=== PATIENT | female | born 1945 | race Caucasian/White ===

== ENCOUNTER 2020-05-03 10:45 | Outpatient (CLI) | payer MEDICARE, OTHER, SELFPAY ==
--- NOTE | ~2020-05-03 | XR_ITS ---
XR ankle LT min 3V DATE: 05/03/2020 11:12 INDICATION: Left ankle injury on 04/24/2020 TECHNIQUE: 4 views COMPARISON: None FINDINGS: There is a linear oblique fracture of the lateral malleolus with one cortical width lateral displacement. Mild overlying soft tissue swelling laterally. The medial malleolus and the posterior malleolus are intact. Prominent plantar and posterior calcaneal enthesopathy. Prominent calcification along the posterior a spect of the distal Achilles tendon. IMPRESSION: Lateral malleolar fracture Reviewed, dictated and finalized at location A. IMPRESSION: Lateral malleolar fracture
== END 2020-05-03 10:46 | disposition home or self-care (01) ==
PROVIDERS: PCP Internal Medicine; Visit Provider Internal Medicine
DX: S82.62XA Displaced fracture of lateral malleolus of left fibula, initial encounter for closed fracture (principal); X58.XXXA Exposure to other specified factors, initial encounter
CPT/HCPCS: 73610

== ENCOUNTER 2020-10-05 13:31 | Outpatient (CLI) | payer MEDICARE, OTHER, SELFPAY ==
--- NOTE | ~2020-10-05 | MM_ITS ---
EXAMINATION: MM screening ligia BI w sera HISTORY: Screening mammogram TECHNIQUE: Craniocaudal and mediolateral oblique 3-D tomosynthesis images were obtained and synthetic 2-D images were generated. CAD analysis was submitted and interpreted. COMPARISON: , 12/14/2017 bilateral digital screening mammogram BREAST PARENCHYMAL COMPOSITION: There are scattered areas of fibroglandular density. FINDINGS: There is no evidence of suspicious mass, calcification, or architectural distortion to sugg est malignancy in either breast. There has been no suspicious interval change. IMPRESSION: 1. No mammographic evidence of malignancy. 2. Recommend routine screening mammography in one year. BI-RADS Category 1: Negative Reviewed, dictated and finalized at location A. TECH
--- NOTE | ~2020-10-05 | US_ITS ---
EXAMINATION: US soft tissue head and neck DATE: 10/05/2020 13:57 INDICATION: Neck mass. Benign lipomatous neoplasm, unspecified. TECHNIQUE: Multiple grayscale and Doppler ultrasound images of the neck were obtained. COMPARISON: None FINDINGS: There is no abnormal mass or lymphadenopathy in the patient's area of concern in the right lateral neck. IMPRESSION: 1. No abnormal mass or lymphadenopathy in the patient's area of concern in the right lateral neck. Reviewed, dictated and finalized at location A. T RELATIONS COORDINATOR
== END 2020-10-05 13:32 | disposition home or self-care (01) ==
PROVIDERS: PCP Internal Medicine; Visit Provider Internal Medicine
DX: Z12.31 Encounter for screening mammogram for malignant neoplasm of breast (principal); D17.9 Benign lipomatous neoplasm, unspecified
CPT/HCPCS: 76536; 77063; 77067

== ENCOUNTER 2021-03-21 14:01 | Outpatient (CLI) | payer MEDICARE, SELFPAY ==
--- NOTE | ~2021-03-21 | CT_ITS ---
EXAMINATION: CT soft tissue neck wo con DATE: 03/21/2021 14:35 INDICATION: Neck localized swelling. TECHNIQUE: Computed tomography (CT) of the neck was performed without intravenous contrast. Automated exposure control and iterative reconstruction technique were employed. The dose-length product was 5 27.42 mGy-cm. COMPARISON: Ultrasound 10/05/2020 FINDINGS: There are likely changes of ocular lens replacement surgeries. There are no pathologically enlarged lymph nodes. There is a 7 mm nodule in the thyroid, likely not clinically significant. A lef t chest pacer is noted. There is a left mastoid effusion. There is mild cervical spondylosis. IMPRESSION: 1. No lymphadenopathy. Reviewed, dictated and finalized at location B. IMPRESSION: 1. No lymphadenopathy.
== END 2021-03-21 14:02 | disposition home or self-care (01) ==
PROVIDERS: PCP Internal Medicine; Visit Provider Internal Medicine
DX: R22.1 Localized swelling, mass and lump, neck (principal)
CPT/HCPCS: 70490

== ENCOUNTER 2021-11-30 09:59 | Outpatient (CLI) | payer MEDICARE, SELFPAY ==
[2021-11-30 16:46] LABS: Creatinine Urine 141.7 mg/dL
[2021-11-30 16:52] LABS: MALB Creatinine Ratio 21.9 mg/g (0-30); Microalbumin Urine Random 31.1 mg/L (0-16.7)
== END 2021-11-30 10:00 | disposition home or self-care (01) ==
LOC: ANHWCLAB 10:02
PROVIDERS: PCP Internal Medicine; Visit Provider Internal Medicine Endocrinology, Diabetes & Metabolism
DX: E11.9 Type 2 diabetes mellitus without complications (principal)
CPT/HCPCS: 82043

== ENCOUNTER 2022-01-11 09:06 | Outpatient (CLI) | payer MEDICARE, SELFPAY ==
--- NOTE | ~2022-01-11 | MM_ITS ---
EXAMINATION: MM screening [facility] BI w sera HISTORY: Screening mammogram TECHNIQUE: Craniocaudal and mediolateral oblique 3-D tomosynthesis images were obtained and synthetic 2-D images were generated. CAD analysis was submitted and interpreted. COMPARISON: 10/05/2020, 02/11/2019 BREAST PARENCHYMAL COMPOSITION: There are scattered areas of fibroglandular density. FINDINGS: There is no evidence of suspicious mass, calcification, or architectural distortion to sugg est malignancy in either breast. There has been no suspicious interval change. IMPRESSION: 1. No mammographic evidence of malignancy. 2. Recommend routine screening mammography in one year. BI-RADS Category 1: Negative Reviewed, dictated and finalized at location A. DELIVERY DRIVER
== END 2022-01-11 09:07 | disposition home or self-care (01) ==
LOC: ANHIMG 09:09
PROVIDERS: PCP Internal Medicine; Visit Provider Internal Medicine
DX: Z12.31 Encounter for screening mammogram for malignant neoplasm of breast (principal)
CPT/HCPCS: 77063; 77067

== ENCOUNTER 2022-04-25 13:11 | Outpatient (CLI) | payer MEDICARE, SELFPAY ==
--- NOTE | ~2022-04-25 | DEXA_ITS ---
Bone Density Report Name: MARK WILSON Age: 76 Sex: Female Ethnicity: White Date of : 1945 Indication: postmenopausal; screening for osteoporosis; height loss; prior fracture; hysterectomy; rheumatoid arthritis; Referring Provider: RICK LUNA Study: Bone densitometry was performed. Exam Date: April 25, 2022 Accession number: [id number] Bone Density: Region BMD T-score Z-score Classification AP Spine(L1-L4) 1.401 3.2 5.8 Normal Femoral Neck (Left) 0.698 -1.4 0.9 Osteopenia Total Hip (Left) 0.980 0.3 2.3 Normal Femoral Neck (Right) 0.530 -2.9 -0.6 Osteoporosis Total Hip (Right) 0.934 -0.1 1.9 Normal Total Hip Mean 0.957 0.1 2.1 Normal World Health Organization criteria for BMD impression classify patients as: Normal (T-score at or above -1.0), Osteopenia (T-score between -1.0 and -2.5), or Osteoporosis (T-score at or below -2.5). 10-year Fracture Risk: FRAX not reported because: Some T-score for Spine Total or Hip Total or Femoral Neck at or below -2.5 Clinical Information Provided by Patient: Has had a low trauma fracture Has rheumatoid arthritis Has used the following medications: Vitamin D, Calcium Has the following medical conditions: Hysterectomy, colon removed pre cancer Patient maximum height was 64 Menopause Age: 45 No regular weight bearing exercise Drinks caffeinated beverages Onset of menses at age 10 Number of children 2 Impression: The patient has established osteoporosis, based on the Right Femoral Neck T-score and the existence of a prior fracture. The patient has risk factors, including: previous fracture. Discussion: HIGH RISK OF FRACTURE. BONE DENSITY IS UNDESIRABLY LOW AT ONE OR MORE SKELETAL SITES, CONSISTENT WITH POSTMENOPAUSAL OSTEOPOROSIS. This patient's lowest T-score, in a patient who has previously fractured, meets the World Health Organization's (WHO) criteria for severe osteoporosis. In untreated patients, the risk of osteoporotic fracture increases approximately two-fold for each 1.0 SD decrease in T-score. Low bone density is not the only risk factor for fracture; also consider factors such as patient's age, frailty or poor health, risk of falling, risk of injury, previous osteoporotic fracture, family history of osteoporosis, cigarette smoking, low body weight, etc. Not everyone with low bone mineral density has osteoporosis; osteomalacia and other metabolic bone disorders should also be considered. Patients who have osteoporosis should be evaluated for specific diseases and conditions (secondary causes) that may cause or contribute to bone loss. The [place] [employer]ocrinologists (AACE) and National Osteoporosis Foundation (NOF) recommend pharmacologic intervention for all postmenopausal women whose T-score is in this ran
== END 2022-04-25 13:12 | disposition home or self-care (01) ==
PROVIDERS: PCP Internal Medicine; Referring Provider Internal Medicine; Visit Provider Internal Medicine Endocrinology, Diabetes & Metabolism
DX: Z78.0 Asymptomatic menopausal state (principal); M81.0 Age-related osteoporosis without current pathological fracture; M85.852 Other specified disorders of bone density and structure, left thigh
CPT/HCPCS: 77080

== ENCOUNTER 2022-10-09 11:15 | Emergency (ER) | payer MEDICARE, SELFPAY ==
--- NOTE | ~2022-10-09 | XR_ITS ---
EXAMINATION: XR chest 2V 10/09/2022 12:10 INDICATION: Cough with shortness of breath. PROCEDURE: 2 view chest COMPARISON: 06/03/2017 FINDINGS: The lungs are clear. The cardiomediastinal silhouette is within normal limits. There are no pleural effusions. There is no pneumothorax suspected. Pacemaker leads are stable. IMPRESSION: 1: NO ACUTE CARDIOPULMONARY DISEASE. Reviewed, dictated and finalized at location A. H WEAVER
[2022-10-09 12:00] VITALS: BP 126/78; PULSE 98; RESP 20; TEMP 36.3; O2SAT 100
[2022-10-09 12:02] VITALS: BP 126/78; PULSE 98; RESP 20; TEMP 36.3; O2SAT 100
--- NOTE | 2022-10-09 12:39 | ED.URI ---
HPI - URI/Sore Throat General Chief Complaint: Upper Respiratory Infection Stated Complaint: cough,congestion Time Seen by Provider: 10/09/22 12:10 Source: patient Mode of arrival: ambulatory Limitations: no limitations History of Present Illness HPI Narrative: Ms. Cr is a 77-year-old female patient presenting to clinic today with complaints of cough and congestion x 2 weeks. She reports that she was exposed to influenza a on the to September was given a prescription for Tamiflu and ever since then she has had a cough and congestion. She reports that the congestion was so thick this morning she thought she was going to choke to on her sputum. She denies any fever, chills, or shortness of breath at this time MD elicited complaint: sore throat and nasal congestion Related Data Home Medications Medication Instructions Recorded Confirmed apixaban 5 mg tablet (Eliquis) 5 mg PO BID 09/03/19 10/09/22 multivitamin 1 tablet PO DAILY 09/03/19 10/09/22 sotalol 80 mg tablet 80 mg PO BID 09/03/19 10/09/22 sodium hyaluronate (viscosup) 10 50 mg intra-articular WEEKLY 03/30/22 10/09/22 mg/mL intra-articular syringe (Supartz FX) Allergies Allergy/AdvReac Type Severity Reaction Status Date / Time amlodipine Allergy Unknown Unknown Verified 10/09/22 12:13 aspirin Allergy Unknown Unknown Verified 10/09/22 12:13 atorvastatin Allergy Unknown Unknown Verified 10/09/22 12:13 captopril Allergy Unknown Unknown Verified 10/09/22 12:13 clindamycin Allergy Unknown Unknown Verified 10/09/22 12:13 colesevelam Allergy Unknown Unknown Verified 10/09/22 12:13 doxycycline Allergy Unknown Unknown Verified 10/09/22 12:13 ezetimibe Allergy Unknown unknown Verified 10/09/22 12:13 fluvastatin Allergy Unknown Unknown Verified 10/09/22 12:13 irbesartan Allergy Unknown Unknown Verified 10/09/22 12:13 lincomycin Allergy Unknown Unknown Verified 10/09/22 12:13 lisinopril Allergy Unknown Unknown Verified 10/09/22 12:13 metformin Allergy Unknown Unknown Verified 10/09/22 12:13 naproxen Allergy Unknown Unknown Verified 10/09/22 12:13 niacin Allergy Unknown Unknown Verified 10/09/22 12:13 olmesartan Allergy Unknown Unknown Verified 10/09/22 12:13 paroxetine Allergy Unknown Unknown Verified 10/09/22 12:13 pravastatin Allergy Unknown Unknown Verified 10/09/22 12:13 rivaroxaban Allergy Unknown Unknown Verified 10/09/22 12:13 rosuvastatin Allergy Unknown Unknown Verified 10/09/22 12:13 sertraline Allergy Unknown Unknown Verified 10/09/22 12:13 sitagliptin Allergy Unknown Unknown Verified 10/09/22 12:13 iophendylate AdvReac Intermediate stomach/intestinal Verified 10/09/22 12:13 cramping bupropion AdvReac Mild not Verified 10/09/22 12:13 working Review of Systems Review of Systems: Pertinent positives per HPI. Patient denies any fever, chills, rash, headache, visual changes, dizziness, shortness of breath, chest pain, palpitations, nausea, vomiting, diarrhea, constipation, abdominal pain, or any urinary issues. PMFSH Past Medical History Medical History Allergies Aortic valve stenosis Atrial flutter Dyslipidemia H/O: HTN (hypertension) Heart disease Left knee DJD JERRELL (obstructive sleep apnea) Pacemaker dual chamber Paroxysmal atrial flutter Right knee DJD Type 2 diabetes mellitus without complication, without long-term current use of insulin Surgical History Surgical History History of eye surgery History of hand surgery right hand for synovial fluid mass History of heart surgery to place pacemaker History of surgery on lower extremity right leg fracture Status post right colon removal 12-15in of colon removed Family History Family History Sibling Diabetes mellitus Family history of obesity Hypertension Family history of cardiovascular di
== END 2022-10-09 12:45 | disposition home or self-care (01) ==
PROVIDERS: Emergency Provider Nurse Practitioner Family; PCP Internal Medicine
DX: J06.9 Acute upper respiratory infection, unspecified (principal); I10 Essential (primary) hypertension; E11.9 Type 2 diabetes mellitus without complications; Z79.01 Long term (current) use of anticoagulants
CPT/HCPCS: 71046; 99213; G0463

== ENCOUNTER 2022-12-01 13:40 | Emergency (ER) | payer MEDICARE, SELFPAY ==
--- NOTE | 2022-12-01 13:45 | ED.FEMALEGU ---
HPI - Female Genitourinary General Chief complaint: Urogenital-Female Stated complaint: Possible UTI Source: patient, RN notes reviewed and old records reviewed Mode of arrival: ambulatory Limitations: no limitations History of Present Illness HPI Narrative: 77 yo female presents to the [facility] care with complaints of I think I Have a UTI. her symptoms started 2 nights ago. Reports seeing red tinged in her urine patient denies any abdominal pain or fevers. Denies any chest pain or shortness of MD elicited complaint: UTI Related Data Home Medications Medication Instructions Recorded Confirmed apixaban 5 mg tablet (Eliquis) 5 mg PO BID 09/03/19 12/01/22 multivitamin 1 tablet PO DAILY 09/03/19 12/01/22 sotalol 80 mg tablet 80 mg PO BID 09/03/19 12/01/22 Allergies Allergy/AdvReac Type Severity Reaction Status Date / Time amlodipine Allergy Unknown Unknown Verified 12/01/22 14:02 aspirin Allergy Unknown Unknown Verified 12/01/22 14:02 atorvastatin Allergy Unknown Unknown Verified 12/01/22 14:02 captopril Allergy Unknown Unknown Verified 12/01/22 14:02 clindamycin Allergy Unknown Unknown Verified 12/01/22 14:02 colesevelam Allergy Unknown Unknown Verified 12/01/22 14:02 doxycycline Allergy Unknown Unknown Verified 12/01/22 14:02 ezetimibe Allergy Unknown unknown Verified 12/01/22 14:02 fluvastatin Allergy Unknown Unknown Verified 12/01/22 14:02 irbesartan Allergy Unknown Unknown Verified 12/01/22 14:02 lincomycin Allergy Unknown Unknown Verified 12/01/22 14:02 lisinopril Allergy Unknown Unknown Verified 12/01/22 14:02 metformin Allergy Unknown Unknown Verified 12/01/22 14:02 naproxen Allergy Unknown Unknown Verified 12/01/22 14:02 niacin Allergy Unknown Unknown Verified 12/01/22 14:02 olmesartan Allergy Unknown Unknown Verified 12/01/22 14:02 paroxetine Allergy Unknown Unknown Verified 12/01/22 14:02 pravastatin Allergy Unknown Unknown Verified 12/01/22 14:02 rivaroxaban Allergy Unknown Unknown Verified 12/01/22 14:02 rosuvastatin Allergy Unknown Unknown Verified 12/01/22 14:02 sertraline Allergy Unknown Unknown Verified 12/01/22 14:02 sitagliptin Allergy Unknown Unknown Verified 12/01/22 14:02 iophendylate AdvReac Intermediate stomach/intestinal Verified 12/01/22 14:02 cramping bupropion AdvReac Mild not Verified 12/01/22 14:02 working Review of Systems Review of Systems: All systems reviewed & are unremarkable except as noted in HPI and below Constitutional: Constitutional: Reports no additional constitutional complaints Eyes: Eyes: Reports no additional eye complaints ENT: Reports system reviewed and no additional complaints, except as documented Cardiovascular: Cardiovascular: Reports no additional cardiovascular complaints, Denies chest pain and Denies dyspnea Respiratory: Respiratory: Reports no additional respiratory complaints, Denies chest congestion, Denies cough and Denies dyspnea Gastrointestinal: Gastrointestinal: Reports no additional gastrointestinal complaints, Denies abdominal pain, Denies nausea and Denies vomiting Genitourinary: Genitourinary: Reports as per HPI and Reports dysuria Musculoskeletal: Musculoskeletal: Reports no additional musculoskeletal complaints Integumentary/Breasts: Skin/Breast: Reports system reviewed and no additional complaints, except as docu Neurologic: Reports system reviewed and no additional complaints, except as documented Psychiatric: Psychiatric: Reports no additional psychiatric complaints Allergic/Immunologic: Allergic/Immunologic: Reports no additional allergic/immunologic complaints [facility] Past Medical History Medical History Allergies Aortic valve stenosis Atrial flutter Dyslipidemia H/O: HTN (hypertension) Heart disease Left knee DJD JERRELL (obstructive sleep apnea) Pacemaker dual chamber Paroxysmal atrial flutter Right knee DJD Type 2 diabetes mellitus without complication, without lo
[2022-12-01 14:07] VITALS: BP 145/78; PULSE 90; RESP 20; TEMP 36.8; O2SAT 99
== END 2022-12-01 14:13 | disposition home or self-care (01) ==
PROVIDERS: Emergency Provider Nurse Practitioner; PCP Nurse Practitioner
DX: N39.0 Urinary tract infection, site not specified (principal); I10 Essential (primary) hypertension; E78.5 Hyperlipidemia, unspecified; E11.9 Type 2 diabetes mellitus without complications; Z79.01 Long term (current) use of anticoagulants
CPT/HCPCS: 81003; 87077; 87086; 87186; 99213; G0463

== ENCOUNTER 2023-01-08 14:03 | Emergency (ER) | payer MEDICARE, SELFPAY ==
--- NOTE | 2023-01-08 14:08 | ED.FEMALEGU ---
HPI - Female Genitourinary General Chief complaint: Urogenital-Female Stated complaint: uti complaint/knot in back of head Time Seen by Provider: 01/08/23 14:05 Source: patient Mode of arrival: ambulatory Limitations: no limitations History of Present Illness HPI Narrative: Edson is a 77-year-old female patient presenting to the clinic today with complaints of possible urinary tract infection and a knot to the back of her head that she 1st noticed last night. 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 She reports some burning and discomfort in the vaginal area. Denies any vaginal discharge. States her PCP had placed her on some estradiol cream, nystatin cream, and hydrocortisone cream to put the perineal area. States she has not put any of that on today or last night because she plan on coming today to be evaluated. Also notes a knot to the back of her head that just developed over the last day. States it is tender to palpation. She denies any burning with urination, frequency, or urgency. She denies any fever or chills. States she is having some lower abdominal discomfort/vaginal discomfort Related Data Home Medications Medication Instructions Recorded Confirmed apixaban 5 mg tablet (Eliquis) 5 mg PO BID 09/03/19 01/08/23 multivitamin 1 tablet PO DAILY 09/03/19 01/08/23 sotalol 80 mg tablet 80 mg PO BID 09/03/19 01/08/23 vitamins A,C,U-bncl-fauumx 4,296 1 cap PO BID 12/26/22 01/08/23 mcg-226 mg-90 mg capsule (ICaps AREDS) hydrocortisone 2.5 % topical cream 1 applic topical BID PRN Itching 12/28/22 01/08/23 triamcinolone acetonide 0.1 % 1 applic dental BID 12/28/22 01/08/23 dental paste turmeric root extract 1,053 mg 1,310 mg PO DAILY 12/28/22 01/08/23 tablet Allergies Allergy/AdvReac Type Severity Reaction Status Date / Time amlodipine Allergy Unknown Unknown Verified 01/08/23 14:22 aspirin Allergy Unknown Unknown Verified 01/08/23 14:22 atorvastatin Allergy Unknown Unknown Verified 01/08/23 14:22 captopril Allergy Unknown Unknown Verified 01/08/23 14:22 clindamycin Allergy Unknown Unknown Verified 01/08/23 14:22 colesevelam Allergy Unknown Unknown Verified 01/08/23 14:22 doxycycline Allergy Unknown Unknown Verified 01/08/23 14:22 ezetimibe Allergy Unknown unknown Verified 01/08/23 14:22 fluvastatin Allergy Unknown Unknown Verified 01/08/23 14:22 irbesartan Allergy Unknown Unknown Verified 01/08/23 14:22 lincomycin Allergy Unknown Unknown Verified 01/08/23 14:22 lisinopril Allergy Unknown Unknown Verified 01/08/23 14:22 metformin Allergy Unknown Unknown Verified 01/08/23 14:22 naproxen Allergy Unknown Unknown Verified 01/08/23 14:22 niacin Allergy Unknown Unknown Verified 01/08/23 14:22 olmesartan Allergy Unknown Unknown Verified 01/08/23 14:22 paroxetine Allergy Unknown Unknown Verified 01/08/23 14:22 pravastatin Allergy Unknown Unknown Verified 01/08/23 14:22 rivaroxaban Allergy Unknown Unknown Verified 01/08/23 14:22 rosuvastatin Allergy Unknown Unknown Verified 01/08/23 14:22 sertraline Allergy Unknown Unknown Verified 01/08/23 14:22 sitagliptin Allergy Unknown Unknown Verified 01/08/23 14:22 iophendylate AdvReac Intermediate stomach/intestinal Verified 01/08/23 14:22 cramping bupropion AdvReac Mild not Verified 01/08/23 14:22 working Review of Systems Review of Systems: Pertinent positives per HPI. Patient denies any fever, chills, rash, headache, visual changes, dizziness, cough, runny nose, sore throat, shortness of breath, chest pain, palpitations, nausea, vomiting, diarrhea, constipation, PMFSH Past Medical History Medical History YAHAIRA (acute kidney injury) Allergies Anxiety Aortic stenosis Aortic valve stenosis Atrial flutter Dyslipidemia H/O: HTN (hypertension) Heart disease Left knee DJD Lipoma Macular
[2023-01-08 14:15] VITALS: BP 142/87; PULSE 87; RESP 18; TEMP 36.1; O2SAT 99
== END 2023-01-08 15:00 | disposition home or self-care (01) ==
PROVIDERS: Emergency Provider Nurse Practitioner Family; PCP Internal Medicine
DX: B37.31 Acute candidiasis of vulva and vagina (principal); R10.2 Pelvic and perineal pain; R60.0 Localized edema; R22.0 Localized swelling, mass and lump, head; I11.9 Hypertensive heart disease without heart failure; E11.9 Type 2 diabetes mellitus without complications; E78.5 Hyperlipidemia, unspecified; Z79.01 Long term (current) use of anticoagulants
CPT/HCPCS: 81003; 87070; 99213; G0463

== ENCOUNTER 2023-01-26 10:19 | Outpatient (CLI) | payer MEDICARE, SELFPAY ==
[2023-01-26 11:12] LABS: Anion Gap 5 mmol/L (8-16); Blood Urea Nitrogen 22 mg/dL (7-17); Calcium 9.1 mg/dL (8.4-10.2); Carbon Dioxide 31 mmol/L (22-30); Chloride 101 mmol/L (98-107); Estimated Glomerular Filt Rate > 60; Glucose 187 mg/dL (65-110); Potassium 4.6 mmol/L (3.4-5.0); Sodium 137 mmol/L (137-145)
== END 2023-01-26 10:20 | disposition home or self-care (01) ==
LOC: ANHSURGERY 10:24
PROVIDERS: Anesthesiology; PCP Internal Medicine; Visit Provider Surgery
DX: E11.9 Type 2 diabetes mellitus without complications (principal); Z01.818 Encounter for other preprocedural examination
CPT/HCPCS: 36415; 80048

== ENCOUNTER 2023-01-31 01:04 | Day surgery (SDC) | payer MEDICARE, SELFPAY ==
--- NOTE | 2023-01-23 15:44 | PC.NURSE ---
PRE-OP INSTRUCTIONS, PLEASE READ CAREFULLY Report to the Outpatient Waiting Room, entrance under the green pavilion located off [facility], at time _0730_ on date _01/31/23_. Planned Procedure Time: _0930__. Time changes happen often and if your time is changed the preop area will call you the afternoon before. - You and your visitor will be asked to self-screen and do not enter if you have any COVID symptoms. - Only one visitor is requested with a max of two and NO children visitors are allowed at this time. - The patient visitor may be requested to leave or wait in car when not with patient due to distancing restrictions. - A mask is optional within the hospital at this time. Patients may have clear liquids (water, carbonated beverages, clear teas, apple juice) until 3 hours prior to surgery (0630 AM) with a maximum of 20 ounces. - No food from midnight until time of surgery Take the following medications with a SIP of water the morning of surgery: _ALISKIREN, SOTALOL_ DO NOT STOP ANY OF YOUR OTHER PRESCRIPTION MEDICATIONS PRIOR TO SURGERY ?EXCEPT THE FOLLOWING Medications to discontinue per DR. SANDOVAL- _ELIQUIS 2 DAYS PRIOR TO SURGERY, Date to take last dose 01/28/23_ Medications to discontinue per ANESTHESIA - _ALL VITAMINS AND SUPPLEMENTS 3 DAYS PRIOR TO SURGERY, Date to take last dose 01/27/23_ Please no make-up, nail australian, hairspray, perfume, deodorant, or body powder the day of surgery. No jewelry (including any body piercings) or valuables the day of surgery, leave them at home. Please take a shower or bath the night before, or the morning of, surgery with an antibacterial soap. Wear comfortable, loose fitting clothing. Children are encouraged to wear pajamas. - Jewelry must be removed prior to entering the operating room. Rings and piercings that are not removed may be cut off. - The hospital will not accept responsibility for valuables. - Please leave all valuables, including medications, at home the day of surgery. If you are going home after surgery, a licensed straddle bug driver must drive you home. - NO public transportation without another adult if you receive anesthesia. - We recommend that an adult stay with you for 24 hours following discharge. - We also recommend that you do not drive, make important decision, drink alcoholic beverages, or take any drugs that were not prescribed by your health care provider for at least 24 hours after your discharge time. Follow any additional instructions given to you from your surgeon. If you or anyone in your household have experienced Covid symptoms in the past week, please notify your surgeon or the nurse liaison at the phone number below for possible testing. Telephone instructions given to _PATIENT_and asked if any additional questions and then verbalized understanding. Patient advised to call surgeon office or pre surgery nurse liaison [phone] if any additional questions.
[2023-01-23 15:46] VITALS: BMI 32.1
[2023-01-31 07:56] VITALS: BP 137/53; PULSE 70; RESP 18; TEMP 36.3; O2SAT 100
[2023-01-31] MEDS: LACTATED RINGERS 1,000 ML 30 ML IV CONT (08:05)
[2023-01-31 08:19] LABS: Glucose Point of Care 183 mg/dl (65-105)
--- NOTE | 2023-01-31 08:40 | WPDANESEPPF ---
Anes - Initial Pre Proc Eval Procedure: Operation Date: 01/31/23 09:30 Proposed Procedures p Excision Left Occipital Scalp Cyst - Saw Springer MD Date/Time: 01/31/23 08:40 Surgeon: Saw Springer MD Pre Op Diagnosis: 1cm by 6mm Left Scalp Cyst Patient Data Age: 77 Gender: F Height: 1.63 m Weight: 86 kg Last Vital Signs Temp 36.3 C L 01/31/23 07:56 Pulse 70 01/31/23 07:56 Resp 18 01/31/23 07:56 BP 137/53 L 01/31/23 07:56 Pulse Ox 100 01/31/23 07:56 O2 Del Method Room Air 01/31/23 07:56 Allergies Allergy/AdvReac Type Severity Reaction Status Date / Time aspirin Allergy Unknown ITHING & Verified 01/31/23 07:50 HIVES atorvastatin Allergy Unknown LIVER Verified 01/31/23 07:50 ISSUES captopril Allergy Unknown COUGHING Verified 01/31/23 07:50 clindamycin Allergy Unknown Unknown Verified 01/31/23 07:50 STOPPED TAKING IN 1979 colesevelam Allergy Unknown HIVES Verified 01/31/23 07:50 NECK/CHEST doxycycline Allergy Unknown Unknown - Verified 01/31/23 07:50 UNABLE TO RECALL ezetimibe Allergy Unknown unknown-UNABLE Verified 01/31/23 07:50 TO RECALL fluvastatin Allergy Unknown LIVER Verified 01/31/23 07:50 ISSUES irbesartan Allergy Unknown MUSCLE Verified 01/31/23 07:50 WEAKNESS lincomycin Allergy Unknown UNKNOWN Verified 01/31/23 07:50 STOPPED 1979 lisinopril Allergy Unknown COUGHING Verified 01/31/23 07:50 metformin Allergy Unknown HEAD ACH Verified 01/31/23 07:50 naproxen Allergy Unknown Hives Verified 01/31/23 07:50 niacin Allergy Unknown PANIC Verified 01/31/23 07:50 ATTACTS olmesartan Allergy Unknown MUSCLE Verified 01/31/23 07:50 WEAKNESS paroxetine Allergy Unknown Drowsy Verified 01/31/23 07:50 pravastatin Allergy Unknown LIVER Verified 01/31/23 07:50 ISSUES rivaroxaban Allergy Unknown BLEEDING Verified 01/31/23 07:50 rosuvastatin Allergy Unknown LIVER Verified 01/31/23 07:50 ISSUES sertraline Allergy Unknown Unknown-UNABLE Verified 01/31/23 07:50 TO RECAL sitagliptin Allergy Unknown Itching Verified 01/31/23 07:50 iophendylate AdvReac Intermediate stomach/intestinal Verified 01/31/23 07:50 cramping bupropion AdvReac Mild not Verified 01/31/23 07:50 working amlodipine AdvReac Unknown COUGHING Verified 01/31/23 07:50 Home Medications Medication Instructions Recorded Confirmed Type apixaban 5 mg tablet (Eliquis) 5 mg PO BID 09/03/19 01/31/23 History multivitamin 1 tablet PO DAILY 09/03/19 01/31/23 History sotalol 80 mg tablet 80 mg PO BID 09/03/19 01/31/23 History lactobacillus combination no.4 3 3,000 mmu cells PO DAILY #1 cap 09/07/21 01/31/23 Rx billion cell capsule (Probiotic) aliskiren 300 mg tablet (Tekturna) 300 mg PO DAILY #90 tabs 09/06/22 01/31/23 Rx vitamins A,C,Q-sstx-lrpqed 4,296 1 cap PO BID 12/26/22 01/31/23 History mcg-226 mg-90 mg capsule (ICaps AREDS) turmeric root extract 1,053 mg 1,310 mg PO DAILY 12/28/22 01/31/23 History tablet pioglitazone 15 mg tablet (Actos) 7.5 mg PO BID #90 tabs 01/09/23 01/31/23 Rx Laboratory Tests 01/31/23 08:09 POC Capillary Glucose 183 mg/dl H mg/dl (65-105) Patient hx anesthesia problems: none Family hx anesthesia problems: none Results Review: All pre-operative results and documents have been reviewed as part of the pre-operative evaluation. [facility] Past Medical History Medical History YAHAIRA (acute kidney injury) Allergies Anxiety Aortic stenosis Aortic valve stenosis Atrial flutter Dyslipidemia H/O: HTN (hypertension) Heart disease Left knee DJD Lipoma Macular degeneration Neck mass Obesity (BMI 30-39.9) JERRELL (obstructive sleep apnea) Osteoporosis Pacemaker dual chamber Paroxysmal atrial flutter Post-menopausal Primary osteoarthritis of both knees Pure hypercholesterolemia Right knee DJD Type 2 diabetes mellitus without com
--- NOTE | 2023-01-31 09:02 | PM.PNGS ---
Progress Note: A&P Assessment and Plan (1) Scalp cyst: Code(s): L72.9 - Follicular cyst of the skin and subcutaneous tissue, unspecified Status: Resolved Assessment and Plan: Despite careful palpation and with the patient's assistance, no longer able to feel the scalp lesion noted in the office. Proceeding with removal not advisable as it would be guesswork. Could potentially remove an area we thought the cyst was located yet have it come back again. Patient instructed to call may office if it swells or re-occurs. Will cancel surgery. Subjective Subjective Date/Time Seen: 01/31/23 09:02 Interval history: cyst no longer palpable by patient Exam HENMT: Head: scalp lesion (occipital scalp nodule no longer palpable) Objective Data Vital Signs Vital Signs: Vital Signs - 24 hr 01/31/23 07:56 Temperature 36.3 C L Pulse Rate 70 Respiratory Rate 18 Blood Pressure 137/53 L Pulse Oximetry 100 Oxygen Delivery Room Air Meds/Results Medications: Active Medications Generic Name Dose Route Start Last Admin Trade Name Freq PRN Reason Stop Dose Admin Fentanyl Citrate 25 mcg 01/31/23 08:36 Fentanyl Citrate Inj (*Crx) 100 Mcg/2 Ml Vial IV PUSH Q2M PRN Pain Lactated Ringer's 1,000 mls @ 30 mls/hr 01/31/23 07:05 01/31/23 08:05 Lr - Lactated Ringers Iv IV CONT 30 mls/hr .Q24H SAMI Administration Lactated Ringer's 1,000 mls @ 30 mls/hr 01/31/23 08:40 Lr - Lactated Ringers Iv IV CONT .Q24H SAMI Ondansetron HCl 4 mg 01/31/23 08:36 Ondansetron Inj 4 Mg/2 Ml Vial IV PUSH ONCE PRN Nausea Oxycodone HCl 2.5 mg 01/31/23 08:36 Oxycodone Hcl (*Crx) 2.5 Mg Tab Ir PO ONCE PRN Pain Labs Labs: Laboratory Results - last 24 hr 01/31/23 08:09 POC Capillary Glucose 183 H
== END 2023-01-31 09:33 | disposition home or self-care (01) ==
PROVIDERS: PCP Internal Medicine; Visit Provider Surgery
DX: L72.9 Follicular cyst of the skin and subcutaneous tissue, unspecified (principal); Z53.8 Procedure and treatment not carried out for other reasons; E11.9 Type 2 diabetes mellitus without complications
CPT/HCPCS: 82948; 99213; G0463; J3010; J7120

== ENCOUNTER 2023-02-20 09:46 | Emergency (ER) | payer MEDICARE, SELFPAY ==
[2023-02-20 09:58] VITALS: BP 147/79; PULSE 100; RESP 16; TEMP 36.4; O2SAT 100
--- NOTE | 2023-02-20 10:05 | ED.FEMALEGU ---
HPI - Female Genitourinary General Chief complaint: Urogenital-Female Stated complaint: uti symptoms Time Seen by Provider: 02/20/23 10:05 Source: patient Mode of arrival: ambulatory Limitations: no limitations History of Present Illness HPI Narrative: 77 year old female presents with complaint of blood in urine, frequency for 2-3 days. Reports blood in urine increased today. States she has had 4 UTIs since November. Has an appointment with the urologist and 1 month. Afebrile. Denies nausea vomiting. Patient well-appearing and talkative. Ambulatory with steady gait. No other complaints today. All systems reviewed and negative except as noted above. Related Data Home Medications Medication Instructions Recorded Confirmed apixaban 5 mg tablet (Eliquis) 5 mg PO BID 09/03/19 02/20/23 multivitamin 1 tablet PO DAILY 09/03/19 02/20/23 sotalol 80 mg tablet 80 mg PO BID 09/03/19 02/20/23 vitamins A,C,D-dnvl-jpqgzr 4,296 1 cap PO BID 12/26/22 02/20/23 mcg-226 mg-90 mg capsule (ICaps AREDS) turmeric root extract 1,053 mg 1,310 mg PO DAILY 12/28/22 02/20/23 tablet apixaban 5 mg tablet (Eliquis) 5 mg DIRECTED 02/20/23 02/20/23 Allergies Allergy/AdvReac Type Severity Reaction Status Date / Time aspirin Allergy Unknown ITHING & Verified 01/31/23 07:50 HIVES atorvastatin Allergy Unknown LIVER Verified 01/31/23 07:50 ISSUES clindamycin Allergy Unknown Unknown Verified 01/31/23 07:50 STOPPED TAKING IN 1979 colesevelam Allergy Unknown HIVES Verified 01/31/23 07:50 NECK/CHEST doxycycline Allergy Unknown Unknown - Verified 01/31/23 07:50 UNABLE TO RECALL ezetimibe Allergy Unknown unknown-UNABLE Verified 01/31/23 07:50 TO RECALL fluvastatin Allergy Unknown LIVER Verified 01/31/23 07:50 ISSUES lincomycin Allergy Unknown UNKNOWN Verified 01/31/23 07:50 STOPPED 1979 naproxen Allergy Unknown Hives Verified 01/31/23 07:50 pravastatin Allergy Unknown LIVER Verified 01/31/23 07:50 ISSUES rivaroxaban Allergy Unknown BLEEDING Verified 01/31/23 07:50 rosuvastatin Allergy Unknown LIVER Verified 01/31/23 07:50 ISSUES sertraline Allergy Unknown Unknown-UNABLE Verified 01/31/23 07:50 TO RECAL sitagliptin Allergy Unknown Itching Verified 01/31/23 07:50 iophendylate AdvReac Intermediate stomach/intestinal Verified 01/31/23 07:50 cramping bupropion AdvReac Mild not Verified 01/31/23 07:50 working amlodipine AdvReac Unknown COUGHING Verified 01/31/23 07:50 captopril AdvReac Unknown COUGHING Verified 01/31/23 08:47 irbesartan AdvReac Unknown MUSCLE Verified 01/31/23 08:47 WEAKNESS lisinopril AdvReac Unknown COUGHING Verified 01/31/23 08:47 metformin AdvReac Unknown HEAD ACH Verified 01/31/23 08:47 niacin AdvReac Unknown PANIC Verified 01/31/23 08:47 ATTACTS olmesartan AdvReac Unknown MUSCLE Verified 01/31/23 08:47 WEAKNESS paroxetine AdvReac Unknown Drowsy Verified 01/31/23 08:47 Review of Systems Review of Systems: CONSTITUTIONAL: Denies fever, chills, or sweats. EYES: Denies visual changes, redness, or discharge. ENT: Denies rhinorrhea, congestion, sore throat, or otalgia. CARDIOVASCULAR: Denies chest pain, palpitations, or edema. RESPIRATORY: Denies cough or dyspnea. GASTROINTESTINAL: Denies abdominal pain, nausea, vomiting, or diarrhea. GENITOURINARY: Denies dysuria . Reports frequency, hematuria. SKIN: Denies rash or itching. MUSCULOSKELETAL: Denies back pain, joint pain, or myalgia. NEUROLOGIC: Denies headache, numbness, or weakness. PSYCHIATRIC: Denies anxiety or depression. All other systems reviewed are negative, except as documented in HPI. FORMERLY [facility], 1928–1983 Past Medical History Medical History YAHAIRA (acute kidney injury) Allergies Anxiety Aortic stenosis Aortic valve stenosis Atrial flutter Dyslipidemia H/O: HTN (hypertension) Heart disease Left knee DJD Lipoma Macular d
== END 2023-02-20 10:40 | disposition home or self-care (01) ==
PROVIDERS: Emergency Provider Nurse Practitioner Family; PCP Internal Medicine
DX: N39.0 Urinary tract infection, site not specified (principal); I35.0 Nonrheumatic aortic (valve) stenosis; E78.5 Hyperlipidemia, unspecified; I10 Essential (primary) hypertension; M17.0 Bilateral primary osteoarthritis of knee; H35.30 Unspecified macular degeneration; E66.9 Obesity, unspecified; Z68.33 Body mass index [BMI] 33.0-33.9, adult; M81.0 Age-related osteoporosis without current pathological fracture; Z95.0 Presence of cardiac pacemaker; E78.00 Pure hypercholesterolemia, unspecified; E11.9 Type 2 diabetes mellitus without complications; Z79.01 Long term (current) use of anticoagulants; I48.0 Paroxysmal atrial fibrillation
CPT/HCPCS: 81003; 87086; 99213; G0463

== ENCOUNTER 2023-03-02 08:11 | Outpatient (CLI) | payer MEDICARE, SELFPAY ==
--- NOTE | ~2023-03-02 | MM_ITS ---
EXAMINATION: MM screening [facility] BI w sera HISTORY: Screening mammogram TECHNIQUE: Craniocaudal and mediolateral oblique 3-D tomosynthesis images were obtained and synthetic 2-D images were generated. CAD analysis was submitted and interpreted. COMPARISON: 01/11/2022, 10/05/2020, 02/11/2019 BREAST PARENCHYMAL COMPOSITION: There are scattered areas of fibroglandular density. FINDINGS: No suspicious mass, calcification, or architectural distortion are identified in either shayne ast to suggest malignancy. There has been no suspicious interval change. IMPRESSION: 1. No mammographic evidence of malignancy. 2. Recommend routine screening mammography in one year. BI-RADS Category 1: Negative Reviewed, dictated and finalized at location A.
== END 2023-03-02 08:12 | disposition home or self-care (01) ==
PROVIDERS: PCP Family Medicine; Visit Provider Internal Medicine
DX: Z12.31 Encounter for screening mammogram for malignant neoplasm of breast (principal)
CPT/HCPCS: 77063; 77067

== ENCOUNTER 2023-03-03 12:11 | Outpatient (CLI) | payer MEDICARE, SELFPAY ==
--- NOTE | ~2023-03-03 | CT_ITS ---
EXAMINATION: CT abdomen pelvis wo/w con DATE: 03/03/2023 13:29 INDICATION: Hematuria TECHNIQUE: Computed tomography (CT) of the abdomen and pelvis was performed without intravenous contr ast. CT of the abdomen and pelvis was then performed with a total of 130 mL Omnipaque 350 intravenous contrast using a double-bolus technique for simultaneous opacification of the renal parenchyma and r enal collecting system. The dose-length product (DLP) was 2296.23 mGy-cm. Automated exposure control and iterative reconstruction technique were employed. COMPARISON: None FINDINGS: Minimal dependent atelectasis is present in the lung bases. The heart size is normal. Punct ate calcifications in an otherwise normal spleen likely represent healed granulomatous disease. Stone s are present in the nondistended gallbladder. The liver and adrenal glands are unremarkable. There i s a 7 mm cystic lesion in the neck of the pancreas. Nonobstructing stones of the right kidney measure up to 5 mm. There is a 2.6 x 1.8 cm enhancing, exophytic mass of the left kidney lower pole which co ntains soft tissue, fat, and calcification. Simple cysts of the kidneys measure up to 1.4 cm on the l eft. No stones are identified in the ureters or bladder. No hydronephrosis or hydroureter. No patholo gically enlarged abdominal or pelvic lymph nodes are identified. There is calcified atherosclerosis o f the aorta and many of the other arteries. No free intraperitoneal gas or evidence of bowel obstruct ion. There are changes of right hemicolectomy. There are umbilical and periumbilical hernias containi ng fat. There is mild lumbar spondylosis. IMPRESSION: 1. Left kidney mass suspicious for renal cell carcinoma. Urologic evaluation is recommended. 2. Bilateral nonobstructing nephrolithiasis. Reviewed, dictated and finalized at location B.
[2023-03-03 13:10] LABS: Estimated Glomerular Filt Rate > 60
== END 2023-03-03 12:12 | disposition home or self-care (01) ==
PROVIDERS: PCP Family Medicine; Visit Provider Nurse Practitioner
DX: R31.9 Hematuria, unspecified (principal); N20.0 Calculus of kidney
CPT/HCPCS: 74178; Q9967

== ENCOUNTER 2023-03-18 18:20 | Observation (INO) | payer MEDICARE, SELFPAY ==
[2023-03-18] VITALS (9 sets, daily range): BP systolic 107–151; BP diastolic 60–76; PULSE 70–80; RESP 13–18; TEMP 36.4–36.5; O2SAT 97–100; BMI 31.4
--- NOTE | ~2023-03-18 | US_ITS ---
EXAMINATION: US carotid duplex BI DATE: 03/19/2023 11:55 INDICATION: Right-sided weakness TECHNIQUE: Grayscale, color Doppler, and pulsed Doppler images of the cervical carotid arteries were obtained. The degree of vessel stenosis is placed in one of the following categories: normal, <50%, 5 0-69%, >=70% but less than near-occlusion, near-occlusion, or total occlusion. Note that percent sten osis relative to normal distal artery lumen diameter is indirectly measured from velocity measurement s as described by Mohan, et al. Radiology 2003; 229:340-346. Notes: Normal: Peak systolic velocity <125 centimeters/sec and no plaque <50%. Peak systolic velocity <125 ( EDV <40; ICA/CCA PSV ratio <2.0; used these factors only a tandem lesions or low cardiac output or co ntralateral disease) 50-69 %: PSV 125-230 (EDV 40-100; ratio 2-4) >= 70% but less than near occlusion: PSV greater than 230 (EDV > 100; ratio> 4.0) Near Occlusion: PSV that is variable; markedly narrowed lumen Occlusion: Absent flow on color/spectral Doppler and no lumen on barbosa scale. COMPARISON: None. FINDINGS: RIGHT: The right common carotid artery (CCA) peak systolic velocity (PSV) is 82 cm/s. The right internal car otid artery (ICA) PSV is 56 cm/s. The right ICA end-diastolic velocity (EDV) is 13 cm/s. The right IC A/CCA PSV ratio is 0.7. The external carotid artery (ECA) PSV is 62 cm/s. There is antegrade flow in the right vertebral artery. LEFT: The left CCA PSV is 90 cm/s. The left ICA PSV is 76 cm/s. The left ICA EDV is 19 cm/s. The left ICA/C CA PSV ratio is 0.8. The ECA PSV is 74 cm/s. There is antegrade flow in the left vertebral artery. IMPRESSION: 1. Less than 50% stenosis in the right internal carotid artery by sonographic criteria. 2. Less than 50% stenosis in the left internal carotid artery by sonographic criteria. Reviewed, dictated and finalized at location B. IMPRESSION: 1. Less than 50% stenosis in the right internal carotid artery by sonographic c carlitos. 2. Less than 50% stenosis in the left internal carotid artery by sonographic cr uri.
--- NOTE | ~2023-03-18 | CT_ITS ---
EXAMINATION: CT brain wo con DATE: 03/18/2023 19:04 INDICATION: Right hemiparesis. TECHNIQUE: Computed tomography (CT) of the head was performed without intravenous contrast. The mA wa s adjusted according to patient size. Iterative reconstruction technique was employed. The dose-lengt h product was 605.33 mGy-cm. COMPARISON: None FINDINGS: There are scattered areas of low attenuation in the cerebral white matter, which is within normal limits for the patient's age. There is no intracranial hemorrhage, acute infarction, or abnorm al intracranial mass lesion. The ventricles are normal in size. There are likely changes of ocular le ns replacement surgeries. There is mild mucosal thickening in the ethmoid sinuses. There is a left ma stoid effusion. IMPRESSION: 1. Normal aging brain. Reviewed, dictated and finalized at location A. IMPRESSION: 1. Normal aging brain.
--- NOTE | ~2023-03-18 | CT_ITS ---
EXAMINATION: CTA brain carotid DATE: 03/18/2023 22:02 INDICATION: Right hemiparesis. TECHNIQUE: Computed tomographic angiography (CTA) of the head was performed with 100 mL Omnipaque-350 intravenous contrast. CTA of the neck was performed with intravenous contrast. Automated exposure co ntrol and iterative reconstruction technique were employed. The dose-length product was 1134.72 mGy-c m. Maximum intensity projection and volume rendered 3D-reconstructions were created by the technologi st on a separate workstation. COMPARISON: Head CT 03/18/2023 FINDINGS: HEAD CTA: There are scattered areas of low attenuation in the cerebral white matter, which is within normal limits for the patient's age. There is no intracranial hemorrhage, acute infarction, or abnorm al intracranial mass lesion. The ventricles are normal in size. The paranasal sinuses are clear. Ther e is a left otomastoid effusion. There are likely changes of ocular lens replacement surgeries. The v ertebral arteries are codominant. There is a severe stenosis of basilar artery or the posterior cereb ral arteries. There is no significant stenosis of intracranial internal carotid arteries or anterior or middle cerebral arteries. Anterior communicating artery is normal. There is no aneurysm. Right pos terior communicating artery is normal. A left posterior communicating artery is not identified. NECK CTA: There are nodules in the thyroid measuring up to 6 mm, likely not clinically significant. T here is no significant stenosis of the vertebral arteries. There is plaque in the proximal internal c arotid arteries. There is 37% stenosis of the proximal right internal carotid artery relative to norm al distal artery lumen diameter (NASCET criteria). There is 0% stenosis of the proximal left internal carotid artery relative to normal distal artery lumen diameter. There is mild cervical spondylosis. IMPRESSION: 1. Normal aging brain. 2. No aneurysm or significant intracranial arterial stenosis. 3. 37% stenosis of the proximal right internal carotid artery relative to normal distal artery lumen diameter (NASCET criteria). 4. 0% stenosis of the proximal left internal carotid artery relative to normal distal artery lumen di ameter. 5. Left otomastoid effusion. Reviewed, dictated and finalized at location A. IMPRESSION: 1. Normal aging brain. 2. No aneurysm or significant intracranial arterial stenosis. 3. 37% stenosis of the proximal right internal carotid artery relative to doug l distal artery lumen diameter (NASCET criteria). 4. 0% stenosis of the proximal left internal carotid artery relative to normal distal artery lumen diameter. 5. Left otomastoid effusion.
--- NOTE | 2023-03-18 18:29 | ECG_ITS ---
Measurements Intervals [place] Rate: 69 P: 147 GA: 242 QRS: -39 QRSD: 153 T: 13 QT: 416 QTc: 448 Interpretive Statements ELECTRONIC ATRIAL PACEMAKER LEFT AXIS DEVIATION RIGHT BUNDLE BRANCH BLOCK VOLTAGE CRITERIA FOR LVH MINIMAL Q WAVES- HIGH LATERAL LEADS BASELINE ARTIFACT- I, II, III, AVL ABNORMAL ECG NO PREVIOUS ECG AVAILABLE FOR COMPARISON Electronically Signed On 03-18-2023 21:25:09 CDT by Ryder Greco D.O.
[2023-03-18 18:54] LABS: Basophils Absolute Auto 0.1 K/mm3 (0.0-0.1); Basophils Percent Auto 1.2 % (0.2-1.2); Eosinophils Percent Auto 0.2 % (0-4.4); Hematocrit 37.6 % (37.0-47.0); Hemoglobin 12.5 g/dL (12.0-15.0); Immature Granulocyte Absolute 0.01 K/mm3 (0.00-0.031); Immature Granulocyte Percent A 0.2 % (0-0.5); Lymphocytes Absolute Auto 1.67 K/mm3 (0.9-3.2); Mean Corpuscular HGB Conc 33.2 g/dl (32-36); Mean Corpuscular Volume 87.2 fl (80-100); Mean Platelet Volume 8.9 fl (7.4-10.4); Monocytes Absolute Auto 0.6 K/mm3 (0.1-0.6); Monocytes Percent Auto 11.2 % (2.6-8.5); Neutrophils Absolute Auto 2.6 K/mm3 (1.3-6.7); Neutrophils Percent Auto 53.2 % (45.5-73.1); Platelet Count Result 184 k/mm3 (150-375); Red Blood Count 4.31 M/mm3 (4.2-5.4); Red Cell Distribution Width 13.6 % (11.5-14.5); White Blood Count 4.9 K/mm3 (4.5-10.0)
[2023-03-18 19:03] LABS: Alanine Aminotransferase 19 U/L (6-35); Albumin Level 4.5 g/dL (3.5-5.1); Alkaline Phosphatase 75 U/L (38-126); Anion Gap 8 mmol/L (8-16); Aspartate Amino Transferase 27 U/L (14-36); Bilirubin,Total 0.6 mg/dL (0.2-1.3); Blood Urea Nitrogen 19 mg/dL (7-17); Calcium 9.4 mg/dL (8.4-10.2); Carbon Dioxide 27 mmol/L (22-30); Chloride 104 mmol/L (98-107); Estimated CRCL calculation 59 ml/min; Estimated Glomerular Filt Rate > 60; Glucose 182 mg/dL (65-110); Potassium 3.9 mmol/L (3.4-5.0); Sodium 139 mmol/L (137-145)
[2023-03-18 19:04] LABS: INR 1.2; Prothrombin Time 15.7 Seconds (11.1-14.7)
[2023-03-18 19:05] LABS: Partial Thromboplastin Time 35.1 SECONDS (22.3-36.8)
--- NOTE | 2023-03-18 19:39 | ED.NEUROSD ---
HPI - Neuro Symptoms/Deficit General Chief Complaint: Neuro Symptoms/Deficit <TYLOR Perea Last Filed: 03/19/23 03:15> Stated Complaint: left foot is dragging/ disoriented <TYLOR Perea Last Filed: 03/19/23 03:15> Time Seen by Provider: 03/18/23 18:59 <TYLOR Perea Last Filed: 03/19/23 03:15> Source: patient and family <TYLOR Perea Last Filed: 03/19/23 03:15> Mode of arrival: ambulatory <TYLOR Perea Filed: 03/19/23 03:15> Limitations: no limitations <TYLOR Perea Filed: 03/19/23 03:15> History of Present Illness HPI Narrative: Patient is a 77 y/o female, with past medical history of A-fib on Eliquis, pacemaker, recent diagnosis of kidney mass, who presents to the ED with c/o weakness of her right arm and leg. Patient reports she took a nap around 12:30 PM and that is the last time she felt normal. When she woke up from the nap, she stood up to use the restroom and felt unsteady, dizzy, weak in her right leg. She complained that her right leg was dragging. She later noticed some weakness in the right upper extremity. She states she went to write something in the notebook and felt uncoordinated writing with her right hand as well. She does also report having some increased blurry vision in her right eye over the last few days. Denies any worsening today. Denies pain, headache, nausea, vomiting, CP, SOB, abdominal pain, numbness/tingling. <TYLOR Perea Last Filed: 03/19/23 03:15> Related Data Home Medications: Home Medications Medication Instructions Recorded Confirmed apixaban 5 mg tablet (Eliquis) 5 mg PO BID 09/03/19 03/19/23 multivitamin 1 tablet PO DAILY 09/03/19 03/19/23 sotalol 80 mg tablet 80 mg PO BID 09/03/19 03/19/23 vitamins A,C,L-fqld-jgrsrh 4,296 1 cap PO BID 12/26/22 03/19/23 mcg-226 mg-90 mg capsule (ICaps AREDS) turmeric root extract 1,053 mg 1,310 mg PO DAILY 12/28/22 03/19/23 tablet <Sera Hunt PA-C - Last Filed: 03/19/23 03:15> Allergies/Adverse Reactions: Allergies Allergy/AdvReac Type Severity Reaction Status Date / Time aspirin Allergy Unknown ITHING & Verified 03/19/23 01:19 HIVES atorvastatin Allergy Unknown LIVER Verified 03/19/23 01:19 ISSUES clindamycin Allergy Unknown Unknown Verified 03/19/23 01:19 STOPPED TAKING IN 1979 colesevelam Allergy Unknown HIVES Verified 03/19/23 01:19 NECK/CHEST doxycycline Allergy Unknown Unknown - Verified 03/19/23 01:19 UNABLE TO RECALL ezetimibe Allergy Unknown unknown-UNABLE Verified 03/19/23 01:19 TO RECALL fluvastatin Allergy Unknown LIVER Verified 03/19/23 01:19 ISSUES lincomycin Allergy Unknown UNKNOWN Verified 03/19/23 01:19 STOPPED 1979 naproxen Allergy Unknown Hives Verified 03/19/23 01:19 pravastatin Allergy Unknown LIVER Verified 03/19/23 01:19 ISSUES rivaroxaban Allergy Unknown BLEEDING Verified 03/19/23 01:19 rosuvastatin Allergy Unknown LIVER Verified 03/19/23 01:19 ISSUES sertraline Allergy Unknown Unknown-UNABLE Verified 03/19/23 01:19 TO RECAL sitagliptin Allergy Unknown Itching Verified 03/19/23 01:19 iophendylate AdvReac Intermediate stomach/intestinal Verified 03/19/23 01:19 cramping bupropion AdvReac Mild not Verified 03/19/23 01:19 working amlodipine AdvReac Unknown COUGHING Verified 03/19/23 01:19 captopril AdvReac Unknown COUGHING Verified 03/19/23 01:19 irbesartan AdvReac Unknown MUSCLE Verified 03/19/23 01:19 WEAKNESS lisinopril AdvReac Unknown COUGHING Verified 03/19/23 01:19 metformin AdvReac Unknown HEAD ACH Verified 03/19/23 01:19 niacin AdvReac Unknown PANIC Verified 03/19/23 01:19 ATTACTS olmesartan AdvReac Unknown MUSCLE Verified 03/19/23 01:19 WEAKNESS paroxetine AdvReac Unknown Drowsy Verified 03/19/23 01:19 <Sera Osullivan
[2023-03-18 21:38] LABS: Appearance Urine Clear (Clear); Bacteria Urine None Seen /hpf; Bilirubin Urine Negative (Negative); Blood Urine Negative (Negative); Calcium Oxalate Crystals Urine Present /hpf; Color Urine Yellow (Yellow); Glucose Urine UA Negative (Negative); Ketones Urine Negative (Negative); Leukocyte Esterase Ur 1+ LEU/UL (Negative); Need Manual Microscopic Reviewed; Nitrate Urine Negative (Negative); Non Pathogenic Casts 0-2; Protein Urine Negative (Negative); RBC Urine 0-2 /hpf (0-2); Specific Grav Ur 1.017 (1.001-1.035); Squamous Epithelial Cell Urine None seen /hpf (Few); Urobilinogen Urine 0.2 mg/dL (<2.0)
[2023-03-18 21:39] LABS: Add Urine Microscopic? YES
--- NOTE | 2023-03-18 22:06 | PM.IMHP ---
H&P: HPI History of Present Illness Date/Time: 03/18/23 22:06 Chief Complaint: Right-sided weakness Narrative: This is a 77-year-old female with past medical history significant for hypertension, atrial flutter, patient on anticoagulation rate control, obstructive sleep apnea on CPAP at nighttime, type 2 diabetes mellitus orally controlled, aortic valve stenosis. Patient presents to the emergency room after she had an episode of right-sided weakness according to patient in the morning when she woke up she was her usual she had been in her usual state of health although she has been having recurrent urinary tract infections. Patient states that she fell asleep in the chair and when she woke up noticed that her right leg and right arm were heavy and could not raise it and noted that she wrote something and it was all scribbles. Patient denies any vision changes, no speech changes, no headaches, no fevers, no rigors, no chills, no nausea, no vomiting, no syncope, no near syncope no lightheadedness. Preliminary workup was significant for a urinalysis showed numerous WBCs present per high-power field, a CT of the head was reported as: EXAMINATION: CT brain wo con DATE: 03/18/2023 19:04 INDICATION: Right hemiparesis. TECHNIQUE: Computed tomography (CT) of the head was performed without intravenous contrast. The mA was adjusted according to patient size. Iterative reconstruction technique was employed. The dose-length product was 605.33 mGy-cm. COMPARISON: None FINDINGS: There are scattered areas of low attenuation in the cerebral white matter, which is within normal limits for the patient's age. There is no intracranial hemorrhage, acute infarction, or abnormal intracranial mass lesion. The ventricles are normal in size. There are likely changes of ocular lens replacement surgeries. There is mild mucosal thickening in the ethmoid sinuses. There is a left mastoid effusion. IMPRESSION: 1. Normal aging brain. CT angiogram is in progress preliminary report with no large vessel occlusion final report in progress Review of Systems Review of Systems: Right-sided hemiparesis Constitutional: Constitutional: Denies chills, Denies fatigue, Denies fever(s), Denies headache(s), Denies lethargy, Denies malaise, Denies night sweats and Denies poor appetite Eyes: Eyes: Denies change in vision ENT: Denies dysphagia, Denies vertigo, Denies dizziness, Denies headache(s) and Denies odynophagia Cardiovascular: Cardiovascular: Denies chest pain, Denies pedal edema, Denies leg edema and Denies palpitations Respiratory: Respiratory: Denies chest congestion, Denies cough and Denies dyspnea Gastrointestinal: Gastrointestinal: Denies abdominal pain, Denies dyspepsia, Denies heartburn, Denies diarrhea, Denies nausea and Denies vomiting Genitourinary: Genitourinary: Denies dysuria Musculoskeletal: Musculoskeletal: Reports abnormal gait and Denies back pain Integumentary/Breasts: Skin/Breast: Denies rash Neurologic: Reports abnormal gait (Dragging her right leg), Denies vertigo, Denies dizziness, Reports focal weakness (Right leg and right arm), Denies Sensory deficit (Neuro), Denies tingling and Denies paresthesias Psychiatric: Psychiatric: Reports no additional psychiatric complaints and Reports as per HPI Endocrine: Endocrine: Denies cold intolerance, Denies flushing, Denies heat intolerance, Denies polyphagia, Denies polydipsia and Denies palpitations Hematologic/Lymphatic: Hematologic/Lymphatic: Reports no additional hematologic/lymphatic complaints and Reports as per HPI Allergic/Immunologic: Allergic/Immunologic: Reports no additional allergic/immunologic complaints and Reports as per HPI [facility] Past Medical History Medical History YAHAIRA (acute kidney injury) Allergies Anxiety Aortic stenosis Aortic valve stenosis Atrial flutter Dyslipidemia H/O: HTN (hypertension) Heart disease Lef
--- NOTE | 2023-03-18 23:12 | ADMGEN ---
This patient, Edson Cr, was admitted to 2 Medical Room 251-01. Patient/family oriented to hospital policies and general routines including ID bracelet, bed and alarms, visiting hours, pain management, procedures, bathroom and other care routines, personal items, smoking policy, room service/diet, and visiting hours. Information on how to activate the Rapid Response Team has been discussed. Patient/Family are encouraged to report perceived risks to care and to ask questions if they do not understand what they are told or what they should do.
[2023-03-19] VITALS (11 sets, daily range): BP systolic 130–142; BP diastolic 51–68; PULSE 69–87; RESP 16; TEMP 36.5–36.7; O2SAT 96–99
--- NOTE | 2023-03-19 | ECHO_ITS ---
Patient Info Name: Edson Cr Age: 77 years : 1945 Gender: Female Ht: 64 in Wt: 183 lbs BSA: 1.97 m2 HR: 70 bpm BP: 142 / 65 mmHg Heart Rhythm: Sinus Rhythm Technical Quality: Fair Exam Date: 03/19/2023 3:10 PM Exam Location: [facility] Pulmonary Exam Room: 251 Patient Status: Outpatient Admit Date: 03/18/2023 Staff Ordering Physician: Lemuel Pearson Medical Fee Clerk: Cristine Lind RDCS Attending Provider: Josy Vidal MD Referring Physician: Michel MCCORMICK; Exam Type: CA echo doppler w bubble study Study Info Indications - stroke symptoms Complete two-dimensional, color flow and Doppler transthoracic echocardiogram is performed with agitated saline. Contrast/Agitated Saline Contrast/Ag. Saline: Agitated Saline Amount: 20.00 ml Administered By: Cristine Lind [facility] Existing IV Access: Yes IV Access Condition: patent with no signs of infiltration Summary 1. Normal left ventricular size with moderate concentric hypertrophy and sigmoid septal hypertrophy. Good systolic function of all segments with no segmental wall motion abnormalities. Ejection fraction 67%. Grade 2 diastolic dysfunction is present. 2. Left atrial chamber dimension is moderately enlarged. 3. Possible Linear artifact in the right ventricle suggestive of catheter(s), pacemaker lead(s), or ICD lead(s). 4. There is severe aortic valve stenosis with a peak velocity of 361 cm/s, mean gradient of 36 mmHg, and aortic valve area of 0.8 cm2. 5. There is mild tricuspid valve regurgitation. 6. No pulmonary hypertension, estimated pulmonary arterial systolic pressure is 28 mmHg. 7. No evidence of intracardiac shunting by bubble study. 8. Normal sinus rhythm. Left Ventricle Left ventricular systolic function is normal, estimated at 60-65%. There is moderately increased left ventricular wall thickness. The left ventricular diastolic function is grade II diastolic dysfunction. Left Atria Left atrial chamber dimension is moderately enlarged. Right Atria Possible Linear artifact in the right ventricle suggestive of catheter(s), pacemaker lead(s), or ICD lead(s). Aortic Valve There is severe aortic valve stenosis with a peak velocity of 361 cm/s, mean gradient of 36 mmHg, and aortic valve area of 0.8 cm2. There is mild aortic valve regurgitation. There is severe aortic valve calcification. Tricuspid Valve There is mild tricuspid valve regurgitation. No pulmonary hypertension, estimated pulmonary arterial systolic pressure is 28 mmHg. Left Ventricular Outflow Tract Name Value Normal LVOT 2D LVOT Diameter 2.1 cm LVOT Doppler LVOT Peak Gradient 3 mmHg LVOT Mean Gradient 2 mmHg LVOT VTI 20 cm LVOT VTI/AV VTI Ratio 0.2 LVOT Stroke Volume 68 ml LVOT CO 13.3 l/min LVOT CI 6.7 l/min/m2 Pulmonic Valve Name Value Normal
[2023-03-19] MEDS: OPTI-GEN TAB 1 TABLET PO ×2 (08:32→17:00)
[2023-03-19] MEDS: SOTALOL HCL 80 MG TABLET PO ×2 (08:32→20:14)
[2023-03-19] MEDS: APIXABAN 5 MG TABLET PO ×2 (08:32→20:14)
[2023-03-19 08:36] LABS: Glucose Point of Care 157 mg/dl (65-105)
[2023-03-19 08:36] LABS: Hemoglobin A1C 6.6 % (<5.7)
[2023-03-19 08:43] LABS: Basophils Absolute Auto 0.1 K/mm3 (0.0-0.1); Basophils Percent Auto 1.8 % (0.2-1.2); Eosinophils Percent Auto 0.3 % (0-4.4); Hematocrit 36.2 % (37.0-47.0); Immature Granulocyte Absolute 0.01 K/mm3 (0.00-0.031); Immature Granulocyte Percent A 0.3 % (0-0.5); Lymphocytes Absolute Auto 1.05 K/mm3 (0.9-3.2); Lymphocytes Percent Auto 30.7 % (18.3-44.2); Mean Corpuscular HGB Conc 33.1 g/dl (32-36); Mean Corpuscular Volume 87.4 fl (80-100); Mean Platelet Volume 8.4 fl (7.4-10.4); Monocytes Absolute Auto 0.4 K/mm3 (0.1-0.6); Monocytes Percent Auto 10.5 % (2.6-8.5); Neutrophils Absolute Auto 1.9 K/mm3 (1.3-6.7); Neutrophils Percent Auto 56.4 % (45.5-73.1); Platelet Count Result 156 k/mm3 (150-375); Red Blood Count 4.14 M/mm3 (4.2-5.4); Red Cell Distribution Width 13.7 % (11.5-14.5); White Blood Count 3.4 K/mm3 (4.5-10.0)
[2023-03-19 08:54] LABS: Alanine Aminotransferase 16 U/L (6-35); Albumin Level 3.9 g/dL (3.5-5.1); Alkaline Phosphatase 68 U/L (38-126); Anion Gap 5 mmol/L (8-16); Aspartate Amino Transferase 22 U/L (14-36); Bilirubin,Total 0.5 mg/dL (0.2-1.3); Blood Urea Nitrogen 15 mg/dL (7-17); Calcium 8.9 mg/dL (8.4-10.2); Carbon Dioxide 29 mmol/L (22-30); Chloride 105 mmol/L (98-107); Cholesterol 225 mg/dL (0-200); Estimated CRCL calculation 59 ml/min; Estimated Glomerular Filt Rate > 60; Glucose 161 mg/dL (65-110); HDL Direct 34 mg/dL; Sodium 139 mmol/L (137-145); Triglycerides 274 mg/dL (<150)
[2023-03-19 09:05] LABS: LDL Cholesterol Direct 113 mg/dL
--- NOTE | 2023-03-19 10:55 | WPDNEURCNPN ---
Assessment and Plan Assessment and plan (1) Cerebrovascular accident: Qualifiers: CVA mechanism: unspecified Qualified Code(s): I63.9 - Cerebral infarction, unspecified Code(s): I63.9 - Cerebral infarction, unspecified Status: Acute (2) Acute right-sided weakness: Code(s): R53.1 - Weakness Status: Acute (3) Paroxysmal atrial flutter: Code(s): I48.92 - Unspecified atrial flutter Status: Acute (4) Essential hypertension: Code(s): I10 - Essential (primary) hypertension Status: Acute (5) Dyslipidemia: Code(s): E78.5 - Hyperlipidemia, unspecified Status: Acute (6) Type 2 diabetes mellitus without complication, without long-term current use of insulin: Code(s): E11.9 - Type 2 diabetes mellitus without complications Status: Acute Plan Edson Cr is a 77 year old female with a history of atrial fibrillation (on chronic anticoagulation), cardiac pacemaker, and recently diagnosed renal mass who presented due to concerns for right sided weakness. Concern for acute stroke, could be in the setting of Eliquis non-compliance (patient missed a few doses in the past week). Unfortunately unable to obtain MRI due to underlying cardiac pacemaker. - Obtain surface echocardiogram - Continue Eliquis, discussed importance of compliance - LDL is elevated, patient cannot take statins - A1c is 6.6 - MRI brain should be done as outpatient at a facility that can accommodate her pacemaker Consult date: 03/19/23 Reason for consult: Stroke HPI: Edson Cr is a 77 year old female with a history of atrial fibrillation (on chronic anticoagulation), cardiac pacemaker, and recently diagnosed renal mass. Patient presented due to concerns for right sided weakness. Patient woke up from nap on 03/18 around 12:30 which is the last time she felt normal. When she woke up from nap, she got up to use the bathroom. She felt unsteady and weakness in her right leg. She felt like her right leg was dragging. She also noted some weakness in the right arm. She was having difficulty writing in her notebook. She also noted increased blurry vision in the right eye over the past few days. Patient presented to [facility] ED in the evening due to persistence of symptoms. In the ED, her NIH was 5. Her strength seemed to be improving while in the ED. Her EKG showed paced rhythm. Blood pressure in the 150s systolic. Her UA showed LE and WBC, raising concern for UTI. CT head showed no acute process. CTA showed 37% stenosis of the proximal right ICA but no other significant stenosis or occlusion. Her LDL was 113 from this admission. She does not take a statin because of liver issues . MRI brain cannot be done due to patient's pacemaker. She reports persistent right sided weakness and blurry vision in the right eye. She did mention that she may have missed a few doses of Eliquis in the past week. Review of Systems Constitutional: Constitutional: Denies chills, Denies fever(s) and Denies weight loss Eyes: Eyes: Reports blurry vision, Denies diplopia and Denies loss of vision ENT: Denies dizziness, Denies hearing loss and Denies tinnitus Cardiovascular: Cardiovascular: Denies chest pain, Denies syncope and Denies dyspnea Respiratory: Respiratory: Denies cough, Denies dyspnea and Denies wheezing Gastrointestinal: Gastrointestinal: Denies abdominal pain, Denies change in bowel habits and Denies vomiting Genitourinary: Genitourinary: Denies urinary incontinence Musculoskeletal: Musculoskeletal: Denies arthralgias and Denies joint swelling Integumentary/Breasts: Skin/Breast: Denies new lesions and Denies rash Neurologic: Reports as per HPI, Denies dizziness, Denies syncope and Denies loss of vision Psychiatric: Psychiatric: Denies anxiety and Denies depression Endocrine: Endocrine: Denies cold intolerance and Denies heat intolerance Hematologic/Lymphatic: Hematologic/Lymphatic: Denies
--- NOTE | 2023-03-19 11:15 | PM.IMPN ---
Progress Note: A&P Assessment and Plan (1) Acute right-sided weakness: Code(s): R53.1 - Weakness Status: Acute Assessment and Plan: Presented with right-sided weakness Head CT showed normal aging brain CT angiogram of the brain 37% stenosis in the right internal carotid artery 0% to the left Carotid Dopplers <50% stenosis bilaterally Echocardiogram with bubble Unable to obtain MRI with pacemaker present Neurology consulted Neuro checks q.4 PT/OT to evaluate Continue Eliquis Lipid panel with elevated LDL, unable to take statins (2) Recurrent UTI: Code(s): N39.0 - Urinary tract infection, site not specified Status: Acute Assessment and Plan: UA could be infectious with leukocyte esterase and WBC Cultures ordered and pending Started on Rocephin in the ED and continued for now await culture results Adjust therapy as indicated (3) Type 2 diabetes mellitus without complication, without long-term current use of insulin: Code(s): E11.9 - Type 2 diabetes mellitus without complications Status: Acute Assessment and Plan: Glucose 182 Accu cheks AC/HS Insulin sliding scale Trend glucose A1c 6.6 hypoglycemia protocol Adjust therapy as indicated (4) Paroxysmal atrial flutter: Code(s): I48.92 - Unspecified atrial flutter Status: Acute Assessment and Plan: Currently stable HR controlled Trend heart rate Continue Sotalol and Eliquis tele monitor for now adjust therapy if indicated (5) JERRELL (obstructive sleep apnea): Code(s): G47.33 - Obstructive sleep apnea (adult) (pediatric) Status: Acute Assessment and Plan: CPAP at nighttime (6) Essential hypertension: Code(s): I10 - Essential (primary) hypertension Status: Acute Assessment and Plan: Current BP 142/65 Continue sotalol, aliskiren is non formulary here, ok to use home supply Trend BP adjust therapy as indicate (7) Aortic valve stenosis: Qualifiers: Cardiac valve disease etiology: etiology unspecified Qualified Code(s): I35.0 - Nonrheumatic aortic (valve) stenosis Code(s): I35.0 - Nonrheumatic aortic (valve) stenosis Status: Acute Assessment and Plan: Follow-up in the outpatient setting Time Spent With Patient Time: 51 minutes Time with patient: Greater than 35 minutes Subjective Date/time seen: 03/19/23 111 Interval history: 03/19/231114 Patient is lying in bed. Patient states that she is doing better. She is able to move her right arm however her right leg is still a little sluggish. She denies any current chest pain, shortness a breath, nausea, vomiting, diarrhea or constipation. She did also states she said some visual changes in the right eye however she was just diagnosed with macular degeneration. Current testing is still being performed. Patient is doing better and should be stable for discharge tomorrow. 03/18/23 4287 This is a 77-year-old female with past medical history significant for hypertension, atrial flutter, patient on anticoagulation rate control, obstructive sleep apnea on CPAP at nighttime, type 2 diabetes mellitus orally controlled, aortic valve stenosis.? Patient presents to the emergency room after she had an episode of right-sided weakness according to patient in the morning when she woke up she was her usual she had been in her usual state of health although she has been having recurrent urinary tract infections.? Patient states that she fell asleep in the chair and when she woke up noticed that her right leg and right arm were heavy and could not raise it and noted that she wrote something and it was all scribbles.? Patient denies any vision changes, no speech changes, no headaches, no fevers, no rigors, no chills, no nausea, no vomiting, no syncope, no near syn
--- NOTE | 2023-03-19 11:15 | P.PNIM_ITS ---
Progress Note: A&P Assessment and Plan (1) Acute right-sided weakness: Code(s): R53.1 - Weakness Status: Acute Assessment and Plan: * Presented with right-sided weakness * Head CT showed normal aging brain * CT angiogram of the brain 37% stenosis in the right internal carotid artery 0% to the left * Carotid Dopplers <50% stenosis bilaterally * Echocardiogram with bubble * Unable to obtain MRI with pacemaker present * Neurology consulted * Neuro checks q.4 * PT/OT to evaluate * Continue Eliquis * Lipid panel with elevated LDL, unable to take statins (2) Recurrent UTI: Code(s): N39.0 - Urinary tract infection, site not specified Status: Acute Assessment and Plan: * UA could be infectious with leukocyte esterase and WBC * Cultures ordered and pending * Started on Rocephin in the ED and continued for now * await culture results * Adjust therapy as indicated (3) Type 2 diabetes mellitus without complication, without long-term current use of insulin: Code(s): E11.9 - Type 2 diabetes mellitus without complications Status: Acute Assessment and Plan: * Glucose 182 * Accu cheks AC/HS * Insulin sliding scale * Trend glucose * A1c 6.6 * hypoglycemia protocol * Adjust therapy as indicated (4) Paroxysmal atrial flutter: Code(s): I48.92 - Unspecified atrial flutter Status: Acute Assessment and Plan: * Currently stable * HR controlled * Trend heart rate * Continue Sotalol and Eliquis * tele monitor for now * adjust therapy if indicated (5) JERRELL (obstructive sleep apnea): Code(s): G47.33 - Obstructive sleep apnea (adult) (pediatric) Status: Acute Assessment and Plan: * CPAP at nighttime (6) Essential hypertension: Code(s): I10 - Essential (primary) hypertension Status: Acute Assessment and Plan: * Current BP 142/65 * Continue sotalol, aliskiren is non formulary here, ok to use home supply * Trend BP * adjust therapy as indicate (7) Aortic valve stenosis: Qualifiers: Cardiac valve disease etiology: etiology unspecified Qualified Code(s): I35.0 - Nonrheumatic aortic (valve) stenosis Code(s): I35.0 - Nonrheumatic aortic (valve) stenosis Status: Acute Assessment and Plan: * Follow-up in the outpatient setting Time Spent With Patient Time: 51 minutes Time with patient: Greater than 35 minutes Subjective Date/time seen: 03/19/231114 Interval history: 03/19/231114 Patient is lying in bed. Patient states that she is doing better. She is able to move her right arm however her right leg is still a little sluggish. She denies any current chest pain, shortness a breath, nausea, vomiting, diarrhea or constipation. She did also states she said some visual changes in the right eye however she was just diagnosed with macular degeneration. Current testing is still being performed. Patient is doing better and should be stable for discharge tomorrow. 03/18/232205 This is a 77-year-old female with past medical history significant for hypertension, atrial flutter, patient on anticoagulation rate control, obstructive sleep apnea on CPAP at nighttime, type 2 diabetes mellitus orally controlled, aortic valv
[2023-03-19 12:14] LABS: Glucose Point of Care 147 mg/dl (65-105)
[2023-03-19] MEDS: INSULIN ASPART (*BKC) 100 UNITS/ML SUB-Q (12:42)
--- NOTE | 2023-03-19 15:16 | PHAR ---
HOME MED:Aliskiren [Tekturna] 300 mg tablet; TAKE 1 TABLET BY MOUTH DAILY. VERIFIED BY PHARMACY.
[2023-03-19 17:15] LABS: Glucose Point of Care 126 mg/dl (65-105)
[2023-03-19 20:52] LABS: Glucose Point of Care 183 mg/dl (65-105)
[2023-03-20] VITALS: PULSE 86
[2023-03-20 02:51] VITALS: BP 145/59; PULSE 73; RESP 20; TEMP 36.6; O2SAT 96
[2023-03-20 04:00] VITALS: PULSE 70
[2023-03-20 05:51] LABS: Basophils Absolute Auto 0.1 K/mm3 (0.0-0.1); Basophils Percent Auto 1.2 % (0.2-1.2); Eosinophils Percent Auto 0.2 % (0-4.4); Hematocrit 35.1 % (37.0-47.0); Hemoglobin 11.5 g/dL (12.0-15.0); Immature Granulocyte Absolute 0.01 K/mm3 (0.00-0.031); Immature Granulocyte Percent A 0.2 % (0-0.5); Lymphocytes Absolute Auto 1.27 K/mm3 (0.9-3.2); Lymphocytes Percent Auto 30.7 % (18.3-44.2); Mean Corpuscular HGB Conc 32.8 g/dl (32-36); Mean Corpuscular Hemoglobin 28.3 pg (26-34); Mean Corpuscular Volume 86.2 fl (80-100); Mean Platelet Volume 8.6 fl (7.4-10.4); Monocytes Absolute Auto 0.5 K/mm3 (0.1-0.6); Monocytes Percent Auto 11.1 % (2.6-8.5); Neutrophils Absolute Auto 2.3 K/mm3 (1.3-6.7); Neutrophils Percent Auto 56.6 % (45.5-73.1); Platelet Count Result 139 k/mm3 (150-375); Red Blood Count 4.07 M/mm3 (4.2-5.4); Red Cell Distribution Width 13.4 % (11.5-14.5); White Blood Count 4.1 K/mm3 (4.5-10.0)
[2023-03-20 06:10] LABS: Alanine Aminotransferase 15 U/L (6-35); Albumin Level 3.7 g/dL (3.5-5.1); Alkaline Phosphatase 58 U/L (38-126); Anion Gap 7 mmol/L (8-16); Aspartate Amino Transferase 23 U/L (14-36); Bilirubin,Total 0.6 mg/dL (0.2-1.3); Blood Urea Nitrogen 15 mg/dL (7-17); Calcium 8.5 mg/dL (8.4-10.2); Carbon Dioxide 26 mmol/L (22-30); Chloride 104 mmol/L (98-107); Estimated CRCL calculation 59 ml/min; Estimated Glomerular Filt Rate > 60; Glucose 152 mg/dL (65-110); Magnesium 1.9 mg/dL (1.6-2.3); Potassium 3.8 mmol/L (3.4-5.0); Sodium 137 mmol/L (137-145)
[2023-03-20 08:00] VITALS: PULSE 71
[2023-03-20 08:20] LABS: Glucose Point of Care 156 mg/dl (65-105)
[2023-03-20 09:16] VITALS: PULSE 70
[2023-03-20] MEDS: SOTALOL HCL 80 MG TABLET PO (09:16)
[2023-03-20] MEDS: OPTI-GEN TAB 1 TABLET PO (09:16)
[2023-03-20] MEDS: APIXABAN 5 MG TABLET PO (09:16)
[2023-03-20] MEDS: INSULIN ASPART (*BKC) 100 UNITS/ML SUB-Q ×2 (09:17→12:15)
--- NOTE | 2023-03-20 09:48 | PC.NURSE ---
Pharmacy verified home medication Mary Ellen. Gave dose @ 0949 unable to scan, manually entered.
--- NOTE | 2023-03-20 11:30 | PM.DS ---
DS: Admitting Diagnosis Discharge Date 03/20/23 1130 Admitting Diagnosis CVA VS TIA DS: Discharge Diagnosis Discharge Diagnosis (1) Acute right-sided weakness: Code(s): R53.1 - Weakness Status: Acute Assessment and Plan: Presented with right-sided weakness Head CT showed normal aging brain CT angiogram of the brain 37% stenosis in the right internal carotid artery 0% to the left Carotid Dopplers <50% stenosis bilaterally Echocardiogram with bubble Unable to obtain MRI with pacemaker present, will give outpatient referral Neurology consulted Neuro checks q.4 PT/OT to evaluate Continue Eliquis Lipid panel with elevated LDL, unable to take statins (2) Recurrent UTI: Code(s): N39.0 - Urinary tract infection, site not specified Status: Acute Assessment and Plan: UA could be infectious with leukocyte esterase and WBC Cultures ordered and pending Started on Rocephin in the ED and continued for now await culture results Adjust therapy as indicated (3) Type 2 diabetes mellitus without complication, without long-term current use of insulin: Code(s): E11.9 - Type 2 diabetes mellitus without complications Status: Acute Assessment and Plan: Glucose 152 Accu cheks AC/HS Insulin sliding scale Trend glucose A1c 6.6 hypoglycemia protocol Adjust therapy as indicated (4) Paroxysmal atrial flutter: Code(s): I48.92 - Unspecified atrial flutter Status: Acute Assessment and Plan: Currently stable HR controlled Trend heart rate Continue Sotalol and Eliquis tele monitor for now adjust therapy if indicated (5) JERRELL (obstructive sleep apnea): Code(s): G47.33 - Obstructive sleep apnea (adult) (pediatric) Status: Acute Assessment and Plan: CPAP at nighttime (6) Essential hypertension: Code(s): I10 - Essential (primary) hypertension Status: Acute Assessment and Plan: Current BP 145/59 Continue sotalol, aliskiren is non formulary here, ok to use home supply Trend BP adjust therapy as indicate (7) Aortic valve stenosis: Qualifiers: Cardiac valve disease etiology: etiology unspecified Qualified Code(s): I35.0 - Nonrheumatic aortic (valve) stenosis Code(s): I35.0 - Nonrheumatic aortic (valve) stenosis Status: Acute Assessment and Plan: Follow-up in the outpatient setting (8) Cerebrovascular accident: Qualifiers: CVA mechanism: unspecified Qualified Code(s): I63.9 - Cerebral infarction, unspecified Code(s): I63.9 - Cerebral infarction, unspecified Status: Acute (9) TIA (transient ischemic attack): Code(s): G45.9 - Transient cerebral ischemic attack, unspecified Status: Acute DS: Summary Hospital Course Hospital Course: Patient is a 77 year old female with a past medical history of HTN, a. flutter, JERRELL, Type 2 diabetes who presented to the ED for complaints right sided weakness in arm and leg. She stated that she was taking a nap in the chair when she got up she noticed that her right side arm and leg. Head CT was preformed and showed no acute findings. CTA of the head and neck showed 37% on the right and 0% stenosis on the left. MRI of the brain was unable to be performed due to the patient's pacemaker. Echo was performed and showed EF of 67% grade 2 diastolic dysfunction. carotid doppler showed <50% stenosis bilaterally. Neurology consulted and recommended that the patient get outpatient MRI, and to resume her Eliquis. Currently patient is doing ok. She denies any chest pain, shortness of breath, nausea, vomiting, diarrhea, constipation. She has been working with PT/OT and has been able to get around. UA was also preformed and could possibly be infectious, cultures are currently pending. At this time patient is
--- NOTE | 2023-03-20 11:30 | P.DS_ITS ---
DS: Admitting Diagnosis Discharge Date 03/20/23 1130 Admitting Diagnosis CVA VS TIA DS: Discharge Diagnosis Discharge Diagnosis (1) Acute right-sided weakness: Code(s): R53.1 - Weakness Status: Acute Assessment and Plan: * Presented with right-sided weakness * Head CT showed normal aging brain * CT angiogram of the brain 37% stenosis in the right internal carotid artery 0% to the left * Carotid Dopplers <50% stenosis bilaterally * Echocardiogram with bubble * Unable to obtain MRI with pacemaker present, will give outpatient referral * Neurology consulted * Neuro checks q.4 * PT/OT to evaluate * Continue Eliquis * Lipid panel with elevated LDL, unable to take statins (2) Recurrent UTI: Code(s): N39.0 - Urinary tract infection, site not specified Status: Acute Assessment and Plan: * UA could be infectious with leukocyte esterase and WBC * Cultures ordered and pending * Started on Rocephin in the ED and continued for now * await culture results * Adjust therapy as indicated (3) Type 2 diabetes mellitus without complication, without long-term current use of insulin: Code(s): E11.9 - Type 2 diabetes mellitus without complications Status: Acute Assessment and Plan: * Glucose 152 * Accu cheks AC/HS * Insulin sliding scale * Trend glucose * A1c 6.6 * hypoglycemia protocol * Adjust therapy as indicated (4) Paroxysmal atrial flutter: Code(s): I48.92 - Unspecified atrial flutter Status: Acute Assessment and Plan: * Currently stable * HR controlled * Trend heart rate * Continue Sotalol and Eliquis * tele monitor for now * adjust therapy if indicated (5) JERRELL (obstructive sleep apnea): Code(s): G47.33 - Obstructive sleep apnea (adult) (pediatric) Status: Acute Assessment and Plan: * CPAP at nighttime (6) Essential hypertension: Code(s): I10 - Essential (primary) hypertension Status: Acute Assessment and Plan: * Current BP 145/59 * Continue sotalol, aliskiren is non formulary here, ok to use home supply * Trend BP * adjust therapy as indicate (7) Aortic valve stenosis: Qualifiers: Cardiac valve disease etiology: etiology unspecified Qualified Code(s): I35.0 - Nonrheumatic aortic (valve) stenosis Code(s): I35.0 - Nonrheumatic aortic (valve) stenosis Status: Acute Assessment and Plan: * Follow-up in the outpatient setting (8) Cerebrovascular accident: Qualifiers: CVA mechanism: unspecified Qualified Code(s): I63.9 - Cerebral infarction, unspecified Code(s): I63.9 - Cerebral infarction, unspecified Status: Acute (9) TIA (transient ischemic attack): Code(s): G45.9 - Transient cerebral ischemic attack, unspecified Status: Acute DS: Summary Hospital Course Hospital Course: Patient is a 77 year old female with a past medical history of HTN, a. flutter, JERRELL, Type 2 diabetes who presented to the ED for complaints right sided weakness in arm and leg. She stated that she was taking a nap in the chair when she got up she noticed that her right side arm and leg. Head CT was preformed and showed no acute findings. CTA of the head and neck showed 37% on the right
[2023-03-20 12:00] VITALS: PULSE 73
[2023-03-20 12:10] LABS: Glucose Point of Care 226 mg/dl (65-105)
== END 2023-03-20 16:59 | disposition home health service (06) ==
LOC: ANHED 21:51 → ANH2MED 03-19 01:16
PROVIDERS: Emergency Medicine; Nurse Practitioner; Admitting Provider Internal Medicine; Emergency Provider Physician Assistant; PCP Family Medicine; Visit Provider Chiropractor
DX: R53.1 Weakness (principal); N39.0 Urinary tract infection, site not specified; E11.9 Type 2 diabetes mellitus without complications; I48.92 Unspecified atrial flutter; G47.33 Obstructive sleep apnea (adult) (pediatric); Z99.89 Dependence on other enabling machines and devices; I11.9 Hypertensive heart disease without heart failure; I35.0 Nonrheumatic aortic (valve) stenosis; I63.9 Cerebral infarction, unspecified; E78.5 Hyperlipidemia, unspecified; I48.91 Unspecified atrial fibrillation; Z95.0 Presence of cardiac pacemaker; N17.9 Acute kidney failure, unspecified; N28.89 Other specified disorders of kidney and ureter; R42 Dizziness and giddiness; R26.81 Unsteadiness on feet; F41.9 Anxiety disorder, unspecified; E66.9 Obesity, unspecified; I45.10 Unspecified right bundle-branch block; R94.31 Abnormal electrocardiogram [ECG] [EKG]; I07.1 Rheumatic tricuspid insufficiency; Z68.31 Body mass index [BMI] 31.0-31.9, adult; G81.90 Hemiplegia, unspecified affecting unspecified side; M81.0 Age-related osteoporosis without current pathological fracture; E55.9 Vitamin D deficiency, unspecified; Z79.01 Long term (current) use of anticoagulants; Z79.899 Other long term (current) drug therapy; Z84.89 Family history of other specified conditions; Z82.49 Family history of ischemic heart disease and other diseases of the circulatory system; Z82.61 Family history of arthritis
CPT/HCPCS: 36415; 70450; 70496; 70498; 80053; 80061; 81001; 82948; 83036; 83735; 85025; 85610; 85730; 87086; 87088; 93005; 93306; 93880; 96365; 96375; 97161; 97165; 97530; 97535; 99285; A9270; G0378; J0696; J1815; Q9967

== ENCOUNTER 2023-03-28 16:09 | Outpatient (CLI) | payer MEDICARE, SELFPAY ==
[2023-03-28 17:16] LABS: Bacteria Urine None Seen /hpf; Need Manual Microscopic Reviewed; Non Pathogenic Casts 0-2; RBC Urine >100 /hpf (0-2); Squamous Epithelial Cell Urine Moderate /hpf (Few); WBC Urine 21-50 /hpf (0-3)
[2023-03-28 17:34] LABS: Appearance Urine Turbid (Clear); Color Urine Red (Yellow)
[2023-03-28 17:37] LABS: Add Urine Microscopic? YES
== END 2023-03-28 16:10 | disposition home or self-care (01) ==
PROVIDERS: PCP Family Medicine; Visit Provider Family Medicine
DX: G45.9 Transient cerebral ischemic attack, unspecified (principal); I35.0 Nonrheumatic aortic (valve) stenosis; I63.9 Cerebral infarction, unspecified; R53.1 Weakness; I48.0 Paroxysmal atrial fibrillation; E11.9 Type 2 diabetes mellitus without complications; Z79.01 Long term (current) use of anticoagulants
CPT/HCPCS: 81001

== ENCOUNTER 2023-04-16 14:28 | Emergency (ER) | payer MEDICARE, SELFPAY ==
--- NOTE | ~2023-04-16 | XR_ITS ---
EXAMINATION: XR knee RT min 4V DATE: 04/16/2023 15:27 INDICATION: Right knee pain. Fall. TECHNIQUE: 4 views of right knee were obtained. COMPARISON: Right knee radiographs 02/27/2022 FINDINGS: Bone alignment is normal. No fracture. There is moderate osteoarthritis of medial compartme nt and mild osteoarthritis of lateral and patellofemoral compartments. No knee joint effusion. IMPRESSION: 1. Moderate right knee osteoarthritis. Reviewed, dictated and finalized at location A.
--- NOTE | ~2023-04-16 | XR_ITS ---
EXAMINATION: XR ankle RT min 3V DATE: 04/16/2023 15:27 INDICATION: Right ankle pain. TECHNIQUE: 4 views of right ankle were obtained. COMPARISON: None. FINDINGS: There is an old healed fracture deformity of distal fibular diaphysis. No acute fracture. T here is mild osteoarthritis of ankle joint and some of the midfoot joints. There are enthesophytes at the posterior and plantar aspects of calcaneal tuberosity. Ankle soft tissue swelling is noted. IMPRESSION: 1. Mild polyarticular osteoarthritis. Reviewed, dictated and finalized at location A.
--- NOTE | ~2023-04-16 | XR_ITS ---
EXAMINATION: XR elbow RT min 3V DATE: 04/16/2023 15:27 INDICATION: Right elbow pain. Fall. TECHNIQUE: 4 views of right elbow were obtained. COMPARISON: None. FINDINGS: Bone alignment is normal. No fracture. There is mild elbow joint osteoarthritis. There is e nthesophytes at medial and lateral humeral epicondyles. No elbow joint effusion. IMPRESSION: 1. Mild elbow joint osteoarthritis. Reviewed, dictated and finalized at location A.
[2023-04-16 14:46] VITALS: BP 136/69; PULSE 73; RESP 18; TEMP 36.4; O2SAT 100
--- NOTE | 2023-04-16 15:08 | ED.FALL ---
HPI - Fall General Chief Complaint: Fall Stated Complaint: fall Source: patient and family () Mode of arrival: ambulatory Limitations: no limitations History of Present Illness HPI Narrative: 77-year-old female presents to [facility] with complaints of pain and abrasions to her right knee and right elbow. Patient also reports pain and swelling to her right ankle. Patient reports that she also has noticed trouble bending her toes at times. Patient reports that she fell today while outside watering at 10:30 a.m.. Patient reports that she tripped on the hose causing her to fall. Patient denies hitting her head, loss of conscious, fever, body aches, chills, nausea, vomiting, diarrhea, headache, dizziness or blurred vision. Patient reports that she has a history of having a stroke in March 2023 affecting her right side and recently completed physical therapy and occupational therapy. Patient reports that she is scheduled to see her primary care provider tomorrow for routine appointment MD complaint: fall Onset (ago): hour(s) (5) Fall from: standing Fall witnessed: no Place fall occurred: home Loss of consciousness: none Symptoms prior to fall: none Context: tripped/slipped Location of injury: other (Right elbow, right knee, right ankle) Location of injury - extremities: Right: elbow, lower leg and ankle Associated symptoms (after fall): denies Related Data Home Medications Medication Instructions Recorded Confirmed apixaban 5 mg tablet (Eliquis) 5 mg PO BID 09/03/19 04/16/23 multivitamin 1 tablet PO DAILY 09/03/19 04/16/23 sotalol 80 mg tablet 80 mg PO BID 09/03/19 04/16/23 vitamins A,C,Z-zsnf-mdueif 4,296 1 cap PO BID 12/26/22 04/16/23 mcg-226 mg-90 mg capsule (ICaps AREDS) turmeric root extract 1,053 mg 1,310 mg PO DAILY 12/28/22 04/16/23 tablet Allergies Allergy/AdvReac Type Severity Reaction Status Date / Time aspirin Allergy Unknown ITHING & Verified 04/16/23 15:01 HIVES atorvastatin Allergy Unknown LIVER Verified 04/16/23 15:01 ISSUES clindamycin Allergy Unknown Unknown Verified 04/16/23 15:01 STOPPED TAKING IN 1979 colesevelam Allergy Unknown HIVES Verified 04/16/23 15:01 NECK/CHEST doxycycline Allergy Unknown Unknown - Verified 04/16/23 15:01 UNABLE TO RECALL ezetimibe Allergy Unknown unknown-UNABLE Verified 04/16/23 15:01 TO RECALL fluvastatin Allergy Unknown LIVER Verified 04/16/23 15:01 ISSUES lincomycin Allergy Unknown UNKNOWN Verified 04/16/23 15:01 STOPPED 1980 naproxen Allergy Unknown Hives Verified 04/16/23 15:01 pravastatin Allergy Unknown LIVER Verified 04/16/23 15:01 ISSUES rivaroxaban Allergy Unknown BLEEDING Verified 04/16/23 15:01 rosuvastatin Allergy Unknown LIVER Verified 04/16/23 15:01 ISSUES sertraline Allergy Unknown Unknown-UNABLE Verified 04/16/23 15:01 TO RECAL sitagliptin Allergy Unknown Itching Verified 04/16/23 15:01 iophendylate AdvReac Intermediate stomach/intestinal Verified 04/16/23 15:01 cramping bupropion AdvReac Mild not Verified 04/16/23 15:01 working amlodipine AdvReac Unknown COUGHING Verified 04/16/23 15:01 captopril AdvReac Unknown COUGHING Verified 04/16/23 15:01 irbesartan AdvReac Unknown MUSCLE Verified 04/16/23 15:01 WEAKNESS lisinopril AdvReac Unknown COUGHING Verified 04/16/23 15:01 metformin AdvReac Unknown HEAD ACH Verified 04/16/23 15:01 niacin AdvReac Unknown PANIC Verified 04/16/23 15:01 ATTACTS olmesartan AdvReac Unknown MUSCLE Verified 04/16/23 15:01 WEAKNESS paroxetine AdvReac Unknown Drowsy Verified 04/16/23 15:01 Review of Systems Constitutional: Constitutional: Denies chills, Denies fatigue, Denies fever(s) and Denies weakness ENT: Denies vertigo, Denies dizziness, Denies epistaxis, Denies nasal congestion and Denies sore throat Cardiovascular: Cardiovascular: Denies chest pain Respiratory: Respiratory: Denies chest congestion, Denies
== END 2023-04-16 15:44 | disposition home or self-care (01) ==
PROVIDERS: Emergency Provider Nurse Practitioner Family; PCP Family Medicine
DX: S80.211A Abrasion, right knee, initial encounter (principal); S50.311A Abrasion of right elbow, initial encounter; W19.XXXA Unspecified fall, initial encounter; M25.571 Pain in right ankle and joints of right foot; M25.561 Pain in right knee; E78.5 Hyperlipidemia, unspecified; I10 Essential (primary) hypertension; M81.0 Age-related osteoporosis without current pathological fracture; E78.00 Pure hypercholesterolemia, unspecified; E11.9 Type 2 diabetes mellitus without complications; E55.9 Vitamin D deficiency, unspecified; I48.92 Unspecified atrial flutter; Z95.0 Presence of cardiac pacemaker; E66.9 Obesity, unspecified; Z68.31 Body mass index [BMI] 31.0-31.9, adult; H35.30 Unspecified macular degeneration; M17.0 Bilateral primary osteoarthritis of knee; I35.0 Nonrheumatic aortic (valve) stenosis
CPT/HCPCS: 73080; 73564; 73610; 99214; G0463

== ENCOUNTER 2023-04-24 15:56 | Inpatient (IN) | payer MEDICARE, SELFPAY ==
[2023-04-24] VITALS (15 sets, daily range): BP systolic 116–151; BP diastolic 57–91; PULSE 70–80; RESP 11–22; TEMP 36.6; O2SAT 94–100; BMI 35.5
--- NOTE | ~2023-04-24 | XR_ITS ---
EXAMINATION: XR chest 1V portable Exam Date/Time: 04/24/2023 16:30 CDT HISTORY: dysarthria Comparison: 10/01/2022. RESULT: Lines, tubes, and devices: Left chest pacer with intact leads. Lungs and pleura: Clear. Cardiomediastinal silhouette: Stable. Other: No acute osseous or upper abdominal finding. IMPRESSION: No acute cardiopulmonary process. Reviewed, dictated and finalized at location K.
--- NOTE | ~2023-04-24 | CT_ITS ---
EXAMINATION: CTA brain carotid DATE: 04/24/2023 16:20 INDICATION: Aphasia. Right leg weakness. TECHNIQUE: Computed tomographic angiography (CTA) of the head was performed without and with 100 mL O mnipaque-350 intravenous contrast. CTA of the neck was performed with intravenous contrast. Automated exposure control and iterative reconstruction technique were employed. The dose-length product was 1 679.01 mGy-cm. Maximum intensity projection and volume rendered 3D-reconstructions were created by akash hayward technologist on a separate workstation. COMPARISON: CTA head and neck 03/18/2023 FINDINGS: HEAD CTA: There are scattered areas of low attenuation in the cerebral white matter, which is within normal limits for the patient's age. There is no intracranial hemorrhage, acute infarction, or abnorm al intracranial mass lesion. The ventricles are normal in size. There is mild mucosal thickening in t he ethmoid sinuses. There are likely changes of ocular lens replacement surgeries. There is a left ma stoid effusion. The vertebral arteries are codominant. There is no significant stenosis of basilar ar stephanie or the posterior cerebral arteries. There is no significant stenosis of the intracranial interna l carotid arteries or anterior or middle cerebral arteries. Anterior communicating artery is normal. Right posterior communicating artery is normal. A left posterior communicating artery is not identifi ed. There is no aneurysm. NECK CTA: There is no significant stenosis of the vertebral arteries. There is plaque in the proximal internal carotid arteries. There is 40% stenosis of the proximal right internal carotid artery relat jamil to normal distal artery lumen diameter (NASCET criteria). There is 0% stenosis of the proximal le ft internal carotid artery relative to normal distal artery lumen diameter. There is mild cervical sp ondylosis. IMPRESSION: 1. Normal aging brain. 2. No aneurysm or significant intracranial or central stenosis. 3. 40% stenosis of the proximal right internal carotid artery relative to normal distal artery lumen diameter (NASCET criteria). 4. 0% stenosis of the proximal left internal carotid artery relative to normal distal artery lumen di ameter. Reviewed, dictated and finalized at location A. IMPRESSION: 1. Normal aging brain. 2. No aneurysm or significant intracranial or central stenosis. 3. 40% stenosis of the proximal right internal carotid artery relative to doug l distal artery lumen diameter (NASCET criteria). 4. 0% stenosis of the proximal left internal carotid artery relative to normal distal artery lumen diameter.
[2023-04-24 16:03] LABS: Glucose Point of Care 169 mg/dl (65-105)
--- NOTE | 2023-04-24 16:03 | ECG_ITS ---
Measurements Intervals [place] Rate: 81 P: 121 CO: 266 QRS: -33 QRSD: 150 T: -3 QT: 404 QTc: 471 Interpretive Statements ELECTRONIC ATRIAL PACEMAKER RIGHT BUNDLE BRANCH BLOCK ABNORMAL RHYTHM ECG COMPARED TO ECG 03/18/2023 18:42:23 NO SIGNIFICANT CHANGES Electronically Signed On 04-24-2023 17:13:25 CDT by Pedro Ortega M.D.
--- NOTE | 2023-04-24 16:05 | ED.NEUROSD ---
HPI - Neuro Symptoms/Deficit General Chief Complaint: Suspected CVA Stated Complaint: AMS, unknown last normal Time Seen by Provider: 04/24/23 16:02 History of Present Illness HPI Narrative: Patient is a 77-year-old female presenting as a stroke alert. Patient states that 3 hours ago she had an episode of word finding difficulty. States that she feels like her right leg was a bit weaker at that time as well. This episode resolved after 10 to 15 minutes. Currently she denies word finding difficulties. She denies any new pain. States that she had a stroke about a month ago. Related Data Home Medications Medication Instructions Recorded Confirmed apixaban 5 mg tablet (Eliquis) 5 mg PO BID 09/03/19 04/24/23 multivitamin 1 tablet PO DAILY 09/03/19 04/24/23 sotalol 80 mg tablet 80 mg PO BID 09/03/19 04/24/23 vitamins A,C,D-yhcv-hsqnyf 4,296 1 cap PO BID 12/26/22 04/24/23 mcg-226 mg-90 mg capsule (ICaps AREDS) turmeric root extract 1,053 mg 1,310 mg PO DAILY 12/28/22 04/24/23 tablet Allergies Allergy/AdvReac Type Severity Reaction Status Date / Time aspirin Allergy Unknown ITHING & Verified 04/17/23 10:30 HIVES atorvastatin Allergy Unknown LIVER Verified 04/17/23 10:30 ISSUES clindamycin Allergy Unknown Unknown Verified 04/17/23 10:30 STOPPED TAKING IN 1979 colesevelam Allergy Unknown HIVES Verified 04/17/23 10:30 NECK/CHEST doxycycline Allergy Unknown Unknown - Verified 04/17/23 10:30 UNABLE TO RECALL ezetimibe Allergy Unknown unknown-UNABLE Verified 04/17/23 10:30 TO RECALL fluvastatin Allergy Unknown LIVER Verified 04/17/23 10:30 ISSUES lincomycin Allergy Unknown UNKNOWN Verified 04/17/23 10:30 STOPPED 1979 naproxen Allergy Unknown Hives Verified 04/17/23 10:30 pravastatin Allergy Unknown LIVER Verified 04/17/23 10:30 ISSUES rivaroxaban Allergy Unknown BLEEDING Verified 04/17/23 10:30 rosuvastatin Allergy Unknown LIVER Verified 04/17/23 10:30 ISSUES sertraline Allergy Unknown Unknown-UNABLE Verified 04/17/23 10:30 TO RECAL sitagliptin Allergy Unknown Itching Verified 04/17/23 10:30 iophendylate AdvReac Intermediate stomach/intestinal Verified 04/17/23 10:30 cramping bupropion AdvReac Mild not Verified 04/17/23 10:30 working amlodipine AdvReac Unknown COUGHING Verified 04/17/23 10:30 captopril AdvReac Unknown COUGHING Verified 04/17/23 10:30 irbesartan AdvReac Unknown MUSCLE Verified 04/17/23 10:30 WEAKNESS lisinopril AdvReac Unknown COUGHING Verified 04/17/23 10:30 metformin AdvReac Unknown HEAD ACH Verified 04/17/23 10:30 niacin AdvReac Unknown PANIC Verified 04/17/23 10:30 ATTACTS olmesartan AdvReac Unknown MUSCLE Verified 04/17/23 10:30 WEAKNESS paroxetine AdvReac Unknown Drowsy Verified 04/17/23 10:30 Review of Systems Review of Systems: ROS unobtainable: Yes unobtainable due to medical condition PMFSH Past Medical History Medical History (Updated 05/02/23 @ 13:47 by Marielle Youngblood MD) Anxiety Aortic valve stenosis Atrial flutter Bilateral incipient cataracts Cerebrovascular accident (03/19/23) Dyslipidemia Essential hypertension Grade II diastolic dysfunction Heart disease Lipoma Macular degeneration Neck mass Obesity (BMI 30-39.9) JERRELL (obstructive sleep apnea) Polysomnogram June 2018 recommend CPAP of 11 Osteoporosis Paroxysmal atrial flutter On chronic anticoagulation with Eliquis Post-menopausal Primary osteoarthritis of both knees Pure hypercholesterolemia Seasonal allergic rhinitis Severe aortic stenosis Echocardiogram 03/19/2023: Severe aortic stenosis with valve area 0.18, grade 2 diastolic dysfunction, EF is 67% Type 2 diabetes mellitus without complication, without long-term current use of insulin Vitamin D deficiency Surgical History Surgical History (Updated 04/24/23 @ 20:51 by Jayne Stacy DO) History of hand surgery right hand for synovial fluid mass
[2023-04-24 16:14] LABS: Estimated Glomerular Filt Rate 60
[2023-04-24 16:40] LABS: Alanine Aminotransferase 22 U/L (6-35); Albumin Level 4.2 g/dL (3.5-5.1); Alkaline Phosphatase 63 U/L (38-126); Anion Gap 3 mmol/L (8-16); Aspartate Amino Transferase 32 U/L (14-36); Basophils Percent Auto 0.9 % (0.2-1.2); Bilirubin,Total 0.4 mg/dL (0.2-1.3); Blood Urea Nitrogen 27 mg/dL (7-17); Calcium 9.2 mg/dL (8.4-10.2); Carbon Dioxide 32 mmol/L (22-30); Chloride 104 mmol/L (98-107); Eosinophils Percent Auto 0.2 % (0-4.4); Estimated Glomerular Filt Rate > 60; Glucose 166 mg/dL (65-110); Hematocrit 37.3 % (37.0-47.0); Hemoglobin 12.4 g/dL (12.0-15.0); Immature Granulocyte Absolute 0.01 K/mm3 (0.00-0.031); Immature Granulocyte Percent A 0.2 % (0-0.5); Lymphocytes Absolute Auto 1.37 K/mm3 (0.9-3.2); Lymphocytes Percent Auto 29.7 % (18.3-44.2); Mean Corpuscular HGB Conc 33.2 g/dl (32-36); Mean Corpuscular Hemoglobin 28.8 pg (26-34); Mean Corpuscular Volume 86.5 fl (80-100); Mean Platelet Volume 8.8 fl (7.4-10.4); Monocytes Absolute Auto 0.4 K/mm3 (0.1-0.6); Neutrophils Absolute Auto 2.8 K/mm3 (1.3-6.7); Platelet Count Result 173 k/mm3 (150-375); Potassium 4.2 mmol/L (3.4-5.0); Red Blood Count 4.31 M/mm3 (4.2-5.4); Red Cell Distribution Width 13.5 % (11.5-14.5); Sodium 139 mmol/L (137-145); White Blood Count 4.6 K/mm3 (4.5-10.0)
[2023-04-24 16:51] LABS: INR 1.2; Partial Thromboplastin Time 34.4 SECONDS (22.3-36.8); Prothrombin Time 15.7 Seconds (11.1-14.7)
[2023-04-24 18:01] LABS: Bacteria Urine None Seen /hpf; Calcium Oxalate Crystals Urine Present /hpf; Need Manual Microscopic Reviewed; RBC Urine >100 /hpf (0-2); Squamous Epithelial Cell Urine Few /hpf (Few)
[2023-04-24 18:03] LABS: Appearance Urine Turbid (Clear); Bilirubin Urine Negative (Negative); Blood Urine 2+ (Negative); Glucose Urine UA Negative (Negative); Ketones Urine Negative (Negative); Leukocyte Esterase Ur 1+ LEU/UL (Negative); Nitrate Urine Negative (Negative); Protein Urine 2+ mg/dL (Negative); Specific Grav Ur 1.047 (1.001-1.035); Urobilinogen Urine 0.2 mg/dL (<2.0)
[2023-04-24 18:04] LABS: Add Urine Microscopic? YES; Color Urine Red (Yellow)
[2023-04-24 18:35] LABS: Amphetamine Screen Urine Negative (Negative); Barbiturate Screen Urine Negative (Negative); Benzodiazepines Screen Urine Negative (Negative); Cannabinoid Screen Urine Negative (Negative); Cocaine Screen Urine Negative (Negative); Methadone Screen Urine Negative (Negative); Opiate Screen Urine Negative (Negative); Phencyclidine Screen Urine Negative (Negative)
[2023-04-24] MEDS: CLOPIDOGREL BISULFATE 75 MG TABLET PO (18:55)
--- NOTE | 2023-04-24 19:16 | PC.NURSE ---
Patient report given to CRYSTAL Galindo. All questions answered and care of patient transferred.
--- NOTE | 2023-04-24 20:14 | PC.NURSE ---
Patient arrived on 3 Med-Surg at 20:05
[2023-04-24 20:26] LABS: Glucose Point of Care 148 mg/dl (65-105)
--- NOTE | 2023-04-24 20:30 | PM.IMHP ---
H&P: HPI History of Present Illness Date/Time: 04/24/23 20:30 Chief Complaint: Trouble finding words Narrative: 77-year-old female with a history atrial flutter on chronic anticoagulation with Eliquis, severe aortic stenosis, grade 2 diastolic dysfunction, type 2 diabetes mellitus, obstructive sleep apnea and recent CVA who presented to the ER with difficulty with word finding. She was hospitalized here for 3 days (03/19/2023) had a CTA of the head and neck and echocardiogram. Echocardiogram demonstrated severe aortic stenosis with valve area 0.8 in grade 2 diastolic dysfunction with EF of 67%. There was no evidence of shunt on bubble study. She could not have an MRI at our facility due to her pacemaker. She reportedly had an MRI outpatient but these results are not available for my review. She was discharged home with home health. Review of Systems Review of Systems: 12 systems were reviewed with pertinent positives and negatives per HPI. Except as documented in the HPI, all other systems were reviewed and are negative. [facility] Past Medical History Medical History (Updated 04/24/23 @ 20:51 by Jayne Stacy DO) Anxiety Aortic valve stenosis Atrial flutter Bilateral incipient cataracts Cerebrovascular accident (03/19/23) Dyslipidemia Essential hypertension Grade II diastolic dysfunction Heart disease Lipoma Macular degeneration Neck mass Obesity (BMI 30-39.9) JERRELL (obstructive sleep apnea) Polysomnogram June 2018 recommend CPAP of 11 Osteoporosis Paroxysmal atrial flutter On chronic anticoagulation with Eliquis Post-menopausal Primary osteoarthritis of both knees Pure hypercholesterolemia Seasonal allergic rhinitis Severe aortic stenosis Echocardiogram 03/19/2023: Severe aortic stenosis with valve area 0.18, grade 2 diastolic dysfunction, EF is 67% Type 2 diabetes mellitus without complication, without long-term current use of insulin Vitamin D deficiency Surgical History Surgical History (Updated 04/24/23 @ 20:51 by Jayne Stacy DO) History of hand surgery right hand for synovial fluid mass Status post biventricular cardiac pacemaker insertion Status post open reduction with internal fixation of fracture Right leg fracture Status post right colon removal 12-15in of colon removed, precancerous lesion Family History Family History Sibling Diabetes mellitus Family history of obesity Hypertension Family history of cardiovascular disease Family history of arthritis Family history of malignant neoplasm of ovary Family history of hearing loss Other Family history of malignant neoplasm Social History Social History Smoking status: Never smoker Second hand tobacco smoke exposure: No Alcohol intake: never Substance use: never Substance use type: does not use Lack of Transportation: No Lack of Food: Never True Current Housing: I Have Housing Concerned About Future Housing: No Difficulty Paying Gas/Electric Bills: No Difficulty Paying for Meds: No Currently Unemployed: No Education: Grade School Difficulty w/ Childcare or Family Care: No Living arrangements: with family Occupation/Education: retired Gender identity (if verbalized by the patient): Female Spiritual care concerns: No Meds Home Medications and Allergies Home Medications Medication Instructions Recorded Confirmed Type apixaban 5 mg tablet (Eliquis) 5 mg PO BID 09/03/19 04/24/23 History multivitamin 1 tablet PO DAILY 09/03/19 04/24/23 History sotalol 80 mg tablet 80 mg PO BID 09/03/19 04/24/23 History lactobacillus combination no.4 3 3,000 mmu cells PO DAILY #1 cap 09/07/21 04/24/23 Rx billion cell capsule (Probiotic) aliskiren 300 mg tablet (Tekturna) 300 mg PO DAILY #90 tabs 09/06/22 04/24/23 Rx vitamins A,C,T-fcer-yiastx 4,296 1 cap PO BID 12/26/22 04/24/23 Histor
[2023-04-25 12:10] LABS: Glucose Point of Care 157 mg/dl (65-105)
[2023-04-25 12:37] LABS: Glucose Point of Care 139 mg/dl (65-105)
[2023-04-25 16:39] LABS: Glucose Point of Care 184 mg/dl (65-105)
--- NOTE | 2023-04-25 18:23 | HP_ITS ---
DATE OF SERVICE: 04/24/2023 ADDENDUM: TIME: 2335. HISTORY OF PRESENT ILLNESS: The patient is a 77-year-old female, who had a recent CVA with right-sided weakness on March 18, 2023. She also has a severe aortic stenosis, grade 2 diastolic dysfunction with preserved ejection fraction. She is on chronic anticoagulation with Eliquis. She reports, that after her recent stroke, she completed her physical therapy approximately 2 weeks ago. Then today, she was walking outside and noticed that she had some trouble picking up her right foot. She was having footdrop similar to when her prior CVA. She stated that she had fallen approximately 2 weeks ago and her gait had improved almost back to her baseline, but then today was weaker. She does have a resolving bruise to the right knee and reports that the knee pain from her fall has resolved. When she fell, she did not hit her head. She did not lose consciousness. During her last hospitalization, we were unable to perform an MRI as she has a pacemaker in place. She was evidently referred for an outpatient MRI, but it is not scheduled until April 30. She came back in today because she felt as if she was having some problems with her memory. She felt more fatigued than usual and was having the footdrop. She denied any upper extremity symptoms this time. She denies difficulty with word finding or slurred speech. She has not been having any headaches or vision changes. She wanted to come again because she was worried that she may be having another stroke. In the ER, CTA demonstrated no evidence of acute bleed and demonstrated known stable plaquing of her, I believe it was, carotids. Also, the patient was noted to have ana paula hematuria. She reports that she has been having intermittent hematuria for several months. She had a CT of the abdomen and pelvis back in February that demonstrated a left renal mass measuring 2.6 x 1.8 cm. She was referred to Urology, but when she showed up for her Urology appointment, they had unexpectedly canceled her appointment. She reports that the urologist told her to not come back until she knew the results of her MRI. She thought that maybe some of her fatigue was due to her hematuria. However, the patient's hemoglobin has remained stable compared to prior values. She denies any associated dysuria or changes in urinary frequency. She has not had any increased urinary urgency. Her UA really is not suggestive of UTI and did not have significant bacteria. She has not noticed any clots in her urine. She has not noticed any hematochezia or melena. She reports that she does have obstructive sleep apnea, but no longer uses her home CPAP and has been sleeping in a recliner. She states her reports she only rarely snores and she sleeps in the recliner. She denies any associated respiratory symptoms, fevers, or chills. She has not had any recent changes in home medications. The patient did report that she was concerned about new skin lesions that she had not noticed before her legs that her home health nurse had pointed out and recommend she come to the ER for evaluation of. However, the patient does have similar lesions on her skin that have been chronic and are consistent with chronic vascular formations. She reports chronic bruising due to history of chronic anticoagulation. REVIEW OF SYSTEMS: Twelve systems were reviewed and were negative, except as documented, with pertinent positives and negatives in HPI. PAST MEDICAL HISTORY: As per electronic EMR. SURGICAL HISTORY: As per electronic EMR. FAMILY HISTORY: As per electronic EMR. SOCIAL HISTORY: As per electronic EMR. The patient has been for 57 years. She and her raised 2 sons. The patient is a lifelong nonsmoker. She has a high-school education and
--- NOTE | 2023-04-25 18:30 | PHAR ---
HOME MEDICATION VERIFIED BY PHARMACY ALISKIREN 300MG TABLETS 1 TABLET PO DAILY [id number]
[2023-04-25 20:00] VITALS: PULSE 70
[2023-04-25] MEDS: APIXABAN 5 MG TABLET PO (20:44)
[2023-04-25 21:17] LABS: Glucose Point of Care 183 mg/dl (65-105)
--- NOTE | 2023-04-25 21:24 | PC.NURSE ---
Paper documentation exists on this patient due to [employer] System downtime on 04/25/23 from 0030 to 1930 .
[2023-04-25 22:00] VITALS: BP 139/58; PULSE 75; RESP 16; TEMP 35.9; O2SAT 98
[2023-04-26] VITALS (8 sets, daily range): BP systolic 119–151; BP diastolic 51–64; PULSE 69–88; RESP 16–20; TEMP 35.7–36.6; O2SAT 96–98
[2023-04-26 07:39] LABS: Glucose Point of Care 143 mg/dl (65-105)
[2023-04-26] MEDS: SOTALOL HCL 80 MG TABLET PO (07:59)
[2023-04-26] MEDS: APIXABAN 5 MG TABLET PO (08:00)
[2023-04-26 11:24] LABS: Glucose Point of Care 176 mg/dl (65-105)
--- NOTE | 2023-04-26 12:05 | WPDNEURCNPN ---
Assessment and Plan Assessment and plan (1) Severe aortic stenosis: Code(s): I35.0 - Nonrheumatic aortic (valve) stenosis Status: Acute (2) Acute right-sided weakness: Code(s): R53.1 - Weakness Status: Acute (3) Type 2 diabetes mellitus without complication, without long-term current use of insulin: Code(s): E11.9 - Type 2 diabetes mellitus without complications Status: Acute (4) Pure hypercholesterolemia: Code(s): E78.00 - Pure hypercholesterolemia, unspecified Status: Acute (5) Hx of cardiac pacemaker: Code(s): Z95.0 - Presence of cardiac pacemaker Status: Acute Plan Even though we have not repeated the MRI clinically she has right-sided neuro deficit but she is already on the appropriate medications and the treatment will be continued as such she is definitely better on the next day when examined again discussed with her medication will be continued as such Consult date: 04/26/23 HPI: Edson Cr is a 77 year old female Admitted to the hospital through the emergency room was initially seen on 04/25 but the system was out the note is being dictated today. 77 years old right-handed female came to the emergency room with the complaints of difficulties in word-finding about 3 hours prior to the admission to the ER at the same time her right lower extremity was somewhat weaker the symptomatology resolved within 10 to 15 minutes and she had no difficulties by the time she came to the emergency room. Her medications particularly included apixaban 5 mg twice a day in addition to sotalol 80 mg twice a day. Her past history has been consistent with aortic valvular stenosis, atrial flutter, hypertension, dyslipidemia, pacemaker dual-chamber, and type 2 diabetes mellitus. She does not drink and does not smoke. Initial examination in the emergency room revealed her to have no focal neurological deficit with pulse ox of 100 and vital signs normal, EKG revealed no atrial fibrillation routine lab was normal, head neck CTA documented no aneurysm or intracranial arterial stenosis with 40% stenosis of the proximal right internal carotid artery relative to distal lumen. [facility] Past Medical History Medical History (Updated 04/24/23 @ 20:51 by Jayne Stacy DO) Anxiety Aortic valve stenosis Atrial flutter Bilateral incipient cataracts Cerebrovascular accident (03/19/23) Dyslipidemia Essential hypertension Grade II diastolic dysfunction Heart disease Lipoma Macular degeneration Neck mass Obesity (BMI 30-39.9) JERRELL (obstructive sleep apnea) Polysomnogram June 2018 recommend CPAP of 11 Osteoporosis Paroxysmal atrial flutter On chronic anticoagulation with Eliquis Post-menopausal Primary osteoarthritis of both knees Pure hypercholesterolemia Seasonal allergic rhinitis Severe aortic stenosis Echocardiogram 03/19/2023: Severe aortic stenosis with valve area 0.18, grade 2 diastolic dysfunction, EF is 67% Type 2 diabetes mellitus without complication, without long-term current use of insulin Vitamin D deficiency Surgical History Surgical History (Updated 04/24/23 @ 20:51 by Jayne Stacy DO) History of hand surgery right hand for synovial fluid mass Status post biventricular cardiac pacemaker insertion Status post open reduction with internal fixation of fracture Right leg fracture Status post right colon removal 12-15in of colon removed, precancerous lesion Family History Family History (Updated 04/24/23 @ 21:36 by Fco Erwin, CRYSTAL) Sibling Family history of cardiovascular disease Diabetes mellitus Family history of hearing loss Family history of arthritis Family history of obesity Hypertension Liver disease Liver cancer Other Family history of malignant neoplasm of ovary Social History Social History Smoking status: Never smoker Second hand tobacco smoke exposure: No
--- NOTE | 2023-04-26 15:38 | PM.IMPN ---
Progress Note: A&P Assessment and Plan (1) TIA (transient ischemic attack): Code(s): G45.9 - Transient cerebral ischemic attack, unspecified Status: Acute (2) Mass of left kidney: Code(s): N28.89 - Other specified disorders of kidney and ureter Status: Acute (3) Hematuria: Qualifiers: Hematuria type: gross Qualified Code(s): R31.0 - Gross hematuria Code(s): R31.9 - Hematuria, unspecified Status: Acute Plan Patient presented with an episode of word-finding difficulties. Recent history of stroke with right-sided weakness. Repeat CTA with 40% stenosis of the left internal carotid which was previously present. Patient already on Eliquis. Due to history of atrial fibrillation. MRI could not be done last admission and was planned to do as an outpatient basis is scheduled next week. Patient with pacemaker and hence need to be done as an outpatient center with compatibility to do MRI on pacemaker device. Continue on Eliquis PT OT to see. Patient was given a dose of Plavix in the ER. No further Plavix recommended by Neurology Recent imaging consistent with renal cell carcinoma seeing Urology has hematuria related to this. carotid artery stenosis Aortic valve stenosis follows with Dr. Corea Hypertension hyperlipidemia JERRELL Subjective Date/time seen: 04/26/23 15:38 Interval history: No overnight events. Feeling better. No shortness of breath or chest pain right-sided weakness has improved Review of Systems Review of Systems: All systems reviewed & are unremarkable except as noted in HPI and below Exam Narrative: GENERAL: Well-appearing, well-nourished, and in no acute distress. HEAD: Normocephalic, atraumatic. EYES: PERRLA and EOMI. ENT: Nares clear, no rhinorrhea or epistaxis.? Mucous membranes moist. NECK: Supple. CHEST: Clear to auscultation.? No respiratory distress. HEART: Regular rate and rhythm. ABDOMEN: Soft, nontender, nondistended EXTREMITIES: Normal range of motion.? No edema. SKIN: Warm, dry, no rash. NEURO:? Alert and oriented x3. 4/5 strength RLE, 5/5 strength in bilateral upper extremities, no sensory deficits, no dysarthria or aphasia PSYCH: Normal mood and affect. ? Objective Data Vital Signs Vital Signs: Vital Signs - 24 hr 04/25/23 22:00 04/25/23 20:00 04/25/23 20:00 Temperature 96.6 F L Pulse Rate 75 70 Respiratory Rate 16 Blood Pressure 139/58 L Pulse Oximetry 98 Oxygen Delivery Room Air 04/26/23 00:00 04/26/23 04:00 04/26/23 06:00 Temperature 96.2 F L Pulse Rate 70 88 69 Respiratory Rate 16 Blood Pressure 151/64 H Pulse Oximetry 98 Oxygen Delivery 04/26/23 07:59 04/26/23 08:05 04/26/23 08:05 Temperature Pulse Rate 70 82 70 Respiratory Rate Blood Pressure Pulse Oximetry 97 Oxygen Delivery Room Air 04/26/23 12:00 04/26/23 14:00 04/26/23 14:52 Temperature 97.9 F Pulse Rate 71 72 Respiratory Rate 20 Blood Pressure 119/51 L Pulse Oximetry 96 Oxygen Delivery Room Air Intake/Output Intake/Output: Intake & Output 04/23/23 04/24/23 04/25/23 04/26/23 23:59 23:59 23:59 23:59 Intake Total 980 Output Total 650 Balance 330 Meds/Results Medications: Active Medications Generic Name Dose Route Start Last Admin Trade Name Freq PRN Reason Stop Dose Admin Apixaban 5 mg 04/25/23 21:00 04/26/23 08:00 Apixaban 5 Mg Tablet PO 5 mg Q12HR SAMI Administration Dextrose 12.5 gm 04/25/23 18:31 Dextrose 50% 25 Gm/50 Ml Syringe IV PUSH PRN PRN Hypoglycemia Protocol Glucagon 1 mg 04/25/23 18:31 Glucagon For Inj 1 Mg Vial IM PRN PRN Hypoglycemia Protocol Glucose 15 gm 04/25/23 18:31 Glucose Oral Gel 15 Gm Of Glucse In 37.5 Gm Tube PO PRN PRN Hypoglycemia Protocol Dextrose 1,000 mls @ 100 mls/hr 04/25/23 18:31 Dextrose 5% 1,000 Ml IVPB PRN PRN Hypoglycemia
--- NOTE | 2023-04-26 16:24 | PM.DS ---
DS: Admitting Diagnosis Discharge Date 04/26/2023 Admitting Diagnosis TIA DS: Discharge Diagnosis Discharge Diagnosis (1) TIA (transient ischemic attack): Code(s): G45.9 - Transient cerebral ischemic attack, unspecified Status: Acute (2) Mass of left kidney: Code(s): N28.89 - Other specified disorders of kidney and ureter Status: Acute (3) Hematuria: Qualifiers: Hematuria type: gross Qualified Code(s): R31.0 - Gross hematuria Code(s): R31.9 - Hematuria, unspecified Status: Acute DS: Summary Hospital Course Hospital Course: Patient presented with an episode of word-finding difficulties.? Recent history of stroke with right-sided weakness.? Repeat CTA with 40% stenosis of the left internal carotid which was previously present.? Patient already on Eliquis.? Due to history of atrial fibrillation.? MRI could not be done last admission and was planned to do as an outpatient basis is scheduled next week.? Patient with pacemaker and hence need to be done as an outpatient center with compatibility to do MRI on pacemaker device.? Continue on Eliquis PT OT to see and cleared for discharge.? Patient was given a dose of Plavix in the ER.? No further Plavix recommended by Neurology. She will continue current medication. Recent imaging consistent with renal cell carcinoma seeing Urology has hematuria related to this. carotid artery stenosis Aortic valve stenosis follows with Dr. Corea Hypertension hyperlipidemia JERRELL Time Spent with Patient Time attestation: Total time spent providing and/or coordinating discharge services: 40 minutes Exam Narrative: GENERAL: Well-appearing, well-nourished, and in no acute distress. HEAD: Normocephalic, atraumatic. EYES: PERRLA and EOMI. ENT: Nares clear, no rhinorrhea or epistaxis.? Mucous membranes moist. NECK: Supple. CHEST: Clear to auscultation.? No respiratory distress. HEART: Regular rate and rhythm. ABDOMEN: Soft, nontender, nondistended EXTREMITIES: Normal range of motion.? No edema. SKIN: Warm, dry, no rash. NEURO:? Alert and oriented x3. 4/5 strength RLE, 5/5 strength in bilateral upper extremities, no sensory deficits, no dysarthria or aphasia PSYCH: Normal mood and affect. ? DS: Data Data Completed and Pending Labs on day of discharge: Labs from last 24 hours 04/26/23 04/26/23 04/25/23 11:13 07:29 20:37 POC Capillary Glucose 176 H 143 H 183 H 04/25/23 16:28 POC Capillary Glucose 184 H Imaging Radiologist's impression: ITS Impressions Head/Neck CTA 04/24/23 16:27 IMPRESSION: 1. Normal aging brain. 2. No aneurysm or significant intracranial or central stenosis. 3. 40% stenosis of the proximal right internal carotid artery relative to normal distal artery lumen diameter (NASCET criteria). 4. 0% stenosis of the proximal left internal carotid artery relative to normal distal artery lumen diameter. ADDENDUM: 04/24/23 [id number] I discussed this result with Dr. Youngblood. Chest X-Ray 04/24/23 16:38 IMPRESSION: No acute cardiopulmonary process. Discharge Plan Discharge Attending physician on discharge: Richie Thakkar Consulting providers: Cosme Galan Discharging Clinician: Richie Thakkar Anticipated Discharge Date/Time: 04/26/23 16:22 Patient Disposition: Home Health Service Activity: as tolerated Diet: heart healthy and diabetic Discharge Instructions: Per Care Coordination, pt. will discharge home with [facility] for continued PT/OT/RN. [facility] will contact pt. at time of D/C. Patient Instructions: Antibiotic Form Stand Alone Forms: General Discharge Information Follow-up/Referrals: Jacobo Pryor MD [Primary Care Provider] - 1 Week Discharge Medications: Continued mupirocin 2 % ointment 1 applic topical BID 7 Days Qty: 15 0RF Probiotic 3 billion cell capsule 3,000 mmu cells PO DAILY Qty: 1 0RF
[2023-04-26 16:28] LABS: Glucose Point of Care 138 mg/dl (65-105)
--- NOTE | 2023-04-26 16:30 | PCPTNOTE ---
On 04/26/23, the student, [Linnea Bernardo], provided care and completed [facility] documentation on this patient. I have reviewed the student's documentation and agree with the findings.
== END 2023-04-26 17:05 | disposition home health service (06) | DRG 69 ==
LOC: ANHED 17:39 → ANH3MEDSUR 19:53
PROVIDERS: Admitting Provider Hospitalist; Emergency Provider Emergency Medicine; PCP Family Medicine; Visit Provider Internal Medicine
DX: G45.9 Transient cerebral ischemic attack, unspecified (principal); I69.351 Hemiplegia and hemiparesis following cerebral infarction affecting right dominant side; N28.89 Other specified disorders of kidney and ureter; R31.0 Gross hematuria; E78.5 Hyperlipidemia, unspecified; I69.398 Other sequelae of cerebral infarction; E66.9 Obesity, unspecified; Z68.35 Body mass index [BMI] 35.0-35.9, adult; G47.33 Obstructive sleep apnea (adult) (pediatric); M81.0 Age-related osteoporosis without current pathological fracture; H35.30 Unspecified macular degeneration; I10 Essential (primary) hypertension; E11.9 Type 2 diabetes mellitus without complications; I48.91 Unspecified atrial fibrillation; M17.0 Bilateral primary osteoarthritis of knee; I35.0 Nonrheumatic aortic (valve) stenosis; M21.371 Foot drop, right foot; Z79.01 Long term (current) use of anticoagulants; Z95.0 Presence of cardiac pacemaker
CPT/HCPCS: 70496; 70498; 71045; 80053; 80307; 81001; 82948; 85025; 85610; 85730; 87086; 93005; 97161; 97165; 99285; A9270; G0378; Q9967

== ENCOUNTER 2023-05-14 08:18 | Emergency (ER) | payer MEDICARE, SELFPAY ==
[2023-05-14 08:36] VITALS: BP 135/71; PULSE 98; RESP 18; TEMP 36.1; O2SAT 100
--- NOTE | 2023-05-14 08:45 | ED.SKABFB ---
HPI - Skin/Abscess/Foreign Bdy General Chief complaint: Skin/Abscess/Foreign Body Stated complaint: Rash Time Seen by Provider: 05/14/23 08:46 Source: patient, RN notes reviewed and old records reviewed Mode of arrival: ambulatory Limitations: no limitations History of Present Illness HPI narrative: 77-year-old female with a history of diabetes, recent TIAs, arthritis, AFib presents to the [facility] with complaints waking up this morning itchy. Patient reports a rash to her bilateral arms, elbows. Patient states the itchiness woke her up from her sleep. No treatment prior to arrival States the rash was worse on the right arm prior to arrival. States it has gotten much better and just at her elbow right now Onset (ago): hour(s) Exacerbating factors: none Treatments prior to arrival: none Related Data Home Medications Medication Instructions Recorded Confirmed apixaban 5 mg tablet (Eliquis) 5 mg PO BID 09/03/19 05/14/23 multivitamin 1 tablet PO DAILY 09/03/19 05/14/23 sotalol 80 mg tablet 80 mg PO BID 09/03/19 05/14/23 vitamins A,C,B-adci-xnumjm 4,296 1 cap PO BID 12/26/22 05/14/23 mcg-226 mg-90 mg capsule (ICaps AREDS) turmeric root extract 1,053 mg 1,310 mg PO DAILY 12/28/22 05/14/23 tablet diclofenac sodium 1 % topical gel 2 g topical QID 05/14/23 05/14/23 (Voltaren Arthritis Pain) Allergies Allergy/AdvReac Type Severity Reaction Status Date / Time aspirin Allergy Unknown ITHING & Verified 05/04/23 10:48 HIVES atorvastatin Allergy Unknown LIVER Verified 05/04/23 10:48 ISSUES clindamycin Allergy Unknown Unknown Verified 05/04/23 10:48 STOPPED TAKING IN 1979 colesevelam Allergy Unknown HIVES Verified 05/04/23 10:48 NECK/CHEST doxycycline Allergy Unknown Unknown - Verified 05/04/23 10:48 UNABLE TO RECALL ezetimibe Allergy Unknown unknown-UNABLE Verified 05/04/23 10:48 TO RECALL fluvastatin Allergy Unknown LIVER Verified 05/04/23 10:48 ISSUES lincomycin Allergy Unknown UNKNOWN Verified 05/04/23 10:48 STOPPED 1979 naproxen Allergy Unknown Hives Verified 05/04/23 10:48 pravastatin Allergy Unknown LIVER Verified 05/04/23 10:48 ISSUES rivaroxaban Allergy Unknown BLEEDING Verified 05/04/23 10:48 rosuvastatin Allergy Unknown LIVER Verified 05/04/23 10:48 ISSUES sertraline Allergy Unknown Unknown-UNABLE Verified 05/04/23 10:48 TO RECAL sitagliptin Allergy Unknown Itching Verified 05/04/23 10:48 iophendylate AdvReac Intermediate stomach/intestinal Verified 05/04/23 10:48 cramping bupropion AdvReac Mild not Verified 05/04/23 10:48 working amlodipine AdvReac Unknown COUGHING Verified 05/04/23 10:48 captopril AdvReac Unknown COUGHING Verified 05/04/23 10:48 irbesartan AdvReac Unknown MUSCLE Verified 05/04/23 10:48 WEAKNESS lisinopril AdvReac Unknown COUGHING Verified 05/04/23 10:48 metformin AdvReac Unknown HEAD ACH Verified 05/04/23 10:48 niacin AdvReac Unknown PANIC Verified 05/04/23 10:48 ATTACTS olmesartan AdvReac Unknown MUSCLE Verified 05/04/23 10:48 WEAKNESS paroxetine AdvReac Unknown Drowsy Verified 05/04/23 10:48 Review of Systems Review of Systems: All systems reviewed & are unremarkable except as noted in HPI and below Constitutional: Constitutional: Reports no additional constitutional complaints Eyes: Eyes: Reports no additional eye complaints ENT: Reports system reviewed and no additional complaints, except as documented Cardiovascular: Cardiovascular: Reports no additional cardiovascular complaints, Denies chest pain and Denies dyspnea Respiratory: Respiratory: Reports no additional respiratory complaints, Denies chest congestion, Denies cough and Denies dyspnea Gastrointestinal: Gastrointestinal: Reports no additional gastrointestinal complaints, Denies abdominal pain, Denies nausea and Denies vomiting Musculoskeletal: Musculoskeletal: Reports no additional musculoskeletal complaints Inte
== END 2023-05-14 09:00 | disposition home or self-care (01) ==
PROVIDERS: Emergency Provider Nurse Practitioner; PCP Family Medicine
DX: L25.9 Unspecified contact dermatitis, unspecified cause (principal); I35.0 Nonrheumatic aortic (valve) stenosis; E78.5 Hyperlipidemia, unspecified; I11.9 Hypertensive heart disease without heart failure; H35.30 Unspecified macular degeneration; E66.9 Obesity, unspecified; Z68.31 Body mass index [BMI] 31.0-31.9, adult; M81.0 Age-related osteoporosis without current pathological fracture; I48.92 Unspecified atrial flutter; M17.0 Bilateral primary osteoarthritis of knee; E78.00 Pure hypercholesterolemia, unspecified; E11.9 Type 2 diabetes mellitus without complications; Z79.01 Long term (current) use of anticoagulants
CPT/HCPCS: 99211; G0463

== ENCOUNTER 2023-06-14 01:54 | Day surgery (SDC) | payer MEDICARE, SELFPAY ==
[2023-06-05 12:27] VITALS: BMI 31.0
--- NOTE | 2023-06-13 20:50 | PM.HPGS ---
History of Present Illness History of Present Illness Consent: Risks, benefits, and alternatives have been discussed and questions answered. Patient agrees to proceed with procedure. Chief complaint: hemorrhage of anus and rectum Narrative: Edson Cr is a 77 year old female with rectal bleeding, on Eliquis for At. Flutter, aortic valve Stenosis. She has been on blood thinner for this few years. Earlier this year she was found to have a renal mass. She was going to have surgery but then had 2 small strokes. She has had recurrent urinary tract infections and had been seen blood in her urine. Then about a couple months ago she started seeing blood in the stools. His bright red. It could be on the toilet paper or in the bowl. She also has recently urgent bowel movements which however are semi formed. She does not have diarrhea. She denies rectal pain or abdominal pain Review of Systems Review of Systems: All systems reviewed & are unremarkable except as noted in HPI and below PMFSH Past Medical History Medical History Anxiety Aortic valve stenosis Atrial flutter Bilateral incipient cataracts Cerebrovascular accident (03/19/23) Dyslipidemia Essential hypertension Grade II diastolic dysfunction Heart disease Lipoma Macular degeneration Neck mass Obesity (BMI 30-39.9) JERRELL (obstructive sleep apnea) Polysomnogram June 2018 recommend CPAP of 11 Osteoporosis Paroxysmal atrial flutter On chronic anticoagulation with Eliquis Post-menopausal Primary osteoarthritis of both knees Pure hypercholesterolemia Seasonal allergic rhinitis Severe aortic stenosis Echocardiogram 03/19/2023: Severe aortic stenosis with valve area 0.18, grade 2 diastolic dysfunction, EF is 67% Type 2 diabetes mellitus without complication, without long-term current use of insulin Vitamin D deficiency Surgical History Surgical History History of hand surgery right hand for synovial fluid mass Status post biventricular cardiac pacemaker insertion Status post open reduction with internal fixation of fracture Right leg fracture Status post right colon removal 12-15in of colon removed, precancerous lesion Family History Family History Sibling Family history of cardiovascular disease Diabetes mellitus Family history of hearing loss Family history of arthritis Family history of obesity Hypertension Liver disease Liver cancer Other Family history of malignant neoplasm of ovary Social History Social History Smoking status: Never smoker Second hand tobacco smoke exposure: No Alcohol intake: current Substance use: never Substance use type: does not use Lack of Transportation: No Lack of Food: Never True Current Housing: I Have Housing Concerned About Future Housing: No Difficulty Paying Gas/Electric Bills: No Difficulty Paying for Meds: No Currently Unemployed: No Education: High School Diploma/GED Difficulty w/ Childcare or Family Care: No Living arrangements: with family Occupation/Education: retired Gender identity (if verbalized by the patient): Female Spiritual care concerns: No Meds Home Medications and Allergies Home Medications Medication Instructions Recorded Confirmed Type apixaban 5 mg tablet (Eliquis) 5 mg PO BID 09/03/19 06/05/23 History sotalol 80 mg tablet 80 mg PO BID 09/03/19 06/05/23 History pioglitazone 15 mg tablet (Actos) 7.5 mg PO BID #90 tabs 01/09/23 06/05/23 Rx Daily Probiotic 1 tab-cap PO DAILY 06/05/23 06/05/23 History Mature Women's 1 tab-cap PO DAILY 06/05/23 06/05/23 History turmeric 2 tab-cap PO DAILY 06/05/23 06/05/23 History vit C 250 mg-vit E 200 unit-zinc 1 cap PO BID 06/05/23 06/05/23 History ox 12.5 ny-gbjdsy-nzrmmv-zeax capsule (ICa
[2023-06-14 11:37] VITALS: BP 120/64; PULSE 88; RESP 18; TEMP 36.2; O2SAT 99
[2023-06-14] MEDS: LACTATED RINGERS 1,000 ML 150 ML IV CONT (11:39)
--- NOTE | 2023-06-14 12:09 | WPDANESEPPF ---
Anes - Initial Pre Proc Eval Procedure: Operation Date: 06/14/23 13:00 Proposed Procedures p Colonoscopy - Ty oD MD Date/Time: 06/14/23 12:09 Surgeon: Ty Do MD Pre Op Diagnosis: hemorrhage of anus and rectum Patient Data Age: 77 Gender: F Height: 1.63 m Weight: 80.1 kg Last Vital Signs Temp 97.2 F L 06/14/23 11:37 Pulse 88 06/14/23 11:37 Resp 18 06/14/23 11:37 BP 120/64 06/14/23 11:37 Pulse Ox 99 06/14/23 11:37 O2 Del Method Room Air 06/14/23 11:37 Allergies Allergy/AdvReac Type Severity Reaction Status Date / Time aspirin Allergy Severe ITHING & Verified 06/14/23 11:35 HIVES atorvastatin Allergy Unknown LIVER Verified 06/14/23 11:35 ISSUES clindamycin Allergy Unknown Unknown Verified 06/14/23 11:35 STOPPED TAKING IN 1979 colesevelam Allergy Unknown HIVES Verified 06/14/23 11:35 NECK/CHEST doxycycline Allergy Unknown Unknown - Verified 06/14/23 11:35 UNABLE TO RECALL ezetimibe Allergy Unknown unknown-UNABLE Verified 06/14/23 11:35 TO RECALL fluvastatin Allergy Unknown LIVER Verified 06/14/23 11:35 ISSUES lincomycin Allergy Unknown UNKNOWN Verified 06/14/23 11:35 STOPPED 1979 naproxen Allergy Unknown Hives Verified 06/14/23 11:35 pravastatin Allergy Unknown LIVER Verified 06/14/23 11:35 ISSUES rivaroxaban Allergy Unknown BLEEDING Verified 06/14/23 11:35 rosuvastatin Allergy Unknown LIVER Verified 06/14/23 11:35 ISSUES sertraline Allergy Unknown Unknown-UNABLE Verified 06/14/23 11:35 TO RECAL sitagliptin Allergy Unknown Itching Verified 06/14/23 11:35 iophendylate AdvReac Intermediate stomach/intestinal Verified 06/14/23 11:35 cramping bupropion AdvReac Mild not Verified 06/14/23 11:35 working amlodipine AdvReac Unknown COUGHING Verified 06/14/23 11:35 captopril AdvReac Unknown COUGHING Verified 06/14/23 11:35 irbesartan AdvReac Unknown MUSCLE Verified 06/14/23 11:35 WEAKNESS lisinopril AdvReac Unknown COUGHING Verified 06/14/23 11:35 metformin AdvReac Unknown HEAD ACH Verified 06/14/23 11:35 niacin AdvReac Unknown PANIC Verified 06/14/23 11:35 ATTACTS olmesartan AdvReac Unknown MUSCLE Verified 06/14/23 11:35 WEAKNESS paroxetine AdvReac Unknown Drowsy Verified 06/14/23 11:35 Home Medications Medication Instructions Recorded Confirmed Type apixaban 5 mg tablet (Eliquis) 5 mg PO BID 09/03/19 06/05/23 History sotalol 80 mg tablet 80 mg PO BID 09/03/19 06/05/23 History pioglitazone 15 mg tablet (Actos) 7.5 mg PO BID #90 tabs 01/09/23 06/05/23 Rx Daily Probiotic 1 tab-cap PO DAILY 06/05/23 06/05/23 History Mature Women's 1 tab-cap PO DAILY 06/05/23 06/05/23 History turmeric 2 tab-cap PO DAILY 06/05/23 06/05/23 History vit C 250 mg-vit E 200 unit-zinc 1 cap PO BID 06/05/23 06/05/23 History ox 12.5 wn-zclvwq-cokazp-zeax capsule (ICaps AREDS2) aliskiren 300 mg tablet (Tekturna) 300 mg PO DAILY #90 tabs 06/06/23 06/14/23 Rx Patient hx anesthesia problems: none Family hx anesthesia problems: none Results Review: All pre-operative results and documents have been reviewed as part of the pre-operative evaluation. [facility] Past Medical History Medical History Anxiety Aortic valve stenosis Atrial flutter Bilateral incipient cataracts Cerebrovascular accident (03/19/23) Dyslipidemia Essential hypertension Grade II diastolic dysfunction Heart disease Lipoma Macular degeneration Neck mass Obesity (BMI 30-39.9) JERRELL (obstructive sleep apnea) Polysomnogram June 2018 recommend CPAP of 11 Osteoporosis Paroxysmal atrial flutter On chronic anticoagulation with Eliquis Post-menopausal Primary osteoarthritis of both knees Pure hypercholesterolemia Seasonal allergic rhinitis Severe aortic stenosis Echocardiogram 03/19/2023: Severe aortic stenosis with valve area 0.18, grade 2 diastolic dysfunction, EF
--- NOTE | 2023-06-14 12:20 | SUR.OPER ---
No documentation of blood sugar checked in pre op. Informed VIJAY Cespedes. States that patient does not check blood sugar every morning and is ok with not checking it before procedure. Will inform post op nurse. Patient denies any symptoms of hypo/hyperglycemia.
[2023-06-14 12:37] VITALS: BP 99/51; PULSE 72; RESP 18; O2SAT 96
[2023-06-14 12:47] VITALS: BP 104/51; PULSE 70; RESP 18; O2SAT 100
[2023-06-14 12:57] VITALS: BP 119/59; PULSE 73; RESP 20; O2SAT 100
== END 2023-06-14 13:07 | disposition home or self-care (01) ==
PROVIDERS: PCP Family Medicine; Visit Provider Internal Medicine Gastroenterology
PROC: 0DJD8ZZ Inspection of Lower Intestinal Tract, Via Natural or Artificial Opening Endoscopic (ICD-10-PCS; CPT 45378; principal; 2023-06-14 13:00)
DX: K64.8 Other hemorrhoids (principal); Z98.0 Intestinal bypass and anastomosis status; Z90.49 Acquired absence of other specified parts of digestive tract; I35.0 Nonrheumatic aortic (valve) stenosis; I11.9 Hypertensive heart disease without heart failure; F41.9 Anxiety disorder, unspecified; G47.33 Obstructive sleep apnea (adult) (pediatric); E78.00 Pure hypercholesterolemia, unspecified; E11.9 Type 2 diabetes mellitus without complications; E55.9 Vitamin D deficiency, unspecified; Z86.73 Personal history of transient ischemic attack (TIA), and cerebral infarction without residual deficits; Z79.01 Long term (current) use of anticoagulants; Z95.0 Presence of cardiac pacemaker
CPT/HCPCS: 45378; J2704; J7120

== ENCOUNTER 2023-12-07 07:25 | Outpatient (RCR) | payer MEDICARE, SELFPAY ==
[2023-11-23 12:30] VITALS: BMI 29.5
== END 2024-01-29 14:08 | disposition home or self-care (01) ==
LOC: ANHWOC 07:25
PROVIDERS: PCP Family Medicine; Visit Provider Family Medicine
DX: R23.8 Other skin changes (principal)
CPT/HCPCS: 99213; A9270; G0463

== ENCOUNTER 2023-12-24 10:42 | Outpatient (CLI) | payer MEDICARE, SELFPAY ==
--- NOTE | ~2023-12-24 | US_ITS ---
Renal-Bladder ultrasound Clinical History: Chronic kidney disease Technique: Real-time sonographic imaging of the kidneys and urinary bladder was performed. Findings: The right kidney measures 11.3 cm in length. No right hydronephrosis. Right renal disease u nremarkable. No significant right renal mass seen. Small right renal cyst present. Patient is status post left nephrectomy. The urinary bladder is moderately distended at the time of this exam. No intraluminal echoes are iden tified. No abnormal wall thickening is seen. Impression: Unremarkable ultrasound of the right kidney and urinary bladder. Status post left nephrectomy. Reviewed, dictated and finalized at location . THAND REPORTER Impression: Unremarkable ultrasound of the right kidney and urinary bladder. Status post left nephrectomy.
== END 2023-12-24 10:43 | disposition home or self-care (01) ==
PROVIDERS: PCP Family Medicine; Visit Provider Internal Medicine Nephrology
DX: N18.32 Chronic kidney disease, stage 3b (principal); D64.9 Anemia, unspecified
CPT/HCPCS: 76775

== ENCOUNTER 2024-03-14 10:49 | Outpatient (CLI) | payer MEDICARE, SELFPAY ==
[2024-03-14 11:22] LABS: Hematocrit 35.8 % (37.0-47.0); Hemoglobin 11.7 g/dL (12.0-15.0); Mean Corpuscular HGB Conc 32.7 g/dl (32-36); Mean Corpuscular Hemoglobin 28.3 pg (26-34); Mean Corpuscular Volume 86.7 fl (80-100); Mean Platelet Volume 8.7 fl (7.4-10.4); Platelet Count Result 191 k/mm3 (150-375); Red Blood Count 4.13 M/mm3 (4.2-5.4); Red Cell Distribution Width 13.4 % (11.5-14.5); White Blood Count 6.5 K/mm3 (4.5-10.0)
[2024-03-14 11:37] LABS: Albumin Level 4.4 g/dL (3.5-5.1); Anion Gap 5 mmol/L (4-12); Blood Urea Nitrogen 23 mg/dL (7-17); Calcium 9.5 mg/dL (8.4-10.2); Carbon Dioxide 28 mmol/L (22-30); Chloride 107 mmol/L (98-107); Estimated Glomerular Filt Rate 39; Glucose 128 mg/dL (65-110); Phosphorus 3.4 mg/dL (2.5-4.5); Potassium 4.1 mmol/L (3.4-5.0); Sodium 140 mmol/L (137-145)
[2024-03-14 11:39] LABS: Creatinine Urine 188.3 mg/dL; Total Protein Urine Random 84 mg/dL; Ur Ttl Prot Creatinine Ratio 0.45 mg/mg (0-0.20)
[2024-03-14 11:44] LABS: Parathyroid Intact 41.6 pg/mL (7.5-53.5)
[2024-03-14 12:34] LABS: Appearance Urine Turbid (Clear); Bacteria Urine 4+ /hpf; Bilirubin Urine Negative (Negative); Blood Urine 3+ (Negative); Color Urine Dark Yellow (Yellow); Glucose Urine UA Negative (Negative); Ketones Urine Trace mg/dL (Negative); Leukocyte Esterase Ur 3+ LEU/UL (Negative); Need Manual Microscopic Reviewed; Nitrate Urine Negative (Negative); Non Pathogenic Casts >20; Protein Urine 2+ mg/dL (Negative); RBC Urine >100 /hpf (0-2); Specific Grav Ur 1.017 (1.001-1.035); Squamous Epithelial Cell Urine Occasional /hpf (Few); WBC Urine >100 /hpf (0-3)
[2024-03-14 12:37] LABS: Add Urine Microscopic? YES
== END 2024-03-14 10:50 | disposition home or self-care (01) ==
LOC: ANHLAB 10:55
PROVIDERS: PCP Family Medicine; Visit Provider Internal Medicine Nephrology
DX: R31.9 Hematuria, unspecified (principal); N18.32 Chronic kidney disease, stage 3b
CPT/HCPCS: 36415; 80069; 81001; 82570; 83970; 84156; 85027

== ENCOUNTER 2024-04-01 15:17 | Outpatient (CLI) | payer MEDICARE, SELFPAY ==
--- NOTE | ~2024-04-01 | MM_ITS ---
EXAMINATION: MM screening ligia BI w sera HISTORY: Screening TECHNIQUE: Craniocaudal and mediolateral oblique 3-D tomosynthesis images were obtained and synthetic 2-D images were generated. CAD analysis was submitted and interpreted. COMPARISON: Comparison to multiple prior studies sequentially, with oldest reviewed study dated 12/2017. BREAST PARENCHYMAL COMPOSITION: Not dense: There are scattered areas of fibroglandular density. FINDINGS: There is no evidence of suspicious mass, calcification, or architectural distortion to sugg est malignancy in either breast. There has been no suspicious interval change. IMPRESSION: 1. No mammographic evidence of malignancy. 2. Recommend routine screening mammography in one year. BI-RADS Category 1: Negative Reviewed, dictated and finalized at location A.
== END 2024-04-01 15:18 | disposition home or self-care (01) ==
PROVIDERS: PCP Family Medicine; Visit Provider Family Medicine
DX: Z12.31 Encounter for screening mammogram for malignant neoplasm of breast (principal)
CPT/HCPCS: 77063; 77067

== ENCOUNTER 2024-04-26 10:29 | Outpatient (CLI) | payer MEDICARE, SELFPAY ==
--- NOTE | ~2024-04-26 | DEXA_ITS ---
Bone Density Report Name: MARK WILSON Age: 78 Sex: Female Ethnicity: White Date of : 1945 Indication: postmenopausal; screening for osteoporosis; height loss; history of glucocorticoids; cancer; hysterectomy; Referring Provider: RICK LUNA Study: Bone densitometry was performed. Exam Date: April 26, 2024 Accession number: [id number] Bone Density: Region BMD T-score Z-score Classification AP Spine(L1-L4) 1.356 2.8 5.5 Normal Femoral Neck (Left) 0.747 -0.9 1.4 Normal Total Hip (Left) 1.002 0.5 2.6 Normal Femoral Neck (Right) 0.703 -1.3 1.0 Osteopenia Total Hip (Right) 0.960 0.1 2.2 Normal Total Hip Mean 0.981 0.3 2.4 Normal World Health Organization criteria for BMD impression classify patients as: Normal (T-score at or above -1.0), Osteopenia (T-score between -1.0 and -2.5), or Osteoporosis (T-score at or below -2.5). 10-year Fracture Risk(1): Major Osteoporotic Fracture 19% Hip Fracture 4.8% Reported Risk Factors: [place] (), Neck BMD=0.703, BMI=30.0, glucocorticoids (1) FRAX(R) Version 3.08. Fracture probability calculated for an untreated patient. Fracture probability may be lower if the patient has received treatment. Clinical Information Provided by Patient: Has taken Glucocorticoids Has used the following medications: Vitamin D, Calcium Has the following medical conditions: Cancer, Hysterectomy Patient maximum height was 65 Menopause Age: 45 No regular weight bearing exercise Onset of menses at age 9 Number of children 2 Impression: The patient has low bone mass, based on the Right Femoral Neck T-score. The patient has an estimated ten-year risk of hip fracture of 4.8% and an estimated ten-year risk of major fracture of 19%, based on the WHO FRAX algorithm. The patient has risk factors, including: history of glucocorticoid therapy. Discussion: BONE DENSITY IS LOW AT ONE OR MORE SKELETAL SITES. THE PATIENT'S BMD AND CLINICAL RISK FACTORS CONTRIBUTE TO THIS PATIENT'S INCREASED RISK OF FRACTURE. This patient's lowest T-score is low at one or more skeletal sites. It meets the World Health Organization's (WHO) criteria for ?low bone mass? (T-score between -1.0 and -2.5). The patient's 10-year risk of hip fracture as calculated by FRAX exceeds the threshold where pharmacological therapy is recommended by the National Osteoporosis Foundation (NOF). However, all treatment decisions require clinical judgment and consideration of individual patient factors, including patient preferences, comorbidities, previous drug use, risk factors not captured in the FRAX model (e.g., frailty, falls, vitamin D deficiency, increased bone turnover, interval significant decline in bone density) and possible under or overestimation of fracture risk by FRAX. The thang
== END 2024-04-26 10:30 | disposition home or self-care (01) ==
PROVIDERS: PCP Family Medicine; Visit Provider Internal Medicine Endocrinology, Diabetes & Metabolism
DX: M81.0 Age-related osteoporosis without current pathological fracture (principal); Z78.0 Asymptomatic menopausal state; M85.851 Other specified disorders of bone density and structure, right thigh
CPT/HCPCS: 77080

== ENCOUNTER 2025-05-28 15:10 | Outpatient (CLI) | payer MEDICARE, SELFPAY ==
--- NOTE | ~2025-05-28 | MM_ITS ---
EXAMINATION: MM screening ligia BI w sera HISTORY: Screening TECHNIQUE: Craniocaudal and mediolateral oblique 3-D tomosynthesis images were obtained and synthetic 2-D images were generated. CAD analysis was submitted and interpreted. COMPARISON: Comparison to multiple prior studies sequentially, with oldest reviewed study dated 12/2017. BREAST PARENCHYMAL COMPOSITION: Not dense: There are scattered areas of fibroglandular density. FINDINGS: There is a new cluster of calcifications in the lower outer quadrant of the right breast po steriorly. There are new clusters of calcification in the lower inner quadrant of the left breast, po sterior depth. IMPRESSION: 1. New clusters of bilateral breast calcifications. 2. Magnification views are recommended. BI-RADS Category 0: Incomplete: Needs additional imaging evaluation. Reviewed, dictated and finalized at location B.
--- OUTSIDE RECORDS SUMMARY | 2025-05-28 15:17 | XMS_ITS | Encounter Summary ---
Author Organization [facility] Address [address] [place] [address] Care Team Providers Care Master Fisher Name Role Phone Mello Mallory MD Unavailable [phone] Jacobo Pryor MD Primary Care Provider [phone] Joey Alva MD Unavailable [phone] Encounter Details Date Type Department Care Team (Late st Contact Info) Description 05/05/2024 Prep for Procedure [facility] Pre-Admission Testing [address] [place], [place] [id number] Joey Alva MD 3 [facility] [address] [place] [address] Social History Tobacco Use Types Packs/Day Years Used Date Smoking Tobacco: Never Smokeless Tobacco: Never Alcohol Use Standard Drinks/Week Comments Not Currently 0 (1 standard drink = 0.6 oz pur e alcohol) PHQ-2 Answer Date Recorded PHQ-2 Score - If the patient scores above 3, please move on to questions 3-9 3 12/01/2020 Comments No Sex and Gender Information Value Date Recorded Sex Assigned at Female 12/08/2024 12:56 PM OIL FIELD TESTER Legal Sex Female 3:58 PM OIL FIELD TESTER Gender Identity Female 12/08/2024 12:56 PM OIL FIELD TESTER Sexual Orientation Not on file documented as of this encounter Plan of Treatment Not on file documented as of this encounter Results * (ABNORMAL) URINE BACTERIA CULTURE (05/06/2024 8:56 AM CDT) SPEC DESCRIPTION URINE CLEAN CATCH 05/06/2024 8:50 AM CDT [facility] SPECIAL REQUESTS NO SPECIAL REQUEST 05/06/2024 8:50 AM CDT [facility] CULTURE RESULT >100,000 COL/ML KLEBSIELLA PNEUMONIAE (A) 05/08/2024 7:43 AM CDT [facility] URINE SPECIMEN OBTAINED BY CLEAN CATCH PROCEDURE / Unknown 05/06/2024 8:56 AM CDT 05/06/2024 8:59 AM CDT Narrative Organism Antibiotic Method Susceptibility Klebsiella pneumoniae AMPICILLIN KENYON (VITEK) >=32: Resistant Klebsiella pneumoniae AMPICILLIN/SULBACTAM KENYON (VITEK) 8: Sensitive Klebsiella pneumoniae CEFTRIAXONE KENYON (VITEK) <=1: Sensitive Klebsiella pneumoniae CEFTAZIDIME KENYON (VITEK) <=1: Sensitive Klebsiella pneumoniae CEFAZOLIN KENYON (VITEK) <=4: Sensitive Klebsiella pneumoniae ESBL KENOYN (VITEK) NEG: Sensitive Klebsiella pneumoniae NITROFURANTOIN KENYON (VITEK) 64: Intermediate Comment:INTERMEDIATE Klebsiella pneumoniae GENTAMICIN KENYON (VITEK) <=1: Sensitive Klebsiella pneumoniae LEVOFLOXACIN KENYON (VITEK) <=0.12: Sensitive Klebsiella pneumoniae PIPRACIL/TAZO KENYON (VITEK) 8: Sensitive Klebsiella pneumoniae TRIMETH-SULFAMETH. KENYON (VITEK) >=320: Resistant Joey Alva MD MICROBIOLOGY - GENERAL ORDERABL ES Final Result [facility] [address] [place] [address], * (ABNORMAL) URINALYSIS (05/06/2024 8:56 AM CDT) SPECIMEN TYPE URINE CLEAN CATCH 05/06/2024 8:50 AM CDT [facility] COLOR (U) YELLOW 05/06/2024 9:28 AM CDT [facility] TRANSPARENCY EXTREMELY TURBID 05/06/2024 9:28 AM CDT [facility] SPECIFIC GRAVITY (U) 1.018 1.001 - 1.030 05/06/2024 9:28 AM CDT [facility] U PH 5.5 5.0 - 9.0 05/06/2024 9:28 AM CDT [facility] LEUKOCYTES (U) 500(A) NEGATIVE 05/06/2024 9:28 AM CDT [facility] NITRITES 1+(A) NEGATIVE 05/06/2024 9:28 AM T [facility] PROTEIN RANDOM (U) 50(H) <30 MG/DL 05/06/2024 9:28 AM CDT [facility] GLUCOSE (U) NORMAL NORMAL MG/DL 05/06/2024 9:28 AM T [facility] KETONES MG/DL (U) NEGATIVE NEGATIVE MG/DL 05/06/2024 9:28 AM T [facility] UROBILINOGEN NORMAL NORMAL MG/DL 05/06/2024 9:28 AM T [facility] BILIRUBIN (U) NEGATIVE NEGATIVE MG/DL 05/06/2024 9:28 AM T [facility] BLOOD (U) 1+(A) NEGATIVE 05/06/2024 9:28 AM T [facility] MUCUS RARE /LPF 05/06/2024 9:28 AM CDT [facility] WBC/HPF >100(H) <6 /HPF 05/06/2024 9:28 AM CDT [facility] WBC CLUMPS PRESENT 05/06/2024 9:28 AM T [facility] RBC/HPF 20(H) <6 /HPF 05/06/2024 9:28 AM CDT [facility] BACTERIA (U) RARE(A) NONE /HPF 05/06/2024 9:28 AM CDT [facility] SQUAMOUS EPITHELIALS RARE /HPF 05/06/2024 9:28 AM CDT [facility] URINE SPECIMEN OBTAINED BY CLEAN CATCH PROCEDURE / Unknown 05/06/2024 8:56 AM CDT Joey Alva MD URINE ORDERABLES Final Result [facility] [address] [place] [address], documented in this encounter Visit Diagnoses Diagnosis Calcium kidney stone- Primary Calculus of kidney documented in this encounter Care Teams Master Fisher Relationship Specialty Start Date End Date Jacobo Pryor MD [address] [place] [address] PCP - General FAMILY PRACTICE 04/30/23 Mello Mallory MD [address] [address] CARDIOVASCULAR DISEASE 03/22/23 Joey Alva MD [address] [place] [address] UROLOGY 04/30/23 documented as of this encounter
--- OUTSIDE RECORDS SUMMARY | 2025-05-28 15:17 | XMS_ITS | Encounter Summary ---
Author Organization [facility] Address [address] [place] [address] Care Team Providers Care Fiberglass Auto Body Repairer Name Role Phone Mello Mallory MD Unavailable [phone] Jacobo Pryor MD Primary Care Provider [phone] Joey Alva MD Unavailable [phone] Encounter Details Date Type Department Care Team (Late st Contact Info) Description 06/11/2024 Prep for Procedure [place] Pre-Admission Testing [address] [place], [place] [id number] Joey Alva MD [address] [facility] [address] [place] [address] Social History Tobacco Use Types Packs/Day Years Used Date Smoking Tobacco: Never Smokeless Tobacco: Never Alcohol Use Standard Drinks/Week Comments Not Currently 0 (1 standard drink = 0.6 oz pur e alcohol) [facility] [place] [facility] Utilities Answer Date Recorded In the past 12 months has e electric, gas, oil, or water company threatened to shut off services in your home? No 05/28/2024 Humiliation, Afraid, Rape, and Kick questionnair e Answer Date Recorded Within the last year, have y ou been afraid of your partner or ex-partner? No 05/28/2024 Within the last year, have y ou been humiliated or emotionally abused in other ways by your partner or ex-partner? No Within the last year, have y ou been kicked, hit, slapped, or otherwise physically hurt by your partner or ex-partner? No 05/28/2024 Within the last year, have y ou been raped or forced to have any kind of sexual activity by your partner or ex-partner? No 05/28/2024 Overall Financial Resource Strain (CARDIA) Answe r Date Recorded How hard is it for you to pa y for the very basics like food, housing, medical care, and heating? Not hard at all 05/28/2024 PHQ-2 Answer Date Recorded PHQ-2 Score - If the patient scores above 3, please move on to questions 3-9 3 12/01/2020 Hunger Vital Sign Answer Date Recorded Within the past 12 months, y ou worried that your food would run out before you got the money to buy more. Never true 05/28/20 24 Within the past 12 months, t he food you bought just didn't last and you didn't have money to get more. Never true 05/28/2024 PRAPARE - Transportation Answer Date Re corded In the past 12 months, has l ack of transportation kept you from medical appointments or from getting medications? No 05/12 In the past 12 months, has l ack of transportation kept you from meetings, work, or from getting things needed for daily living? No 05/28/2024 Housing Stability Vital Sign Answer Mukesh e Recorded In the last 12 months, was t here a time when you were not able to pay the mortgage or rent on time? No 05/28/2024 In the past 12 months, how m any times have you moved where you were living? 0 05/28/2024 At any time in the past 12 m [facility], were you homeless or living in a assisted (including now)? No 05/28/2024 Comments No Sex and Gender Information Value Date Recorded Sex Assigned at Female 12/08/2024 12:56 PM FLOOR LAYER APPRENTICE Legal Sex Female 3:58 PM FLOOR LAYER APPRENTICE Gender Identity Female 12/08/2024 12:56 PM FLOOR LAYER APPRENTICE Sexual Orientation Not on file documented as of this encounter Functional Status * Are you deaf or do you have serious difficulty hearing Answer Date of Assessment Author Status No 05/26/2024 3:49 PM Randi Duncan RN Active * Are you blind or do you have serious difficulty seeing, even when wearing glasses? Answer Date of Assessment Author Status No 05/26/2024 3:49 PM JUANAT Randi Monroe RN Active * Do you have serious difficulty walking or climbing stairs? Answer Date of Assessment Author Status Yes 05/26/2024 3:49 PM CDT Randi Monroe RN Active * Do you have difficulty dressing or bathing? Answer Date of Assessment Author Status No 05/26/2024 3:49 PM CDT Randi Monroe RN Active * Because of a physical, mental, or emotional condition, do you have difficulty doing errands alone such as visiting a doctor's office or shopping? Answer Date of Assessment Author Status Yes 05/26/2024 3:49 PM JUANAT Randi Monroe RN Active documented as of this encounter Mental Status * Because of a physical, mental, or emotional condition, do you have serious difficulty concentrating, remembering, or making decisions? Answer Entry Date Author Status No 05/26/2024 3:49 PM JUANAT Randi Monroe RN Active documented in this encounter Plan of Treatment Not on file documented as of this encounter Goals Goal Patient Goal Type Associated Problems Recent Progress Patient-Stated? 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 Miller, JEWEL BEARING POLISHER documented as of this encounter Results * (ABNORMAL) URINE BACTERIA CULTURE (06/20/2024 3:21 PM CDT) SPEC DESCRIPTION URINE CLEAN CATCH 06/20/2024 3:22 PM CDT [facility] SPECIAL REQUESTS NO SPECIAL REQUEST 06/20/2024 3:22 PM CDT [facility] CULTURE RESULT 10,000-49,0 00 COL/ML ENTEROCOCCU S SPECIES (A) 06/22/2024 9:36 AM CDT [facility] URINE SPECIMEN OBTAINED BY CLEAN CATCH PROCEDURE / Unknown 06/20/2024 3:21 PM CDT 06/20/2024 3:22 PM CDT Narrative Organism Antibiotic Method Susceptibility Enterococcus species AMPICILLIN KENYON (VITEK) <=2: Sensitive Enterococcus species NITROFURANTOIN KENYON (VITEK) <=16: Sensitive Enterococcus species GENT. SYNERGY SCREEN KENYON (VITEK) Sensitive Enterococcus species PENICILLIN G KENYON (VITEK) 8: Sensitive Joey Alva MD MICROBIOLOGY - GENERAL ORDERABL ES Final Result [facility] [address] [place] [address], * (ABNORMAL) URINALYSIS (06/20/2024 3:21 PM CDT) SPECIMEN TYPE URINE CLEAN CATCH 06/20/2024 3:22 PM CDT [facility] COLOR (U) YELLOW 06/20/2024 3:39 PM CDT [facility] TRANSPARENCY TURBID 06/20/2024 3:39 PM CDT [facility] SPECIFIC GRAVITY (U) 1.019 1.001 - 1.030 06/20/2024 3:39 PM CDT [facility] U PH 5.0 5.0 - 9.0 06/20/2024 3:39 PM CDT [facility] LEUKOCYTES (U) 250(A) NEGATIVE 06/20/2024 3:39 PM CDT [facility] NITRITES NEGATIVE NEGATIVE 06/20/2024 3:39 PM CDT [facility] PROTEIN RANDOM (U) 50(H) <30 MG/DL 06/20/2024 3:39 PM CDT [facility] GLUCOSE (U) NORMAL NORMAL MG/DL 06/20/2024 3:39 PM CDT [facility] KETONES MG/DL (U) NEGATIVE NEGATIVE MG/DL 06/20/2024 3:39 PM CDT [facility] UROBILINOGEN NORMAL NORMAL MG/DL 06/20/2024 3:39 PM CDT [facility] BILIRUBIN (U) NEGATIVE NEGATIVE MG/DL 06/20/2024 3:39 PM CDT [facility] BLOOD (U) 2+(A) NEGATIVE 06/20/2024 3:39 PM CDT [facility] MUCUS RARE /LPF 06/20/2024 3:39 PM CDT [facility] WBC/HPF 34(H) <6 /HPF 06/20/2024 3:39 PM CDT [facility] RBC/HPF >100(H) <6 /HPF 06/20/2024 3:39 PM CDT [facility] BACTERIA (U) RARE(A) NONE /HPF 06/20/2024 3:39 PM CDT [facility] SQUAMOUS EPITHELIALS RARE /HPF 06/20/2024 3:39 PM CDT [facility] URINE SPECIMEN OBTAINED BY CLEAN CATCH PROCEDURE / Unknown 06/20/2024 3:21 PM CDT Joey Alva MD URINE ORDERABLES Final Result Performing Organization Address [facility] Co de Phone Number [facility] [address] [place] [address], documented in this encounter Visit Diagnoses Diagnosis Calcium kidney stone- Primary Calculus of kidney documented in this encounter Care Teams Fiberglass Auto Body Repairer Relationship Specialty Start Date End Date Jacobo Pryor MD [address] [place] [address] PCP - General FAMILY PRACTICE 04/30/23 Mello Mallory MD [address] [address] CARDIOVASCULAR DISEASE 03/22/23 Joey Alva MD 1 [place] [address] UROLOGY 04/30/23 documented as of this encounter
--- OUTSIDE RECORDS SUMMARY | 2025-05-28 15:17 | XMS_ITS | Encounter Summary ---
Author Organization [facility] Address [address] [place] [address] Care Team Providers Care Meat Sales And Storage Manager Name Role Phone Rubio Gonzalez MD Primary Care Provider [phone] Mello Mallory MD Unavailable [phone] Jacobo Pryor MD Primary Care Provider [phone] Joey Alva MD Unavailable [phone] Encounter Details Date Type Department Care Team (Late st Contact Info) Description 03/22/2023 Prep for Procedure [facility] Pre-Admission Testing [address] [place], [place] [id number] Joey Alva MD 3 [facility] [address] [place], [place] [id number] Social History Tobacco Use Types Packs/Day Years [...] Sex Assigned at Female 12/08/2024 12:56 PM BLADE SHARPENER Legal Sex Female 3:58 PM BLADE SHARPENER Gender Identity Female 12/08/2024 12:56 PM BLADE SHARPENER Sexual Orientation Not on file COVID-19 Exposure Response Date Recorded In the last 10 days, have yo u been in contact with someone who was confirmed or suspected to have Coronavirus/COVID-19? No / Unsure 03/22/2023 2:05 PM CDT documented as of this encounter Plan of Treatment Not on file documented as of this encounter Results * (ABNORMAL) URINALYSIS (03/23/2023 10:04 AM CDT) SPECIMEN TYPE URINE CLEAN CATCH 03/23/2023 10:04 AM CDT [facility] COLOR (U) YELLOW 03/23/2023 12:56 PM CDT [facility] TRANSPARENCY TURBID 03/23/2023 12:56 PM CDT [facility] SPECIFIC GRAVITY (U) 1.021 1.001 - 1.030 03/23/2023 12:56 PM CDT [facility] U PH 5.0 5.0 - 9.0 03/23/2023 12:56 PM CDT [facility] LEUKOCYTES (U) 250(A) NEGATIVE 03/23/2023 12:56 PM CDT [facility] NITRITES NEGATIVE NEGATIVE 03/23/2023 12:56 PM CDT [facility] PROTEIN (U) 30(H) <30 MG/DL 03/23/2023 12:56 PM CDT [facility] URINE GLUCOSE NORMAL NORMAL MG/DL 03/23/2023 12:56 PM CDT [facility] KETONES MG/DL (U) NEGATIVE NEGATIVE MG/DL 03/23/2023 12:56 PM CDT [facility] UROBILINOGEN NORMAL NORMAL MG/DL 03/23/2023 12:56 PM T [facility] BILIRUBIN (U) NEGATIVE NEGATIVE MG/DL 03/23/2023 12:56 PM CDT [facility] BLOOD (U) NEGATIVE NEGATIVE 03/23/2023 12:56 PM CDT [facility] MUCUS MODERATE /LPF 03/23/2023 12:56 PM CDT [facility] HYALINE CASTS FEW /LPF 03/23/2023 12:56 PM CDT [facility] WBC/HPF 36(H) <6 /HPF 03/23/2023 12:56 PM CDT [facility] RBC/HPF <1 <6 /HPF 03/23/2023 12:56 PM CDT [facility] BACTERIA (U) RARE(A) NONE /HPF 03/23/2023 12:56 PM CDT [facility] CA OXALATE CRYSTALS MANY /HPF 03/23/2023 12:56 PM CDT [facility] SQUAMOUS EPITHELIALS RARE /HPF 03/23/2023 12:56 PM CDT [facility] URINE SPECIMEN OBTAINED BY CLEAN CATCH PROCEDURE / Unknown 03/23/2023 10:04 AM CDT Joey Alva MD URINE ORDERABLES Final Result [facility] 3 [place] [address], [place] [phone] * CULTURE URINE (03/23/2023 10:00 AM CDT) SPEC DESCRIPTION URINE CLEAN CATCH 03/23/2023 10:04 AM CDT [facility] SPECIAL REQUESTS NO SPECIAL REQUEST 03/23/2023 10:04 AM CDT [facility] CULTURE RESULT NO GROWTH 2 DAYS 03/25/2023 7:29 AM CDT [facility] URINE SPECIMEN OBTAINED BY CLEAN CATCH PROCEDURE / Unknown 03/23/2023 10:00 AM CDT 03/23/2023 10:25 AM CDT us Joey Alva MD MICROBIOLOGY - GENERAL ORDERABL ES Final Result [facility] [address] [place] [address], [place] [phone] documented in this encounter Visit Diagnoses Diagnosis Ureteral fistula- Primary documented in this encounter Additional Health Concerns Infection Onset Date Last Indicated Resolved Time COVID-19 Rule Out 09/28/2023 09/28/2023 09/28/2023 3:43 PM BLADE SHARPENER documented as of this encounter Care Teams Meat Sales And Storage Manager Relationship Specialty Start Date End Date Rubio Gonzalez MD [address] [place] [address] PCP - General INTERNAL MEDICINE 12/01/20 04/29/23 Jacobo Pryor MD [address] [place] [address] PCP - General FAMILY PRACTICE 04/30/23 Mello Mallory MD [address] [facility] [address] [place] [address] CARDIOVASCULAR DISEASE 03/22/23 Joey Alva MD 1 [facility] [place] [address] UROLOGY 04/30/23 documented as of this encounter
--- OUTSIDE RECORDS SUMMARY | 2025-05-28 15:17 | XMS_ITS | Clinical Summary ---
Author Organization [facility] Address [address] [place] [address] Care Team Providers Care Blind Escort Name Role Phone Mello Mallory MD Unavailable [phone] Jacobo Pryor MD Primary Care Provider [phone] Joey Alva MD Unavailable [phone] Allergies Active Allergy Reactions Criticality Noted Date Comments Amlodipine Unknown,Cough,Nausea and Vomiting,Vomiting Low 07/10/2017 Aspirin Unknown,Hives,Itching Medium 07/10/2017 Atorvastatin Unknown,Other (see comment) Low 07/10/2017 Increased liver enzymes Increased liver enzymes Liver problems, Bupropion Other (see comment) Low 07/10/2017 not working Doesn't work for the patient, Captopril Unknown,Cough,Nausea and Vomiting,Vomiting Low 07/10/2017 Clindamycin Unknown,Other (see comment) 03/14/2018 Doesn't remeber Colesevelam Nausea Only,Unknown,Other (see comment) Low 07/10/2017 Blotches on face and neck Welchol Doxycycline Unknown,Other (see comment) 03/14/2018 Doesn't remember Doesn't remember Ezetimibe Unknown,Itching,Othe r (see comment) Low 07/10/2017 Itching hands and feet Fluvastatin Unknown,Other (see comment) Low 07/10/2017 Doesn't remeber Medication didn't work for patient Guaifenesin Other (see comment) Low 07/10/2017 Cramping in stomach Iophendylate Other (see comment) 12/01/2020 Stomach/ intstinal Irbesartan Unknown,Other (see comment) Low 07/10/2017 Weakness of muscles Weakness of muscles Muscle weakness Lincomycin Unknown 12/01/2020 Liraglutide Swelling Medium 03/22/2023 Lisinopril Unknown,Cough,Other (see comment),Vomiting Low 07/10/2017 Cough Cough Metformin Unknown,Headache,Oth er (see comment) Low 07/10/2017 Reaction with Zetia, Naproxen Hives Medium 07/10/2017 Niacin Unknown,Anxiety,Othe r (see comment) Low 07/10/2017 Panic attacks, Olmesartan Unknown,Other (see comment) Low 07/10/2017 Itching on hands and forearms Paroxetine Unknown,Other (see comment) Low 07/10/2017 Drowsiness Drowsiness Drowsiness Pravastatin Unknown,Contact Dermatitis High 07/10/2017 Rivaroxaban Unknown,Other (see comment) Medium 07/10/2017 Hematuria Hematuria Blood in urine Rosuvastatin Unknown,Cough,Other (see comment),Vomiting Low 07/10/2017 Coughing Coughing Sertraline Unknown,Other (see comment) Low 07/10/2017 Doesn't remeber Adverse reaction, Sitagliptin Unknown,Cough,Itching Low 07/10/2017 Liraglutide Throat swelling 03/22/2023 Medications Multiple Vitamin (MULTIVITAMIN) capsule Take 2 capsules by mouth 2 (two) times daily. Active Probiotic Product (PROBIOTIC DAILY) Cap Take 1 tablet by mouth daily. Active Turmeric 500 MG Cap Tumeric curcumin With bioperine 1300mg take 2 daily Active Multiple Vitamins-Minera ls (PRESERVISION AREDS 2) Cap Take 1 tablet by mouth 2 (two) times daily. Active TRADJENTA 5 MG tablet Take 1 tablet (5 mg total) by mouth daily. 4 Active icosapent ethyl (VASCEPA) 1 G capsule Take 2 capsules (2 g total) by mouth 2 (two) times daily. Take with food. Active amitriptyline (ELAVIL) 10 MG tablet Take 1 tablet (10 mg total) by mouth nightly at bedtime. 5 Active Acetaminophen-C affeine (ASPIRIN-FREE EXCEDRIN OR) Take 2 tablets by mouth every 6 (six) hours as needed (headache). Active apixaban (ELIQUIS) 2.5 MG tablet Take 1 tablet (2.5 mg total) by mouth 2 (two) times daily. Active Vitamin D3 125 mcg Tab Take 1 tablet (125 mcg total) by mouth daily. Active tamsulosin (FLOMAX) 0.4 MG Cap Take 1 capsule (0.4 mg total) by mouth nightly. 30 capsule Active Active Problems Problem Noted Date Diagnosed Date Kidney stone 05/26/2024 Nephrolithiasis 05/26/2024 Urinary obstruction 05/26/2024 Type 2 diabetes mellitus ([facility]) 12/01 Sleep apnea 12/01/2020 Essential hypertension 12/01/2020 Aortic stenosis 12/01/2020 Nonrheumatic aortic (valve) stenosis 12/01/2020 Encounters Date Type Department Care Team Description 03/06/2025 9:57 AM CDT - 03/06/2025 11:59 PM CDT Hospital Encounter [facility] [place] [address] Verna Brooks NP Discharge Disposition: Home or Self Care (Routine Discharge) 03/06/2025 Travel from Last 3 Months Family History Medical History Relation Comments Cancer Father Relation Status Comments Father Mother Social History Tobacco Use Types Packs/Day Years Used Date Smoking Tobacco: Never Smokeless Tobacco: Never Tobacco Cessation:Counseling Given: Not Answered Alcohol Use Standard Drinks/Week Comments Not Currently 0 (1 standard drink = 0.6 oz pur e alcohol) [facility] Utilities Answer Date Recorded In the past 12 months has [facility] [employer], oil, or water [employer] threatened to shut off services in your [...] any time in the past 12 m [facility], were you homeless or living in a senior living (including now)? 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 Sexual Orientation Not on file Last Filed Vital Signs Vital Sign Reading Time Taken Comments Blood Pressure 140/75 02/19/2025 10:40 AM CDT Pulse 73 02/19/2025 10:40 AM CDT Temperature 36.2 C (97.2 F) 02/19/2025 10:40 AM CDT Respiratory Rate 16 02/19/2025 10:40 AM CDT Oxygen Saturation 98% 02/19/2025 10:40 AM CDT Inhaled Oxygen Concentration - - Weight 68.6 kg (151 lb 3.8 oz) 02/19/2025 7:57 A M CDT Height 152.4 cm (5') 12/08/2024 12:50 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 Body Mass Index 29.54 12/08/2024 12:50 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 Plan of Treatment Health Maintenance Due Date Last Done Comments Kidney Health Evaluation 1943 Lipid Panel 1943 DTaP, Tdap and Td Vaccines ( 1 - Tdap) 1962 Zoster Vaccines (1 of 2) 1993 Annual Medicare Wellness Visit 2008 Dexa Scan (General) 2008 Pneumococcal Vaccine: 50+ Ye ars (2 of 2 - PPSV23) 03/21/2015 01/24/2015 RSV Immunization or 60+ Years (1 - 1-dose 75+ series) 2018 Hemoglobin A1C 03/01/2024 08/31/2023 COVID-19 Vaccine (1 - 2023-2 5 season) 2024 PHQ-2 (Physician [place]) 11/12/2024 Diabetes: Retinopathy Eye Exam 06/02/2025 06/02/2024 Meningococcal B Vaccine Aged Out No l onger eligible based on patient's age to complete this topic Meningococcal Vaccine Aged Out No catherine ervin eligible based on patient's age to complete this topic RSV Immunizations Under 20 Months Aged Out No longer eligible based on patient's age to complete this topic Goals Goal Patient Goal Type Associated Problems Recent Progress Patient-Stated? 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 Devices Implanted Type Area Deputy Felony Clerk Device Identifier Shelf Expiration Date Model / Serial / Lot Rv Lead Implant-2015 Implanted:09/12 (Quantity not on file) Lead Implant [employer] [id number] / [id number] / Atrial Lead Implant-2015 Implanted:09/12 (Quantity not on file) Lead Implant [employer] [id number] / [id number] / Pacemaker-09/12 Implanted:09/12 (Quantity not on file) Pacemaker [employer] [id number] / [id number] / Description:MRI Conditional under following conditions: Static magnetic field of 1.5 T or 3 T, Max spatial gradient field of 2000 gauss/cm or less, Max slew rate 200 T/m/s, 1.5 T whole body BRENDAN of 2 W/kg or less in Normal operating mode , Head BRENDAN 3.2 W/kg or less, 3T B1+SHWETA must be 2.8 mT or less when isocenter is inferior to C7, No B1+SHWETA restriction at 3T when isocenter is at or superior to C7, Supine or Prone only Stent Ureteral Pigtail 6fr 24cm Crv Taper Tip - [id number] Implanted:Qty: 1 on 05/26/2024 by Toño Ramirez MD at [facility] Stent [employer] [id number] 10/08/2026 [id number] / / [id number] Stent Ureteral 6fr 26cm Pigtl Crv Taper Tip Bldr Mrk - [id number] Implanted:Qty: 1 on 02/19/2025 by Joey Alva MD at [facility] Stent Right: Ureter [employer] [id number] 07/21/2027 [id number] 630 / / [id number] Explanted Type Area Deputy Felony Clerk Device Identifier Shelf Expiration Date Model / Serial / Lot Stent Ureteral 6fr 26cm Pigtl Crv Taper Tip Bldr Mrk - [id number] Implanted:Qty : 1 on 07/04/2024 by Joey Alva MD at [facility] Explanted:Qty : 1 on 02/19/2025 at [facility] Stent Right: Ureter [employer] [id number] 01/16/2027 [id number] / / [id number] Description:REMOVED PRIOR TO THIS VISIT Procedures Procedure Name Priority Date/Time Associated Diagnosis Comments MRI BRAIN WO CON Routine 03/06/2025 11:4 0 AM CDT Other amnesia Headache, unspecified XR CHEST PA OR AP 1V STAT 03/06/2025 10:10 AM CDT S/P placement of cardiac pacemaker DIABETIC RETINOPATHY EXAM (POSITIVE)(SCAN ORDER) Routine 06/02/2024 from Last 3 Months or Most Recently Relevant to Health Maintenance Results * MRI BRAIN WO CON (03/06/2025 11:40 AM CDT) Anatomical Region Laterality Modality Head Magnetic Resonan ce 03/09/2025 8:54 PM CDT Impressions 03/09/2025 8:58 PM CDT IMPRESSION: 1. No definite acute intracranial abnormalities identified. No acute infarct, intracranial mass effect, or midline shift. 2. 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 Referred By: Interpreted By: Martín Hyatt MD, 03/09/2025 8:54 PM Narrative 03/09/2025 8:58 PM CDT [address] [address] INDICATION: Frontal headaches. Dizziness. Amnesia. EXAMINATION: MRI brain without contrast. TECHNIQUE: Multiplanar and multisequence MRI images of the brain were obtained without contrast. COMPARISON: Brain MRI 04/30/2023 FINDINGS: No diffusion restriction or evidence of acute infarct. Interval development of a small focus of encephalomalacia corresponding to previously seen left thalamic infarct. There are patchy foci of FLAIR hyperintensity seen in the hemispheric white matter, likely due to small vessel disease. Mild to moderate volume loss with enlargement of the ventricles and extra-axial/subarachnoid spaces. Bilateral hippocampal atrophy suggested. No extra-axial collections. Proximal portions of the major intracranial arterial flow voids are patent. Stable tiny old microhemorrhage in the left occipital lobe. Craniocervical junction, sellar content, and pineal region are unremarkable. Scattered fluid in the mastoid air cells, more so on the left. Paranasal sinuses clear. Bilateral lens replacements. Procedure Note Martín Hyatt MD - 03/09/[address] [address] INDICATION: Frontal headaches. Dizziness. Amnesia. EXAMINATION: MRI brain without contrast. TECHNIQUE: Multiplanar and multisequence MRI images of the brain wereobtained without contrast. COMPARISON: Brain MRI 04/30/2023 FINDINGS: No diffusion restriction or evidence of acute infarct. Intervaldevelopment of a small focus of encephalomalacia corresponding topreviously seen left thalamic infarct. There are patchy foci of FLAIRhyperintensity seen in the hemispheric white matter, likely due to smallvessel disease. Mild to moderate volume loss with enlargement of theventricles and extra-axial/subarachnoid spaces. Bilateral hippocampalatrophy suggested. No extra-axial collections. Proximal portions of themajor intracranial arterial flow voids are patent. Stable tiny oldmicrohemorrhage in the left occipital lobe. Craniocervical junction,sellar content, and pineal region are unremarkable. Scattered fluid in themastoid air cells, more so on the left. Paranasal sinuses clear. Bilaterallens replacements. IMPRESSION: 1. No definite acute intracranial abnormalities identified. No acuteinfarct, intracranial mass effect, or midline shift. 2. 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 Referred By: Interpreted By: Martín Hyatt MD, 03/09/2025 8:54 PM Verna Brooks NP MRI Final Result * XR CHEST PA OR AP 1V (03/06/2025 10:10 AM CDT) Anatomical Region Laterality Modality Chest Radiographic [place] ging 03/06/2025 11:1 0 AM CDT Impressions 03/06/2025 11:11 AM CDT ======== IMPRESSION: ======== 1. Cardiac pacer seen with continuous leads in their viewed portions. Ordered By: VERNA BROOKS Interpreted By: Alexis Peoples MD, 03/06/2025 11:10 AM Narrative 03/06/2025 11:11 AM CDT [address] [address] Examination: Chest Radiograph, 1 view Exam Date/Time: 03/06/2025 10:04 AM Reason For Exam: check pacemaker and leads prior to MRI Comparison: 09/05/2023 Technique: Single AP view of the chest. Findings: Cardiac pacer seen in place. Leads are continuous in their viewed portions. Some areas of superimposition are somewhat limited. Heart size is normal. Pulmonary vasculature is within normal limits. There is no large pleural effusion or pneumothorax. No focal infiltrate or consolidative change. Procedure Note Alexis Peoples MD - 03/06/[address] [address] Examination: Chest Radiograph, 1 view Exam Date/Time: 03/06/2025 10:04 AM Reason For Exam: check pacemaker and leads prior to MRI Comparison: 09/05/2023 Technique: Single AP view of the chest. Findings: Cardiac pacer seen in place. Leads are continuous in theirviewed portions. Some areas of superimposition are somewhat limited. Heartsize is normal. Pulmonary vasculature is within normal limits. There is nolarge pleural effusion or pneumothorax. No focal infiltrate orconsolidative change. ======== IMPRESSION: ======== 1. Cardiac pacer seen with continuous leads in their viewed portions. Ordered By: VERNA BROOKS Interpreted By: Alexis Peoples MD, 03/06/2025 11:10 AM us Verna Brooks [employer] [facility] Final Result * DIABETIC RETINOPATHY EXAM (POSITIVE) (06/02/2024) [facility] Scanned SCANNING Final Resu lt [facility] ONBASE from Last 3 Months or Most Recently Relevant to Health Maintenance Insurance MEDICARE [facility] [employer] Advance Directives Documents on File Type Date Recorded Patient K [employer] Principal Expl anation Power of Java Manager 08/02/2023 POA RECEIV ED 08/02/2023 * Full Code (Latest Code Status on File) Date Activated Date Inactivated Comments 05/26/2024 1:53 PM 05/29/2024 2:04 PM Care Teams Blind Escort Relationship Specialty Start Date End Date Jacobo Pryor MD [address] [place] [id number] PCP - General FAMILY PRACTICE 04/30/23 Mello Mallory MD [address] [facility] [address] [place] [address] CARDIOVASCULAR DISEASE 03/22/23 Joey Alva MD [address] [place] [address] UROLOGY 04/30/23
--- OUTSIDE RECORDS SUMMARY | 2025-05-28 15:17 | XMS_ITS | Clinical Summary ---
Author Organization [facility] [address] Address [address] [place] [address] Care Team Providers Care Direct Sales Professional Name Role Phone Mello Mallory MD Unavailable [phone] Joey Alva MD Unavailable [phone] Jacobo Pryor MD Primary Care Provider [phone] Allergies Active Allergy Reactions Criticality Noted Date Comments Amlodipine Cough,Vomiting,Nause a And Vomiting Low 07/10/2017 Aspirin Hives,Itching Medium 07/10/2017 Atorvastatin Other (See comments) Low 07/10/2017 Increased liver enzymes Liver problems, Irbesartan Other (See comments) Low 07/10/2017 Weakness of muscles Muscle weakness Olmesartan Other (See comments) Low 07/10/2017 Itching on hands and forearms Bupropion Other (See comments) Low 07/10/2017 Doesn't work for the patient, Captopril Cough,Vomiting,Nause a And Vomiting Low 07/10/2017 Clindamycin Unknown 07/10/2017 Colesevelam Nausea only Low 03/14/2018 Doxycycline Hyclate Unknown 03/14/2018 Doesn't remember Guaifenesin Other (See comments) Low 07/10/2017 Cramping in stomach Sitagliptin Cough,Itching Low 07/10/2017 Fluvastatin Other (See comments) Low 07/10/2017 Medication didn't work for patient Lidocaine Unknown 03/14/2018 Doesn't remeber Liraglutide Swelling Medium 03/22/2023 Metformin Other (See comments),Headache Low 07/10/2017 Reaction with Zetia, Naproxen Hives Medium 07/10/2017 Niacin Other (See comments),Anxiety Low 07/10/2017 Panic attacks, Paroxetine Unknown 12/07/2017 Paroxetine Hcl Other (See comments) Low 07/10/2017 Drowsiness Drowsiness Pravastatin Blisters High 07/10/2017 Lisinopril Cough,Vomiting,Other (See comments) Low 07/10/2017 Cough Rosuvastatin Cough,Vomiting,Other (See comments) Low 07/10/2017 Coughing Sertraline Other (See comments) Low 07/10/2017 Adverse reaction, Doxycycline Unknown 07/10/2017 Colesevelam Hcl Other (See comments) Low 07/10/2017 Blotches on face and neck Rivaroxaban Other (See comments) Medium 07/10/2017 Hematuria Blood in urine Ezetimibe Other (See comments),Itching Low 07/10/2017 Itching hands and feet Medications multivitamin capsule Take 1 capsule by mouth daily TapMyBack Active acidophilus-p ectin, citrus 100 million cell-10 mg capsule Take 1 tablet/capsule by mouth daily [employer] brand Active turmeric root extract 500 mg capsule Take 1,300 mg by mouth daily Active vit C/E/Zn/coppr/ lutein/zeaxan (PRESERVISION AREDS-2 ORAL) Take 1 capsule by mouth 2 (two) times a day Active acetaminophen 500 mg capsuleIndica tions:Pain Take 2 capsules (1,000 mg total) by mouth every 6 (six) hours 30 tablet 09/13/20 23 Active Additional Information Patient not taking.Reported on 05/01/2025 docusate sodium (COLACE) 100 mg capsuleIndica tions:constip ation Take 1 capsule (100 mg total) by mouth 2 (two) times a day as needed for constipation 60 capsule 09/13/20 23 Active Tradjenta 5 mg tablet Take 1 tablet (5 mg total) by mouth every morning 01/26/20 24 Active apixaban (ELIQUIS) 2.5 mg tablet Take 1 tablet (2.5 mg total) by mouth 2 (two) times a day 180 tablet 04/21/20 25 Active Vascepa 1 gram capsule Take 2 capsules (2 g total) by mouth 2 (two) times a day Active acetaminophen -caffeine 500-65 mg tablet Take 2 tablets by mouth every 6 (six) hours as needed Active amitriptyline (ELAVIL) 10 mg tablet Take 1 tablet (10 mg total) by mouth nightly at bedtime Active calcium carbonate-vit gasca D3 1,500 mg (600 mg elemental)-1, 000 unit capsule Take by mouth Active sotaloL (BETAPACE) 80 mg tabletIndicat ions:Encounte r for monitoring sotalol therapy Take 1 tablet (80 mg total) by mouth daily 05/01/20 25 Active pioglitazone (ACTOS) 15 mg tablet Take 0.5 tablets (7.5 mg total) by mouth 2 (two) times a day 02/16/20 23 025 Discontinued(N o longer taking - Do not display on AVS) oxyCODONE (ROXICODONE) 5 mg immediate release tabletIndicat ions:Pain Take 1 tablet (5 mg total) by mouth every 6 (six) hours as needed for pain 12 tablet 09/13/20 025 Discontinued(N o longer taking - Do not display on AVS) sotaloL (BETAPACE) 80 mg tablet TAKE 1 TABLET(80 MG) BY MOUTH TWICE DAILY 180 tablet 1 02/25/20 25 025 Discontinued turmeric/turm sumit ext/pepr ext (turmeric-tur meric ext-pepper) 500-3 mg capsule Take by mouth 025 Discontinued(N o longer taking - Do not display on AVS) Active Problems Problem Noted Date Diagnosed Date Renal mass 09/10/2023 Obesity 09/03/2023 CVA (cerebral vascular accident) 09/03/2023 Anxiety 09/03/2023 HTN (hypertension) 09/03/2023 Diabetes 09/03/2023 Severe aortic stenosis 03/09/2022 SSS (sick sinus syndrome) 07/23/2018 Keratosis, senilis 10/19/2017 Eczema 10/19/2017 Dystrophia unguium 10/19/2017 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 Carelink remote home monitoring Q3 mo, Office pacer checks Q1 yr. Paroxysmal atrial fibrillation 07/11/2017 Atrial flutter 07/11/2017 Encounters Date Type Department Care Team Description 05/18/2025 10:00 AM CDT Ancillary Procedure [facility] Cardiology [address] [place] [phone] Cardiac pacemaker in situ; Paroxysmal atrial fibrillation (HCC); SSS (sick sinus syndrome) (HCC); Atrial flutter, unspecified type (HCC) 05/18/[address] [phone] Mello Mallory MD 05/01/2025 9:00 AM CDT Office Visit [facility] Cardiology [address] [place] [phone] Merari Darnell NP SSS (sick sinus syndrome) (HCC); Cardiac pacemaker in situ; Paroxysmal atrial fibrillation (HCC); Encounter for monitoring sotalol therapy; Chronic anticoagulation; Nonrheumatic aortic valve stenosis 04/21/[address] [phone] Mello Mallory MD 04/13/2025 11:15 AM CDT Ancillary Procedure [facility] Cardiology [address] [place] [phone] Cardiac pacemaker in situ; Paroxysmal atrial fibrillation (HCC); SSS (sick sinus syndrome) (HCC); Atrial flutter, unspecified type (HCC) 04/13/2025 Telephone [facility] Cardiology [address] [place] [phone] Mello Mallory MD 03/31/2025 Telephone [facility] Cardiology [address] [place] [phone] Mello Mallory MD from Last 3 Months Surgical History Surgery Date Site/Laterality Comments APPENDECTOMY Medical History Medical History Date Comments Hypertension Heart murmur Hyperlipidemia Depression Arthritis Stroke (HCC) Family History Medical History Relation Name Comments Cancer Father Other Mother due to ch ild Relation Name Status Comments Father (Age 92) Mother (Age 38) Social History Tobacco Use Types Packs/Day Years Used Date Smoking Tobacco: Never Passive Smoke Exposure: Never Smokeless Tobacco: Never Tobacco Cessation:Counseling Given: Not Answered Alcohol Use Standard Drinks/Week Comments No 0 (1 standard drink = 0.6 oz pur e alcohol) Social Connection and Isolat ion Panel [NHANES] Answer Date Recorded In a typical week, how many times do you talk on the phone with family, friends, or neighbors? Twice a week 09/11/2023 How often do you get togethe r with friends or relatives? Never 09/11/2023 How often do you attend chur ch or tenriism services? More than 4 times per year 09/11/2023 Do you belong to any clubs o r organizations such as jewish groups, unions, fraternal or athletic groups, or school groups? Yes 09/11/2023 How often do you attend meet ings of the clubs or organizations you belong to? More than 4 times per year 09/11/2023 Are you , , di vorced, , never , or living with a partner? 09/11/2023 AUDIT-C Answer Date Recorded Q1: How often do you have a drink containing alcohol? Never 09/11/2023 Q2: How many drinks containi ng alcohol do you have on a typical day when you are drinking? Patient does not drink Q3: How often do you have si x or more drinks on one occasion? Never 09/11/2023 Overall Financial Resource Strain (CARDIA) Answe r Date Recorded How hard is it for you to pa y for the very basics like food, housing, medical care, and heating? Not hard at all 09/11/2023 Hunger Vital Sign Answer Date Recorded Within the past 12 months, y ou worried that your food would run out before you got the money to buy more. Never true 09/11/20 23 Within the past 12 months, t he food you bought just didn't last and you didn't have money to get more. Never true 09/11/2023 PRAPARE - Transportation Answer Date Re corded In the past 12 months, has l ack of transportation kept you from medical appointments or from getting medications? No 08/14 In the past 12 months, has l ack of transportation kept you from meetings, work, or from getting things needed for daily living? No 09/11/2023 Housing Stability Vital Sign Answer Mukesh e Recorded In the last 12 months, was t here a time when you were not able to pay the mortgage or rent on time? No 09/11/2023 In the last 12 months, how many places have you lived? 1 09/11/2023 In the last 12 months, was t here a time when you did not have a steady place to sleep or slept in a group home (including now)? No 09/11/2023 Personal Safety Answer Date Recorded Have you ever been in or are you currently in a harmful physical or emotional relationship or is someone making you feel afraid or unsafe? Denies 09/10/2023 Comments No Sex and Gender Information Value Date Recorded Sex Assigned at Not on file Legal Sex Female 9:37 AM CDT Gender Identity Not on file Sexual Orientation Not on file Obstetrics History Last Filed Vital Signs Vital Sign Reading Time Taken Comments Blood Pressure 152/78 05/01/2025 8:49 AM CDT Pulse 86 05/01/2025 8:49 AM CDT Temperature 36.4 C (97.6 F) 09/13/2023 5:09 AM CDT Respiratory Rate 18 09/13/2023 5:09 AM CDT Oxygen Saturation 98% 05/01/2025 8:49 AM CDT Inhaled Oxygen Concentration - - Weight 68.5 kg (151 lb) 05/01/2025 8:49 AM CDT Height 162.6 cm (5' 4) 05/01/2025 8:49 AM CDT Body Mass Index 25.92 05/01/2025 8:49 AM CDT Plan of Treatment Health Maintenance Due Date Last Done Comments Albumin Creatinine Ratio, Urine 1943 Depression Screening 1943 Osteoporosis Screening-Bone Density Scan 1943 Dilated Eye Exam 1943 Foot Exam 1943 Hepatitis B Screening 1961 Zoster Vaccine (1 of 2) 1993 Well Visit 65+ 2008 Pneumococcal vaccine 65+ (2 of 2 - PPSV23) 03/21/2015 01/24/2015 Lipid Panel 03/03/2022 03/03/2021, 12/14, 07/23/2018 DTaP/Tdap/Td Vaccine (2 - Td or Tdap) 07/18/2022 07/18/2012 Hemoglobin A1C 03/01/2024 08/31/2023 Fall Risk Assessment 09/13/2024 09/13/2023 eGFR 09/13/2024 09/13/2023, 1111/2022, 09/11/2023, Additional history exists Influenza Vaccine (#1) 2025 9, 07/30/2018, 07/13/2018 Medical Devices Implanted Type Area Yard Driver Device Identifier Shelf Expiration Date Model / Serial / Lot Pacemaker-09/28 Implanted:09/28 (Quantity not on file) Pacemaker Chest Medtronic SSS, PAF ADVISA DR PEREZ / [id number] / Explanted Type Area Yard Driver Device Identifier Shelf Expiration Date Model / Serial / Lot [employer] Mary Contour 6fr 24cm Large Inner Lumen Low Profile Bladder Henri Taper Latex Free 180-222 - [id number] Explanted:Qty: 1 on 09/10/2023 by Joey Alva MD at [facility] Stent Left: Ureter [employer] Mary 02/26/2026 [id number] / / [id number] Procedures Procedure Name Priority Date/Time Associated Diagnosis Comments DEVICE CHECK - REMOTE Routine 05/18/2025 2:36 PM CDT Cardiac pacemaker in situ Paroxysmal atrial fibrillation (HCC) SSS (sick sinus syndrome) (HCC) Atrial flutter, unspecified type (HCC) ECG 12-LEAD Routine 05/01/2025 8:59 AM CDT Encounter for monitoring sotalol therapy DEVICE CHECK - REMOTE Routine 04/13/2025 3:42 PM CDT Cardiac pacemaker in situ Paroxysmal atrial fibrillation (HCC) SSS (sick sinus syndrome) (HCC) Atrial flutter, unspecified type (HCC) EGFR Routine 09/13/2023 6:01 AM CDT HEMOGLOBIN A1C Routine 08/31/2023 11:27 AM CDT Preoperative testing LIPID PANEL Routine 03/03/2021 9:10 AM CDT from Last 3 Months or Most Recently Relevant to Health Maintenance Results * DEVICE CHECK - REMOTE (05/18/2025 2:36 PM CDT) Anatomical Region Laterality Modality Other Narrative 05/28/2025 7:47 AM CDT Medtronic Dual Pacemaker Dx; SSS, PAF DOI 09/28/2016. Carelink remote home monitoring Q3 mo, Office pacer checks Q1 yr. Routine DDDR Pacemaker Remote. Transmission attached. Battery status: 2.83 V. Device reached DUST SAMPLER (Recommend Replacement Time) on 04/30/2025. Stable lead impedances, pacing and sensing thresholds. Presenting rhythm: AT/AF SHEET METAL SUPERVISOR. AP-10%, SHEET METAL SUPERVISOR-100% 1 AT/AF episodes noted. AF [place] 100%. No Ventricular high rate episodes detected. Medications: Eliquis 2.5 mg, Sotalol 80 mg See scanned report. Office pacemaker follow up: Pending possible generator change CareLink remote. Michell Merritt RN Mello Mallory MD CV CARDIAC SERVICES PROC EDURES Final Result * ECG 12 lead (05/01/2025 8:59 AM CDT) 05/01/2025 8:59 AM CDT Merari Darnell NP ECG ORDERABLES Final Res ult * DEVICE CHECK - REMOTE (04/13/2025 3:42 PM CDT) Anatomical Region Laterality Modality Other Narrative 04/16/2025 12:05 PM CDT Medtronic Dual Pacemaker Dx; SSS, PAF DOI 09/28/2016. Carelink remote home monitoring Q3 mo, Office pacer checks Q1 yr. Routine DDDR Pacemaker Remote. Transmission attached. Battery status: 2.83 V, 2 months remaining battery life to [place]BA. Stable lead impedances, pacing and sensing thresholds. Presenting rhythm: AT/AF SHEET METAL SUPERVISOR. AP-10%, SHEET METAL SUPERVISOR-100% 3 AT/AF episodes noted. AF [place] 90.9%. No Ventricular high rate episodes detected. Medications: Eliquis 2.5 mg, Sotalol 80 mg See scanned report. Office pacemaker follow up: Pending possible generator change CareLink remote f/u 05/18/2025. Saw Sanchez, RN us Mello Mallory MD CV CARDIAC SERVICES PROC EDURES Final Result * eGFR (09/13/2023 6:01 AM CDT) eGFR 38 mL/min/1. 73 m2 [facility] Comment: Interpretive Data Reference Interval Normal >/= 90 mL/min/1.73m2 Mildly decreased* 60 - 89 mL/min/1.73m2 Mildly to moderately decreased 45 - 59 mL/min/1.73m2 Moderately to severely decreased 30 - 44 mL/min/1.73m2 Severely decreased 15 - 29 mL/min/1.73m2 Kidney Failure < 15 mL/min/1.73m2 *Relative to young adult level Estimated glomerular filtration rate is determined by the 2020 CKD-EPI equation recommended by the National Kidney Foundation (A Unifying Approach to GFR Estimation: Recommendations of the NKF-ASK Task Force on Reassessing the Inclusion of Race in Diagnosing Kidney Disease, JASN 2020). The CKD-EPI equation should not be used for patients with unstable renal function and has not been validated in children and those over 70. Current interpretive data was last reviewed 2021. Blood 09/13/2023 6:01 AM CDT 09/13/2023 6:38 AM CDT us Joey Alva MD LAB BLOOD ORDERABLES Final Res ult [facility] [address] Department [place] [address] * (ABNORMAL) Hemoglobin A1c (08/31/2023 11:27 AM CDT) Hgb A1C 6.5(H) 4.0 - 5.6 % Estimated Average Glucose 140 mg/dL [facility] Comment: The ADA recommends reporting an estimated Average Glucose (eAG) with all Hemoglobin A1c results using the equation derived from a study of 507 normal and diabetic adults. Minority populations were underrepresented and children were not included. (Diabetes Care 31:6931-6258, 2008). The eAG is not equivalent to a fasting glucose. Blood 08/31/2023 11:2 7 AM CDT 08/31/2023 11:54 AM CDT Rhiannon Torres NP LAB BLOOD ORDERABLES Final Result [facility] [address] [place] [address] * (ABNORMAL) Lipid panel (03/03/2021 9:10 AM CDT) SCRIBED Cholesterol, Total 220(A) 0 - 200 EXTERNAL LAB SCRIBED HDL 43 40 - 100 EXTERNAL LAB SCRIBED LDL 134(A) 0 - 100 EXTERNAL LAB SCRIBED Triglycerides 280(A) 0 - 150 EXTERNAL LAB Blood specimen (specimen) Historical Provider LAB BLOOD ORDERABLES Edit ed Result - Final EXTERNAL LAB from Last 3 Months or Most Recently Relevant to Health Maintenance Insurance MEDICARE [employer]kit INSURANCE [employer] MEDICARE [facility] MEDICARE [employer] Advance Directives For more information, please contact: [phone] Documents on File Type Date Recorded Patient Area Representative Expl anation Power of Welfare Project Manager 09/10/2023 10:25 AM * Full Code (Latest Code Status on File) Date Activated Date Inactivated Comments 09/10/2023 8:13 PM 09/13/2023 6:50 PM Care Teams Direct Sales Professional Relationship Specialty Start Date End Date Jacobo Pryor MD [address] [facility] [place] [address] PCP - General Family Practice 05/01/25 Mello Mallory MD [address] [facility] [address] [place] [address] Consulting Physician Cardiology 09/13/23 [place] [address] [place] [address] Consulting Physician Urology 09/13/23
--- OUTSIDE RECORDS SUMMARY | 2025-05-28 15:17 | XMS_ITS | Referral Summary ---
Author Organization [place] [address] [address] [place] [address] Care Team Providers Care Flare Man Name Role Phone Mello Mallory MD Unavailable [phone] Joey Alva MD Unavailable [phone] Jacobo Pryor MD Primary Care Provider [phone] Encounters Date Type Department Care Team Description 05/18/2025 Telephone [facility] Cardiology [address] [place] [address] [place] [phone] Mello Mallory MD 05/18/2025 10:00 AM CDT Ancillary Procedure [facility] Cardiology [address] [place] [address] [place] [phone] Cardiac pacemaker in situ; Paroxysmal atrial fibrillation (HCC); SSS (sick sinus syndrome) (HCC); Atrial flutter, unspecified type (HCC) 05/01/2025 9:00 AM CDT Office Visit [facility] Cardiology [address] [place] [address] [address] [place] [address] Merari Darnell NP SSS (sick sinus syndrome) (HCC); Cardiac pacemaker in situ; Paroxysmal atrial fibrillation (HCC); Encounter for monitoring sotalol therapy; Chronic anticoagulation; Nonrheumatic aortic valve stenosis 04/21/2025 Telephone [facility] Cardiology [address] [place] [address] [address] [place] [address] Mello Mallory MD 04/13/2025 Telephone [facility] Cardiology [address] [place] [address] [place] [phone] Mello Mallory MD 04/13/2025 11:15 AM CDT Ancillary Procedure [facility] Cardiology [address] [place] [address] [place] [phone] Cardiac pacemaker in situ; Paroxysmal atrial fibrillation (HCC); SSS (sick sinus syndrome) (HCC); Atrial flutter, unspecified type (HCC) 03/31/2025 Telephone [facility] Cardiology [address] [place] [address] [place] [phone] Mello Mallory MD from Last 3 Months Allergies Active Allergy Reactions Criticality Noted Date [...] capsule Take 1 capsule by mouth daily [employer] brand Active acidophilus-p ectin, citrus 100 million cell-10 mg capsule Take 1 tablet/capsule by mouth daily [employer] brand Active turmeric root extract 500 mg [...] mouth 2 (two) times a day 02/16/20 025 Discontinued(N o longer taking - Do [...] Paroxysmal atrial fibrillation 07/11/2017 Atrial flutter 07/11/2017 Social History Tobacco Use Types Packs/Day Years [...] often do you attend chur ch or advent services? More than 4 times per year 09/11/2023 Do you belong to any clubs o r organizations such as presybeterian groups, unions, fraternal or athletic groups, or [...] place to sleep or slept in a prison (including now)? No 09/11/2023 Personal Safety Answer [...] on file Sexual Orientation Not on file Last Filed [...] 05/01/2025 8:49 AM CDT Plan of Treatment Not on file Medical Devices Implanted Type Area Delinquent Account Clerk Device Identifier Shelf Expiration Date Model / Serial / Lot Pacemaker-09/28 Implanted:09/28 (Quantity not on file) Pacemaker Chest Medtronic SSS, PAF ADVISA DR PEREZ / [id number] / Explanted Type Area Delinquent Account Clerk Device Identifier Shelf Expiration Date Model / Serial / Lot [employer] Mary Contour 6fr 24cm Large Inner Lumen Low Profile Bladder Henri Taper Latex Free 180-395 - [id number] Explanted:Qty: 1 on 09/10/2023 by Joey Alva MD at [facility] Stent Left: Ureter [employer] Mary 02/26/2026 [id number] / / [id number] Procedures Procedure Name Priority Date/Time Associated Diagnosis [...] attached. Battery status: 2.83 V. Device reached HOUSE DETECTIVE (Recommend Replacement Time) on 04/30/2025. Stable lead impedances, pacing and sensing thresholds. Presenting rhythm: AT/AF ELECTRIC PILE DRIVER OPERATOR. AP-10%, ELECTRIC PILE DRIVER OPERATOR-100% 1 AT/AF episodes noted. AF [place] 100%. No Ventricular high rate episodes detected. Medications: Eliquis 2.5 mg, Sotalol 80 mg See scanned report. Office pacemaker follow up: Pending possible generator change CareLink remote. Michell Merritt, CRYSTAL us Mello Mallory MD CV CARDIAC SERVICES PROC EDURES Final Result * ECG 12 lead (05/01/2025 8:59 AM CDT) 05/01/2025 8:59 AM CDT us Merari Darnell NP ECG ORDERABLES Final Res [...] pacing and sensing thresholds. Presenting rhythm: AT/AF ELECTRIC PILE DRIVER OPERATOR. AP-10%, ELECTRIC PILE DRIVER OPERATOR-100% 3 AT/AF episodes noted. AF [place] 90.9%. No Ventricular high rate episodes detected. Medications: Eliquis 2.5 mg, Sotalol 80 mg See scanned report. Office pacemaker follow up: Pending possible generator change CareLink remote f/u 05/18/2025. Saw Sanchez, CRYSTAL us Mello Mallory MD CV CARDIAC SERVICES PROC EDURES Final Result * eGFR (09/13/2023 6:01 AM CDT) eGFR 38 mL/min/1. 73 m2 [facility] Comment: Interpretive Data Reference Interval Normal >/= [...] 6:01 AM CDT 09/13/2023 6:[address] [facility] Joey Alva MD LAB BLOOD ORDERABLES Final Res ult Performing Organization Address [facility] Co de Phone Number [facility] [address] [place] [place] [address] * (ABNORMAL) Hemoglobin A1c (08/31/2023 11:27 AM CDT) Hgb A1C 6.5(H) 4.0 - 5.6 % Estimated Average Glucose 140 mg/dL [facility] Comment: The ADA recommends reporting an estimated Average Glucose (eAG) with all Hemoglobin A1c results using the equation derived from a study of 507 normal and diabetic adults. Minority populations were underrepresented and children were not included. (Diabetes Care 31:4254-5560, 2008). The eAG is not equivalent to a fasting glucose. Blood 08/31/2023 11:2 7 AM CDT 08/31/2023 11:[address] [facility] Rhiannon Torres NP LAB BLOOD ORDERABLES Final Result Performing Organization Address [facility] Co de Phone Number [facility] [address] [place] [address] * (ABNORMAL) Lipid panel (03/03/2021 9:10 AM [...] Recently Relevant to Health Maintenance Insurance MEDICARE [employer] MEDICARE [facility] [place] [address] MEDICARE [employer] INSURANCE [employer] [facility] Advance Directives For more information, please contact: [phone] Documents on File Type Date Recorded Patient Plastics Bench Mechanic Expl anation Power of Dehairer 09/10/2023 10:25 AM * Full Code (Latest Code Status on File) Date Activated Date Inactivated Comments 09/10/2023 8:13 PM 09/13/2023 6:50 PM Care Teams Flare Man Relationship Specialty Start Date End Date Jacobo Pryor MD [address] [place] [address] PCP - General Family Practice 05/01/25 Mello Mallory MD [address] [address] Consulting Physician Cardiology 09/13/23 [place] [address] [address] Consulting Physician Urology 09/13/23
--- OUTSIDE RECORDS SUMMARY | 2025-05-28 15:17 | XMS_ITS | Patient Health Record ---
Author Organization [facility] Address [address] [place] [address] Care Team Providers Care Journalism Internship Name Role Phone Liv Mcpherson Primary Care Provider Chaitanya Almanzar Unavailable [phone] Allergies Allergen (clinical drug ingredient) Drug/Non Drug Allergy documented on EMR Reaction Allergy Type Onset Date Status irbesartan avapro (uncoded) Unknown Allergy Ac tive olmesartan benicar (uncoded) Unknown Allergy A ctive captopril captopril (uncoded) Unknown Allergy Active clindamycin cleocin (uncoded) Unknown Allergy Active rosuvastatin crestor (uncoded) Unknown Allergy Active iophen (uncoded) Unknown Allergy Act jamil fluvastatin lescol (uncoded) Unknown Allergy A ctive lincolcin (uncoded) Unknown Allergy Active metformin metformin (uncoded) Unknown Allergy Active naproxen naproxen (uncoded) Unknown Allergy A ctive niacin (uncoded) Unknown Allergy Act jamil amlodipine norvasc (uncoded) Unknown Allergy A ctive paroxetine paxil (uncoded) Unknown Allergy Act jamil pravastatin pravachol (uncoded) Unknown Allergy Active lisinopril prinivil (uncoded) Unknown Allergy Active vibramycin (uncoded) Unknown Allergy Active colesevelam welchol (uncoded) Unknown Allergy Active wellbutrin (uncoded) Unknown Allergy Active ezetimibe zetia (uncoded) Unknown Allergy Acti ve sertraline zoloft (uncoded) Unknown Allergy Ac tive Reason For Referral No Information Medications Medication SIG (Take, Route, Frequency, Duration) Notes Start Date End Date Status Adderall XR 15mg PRN Active Astelin PRN Active Vitamin C 1000mg QD Active Fish Oil 1000mg QD Active Vitamin B12 1000mcg QD Active potassium 20 meq QD Active Vitamin D 50,000 Three sergo es a week Active Tekturna HCT 300-25mg QD Activ e Furosemide 20mg QD Active Nasonex PRN Active Glimepiride 1mg QD Active ALPRAZolam 0.5mg PRN Active Problems Problem Type SNOMED Code ICD Code Onset Dates Problem Status W/U Status Risk Notes Problem Hernia (208192132) Hernia of unspecified site (553.9) Active confirmed Asymptomatic abdominal wall hernia which we will follow conservatively Problem History of polyp of colon (712592699) Personal history of colonic polyps (V12.72) Active confirmed I personally explained the latest national guideline recommendations regarding screening and surviellence colonoscopy. Patient would be due for exam at this time. I personally explained the benefits and risks of the procedure including bleeding, infection, perforation, oversedation, and possibility of missed lesions even carcinoma. I also gave patient written material regarding the procedure, gave time to answer any questions the patient had regarding this information, and the patient relayed understanding of what I discussed Problem Incontinence of feces (19599079) Incontinence, fecal (787.60) Active confirmed Minor intermittent fecal incontinence without associated urinary incontinence. With improvement and stool consistency this should help area I also discussed Kegel exercises Problem Change in bowel habit (88237896) Change in bowel habits (787.99) Active confirmed Low-grade intermittent loose stool pattern like a functional. I have suggested fiber for bulking. During colonoscopy will biopsy to rule out colitis Plan Of Treatment No Information Insurance Providers Payer Name Payer Address Payer Phone Subscriber Number Group Number Insured Name Patient Relationship to Insured Coverage Start Date Coverage End Date [place] [address] [place] [address] [phone] [id number] Edson Cr Self - patient is the insured Medical (General) History Medical History History ICD Code colonic polyps first diagnosed 2004 transverse colon resection due to benign colonic polyp 2008 abnormal LFTs secondary to cholesterol l owing medications hyperlipidemia appendectomy total bowel hysterectomy hypertension diabetes obesity tonsillectomy knee surgery
--- OUTSIDE RECORDS SUMMARY | 2025-05-28 15:18 | XMS_ITS | Clinical Summary ---
Author Organization [facility] Address [address] [place] [address] Care Team Providers Care Pharmacy Service Associate Name Role Phone Rubio Gonzalez MD Primary Care Provider Toño Turcios MD Unavailable [phone] Source Comments [facility],non-owned Affiliates and Associated Physician Practices is amultiple site organization consisting of ambulatory clinics and hospital sitesin [place], [place], [place] and [place]. This disclosure is being madepursuant to the Care Everywhere program and may not contain all information available regarding this patient. Last updated 18.[facility] Mango-Mate Allergies Active Allergy Reactions Criticality Noted Date Comments Aspirin 12/07/2017 Irbesartan 12/07/2017 Olmesartan 12/07/2017 Captopril 12/07/2017 Clindamycin 12/07/2017 Rosuvastatin 12/07/2017 Guaifenesin 12/07/2017 Sitagliptin 12/07/2017 Fluvastatin 12/07/2017 Atorvastatin 12/07/2017 Metformin 12/07/2017 Naproxen 12/07/2017 Niacin 12/07/2017 Amlodipine Base 12/07/2017 Paroxetine 12/07/2017 Pravastatin 12/07/2017 Lisinopril 12/07/2017 Doxycycline 12/07/2017 Colesevelam Hcl 12/07/2017 Bupropion 12/07/2017 Rivaroxaban 12/07/2017 Ezetimibe 12/07/2017 Sertraline 12/07/2017 Medications * Be aware that medications may not be up to date on this document. Alwaysverify current medications with the patient. aliskiren (TEKTURNA) 300 MG tablet Take 300 mg by mouth once daily Active apixaban (ELIQUIS) 5 MG tablet Take 5 mg by mouth 2 times daily Active furosemide (LASIX) 20 MG tablet Take 20 mg by mouth once daily Active glimepiride (AMARYL) 1 MG tablet Take 1 mg by mouth daily with breakfast Active potassium citrate (UROCIT K 10) 10 MEQ (1080 MG) tablet Take by mouth 3 times daily with meals Active naltrexone 4 MG capsule Take 1 capsule by mouth at bedtime Active sotalol (BETAPACE) 80 MG tablet Take 80 mg by mouth 2 times daily Active ALPRAZOLAM & DIET MANAGE PROD PO Active ALPRAZolam (XANAX) 0.5 MG tablet Take 0.5 mg by mouth nightly as needed for Anxiety Active pantoprazole EC (PROTONIX) 40 MG tablet Take 40 mg by mouth once daily Active Social History Tobacco Use Types Packs/Day Years Used Date Smoking Tobacco: Never Assessed Comments Unknown Sex and Gender Information Value Date Recorded Sex Assigned at Not on file 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 Gender Identity Not on file Sexual Orientation Not on file Last Filed Vital Signs Vital Sign Reading Time Taken Comments Blood Pressure - - Pulse - - Temperature - - Respiratory Rate - - Oxygen Saturation - - Inhaled Oxygen Concentration - - Weight 95.3 kg (210 lb) 12/07/2017 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 Height 162.6 cm (5' 4) 12/07/2017 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 Body Mass Index 36.05 12/07/2017 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 Plan of Treatment Health Maintenance Due Date Last Done Comments BONE DENSITY TESTING 1943 DTAP/TDAP/TD VACCINES (1 - Tdap) 1962 PNEUMOCOCCAL VACCINE 50+ (1 of 1 - PCV) 1993 ZOSTER VACCINE (1 of 2) 1993 Respiratory Syncytial Virus (RSV) Vaccine Pt: or over 60 yrs (1 - 1-dose 75+ series) 2018 COVID-19 VACCINE ( - 2023-2 5 season) 2024 DEPRESSION SCREENING 11/12/2024 INFLUENZA VACCINE (#1) 2025 HEPATITIS B VACCINE Aged Out No longe r eligible based on patient's age to complete this topic HIB VACCINE Aged Out No longer eligi ble based on patient's age to complete this topic HPV VACCINE Aged Out No longer eligi ble based on patient's age to complete this topic MENINGOCOCCAL (Group B) VACC INE SHARED DECISION-MAKING Aged Out No longer eligibl e based on patient's age to complete this topic MENINGOCOCCAL GROUPS A/C/Y/W VACCINE Aged Out No longer eligible b ased on patient's age to complete this topic Insurance MEDICARE [facility] Care Teams Pharmacy Service Associate Relationship Specialty Start Date End Date Rubio Gonzalez MD [address] [place] [id number] PCP - General Internal Medicine 12/07/17 Toño [place] [address] [place] [id number] Orthopedic Surgery 12/07/17
== END 2025-05-28 15:11 | disposition home or self-care (01) ==
LOC: ANHIMG 15:15
PROVIDERS: PCP Family Medicine; Visit Provider Family Medicine
DX: Z12.31 Encounter for screening mammogram for malignant neoplasm of breast (principal); R92.8 Other abnormal and inconclusive findings on diagnostic imaging of breast
CPT/HCPCS: 77063; 77067

== ENCOUNTER 2025-06-10 00:23 | Day surgery (SDC) | payer MEDICARE, SELFPAY ==
[2025-06-09 11:20] VITALS: BMI 29.0
[2025-06-10] VITALS (7 sets, daily range): BP systolic 134–168; BP diastolic 67–90; PULSE 70–76; RESP 14–22; TEMP 36.6; O2SAT 100; BMI 28.4
--- OUTSIDE RECORDS SUMMARY | 2025-06-10 00:27 | XMS_ITS | Patient Health Record ---
Author Organization [facility] Address [address] [place] [address] Care Team Providers Care Radar Repairer Name Role Phone Liv Mcpherson Primary Care Provider Chaitanya Almanzar Unavailable [phone] Allergies Allergen (clinical drug ingredient) Drug/Non Drug [...] naproxen (uncoded) Unknown Allergy A ctive niacin niacin (uncoded) Unknown Allergy Act jamil amlodipine [...] Status W/U Status Risk Notes Problem Hernia (705374923) Hernia of unspecified site (553.9) Active confirmed Asymptomatic abdominal wall hernia which we will follow conservatively Problem Personal history of colonic polyps (V12.72) Active [...] what I discussed Problem Incontinence of feces (78467038) Incontinence, fecal (787.60) Active confirmed Minor intermittent fecal incontinence without associated urinary incontinence. With improvement and stool consistency this should help area I also discussed Kegel exercises Problem Change in bowel habit (76985641) Change in bowel habits (787.99) Active confirmed [...] [place] P[place] [address] [place] [address] [phone] [id number] Edson Cr Self - patient is the insured Medical (General) History Medical History History ICD Code colonic polyps first diagnosed 2004 transverse colon resection due to benign colonic polyp 2008 abnormal LFTs secondary to cholesterol l owing medications hyperlipidemia appendectomy total bowel hysterectomy hypertension diabetes obesity tonsillectomy knee surgery
--- OUTSIDE RECORDS SUMMARY | 2025-06-10 00:27 | XMS_ITS | Clinical Summary ---
Author Organization [facility] Address [address] [place] [address] Care Team Providers Care Fourdrinier Operator Name Role Phone Rubio Gonzalez MD Primary Care Provider [phone] Toño Turcios MD Unavailable [phone] Source Comments [facility],non-owned Affiliates and Associated Physician Practices is amultiple site organization consisting of ambulatory clinics and hospital sitesin [place], [place], [place] and [place]. This disclosure is being madepursuant to the Care Everywhere program and may not contain all information available regarding this patient. 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
--- OUTSIDE RECORDS SUMMARY | 2025-06-10 00:27 | XMS_ITS | Continuity of Care Document ---
Author Organization [facility] Address [address] [place] [address] [place] [address] Phone Care Team Providers Care Oil Field Roustabout Name Role Phone Krishna Clarke MD Unavailable Unavailable Allergies, Adverse Reactions, Alerts Substance Reaction Status Criticality SITAGLIPTIN PHOSPHATE Itching Active No Inf ormation aspirin Itching Active No Information ROSUVASTATIN CALCIUM Cough Active No Info rmation COLESEVELAM HCL Hives / Skin Rash Active No Info rmation naproxen Hives Active No Information OLMESARTAN MEDOXOMIL Itching Active No Info rmation METFORMIN HCL Itching Active No Information ezetimibe Itching Active No Information captopril Nausea / Vomiting Active No Informa tion AMLODIPINE BESYLATE Nausea / Vomiting Active No Information PRAVASTATIN SODIUM Active No Inform ation ATORVASTATIN CALCIUM liver problems 2001 Active No Information SERTRALINE HCL Active No Informatio n FLUVASTATIN SODIUM Active No Inform ation niacin panic attacks Active No Information irbesartan muscle weakness Active No Informati on lisinopril Active No Information CLINDAMYCIN PHOSPHATE Active No Inf ormation LINCOMYCIN HCL Active No Informatio n DOXYCYCLINE MONOHYDRATE Active No I nformation DOXYCYCLINE HYCLATE Active No Infor mation DOXYCYCLINE CALCIUM Active No Infor mation Medications Medication Instructions Dosage Effective Dates (start - stop) Status Comments Amaryl 1 mg tablet take 1 tablet by ora l route every day - Active sotalol 80 mg tablet take 1 tablet by or al route 2 times every day 80 MG - Active Eliquis 5 mg tablet take 1 tablet by ora l route 2 times every day 5 MG - Active Tekturna 300 mg tablet take 1 tablet by oral route every day 300 MG - Active Procedures Procedure Date OFFICE/OUTPATIENT VISIT, [facility] Advance Directives Directive Yes / No Effective Date File Name No Information Encounters Encounter Description Practice Location Reason(s) For Visit Diagnoses Date Provider Providers Copied on Encounter [facility], [address], [place], [place], [id number], tel:[phone] [facility] Medicine No Information Vince Roque [address], [place], [place], [id number] , [place]. tel:[phone] OFFICE/OUTPA TIENT VISIT, [facility], [address], [place], [place], [id number], tel:[phone] [facility] Afib1 (chief complaint) Atrial fibrillationEssenti al (primary) hypertension Vince Nickerson. [address], [place], [place], [address] , . tel:[phone] Referring Provider: [address], [place], [place], [id number]. tel:[phone] Family History Family Member Type Diagnosis Age At Onset No Information Payers Payer name Insurance type Covered democrat ID Authoriza tion(s) No Information Social History Type Description Quantity Date Captured Comments Sex Female Smoking Status No Information Chief Complaint And Reason For Visit No Information Plan Of Treatment Date Type Action Status No Information History Of Present Illness Encounter Date Complaint History Of Prese nt Illness Afib1 [place]. Pt has history of afib with defibrillator which [place]. Pt was on metoprolol which was switched to diltiazem and ultimately switched to sotolol. Pt was admitted to hospital for rapid afib. Pt did see cardiology in hospital and she is on eliquis for chornic anticoagulation. Pt also takes tekturna for chornic HTN. Pt is on amaryl 1 mg daily and her A1c is only 5.8 recently. Her glucose was mildly elevated .Pt denies any polyuria, polydipsia Pt has follow up with cardiology next week. Pt states that the hospital nurse made an appointment for her to see me but she is looking for an internal medicine physican to become her PCP, not a family medicine doctor? Pt denies any chest pain or sob or any edema currently Instructions Date Instruction Additional Infor patricio Follow a low sodium diet. Relate d to Essential (primary) hypertension Assessments Type Assessment Date No Information
--- OUTSIDE RECORDS SUMMARY | 2025-06-10 00:27 | XMS_ITS | Continuity of Care Document ---
Author Organization [facility] Address [address] [address] [place] [address] Phone Care Team Providers Care System Developer Associate Manager Name Role Phone Anand Shields MD Unavailable Unavailab le Allergies, Adverse Reactions, Alerts Substance Reaction Status Criticality rivaroxaban Active No Information SITAGLIPTIN PHOSPHATE Active No Inf ormation naproxen Active No Information ezetimibe Active No Information LINCOMYCIN HCL Active No Informatio n DOXYCYCLINE MONOHYDRATE Active No I nformation DOXYCYCLINE HYCLATE Active No Infor mation DOXYCYCLINE CALCIUM Active No Infor mation aspirin Active No Information ROSUVASTATIN CALCIUM Active No Info rmation bupropion Active No Information BUPROPION HCL Active No Information COLESEVELAM HCL Active No Informati on naproxen Active No Information OLMESARTAN MEDOXOMIL Active No Info rmation ezetimibe Active No Information metformin Active No Information PAROXETINE HCL Active No Informatio n captopril Active No Information AMLODIPINE BESYLATE Active No Infor mation PRAVASTATIN SODIUM Active No Inform ation ATORVASTATIN CALCIUM Active No Info rmation SERTRALINE HCL Active No Informatio n FLUVASTATIN SODIUM Active No Inform ation niacin Active No Information irbesartan Active No Information lisinopril Active No Information iophendylate Active No Information CLINDAMYCIN PHOSPHATE Active No Inf ormation CLINDAMYCIN PALMITATE HCL Active No Information CLINDAMYCIN HCL Active No Informati on DOXYCYCLINE MONOHYDRATE Active No I nformation DOXYCYCLINE HYCLATE Active No Infor mation DOXYCYCLINE CALCIUM Active No Infor mation Medications Medication Instructions Dosage Effective Dates (start - stop) Status Comments erythromycin 5 mg/gram (0.5 %) eye ointment instill small bead to inside left lower lid 2 times daily for 1 week then HS until resolved. - Active flecainide 50 mg tablet take 1 tablet by oral route 3 times every day 50 MG - Active Tekturna 300 mg tablet take 1 tablet by oral route every day 300 MG - Active pantoprazole 40 mg tablet,delayed release take 1 tablet by oral route every day 40 MG - Active Eliquis 5 mg tablet take 1 tablet by oral route 2 times every day 5 MG - Active Probiotic 20 billion cell sprinkle capsule - Active Vitamin D3 5,000 unit tablet - Active Calcium 500 500 mg calcium (1,250 mg) tablet take 1 tablet by oral route every day 1 tablet - Active multivitamin tablet take 1 capsule by oral route every day 1 capsule - Active Vitamin C 1,000 mg tablet take 1 tablet by oral route every day 1 tablet - Active vitamin E 400 unit capsule - Active Glucosamine-Chondroi tin-MSM 500 mg-300 mg-400 mg-10 mg tablet - Active alprazolam 0.5 mg disintegrating tablet prn as needed - Active Nasonex 50 mcg/actuation [place] prn - Active Astelin 137 mcg (0.1 %) nasal spray aerosol prn - Active OMEGA-3 FISH OIL (unknown strength) Not Available - Active VITAMIN B12 (unknown strength) Not Available - Active glimepiride 1 mg tablet take 1 tablet by oral route 2 times every day 1 MG - Active flecainide 50 mg tablet take 1 tablet by oral route every 12 hours 50 MG - No Longer Active Procedures Procedure Date Postop F/u Visit [facility] 7 Desk Payment Discission 2nd Cataract; Laser 17 Desk Payment Ophth Serv: Med Exam; Comp Est 17 Desk Payment Offic/outpt E&m Estab Low-mod 6 Desk Payment Ophth Serv: Med Exam; Interm E 16 Postop F/u Visit [facility] 6 Postop F/u Visit [facility] 5 FACILITY No IOL Master Void Ticket CATARACT SURG W/IOL, 1 STAGE Anes- Eye; Lens Surg Surgery Pre-Payment Desk Payment Offic/outpt E&m [facility] Low-mod 5 No Charge REFRACTION Offic/outpt E&m New Mod Sever 5 TOBACCO NON-USER Doc meds verified w/pt or re FACILITY Determ Refractive State Post Op 015 Surgery Pre-Payment CATARACT SURG W/IOL, 1 STAGE Anes- Eye; Lens Surg Desk Payment Offic/outpt E&m [facility] Low-mod 5 Ear Wax Removal Ear Wax Removal Offic/outpt E&m [facility] 5 Advance Directives Directive Yes / No Effective Date File Name No Information Encounters Encounter Description Practice Location Reason(s) For Visit Diagnoses Date Provider Providers Copied on Encounter [facility], [address] [place] [address], [id number] , tel:[phone] [facility] Post op (chief complaint) Chalazion unspecified eye, unspecified eyelidOther secondary cataract, left eye Mar-0 7 Cornelius Michel. [address], [id number], . tel:[phone] Referring Provider: Anand Keating, [address] [facility] [address] [place], [address]. tel:[phone] [facility], [address] [facility] [address] [place], [place], [id number] , [phone] [facility] Other secondary cataract, left eye 7 Cornelius Michel. [address], [id number], . tel:[phone] Referring Provider: Anand Keating, [address] [place] [address], [address]. tel:[phone] [facility], [address] [place] [address], [id number] , [phone] [facility] blurry vision (chief complaint) Presence of pseudophakiaOthe r secondary cataract, bilateralMeibomi an cyst of eyelidUnspecifie d blepharitis left lower eyelidChalazion left lower eyelid 7 Cornelius Michel. [address] [place] [address], [id number], . tel:[phone] Referring Provider: Anand Keating, [address] [place] [address], [address]. tel:[phone] Offic/outpt E&m Estab Low-mod [facility], [address] [place] [address], [id number] , tel:[phone] [facility] Decreased vision (chief complaint)D iabetes (chief complaint) Dry eye syndrome of bilateral lacrimal glandsOther vitreous opacities, bilateralPuckeri ng of macula, right eyeType 2 diabetes mellitus w/o complication 6 Juliet Turner. [address] [place] [address], [id number], . tel:[phone] Referring Provider: Ricardo Shepherd, [address] [place] [address], [id number]. tel:[phone] [place] [address], [address] [place] [address], [id number] , [phone] [facility] Redness (chief complaint) Other hereditary corneal dystrophySubconj unctival hemorrhage of right eyePresence of intraocular lens 6 Sherrie Silva. [address] [place] [address], [id number], . tel:[phone] Referring Provider: Ricardo Shepherd, [address], [place], [address]. tel:[phone] [facility], [address], [place], [place], [id number] , tel:[phone] [facility] refraction only (chief complaint) Hypermetropia, bilateral Juliet Turner. [address], [place], [place], [id number], . tel:[phone] Referring Provider: Johnny Alvarez, [address] [place] [address], [address]. tel:[phone] [facility], [address] [place] [address], [id number] , tel:[phone] [facility] Post Op (chief complaint)D iabetic eye exam (chief complaint) Presence of intraocular lensType 2 diabetes mellitus w/o complication Juliet Turner. [address], [address] [place] [address], . tel:[phone] Referring Provider: Johnny Alvarez, [address] [place] [address], [address]. tel:[phone] [facility], [address] [place] [address], [id number] , tel:[phone] [facility] No Information 5 [facility]. [address], [address] [place] [address], . tel:[phone] Referring Provider: Gilberto Shepherd, [address], [address]. tel:[phone] [facility], [address], [place], [place], [id number] , tel:[phone] [facility] Age-related nuclear cataract, bilateral 5 Crissy Macias. [address], [place], [address] [place] [address], . tel:[phone] Referring Provider: Gilberto Shepherd, [address], [place], [address] [place] [address]. tel:[phone] [facility], [address], [place], [address] [place] [address] , tel:[phone] [facility] No Information 5 Crissy Macias. [address], [place], [address] [place] [address], . tel:[phone] Referring Provider: Gilberto Shepherd, [address], [place], [address] [place] [address]. tel:[phone] [facility], [address], [place], [address] [place] [address] , tel:[phone] [facility] No Information 5 Crissy Macias. [address], [place], [address] [place] [address], . tel:[phone] Referring Provider: Gilberto Shepherd, [address], [place], [address] [place] [address]. tel:[phone] [facility], [address], [place], [address] [place] [address] , tel:[phone] [facility] No Information 5 Crissy Macias. [address], [place], [address] [place] [address], . tel:[phone] Referring Provider: Gilberto Shepherd, [address] [place] [address], [address]. [phone] [place] [address], [address] [place] [address], [address] [place] [address] tel:[phone] [facility] No Information Dec- 5 Crissy Macias. [address] [place] [address], [address] [place] [address], . tel:[phone] Referring Provider: Gilberto Shepherd, [address] [place] [address], [address]. [phone] Offic/outpt E&m [facility], [address] [place] [address], [id number] [place] [address] tel:[phone] [facility] Post Op (chief complaint)G lare (chief complaint)D ecreased vision (chief complaint) Age-related nuclear cataract, left eyePresence of intraocular lensCortical age-related cataract, left eyeUnspecified astigmatism, right eye Oct- Pena OD Elvia. [address] [place] [address], [address] [place] [address], . tel:[phone] Referring Provider: Gilberto Shepherd, [address] [place] [address], [address]. tel:[phone] Offic/outpt E&m [facility], [address] [place] [address], [id number] [place] [address] tel:[phone] [facility] Pre-Op Clearance (chief complaint)D iabetes (chief complaint)h ypertension (chief complaint)E eleazar (chief complaint)P anic attacks (chief complaint) Encounter for other preprocedural examination Dec-0 5 No Information Referring Provider: Gilberto Shepherd, [address] [place] [address], [address]. tel:[phone] [facility], [address] [place] [address], [place], [address] [place] [address] , tel:[phone] [facility] No Information Oct-0 5 [facility] [place]. [address], [place], [address] [place] [address], . tel:[phone] Referring Provider: Gilberto Shepherd, [address], [place], [address] [place] [address]. tel:[phone] [facility], [address], [place], [address] [place] [address] , tel:[phone] [facility] No Information Oct- 5 Crissy Macias. [address], [address] [place] [address], . tel:[phone] Referring Provider: Gilberto Shepherd, [address], [place], [address] [place] [address]. tel:[phone] [facility], [address], [place], [address] [place] [address] , tel:[phone] [facility] No Information 5 Crissy Macias. [address], [place], [address] [place] [address], . tel:[phone] Referring Provider: Gilberto Shepherd, [address], [place], [address] [place] [address]. tel:[phone] [facility], [address], [place], [address] [place] [address] , tel:[phone] [facility] No Information Oct-0 5 Crissy Macias. [address], [place], [address] [place] [address], . tel:[phone] Referring Provider: Gilberto Shepherd, [address] [place] [address], [address]. tel:[phone] Offic/outpt E&m Estab Low-mod [facility], [address], [address] [place] [address] , tel:[phone] [facility] Glare (chief complaint) Age-related nuclear cataract, bilateralType 2 diabetes mellitus without complications 5 Crissy Macias. [address] [place] [address], [address] [place] [address], . tel:[phone] Referring Provider: Johnny Alvarez, [address] [place] [address], [id number]. tel:[phone] [facility], [address] [place] [address], [address] [place] [address] , tel:[phone] [facility] No Information 5 Vicente Palacios. [facility]5 [facility], [address], [place], [place], Critical access hospital, . tel:[phone] Referring Provider: Suzanne Vogel, [address] [facility] [address], [place], [place], Critical access hospital. tel:[phone] Offic/outpt E&m [facility] Mod-hi 45 [facility], [address] [place] [address], [address] [place] [address] , tel:[phone] [facility] No Information 5 Juliet Turner. [address] [place] [address], [address] [place] [address], . tel:[phone] Referring Provider: Johnny Alvarez, [address] [place] [address], [address]. tel:[phone] Family History Family Member Type Diagnosis Age At Onset Brother Problem (finding) Mother Problem (finding) Heart Father Problem (finding) Cancer, unknown Sister Problem (finding) Cancer, unknown Payers Payer name Insurance type Covered constitution party ID Authoriza tirichard(s) No Information Social History Type Description Quantity Date Captured Comments Alcohol Use Details No Caffeine Use Details Unknown Tobacco Use Status No Information Smoking Status Never smoker Non-Smoking Tobacco Use Details : No Details Available : No Details Available Sex Female Chief Complaint And Reason For Visit From encounter dated '01/17/2017 14:00'. Post op (chief complaint). Description: Patient presents today for post op YAG Posterior Capsulotomy LE 01/02/17. Patient states that after the procedure, she was seeing floaters that looked like "really huge puzzle pieces. She states that now she sees little black dots instead. Patient feels distance vision has improved since procedure, but reading and sewing isdifficult. Patient states that she is still experiencing some irritation from Meibomian cyst of eyelid os and has been using gel/ointment as directed. She states she is also using hot compresses. Reason For Referral Reason For Referral No Information Plan Of Treatment Date Type Action Status Patient Education Lori: Suman hayward Instructions completed Patient Education Learning About YAG Lase r Capsulotomy completed Patient Education Learning About YAG Lase r Capsulotomy completed History Of Present Illness Encounter Date Complaint History Of Prese nt Illness Post op Patient presents today for post op YAG Posterior Capsulotomy LE 01/02/17. Patient states that after the procedure, she was seeing floaters that looked like really huge puzzle pieces. She states that now she sees little black dots instead. Patient feels distance vision has improved since procedure, but reading and sewing is difficult. Patient states that she is still experiencing some irritation from Meibomian cyst of eyelid os and has been using gel/ointment as directed. She states she is also using hot compresses. blurry vision Patient presents for blurry vision in left eye. Patient states that her vision has been blurry in the left eye since November 10. Patient states that on she noticed the inside bottom left eyelid was bloody. Patient states that she has had a little discomfort in her eye. She states that the outer corner is more sensitive. She states that she was on Xarelto, but was taken off on bc it caused blood in her urine and her left ear to bleed. Now on Eliquis after cardioversion. She states that she thinks it had something to do with her left eye as well. She states that she has tried using the OTC Refresh Liquid Gel drops, but states that they made her vision more blurry. Patient states that her left eye still has discharge in it at times. She states that it feels inflamed. She states that her vision has decreased in her left eye more than her right. Patient states that when she looks over to the side and looks back directly infront of her she feels a strong discomforted pain. Decreased vision The 70 year old female presents for evaluation of Decreased vision in the right eye. It started about 2 week(s) ago (03-10-16), patient had a subconjunctival hemorrhage right eye, which has cleared. VA is a little better now but still aware of distortion. Patient still using the Sodium Chloride drops twice a day. Patient sees a shadow to the left of field of vision. Diabetes The patient pres ents for evaluation of H/O Diabetes for about 10 1/2 years. Patient says blood sugar running stable once again after a couple of cortisone injections in the knees. Redness The 70 year old female presents for evaluation of Redness OD. Pt states it started today. Va had gotten blurry since this morning. Pt notes a constant dull ache around or in the eye (pt unsure as to which). No irriation. Pt noticed an increased sensitivity to sunlight. Pt states using PF ATs twice. Pt notes that on Sunday night she triple vision while looking at a street light, has not happened since. refraction only Post Op The 70 year old female presents for evaluation of Cataract Post Op both eyes, S/P PE & IOL OD x 10/20/15 and PE & IOLI OS x 10/27/15.Vision has improved in OU since cataract surgery. Good comfort since surgery OU. Durezol BID OURefresh gel PRN OU. Diabetic eye exam The patient pr esents for evaluation of H/O Diabetes for about 10 years. Blood sugar not running stable at this time, patient had another medication added to her medication list. Glare The patient pres ents for evaluation of Glare in the left eye x 9 months. Patient states that glare is bothersome; no longer drives as night due to glare from oncoming headlights. Decreased vision The patient pre sents for evaluation of Decreased vision in the left eye x 9 months. Patient states that it has become difficult to read and watch TV. Patient states that vision is gradually worsening. Post Op The 70 year old female presents for evaluation of Post Op in the right eye; s/p PE+IOL x 10/20/15. Patient notes increased vision in the right eye. Patient is compliant with post-op drop schedule. Patient notes bothersome imbalance between her right and left eye vision. Patient denies any eye pain/discomfort. Diabetes BS- 232 A1C 7.8, with med Panic attacks with med PRN Edema with med hypertension stable with med Pre-Op Clearance Cataract surger y JAW, labs 01/13/15-enclosed Glare The 70 year old female presents for evaluation of glare and decreased vision x 9 months. Patient complains of problems with glare, no longer drives as night due to glare from oncoming headlights. Has become difficult to read and watch TV. Can't read the captions on the TV screen with both eyes. Functional Status Date Functional Assessmen t No Information Instructions Date Instruction Additional Infor mation Impression/Plan - G cas HACKETTL, recommend removal with biopsy. Refer to Dr Padilla. Information given to pt to sched. appt. Related to Chalazion unspecified eye, unspecified eyelid Impression/Plan - E xcellent response to Yag Cap OS. Trace floaters OS, no flashes. Discussed s/s of PVD and RD. Patient aware to call BERTO if symptoms worsen or vision decreases. Related to Other secondary cataract, left eye Return in 1 months w Anand London MD for YAG Cap OS with 2 week PO visit.. Related to Other secondary cataract, bilateral Impression/Plan - Well centered IOL's. Related to Presence of pseudophakia Follow up - Return in 1 months with Anand Shields MD for YAG Cap OS with 2 week PO visit.. Pt will decide if it will be done in [facility] or TS. Related to Other secondary cataract, bilateral Impression/Plan - V ascularized nodule-??chalazion OS lower lid, unable to express. Related to Meibomian cyst of eyelid Impression/Plan - R ecommend YAG Laser Cap OS to improve vision. Risks and benefits explained. Patient agrees to proceed. YAG Laser Cap scheduled. Pt wishes to proceed. Related to Other secondary cataract, bilateral Impression/Plan - H ot compresses 10 minutes twice daily and lid srcubs daily. Discussed the effects of blepharitis on vision and eye comfort. Emphasized the importance of lid hygiene. Gave Erythromycin clemencia BID for 1 week then HS OS until gone Related to Unspecified blepharitis left lower eyelid Return in [address] Johnny Chung established patient long exam. CPT genny today [id number] Related to Dry eye syndrome of bilateral lacrimal glands Follow up - Return in [address] Johnny Chung established patient long exam. CPT genny today [id number] Related to Dry eye syndrome of bilateral lacrimal glands Impression/Plan - S uggest use artificial tears once or twice a day for comfort, more if necessary. Patient can stop the Sodium Chloride drops at this time. Related to Dry eye syndrome of bilateral lacrimal glands Impression/Plan - S table, no treatment needed at this time. Patient complaint of shadow to the right of vision could be a combination of dry eyes, vitreous floaters and the epiretinal membrane. No other ocular findings for patient symptoms. Related to Puckering of macula, right eye Impression/Plan - S ymptoms of retinal detachment (flashes, floaters, shade or curtain blocking vision) explained. Patient knows to call/come in if occur. Related to Other vitreous opacities, bilateral Impression/Plan - K eep blood sugar and blood pressure under good control. Related to Type 2 diabetes mellitus w/o complication Return in 2 weeks Johnny Sylvester MD for Established Patient Short. Related to Other hereditary corneal dystrophy as scheduled with Dr. Chung. Related to Presence of intraocular lens Follow up - as sche duled with Dr. Chung. Related to Presence of intraocular lens Impression/Plan - S table, monitor. OCT M performed today to r/o CME/ERM. Related to Presence of intraocular lens Impression/Plan - D iscussed diagnosis with patient. Patient reassured that this is self-resolving in 1-3 weeks. If a new one occurs, recommend follow up appointment. Related to Subconjunctival hemorrhage of right eye Impression/Plan - E ducated on condition. Lubricate with pf ATs 6x/day into the right eye. Start NaCl 5% qid OD x 1 week, then decrease to bid x 1 week. Call if vision further changes or pain occurs. Related to Other hereditary corneal dystrophy Follow up - Return in 2 weeks with Johnny Chung MD for Established Patient Short. Related to Other hereditary corneal dystrophy Return in 7 months w paty Chung for Diabetic follow up. Related to Type 2 diabetes mellitus w/o complication Return in 2-3 weeks with [place] OD, Jb for Refraction. Related to Presence of intraocular lens Follow up - Return in 2-3 weeks with [place] OD, Jb for Refraction. CPT code today 31330 Related to Presence of intraocular lens Impression/Plan - C ontinue drops per schedule. Call/come in if any sudden visual loss or pain. Suggest appointment with Gang Drill Press Operator for glasses prescription: Dr. Rossi for post op refraction only Related to Presence of intraocular lens Follow up - Return in [address] Johnny Chung for Diabetic follow up. Related to Type 2 diabetes mellitus w/o complication Impression/Plan - K eep blood sugar and blood pressure under good control. Related to Type 2 diabetes mellitus w/o complication Return in day with Gilberto Hudson MD for DA Related to Age-related nuclear cataract, left eye Impression/Plan - C onsents today, schedule DA with Pts Cataract Surgeon for second eye sx. OK to proceed with JAW plan possible plan, PEIOL, Target distance, no limbal relaxing incision Related to Age-related nuclear cataract, left eye Impression/Plan - P t educated. Reviewed PO drop schedule, CPM per schedule, monitor Related to Presence of intraocular lens Follow up - Return in day with Gilberto Woodward MD for DA Related to Age-related nuclear cataract, left eye Copy of heart tracin g with patient to compare with MD at next visit. Follow up with MD regarding heart murmur. Related to Encounter for other preprocedural examination DA # 1 JAW Related to Age-r elated nuclear cataract, bilateral Impression/Plan - m ild, no retinopathy seen, no evidence of macular edema seen. Discussed importance of blood sugar control and effect on vision. Related to Type 2 diabetes mellitus without complications Impression/Plan - P hacoemulsification with intraocular lens implant RIGHT eye, Standard intraocular lens implant, Target DISTANCE no limbal relaxing incision. Risks and benefits of surgery reviewed and lens implant options discussed. Need axial length measurements. Patient understands need for glasses after surgery, no guarantee 20/20 vision.Re-eval LEFT eye for possible cataract surgery if symptomatic. Possible plan: Standard intraocular lens implant, Target DISTANCE no limbal relaxing incision. Related to Age-related nuclear cataract, bilateral Follow up - DA # 1 JAW Related to Age-related nuclear cataract, bilateral Assessments Type Assessment Date assessment Chalazion unspecified eye, unspe cified eyelid impression Chalazion unspecified eye, unspe cified eyelid: H00.19. OS assessment Other secondary cataract, left e ye impression Other secondary cataract, left e ye: H26.492 Patient Care Teams Name Effective Dates (start - stop) Status Members No Information
--- OUTSIDE RECORDS SUMMARY | 2025-06-10 00:27 | XMS_ITS | Encounter Summary ---
Author Organization [facility] Address [address] [place] [address] Care Team Providers Care Surtass Analyst Name Role Phone Mello Mallory MD Unavailable [phone] Jacobo Pryor MD Primary Care Provider [phone] Joey Alva MD Unavailable [phone] Encounter Details Date Type Department Care Team (Late st Contact Info) Description 05/05/2024 Prep for Procedure Bright's Pre-Admission Testing [address] [place], [place] [id number] Joey Alva MD [address] [facility] [address] [place] [address] Social History Tobacco Use Types Packs/Day Years [...] Sex Assigned at Female 12/08/2024 12:56 PM SWIMMING POOL SERVICE TECHNICIAN Legal Sex Female 3:58 PM SWIMMING POOL SERVICE TECHNICIAN Gender Identity Female 12/08/2024 12:56 PM SWIMMING POOL SERVICE TECHNICIAN Sexual Orientation Not on file documented as of this encounter Plan of Treatment Not on file documented as of this encounter Results * (ABNORMAL) URINE BACTERIA CULTURE (05/06/2024 8:56 AM CDT) SPEC DESCRIPTION URINE CLEAN CATCH 05/06/2024 8:50 AM CDT [facility] SPECIAL REQUESTS NO SPECIAL REQUEST 05/06/2024 8:50 AM CDT [facility] CULTURE RESULT >100,000 COL/ML KLEBSIELLA PNEUMONIAE (A) 05/08/2024 7:43 AM CDT [facility] URINE SPECIMEN OBTAINED BY CLEAN CATCH PROCEDURE / Unknown 05/06/2024 8:56 AM CDT 05/06/2024 8:59 AM CDT Narrative Organism Antibiotic Method Susceptibility Klebsiella pneumoniae AMPICILLIN KENYON (VITEK) >=32: Resistant Klebsiella pneumoniae AMPICILLIN/SULBACTAM KENYON (VITEK) 8: Sensitive Klebsiella pneumoniae CEFTRIAXONE KENYON (VITEK) <=1: Sensitive Klebsiella pneumoniae CEFTAZIDIME KENYON (VITEK) <=1: Sensitive Klebsiella pneumoniae CEFAZOLIN KENYON (VITEK) <=4: Sensitive Klebsiella pneumoniae ESBL KENYON (VITEK) NEG: Sensitive Klebsiella pneumoniae NITROFURANTOIN KENYON (VITEK) 64: Intermediate Comment:INTERMEDIATE Klebsiella pneumoniae GENTAMICIN KENYON (VITEK) <=1: Sensitive Klebsiella pneumoniae LEVOFLOXACIN KENYON (VITEK) <=0.12: Sensitive Klebsiella pneumoniae PIPRACIL/TAZO KENYON (VITEK) 8: Sensitive Klebsiella pneumoniae TRIMETH-SULFAMETH. KENYON (VITEK) >=320: Resistant Joey Alva MD MICROBIOLOGY - GENERAL ORDERABL ES Final Result [facility] [address] [place] [address], * (ABNORMAL) URINALYSIS (05/06/2024 8:56 AM CDT) SPECIMEN TYPE URINE CLEAN CATCH 05/06/2024 8:50 AM CDT [facility] COLOR (U) YELLOW 05/06/2024 9:28 AM CDT [facility] TRANSPARENCY EXTREMELY TURBID 05/06/2024 9:28 AM CDT [facility] SPECIFIC GRAVITY (U) 1.018 1.001 - 1.030 05/06/2024 9:28 AM CDT [facility] U PH 5.5 5.0 - 9.0 05/06/2024 9:28 AM CDT [facility] LEUKOCYTES (U) 500(A) NEGATIVE 05/06/2024 9:28 AM CDT [facility] NITRITES 1+(A) NEGATIVE 05/06/2024 9:28 AM T [facility] PROTEIN RANDOM (U) 50(H) <30 MG/DL 05/06/2024 9:28 AM CDT [facility] GLUCOSE (U) NORMAL NORMAL MG/DL 05/06/2024 9:28 AM T [facility] KETONES MG/DL (U) NEGATIVE NEGATIVE MG/DL 05/06/2024 9:28 AM T [facility] UROBILINOGEN NORMAL NORMAL MG/DL 05/06/2024 9:28 AM T [facility] BILIRUBIN (U) NEGATIVE NEGATIVE MG/DL 05/06/2024 9:28 AM T [facility] BLOOD (U) 1+(A) NEGATIVE 05/06/2024 9:28 AM T [facility] MUCUS RARE /LPF 05/06/2024 9:28 AM CDT [facility] WBC/HPF >100(H) <6 /HPF 05/06/2024 9:28 AM CDT [facility] WBC CLUMPS PRESENT 05/06/2024 9:28 AM T [facility] RBC/HPF 20(H) <6 /HPF 05/06/2024 9:28 AM CDT [facility] BACTERIA (U) RARE(A) NONE /HPF 05/06/2024 9:28 AM CDT [facility] SQUAMOUS EPITHELIALS RARE /HPF 05/06/2024 9:28 AM CDT [facility] URINE SPECIMEN OBTAINED BY CLEAN CATCH PROCEDURE / Unknown 05/06/2024 8:56 AM CDT Joey Alva MD URINE ORDERABLES Final Result [facility] [address] [place] [address], documented in this encounter Visit Diagnoses Diagnosis Calcium kidney stone- Primary Calculus of kidney documented in this encounter Care Teams Surtass Analyst Relationship Specialty Start Date End Date Jacobo Pryor MD [address] [place] [address] PCP - General FAMILY PRACTICE 04/30/23 Mello Mallory MD [address] [address] CARDIOVASCULAR DISEASE 03/22/23 Joey Alva MD [address] [facility] [place] [address] UROLOGY 04/30/23 documented as of this encounter
--- OUTSIDE RECORDS SUMMARY | 2025-06-10 00:27 | XMS_ITS | Referral Summary ---
Author Organization [place] [address] Address [address] [place] [address] Care Team Providers Care Pricing Strategist Name Role Phone Mello Mallory MD Unavailable [phone] Joey Alva MD Unavailable [phone] Jacobo Pryor MD Primary Care Provider [phone] Encounters Date Type Department Care Team Description 05/18/2025 Telephone [facility] Cardiology [address] [place] [address] [place] [address] Mello Mallory MD 05/18/2025 10:00 AM CDT Ancillary Procedure [facility] Cardiology [address] [place] [address] [place] [phone] Cardiac pacemaker in situ; Paroxysmal atrial fibrillation (HCC); SSS (sick sinus syndrome) (HCC); Atrial flutter, unspecified type (HCC) 05/01/2025 9:00 AM CDT Office Visit [facility] Cardiology [address] [place] [address] [address] [place] [address] Merari Darnell NP SSS (sick sinus syndrome) (HCC); Cardiac pacemaker in situ; Paroxysmal atrial fibrillation (HCC); Encounter for monitoring sotalol therapy; Chronic anticoagulation; Nonrheumatic aortic valve stenosis 04/21/2025 Telephone [facility] Cardiology [address] [place] [address] [address] [place] [address] Mello Mallory MD 04/13/2025 Telephone [facility] Cardiology [address] [place] [address] [place] [address] Mello Mallory MD 04/13/2025 11:15 AM CDT Ancillary Procedure [facility] Cardiology [address] [place] [address] [place] [phone] Cardiac pacemaker in situ; Paroxysmal atrial fibrillation (HCC); SSS (sick sinus syndrome) (HCC); Atrial flutter, unspecified type (HCC) 03/31/2025 Telephone [facility] Cardiology [address] [place] [address] [place] [address] Mello Mallory MD from Last 3 [...] capsule Take 1 capsule by mouth daily Quikey brand Active acidophilus-pec tin, citrus 100 million cell-10 mg capsule Take 1 tablet/capsule by mouth daily Quikey brand Active turmeric root extract 500 mg capsule Take 1,300 mg by mouth daily Active vit C/E/Zn/coppr/silviano tein/zeaxan (PRESERVISION AREDS-2 ORAL) Take 1 capsule by mouth 2 (two) times a day Active acetaminophen 500 mg capsuleIndicati ons:Pain Take 2 capsules (1,000 mg total) by mouth every 6 (six) hours 30 tablet 3 Active Additional Information Patient not taking.Reported on 05/01/2025 docusate sodium (COLACE) 100 mg capsuleIndicati ons:constipatio n Take 1 capsule (100 mg total) by mouth 2 (two) times a day as needed for constipation 60 capsule 3 Active Tradjenta 5 mg tablet Take 1 tablet (5 mg total) by mouth every morning 4 Active apixaban (ELIQUIS) 2.5 mg tablet Take 1 tablet (2.5 mg total) by mouth 2 (two) times a day 180 tablet 5 Active Vascepa 1 gram capsule Take 2 capsules (2 g total) by mouth 2 (two) times a day Active acetaminophen-c affeine 500-65 mg tablet Take 2 tablets by mouth every 6 (six) hours as needed Active amitriptyline (ELAVIL) 10 mg tablet Take 1 tablet (10 mg total) by mouth nightly at bedtime Active calcium carbonate-vitam in D3 1,500 mg (600 mg elemental)-1,00 0 unit capsule Take by mouth A ctive sotaloL (BETAPACE) 80 mg tabletIndicatio ns:Encounter for monitoring sotalol therapy Take 1 tablet (80 mg total) by mouth daily 5 Active Active Problems Problem Noted Date Diagnosed [...] 09/11/2023 How often do you attend chur or spiritism services? More than 4 times per year 09/11/2023 Do you belong to any clubs o r organizations such as lutheran groups, unions, fraternal or athletic groups, or [...] place to sleep or slept in a long term (including now)? No 09/11/2023 Personal Safety Answer [...] on file Medical Devices Implanted Type Area Top Distribution Executive Device Identifier Shelf Expiration Date Model / Serial / Lot Pacemaker-09/28 Implanted:09/28 (Quantity not on file) Pacemaker Chest Medtronic SSS, PAF ADVISA DR PEREZ / [id number] / Explanted Type Area Top Distribution Executive Device Identifier Shelf Expiration Date Model / Serial / Lot [employer]an [employer] Mary Contour 6fr 24cm Large Inner Lumen Low Profile Bladder Hneri Taper Latex Free 180-222 - [id number] Explanted:Qty: 1 on 09/10/2023 by Joey Alva MD at [facility] Stent Left: Ureter [employer] Mary 02/26/2026 [id number] / / [id number] Procedures Procedure Name Priority Date/Time Associated Diagnosis [...] attached. Battery status: 2.83 V. Device reached BASKETBALL COACH (Recommend Replacement Time) on 04/30/2025. Stable lead impedances, pacing and sensing thresholds. Presenting rhythm: AT/AF INSPECTOR PRECISION ASSEMBLY. AP-10%, INSPECTOR PRECISION ASSEMBLY-100% 1 AT/AF episodes noted. AF [place] 100%. No Ventricular high rate episodes detected. [...] pacing and sensing thresholds. Presenting rhythm: AT/AF INSPECTOR PRECISION ASSEMBLY. AP-10%, INSPECTOR PRECISION ASSEMBLY-100% 3 AT/AF episodes noted. AF [place] 90.9%. No Ventricular high rate episodes detected. Medications: Eliquis 2.5 mg, Sotalol 80 mg See scanned report. Office pacemaker follow up: Pending possible generator change [facility] remote f/u 05/18/2025. Saw Sanchez, CRYSTAL Mello Mallory MD [facility] C[facility] PROC EDURES Final Result * eGFR (09/13/2023 6:01 AM CDT) eGFR 38 mL/min/1. 73 m2 [facility] Comment: Interpretive Data Reference Interval Normal >/= [...] MD LAB BLOOD ORDERABLES Final Res ult [facility] [address] [place] [address] * (ABNORMAL) Hemoglobin A1c (08/31/2023 11:27 AM CDT) Hgb A1C 6.5(H) 4.0 - 5.6 % Estimated Average Glucose 140 mg/dL [facility] Comment: The ADA recommends reporting an estimated Average Glucose (eAG) with all Hemoglobin A1c results using the equation derived from a study of 507 normal and diabetic adults. Minority populations were underrepresented and children were not included. (Diabetes Care 31:6229-0000, 2008). The eAG is not equivalent to a fasting glucose. Blood 08/31/2023 11:2 7 AM CDT 08/31/2023 11:54 AM CDT Rhiannon Torres NP LAB BLOOD ORDERABLES Final Result [facility] [address] [place] [address] * (ABNORMAL) Lipid panel (03/03/2021 9:10 AM [...] Recently Relevant to Health Maintenance Insurance MEDICARE [facility] [place] INSUR[employer] [place] MEDICARE [facility] MEDICARE [facility] [place] [employer] [place] Advance Directives For more information, please contact: [phone] Documents on File Type Date Recorded Patient Software Test And Validation Engineer Expl anation Power of Yeast Culture Operator 09/10/2023 10:25 AM * Full Code (Latest Code Status on File) Date Activated Date Inactivated Comments 09/10/2023 8:13 PM 09/13/2023 6:50 PM Care Teams Pricing Strategist Relationship Specialty Start Date End Date Jacobo Pryor MD [address] [place] [address] PCP - General Family Practice 05/01/25 Mello Mallory MD [address] [facility] [address] [place] [address] Consulting Physician Cardiology 09/13/23 [place] [address] [place] [address] Consulting Physician Urology 09/13/23
--- OUTSIDE RECORDS SUMMARY | 2025-06-10 00:27 | XMS_ITS | Clinical Summary ---
Author Organization [facility] Address [address] [place] [address] Care Team Providers Care Location Manager Name Role Phone Mello Mallory MD Unavailable [phone] Jacobo Pryor MD Primary Care Provider [phone] Joey Alva MD Unavailable [phone] Allergies Active Allergy Reactions Criticality Noted [...] Urinary obstruction 05/26/2024 Type 2 diabetes mellitus ([facility]) 12/01 Sleep apnea 12/01/2020 Essential hypertension 12/01/2020 Aortic stenosis 12/01/2020 Nonrheumatic aortic (valve) stenosis 12/01/2020 Family History Medical History Relation Comments Cancer Father Relation Status Comments Father Mother Social History Tobacco Use Types Packs/Day Years Used Date Smoking Tobacco: Never Smokeless Tobacco: Never Tobacco Cessation:Counseling Given: Not Answered Alcohol Use Standard Drinks/Week Comments Not Currently 0 (1 standard drink = 0.6 oz pur e alcohol) [facility] Utilities Answer Date Recorded In the past 12 months has e [employer], gas, oil, or water [employer] threatened to shut off services in your [...] money to buy more. Never true 05/28/20 Within the past 12 months, t he [...] any time in the past 12 m [facility], were you homeless or living in a [place] health care facility (including now)? No 05/28/2024 Comments No Sex and Gender Information Value Date Recorded Sex Assigned at Female 12/08/2024 12:56 PM MANAGER OF SCHOOL Legal Sex Female 3:58 PM MANAGER OF SCHOOL Gender Identity Female 12/08/2024 12:56 PM MANAGER OF SCHOOL Sexual Orientation Not on file Last Filed [...] Height 152.4 cm (5') 12/08/2024 12:50 PM MANAGER OF SCHOOL Body Mass Index 29.54 12/08/2024 12:50 PM MANAGER OF SCHOOL Plan of Treatment Health Maintenance Due Date [...] - 2023-2 5 season) 2024 PHQ-2 (Physician [place]) 11/12/2024 Diabetes: Retinopathy Eye Exam 06/02/2025 06/02/2024 [...] and discharge planning Lifestyle No Nicole Miller, GLAZIER HELPERcableway operator Devices Implanted Type Area Optical Manager Device Identifier Shelf Expiration Date Model / Serial / Lot Rv Lead Implant-2015 Implanted:09/12 (Quantity not on file) Lead Implant [employer] 5076-58 / [id number] / Atrial Lead Implant-2015 Implanted:09/12 (Quantity not on file) Lead Implant [employer] 5076-45 / [id number] / Pacemaker-09/12 Implanted:09/12 (Quantity not on file) Pacemaker [employer] [id number] / [id number] / Description:MRI Conditional under following conditions: [...] Pigtail 6fr 24cm Crv Taper Tip - [id number] Implanted:Qty: 1 on 05/26/2024 by Toño Ramirez MD at [facility] Stent [employer] [id number] 10/08/2026 [id number] / / [id number] Stent Ureteral 6fr 26cm Pigtl Crv Taper Tip Bldr Mrk - [id number] Implanted:Qty: 1 on 02/19/2025 by Joey Alva MD at [facility] Stent Right: Ureter [employer] [id number] 07/21/2027 [id number] / / [id number] Explanted Type Area Optical Manager Device Identifier Shelf Expiration Date Model / Serial / Lot Stent Ureteral 6fr 26cm Pigtl Crv Taper Tip Bldr Mrk - [id number] Implanted:Qty : 1 on 07/04/2024 by Joey Alva MD at [facility] Explanted:Qty : 1 on 02/19/[address] [facility] Stent Right: Ureter [employer] [id number] 01/16/2027 [id number] / / [id number] Description:REMOVED PRIOR TO THIS VISIT Procedures Procedure Name Priority Date/Time Associated Diagnosis Comments DIABETIC RETINOPATHY EXAM (POSITIVE)(SCAN ORDER) Routine 06/02/2024 from Last 3 Months or Most Recently Relevant to Health Maintenance Results * DIABETIC RETINOPATHY EXAM (POSITIVE) (06/02/2024) [facility] Scanned SCANNING Final Resu lt [facility] ON[facility] from Last 3 Months or Most Recently Relevant to Health Maintenance Insurance MEDICARE [facility] [employer] INSURANCE [place] Advance Directives Documents on File Type Date Recorded Patient Strategic Consultant Expl anation Power of Automatic Profile Shaper Operator 08/02/2023 POA RECEIV ED 08/02/2023 * Full Code (Latest Code Status on File) Date Activated Date Inactivated Comments 05/26/2024 1:53 PM 05/29/2024 2:04 PM Care Teams Location Manager Relationship Specialty Start Date End Date Jacobo Pryor MD [address] [place] [address] PCP - General FAMILY PRACTICE 04/30/23 Mello Mallory MD [address] [address] CARDIOVASCULAR DISEASE 03/22/23 Joey Alva MD [address] [place] [address] UROLOGY 04/30/23
--- OUTSIDE RECORDS SUMMARY | 2025-06-10 00:27 | XMS_ITS | Encounter Summary ---
Author Organization [facility] Address [address] [place] [address] Care Team Providers Care Appraiser Auditor Name Role Phone Rubio Gonzalez MD Primary Care Provider [phone] Mello Mallory MD Unavailable [phone] Jacobo Pryor MD Primary Care Provider [phone] Joey Alva MD Unavailable [phone] Encounter Details Date Type Department Care Team (Late st Contact Info) Description 03/22/2023 Prep for Procedure [facility] Pre-Admission Testing [place], [place] [id number] Joey Alva MD 3 [facility] [address] [place], [place] [id number] Social History Tobacco Use Types Packs/Day Years [...] Sex Assigned at Female 12/08/2024 12:[address] ATTENDANT Legal Sex Female 3:[address] ATTENDANT Gender Identity Female 12/08/2024 12:[address] ATTENDANT Sexual Orientation Not on file COVID-19 Exposure [...] URINE CLEAN CATCH 03/23/2023 10:04 AM CDT [facility] COLOR (U) YELLOW 03/23/2023 12:56 PM CDT [facility] TRANSPARENCY TURBID 03/23/2023 12:56 PM CDT [facility] SPECIFIC GRAVITY (U) 1.021 1.001 - 1.030 03/23/2023 12:56 PM CDT [facility] U PH 5.0 5.0 - 9.0 03/23/2023 12:56 PM CDT [facility] LEUKOCYTES (U) 250(A) NEGATIVE 03/23/2023 12:56 PM CDT [facility] NITRITES NEGATIVE NEGATIVE 03/23/2023 12:56 PM CDT [facility] PROTEIN (U) 30(H) <30 MG/DL 03/23/2023 12:56 PM CDT [facility] URINE GLUCOSE NORMAL NORMAL MG/DL 03/23/2023 12:56 PM CDT [facility] KETONES MG/DL (U) NEGATIVE NEGATIVE MG/DL 03/23/2023 12:56 PM CDT [facility] UROBILINOGEN NORMAL NORMAL MG/DL 03/23/2023 12:56 PM T [facility] BILIRUBIN (U) NEGATIVE NEGATIVE MG/DL 03/23/2023 12:56 PM CDT [facility] BLOOD (U) NEGATIVE NEGATIVE 03/23/2023 12:56 PM CDT [facility] MUCUS MODERATE /LPF 03/23/2023 12:56 PM CDT [facility] HYALINE CASTS FEW /LPF 03/23/2023 12:56 PM CDT [facility] WBC/HPF 36(H) <6 /HPF 03/23/2023 12:56 PM CDT [facility] RBC/HPF <1 <6 /HPF 03/23/2023 12:56 PM CDT [facility] BACTERIA (U) RARE(A) NONE /HPF 03/23/2023 12:56 PM CDT [facility] CA OXALATE CRYSTALS MANY /HPF 03/23/2023 12:56 PM CDT [facility] SQUAMOUS EPITHELIALS RARE /HPF 03/23/2023 12:56 PM CDT [facility] URINE SPECIMEN OBTAINED BY CLEAN CATCH PROCEDURE / Unknown 03/23/2023 10:04 AM CDT Joey Alva MD URINE ORDERABLES Final Result [facility] [address] [place] [address], [place] [phone] * CULTURE URINE (03/23/2023 10:00 AM CDT) SPEC DESCRIPTION URINE CLEAN CATCH 03/23/2023 10:04 AM CDT [facility] SPECIAL REQUESTS NO SPECIAL REQUEST 03/23/2023 10:04 AM CDT [facility] CULTURE RESULT NO GROWTH 2 DAYS 03/25/2023 7:29 AM CDT [facility] URINE SPECIMEN OBTAINED BY CLEAN CATCH PROCEDURE / Unknown 03/23/2023 10:00 AM CDT 03/23/2023 10:25 AM CDT us Joey Alva MD MICROBIOLOGY - GENERAL ORDERABL ES Final Result [facility] [address] [place] [address], [place] [phone] documented in this encounter Visit Diagnoses Diagnosis Ureteral fistula- Primary documented in this encounter Additional Health Concerns Infection Onset Date Last Indicated Resolved Time COVID-19 Rule Out 09/28/2023 09/28/2023 09/28/2023 3:[address] ATTENDANT documented as of this encounter Care Teams Appraiser Auditor Relationship Specialty Start Date End Date Rubio Gonzalez MD [address] [place] [address] PCP - General INTERNAL MEDICINE 12/01/20 04/29/23 Jacobo Pryor MD [address] [place] [address] PCP - General FAMILY PRACTICE 04/30/23 Mello Mallory MD [address] [facility] [address] [place] [address] CARDIOVASCULAR DISEASE 03/22/23 Joey Alva MD [address] [facility] [place] [address] UROLOGY 04/30/23 documented as of this encounter
--- OUTSIDE RECORDS SUMMARY | 2025-06-10 00:27 | XMS_ITS | Encounter Summary ---
Author Organization [facility] Address [address] [place] [address] Care Team Providers Care Metal Fabricator Apprentice Name Role Phone Mello Mallory MD Unavailable [phone] Jacobo Pryor MD Primary Care Provider [phone] Joey Alva MD Unavailable [phone] Encounter Details Date Type Department Care Team (Late st Contact Info) Description 06/11/2024 Prep for Procedure [facility] Pre-Admission Testing [place], [place] [id number] Joey Alva MD 3 [facility] [address] [place] [address] Social History Tobacco Use Types Packs/Day Years Used Date Smoking Tobacco: Never Smokeless Tobacco: Never Alcohol Use Standard Drinks/Week Comments Not Currently 0 (1 standard drink = 0.6 oz pur e alcohol) [facility] Utilities Answer Date Recorded In the [...] any time in the past 12 m [facility], were you homeless or living in a detention (including now)? No 05/28/2024 Comments No Sex and Gender Information Value Date Recorded Sex Assigned at Female 12/08/2024 12:56 PM EXTRACTOR OPERATOR SOLVENT PROCESS Legal Sex Female 3:58 PM EXTRACTOR OPERATOR SOLVENT PROCESS Gender Identity Female 12/08/2024 12:56 PM EXTRACTOR OPERATOR SOLVENT PROCESS Sexual Orientation Not on file documented as of this encounter Functional Status * Are you deaf or do you have serious difficulty hearing Answer Date of Assessment Author Status No 05/26/2024 3:49 PM Randi uDncan RN Active * Are you blind or [...] and discharge planning Lifestyle No Nicole Miller, PICKER MACHINE OPERATOR documented as of this encounter Results * (ABNORMAL) URINE BACTERIA CULTURE (06/20/2024 3:21 PM CDT) SPEC DESCRIPTION URINE CLEAN CATCH 06/20/2024 3:22 PM CDT [facility] SPECIAL REQUESTS NO SPECIAL REQUEST 06/20/2024 3:22 PM CDT [facility] CULTURE RESULT 10,000-49,0 00 COL/ML ENTEROCOCCU S SPECIES (A) 06/22/2024 9:36 AM CDT [facility] URINE SPECIMEN OBTAINED BY CLEAN [...] MICROBIOLOGY - GENERAL ORDERABL ES Final Result [facility] [address] [place] [address], * (ABNORMAL) URINALYSIS (06/20/2024 3:21 PM CDT) SPECIMEN TYPE URINE CLEAN CATCH 06/20/2024 3:22 PM CDT [facility] COLOR (U) YELLOW 06/20/2024 3:39 PM CDT [facility] TRANSPARENCY TURBID 06/20/2024 3:39 PM CDT [facility] SPECIFIC GRAVITY (U) 1.019 1.001 - 1.030 06/20/2024 3:39 PM CDT [facility] U PH 5.0 5.0 - 9.0 06/20/2024 3:39 PM CDT [facility] LEUKOCYTES (U) 250(A) NEGATIVE 06/20/2024 3:39 PM CDT [facility] NITRITES NEGATIVE NEGATIVE 06/20/2024 3:39 PM CDT [facility] PROTEIN RANDOM (U) 50(H) <30 MG/DL 06/20/2024 3:39 PM CDT [facility] GLUCOSE (U) NORMAL NORMAL MG/DL 06/20/2024 3:39 PM CDT [facility] KETONES MG/DL (U) NEGATIVE NEGATIVE MG/DL 06/20/2024 3:39 PM CDT [facility] UROBILINOGEN NORMAL NORMAL MG/DL 06/20/2024 3:39 PM CDT [facility] BILIRUBIN (U) NEGATIVE NEGATIVE MG/DL 06/20/2024 3:39 PM CDT [facility] BLOOD (U) 2+(A) NEGATIVE 06/20/2024 3:39 PM CDT [facility] MUCUS RARE /LPF 06/20/2024 3:39 PM CDT [facility] WBC/HPF 34(H) <6 /HPF 06/20/2024 3:39 PM CDT [facility] RBC/HPF >100(H) <6 /HPF 06/20/2024 3:39 PM CDT [facility] BACTERIA (U) RARE(A) NONE /HPF 06/20/2024 3:39 PM CDT [facility] SQUAMOUS EPITHELIALS RARE /HPF 06/20/2024 3:39 PM CDT [facility] URINE SPECIMEN OBTAINED BY CLEAN CATCH PROCEDURE / Unknown 06/20/2024 3:21 PM CDT Joey lAva MD URINE ORDERABLES Final Result Performing Organization Address [facility] Co de Phone Number [facility] [address] [place] [address], documented in this encounter Visit Diagnoses Diagnosis Calcium kidney stone- Primary Calculus of kidney documented in this encounter Care Teams Metal Fabricator Apprentice Relationship Specialty Start Date End Date Jacobo Pryor MD [address] [place] [address] PCP - General FAMILY PRACTICE 04/30/23 Mello Mallory MD [address] [address] CARDIOVASCULAR DISEASE 03/22/23 Joey Alva MD [address] [place] [address] UROLOGY 04/30/23 documented as of this encounter
--- OUTSIDE RECORDS SUMMARY | 2025-06-10 00:27 | XMS_ITS | Clinical Summary ---
Author Organization [facility] [address] Address [address] [place] [address] Care Team Providers Care Report Analyst Name Role Phone Mello Mallory MD Unavailable [phone] Joey Alva MD Unavailable [phone] Jacobo Pryor MD Primary Care Provider [phone] Allergies Active Allergy Reactions Criticality Noted Date [...] capsule Take 1 capsule by mouth daily [employer] brand Active acidophilus-pec tin, citrus 100 million cell-10 mg capsule Take 1 tablet/capsule by mouth daily [employer] brand Active turmeric root extract 500 mg [...] tablet (80 mg total) by mouth daily Active Active Problems Problem Noted Date Diagnosed [...] Description 05/18/2025 10:00 AM CDT Ancillary Procedure [facility]iology [address] [place] [address] [place] [phone] Cardiac pacemaker in situ; Paroxysmal atrial fibrillation (HCC); SSS (sick sinus syndrome) (HCC); Atrial flutter, unspecified type (HCC) 05/18/2025 Telephone [facility] [address] [place] [address] [place] [phone] Mello Mallory MD 05/01/2025 9:00 AM CDT Office Visit [facility] [address] [address] [place] [phone] Merari Darnell NP SSS (sick sinus syndrome) (HCC); Cardiac pacemaker in situ; Paroxysmal atrial fibrillation (HCC); Encounter for monitoring sotalol therapy; Chronic anticoagulation; Nonrheumatic aortic valve stenosis 04/21/2025 Telephone [facility] [address] [facility] [address] [place] [phone] Mello Mallory MD 04/13/2025 11:15 AM CDT Ancillary Procedure [facility] [address] [place] [address] [place] [phone] Cardiac pacemaker in situ; Paroxysmal atrial fibrillation (HCC); SSS (sick sinus syndrome) (HCC); Atrial flutter, unspecified type (HCC) 04/13/2025 Telephone [facility] [address] [place] [address] [place] [phone] Mello Mallory MD 03/31/2025 Telephone [facility] [address] [place] [address] [place] [phone] Mello Mallory MD from Last 3 [...] Never 09/11/2023 How often do you attend [facility] or [facility] services? More than 4 times per year 09/11/2023 Do you belong to any clubs o r organizations such as sabianist groups, unions, fraternal or athletic groups, or [...] place to sleep or slept in a assisted (including now)? No 09/11/2023 Personal Safety Answer [...] Risk Assessment 09/13/2024 09/13/2023 eGFR 09/13/2024 09/13/2023, 11/11/2022, 09/11/2023, Additional history exists Influenza Vaccine (#1) 2025 9, 07/30/2018, 07/13/2018 Medical Devices Implanted Type Area Log Operations Coordinator Device Identifier Shelf Expiration Date Model / Serial / Lot Pacemaker-09/28 Implanted:09/28 (Quantity not on file) Pacemaker Chest Medtronic SSS, PAF ADVISA DR PEREZ / [id number] / Explanted Type Area Log Operations Coordinator Device Identifier Shelf Expiration Date Model / Serial / Lot [employer] Mary Contour 6fr 24cm Large Inner Lumen Low Profile Bladder Henri Taper Latex Free 180-222 - [id number] Explanted:Qty: 1 on 09/10/2023 by Joey Alva MD at [facility] Stent Left: Ureter [employer] Mary 02/26/2026 [id number] / / [id number] Procedures Procedure Name Priority Date/Time Associated Diagnosis [...] attached. Battery status: 2.83 V. Device reached PIPE STRIPPER (Recommend Replacement Time) on 04/30/2025. Stable lead impedances, pacing and sensing thresholds. Presenting rhythm: AT/AF TAX SPECIALIST. AP-10%, TAX SPECIALIST-100% 1 AT/AF episodes noted. AF Bowlegs 100%. No Ventricular high rate episodes detected. Medications: Eliquis 2.5 mg, Sotalol 80 mg See scanned report. Office pacemaker follow up: Pending possible generator change [employer] remote. Michell Merritt RN Mello Mallory MD CV CARDIAC SERVICES PROC EDURES Final Result * ECG 12 lead (05/01/2025 8:59 AM CDT) 05/01/2025 8:59 AM CDT Merari Darnell THORACIC SURGEON ECG ORDERABLES Final Res ult * DEVICE [...] pacing and sensing thresholds. Presenting rhythm: AT/AF TAX SPECIALIST. AP-10%, TAX SPECIALIST-100% 3 AT/AF episodes noted. AF Bowlegs 90.9%. No Ventricular high rate episodes detected. Medications: Eliquis 2.5 mg, Sotalol 80 mg See scanned report. Office pacemaker follow up: Pending possible generator change [employer] remote f/u 05/18/2025. Saw Sanchez RN Mello Mallory MD CV CARDIAC SERVICES PROC EDURES Final Result * eGFR (09/13/2023 6:01 AM CDT) eGFR 38 mL/min/1. 73 m2 [facility] Comment: Interpretive Data Reference Interval Normal [...] of Race in Diagnosing Kidney Disease, JASN 202). The CKD-EPI equation should not be used for patients with unstable renal function and has not been validated in children and those over 70. Current interpretive data was last reviewed 2021. Blood 09/13/2023 6:01 AM CDT 09/13/2023 6:38 AM CDT us Joey Alva MD LAB BLOOD ORDERABLES Final Res ult Performing Organization Address [facility] Co de Phone Number [facility] [address] [place] [address] * (ABNORMAL) Hemoglobin A1c (08/31/2023 11:27 AM CDT) Hgb A1C 6.5(H) 4.0 - 5.6 % Estimated Average Glucose 140 mg/dL [facility] Comment: The ADA recommends reporting an estimated Average Glucose (eAG) with all Hemoglobin A1c results using the equation derived from a study of 507 normal and diabetic adults. Minority populations were underrepresented and children were not included. (Diabetes Care 31:5581-9566, 2008). The eAG is not equivalent to a fasting glucose. Blood 08/31/2023 11:2 7 AM CDT 08/31/2023 11:54 AM CDT us Rhiannon Torres NP LAB BLOOD ORDERABLES Final Result Performing Organization Address [facility] Co de Phone Number [facility] [address] Department of [place], [place] [phone] * (ABNORMAL) Lipid panel (03/03/2021 9:10 AM CDT) SCRIBED Cholesterol, Total 220(A) 0 - 200 EXTERNAL LAB SCRIBED HDL 43 40 - 100 EXTERNAL LAB SCRIBED LDL 134(A) 0 - 100 EXTERNAL LAB SCRIBED Triglycerides 280(A) 0 - 150 EXTERNAL LAB Blood specimen (specimen) us Historical Provider LAB BLOOD ORDERABLES Edit ed Result - Final EXTERNAL LAB from Last 3 Months or Most Recently Relevant to Health Maintenance Insurance MEDICARE [employer] MEDICARE [facility] MEDICARE [employer] Advance Directives For more information, please contact: [phone] Documents on File Type Date Recorded 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
[2025-06-10 07:53] LABS: Hematocrit 36.6 % (37.0-47.0); Hemoglobin 11.4 g/dL (12.0-15.0); Immature Granulocyte Percent A 0.4 % (0-0.5); Lymphocytes Absolute Auto 1.63 K/mm3 (0.9-3.2); Mean Corpuscular HGB Conc 31.1 g/dl (32-36); Mean Corpuscular Hemoglobin 27.6 pg (26-34); Mean Corpuscular Volume 88.6 fl (80-100); Nucleated Red Blood Cells Absolute Auto 0.000 K/mm3 (0.0-0.012); Nucleated Red Blood Cells Perc 0.0 % (0.0-0.2); Platelet Count Result 200 k/mm3 (150-375); Red Blood Count 4.13 M/mm3 (4.2-5.4); White Blood Count 9.5 K/mm3 (4.5-10.0)
--- NOTE | 2025-06-10 07:56 | HP_ITS ---
This report was moved to the correct visit on 06/25/2025. The original report was signed by Mello Mallory MD on 06/10/25 0756. Moderate Sedation Note-Pt Data Patient Data Diagnosis: Permanent pacemaker at [facility] Present Complaint: No complaints Procedure to be performed/Plan: Pacemaker generator change Allergies Allergy/AdvReac Type Severity Reaction Status Date / Time aspirin Allergy Severe ITHING & Verified 06/09/25 11:12 HIVES atorvastatin Allergy Unknown LIVER Verified 06/09/25 11:12 ISSUES clindamycin Allergy Unknown Unknown Verified 06/09/25 11:12 STOPPED TAKING IN 1979 colesevelam Allergy Unknown HIVES Verified 06/09/25 11:12 NECK/CHEST doxycycline Allergy Unknown Unknown - Verified 06/09/25 11:12 UNABLE TO RECALL ezetimibe Allergy Unknown unknown-UNABLE Verified 06/09/25 11:12 TO RECALL fluvastatin Allergy Unknown LIVER Verified 06/09/25 11:12 ISSUES lincomycin Allergy Unknown UNKNOWN Verified 06/09/25 11:12 STOPPED 1979 naproxen Allergy Unknown Hives Verified 06/09/25 11:12 pravastatin Allergy Unknown LIVER Verified 06/09/25 11:12 ISSUES rivaroxaban Allergy Unknown BLEEDING Verified 06/09/25 11:12 rosuvastatin Allergy Unknown LIVER Verified 06/09/25 11:12 ISSUES sertraline Allergy Unknown Unknown-UNABLE Verified 06/09/25 11:12 TO RECAL sitagliptin Allergy Unknown Itching Verified 06/09/25 11:12 iophendylate AdvReac Intermediate stomach/intestinal Verified 06/09/25 11:12 cramping bupropion AdvReac Mild not Verified 06/09/25 11:12 working amlodipine AdvReac Unknown COUGHING Verified 06/09/25 11:12 captopril AdvReac Unknown COUGHING Verified 06/09/25 11:12 irbesartan AdvReac Unknown MUSCLE Verified 06/09/25 11:12 WEAKNESS lisinopril AdvReac Unknown COUGHING Verified 06/09/25 11:12 metformin AdvReac Unknown HEAD ACH Verified 06/09/25 11:12 niacin AdvReac Unknown PANIC Verified 06/09/25 11:12 ATTACTS olmesartan AdvReac Unknown MUSCLE Verified 06/09/25 11:12 WEAKNESS paroxetine AdvReac Unknown Drowsy Verified 06/09/25 11:12 Home Medications ?Medication ?Instructions ?Recorded ?Confirmed ?Type Daily Probiotic 1 tab-cap PO DAILY 06/05/23 06/09/25 History turmeric 2 tab-cap PO DAILY 06/05/23 06/09/25 History Mature Women's 1 tab-cap PO DAILY 02/13/24 06/09/25 History vitamins A,C,L-xoff-jvrcbk 4,296 1 cap PO BID 02/13/24 06/09/25 History mcg-226 mg-90 mg capsule (PreserVision AREDS) apixaban 2.5 mg tablet (Eliquis) 2.5 mg PO BID 06/03/24 06/09/25 History sotalol 80 mg tablet 80 mg PO DAILY 06/16/24 06/09/25 History linagliptin 5 mg tablet (Tradjenta) 5 mg PO QAM #90 tabs 12/22/24 06/09/25 Rx Vascepa 1 gram capsule (icosapent 2 g (2 x 1 gram) PO BID 90 days 12/23/24 06/09/25 Rx ethyl) #360 caps topiramate 25 mg tablet 25 mg PO DAILY #90 tabs 05/27/25 06/09/25 Rx cholecalciferol (vitamin D3) 125 125 mcg PO DAILY 06/09/25 06/09/25 History mcg (5,000 unit) tablet (Vitamin D3) Sedation/Anesthesia: No previous sedation/anesthesia problems (including family history). [facility] Past Medical History Medical History H/O nephrolithotomy with removal of calculi 4Right trigger finger Right hand pain Bilateral incipient cataracts Grade II diastolic dysfunction Essential hypertension Severe aortic stenosis Echocardiogram 03/19/2023: Severe aortic stenosis with valve area 0.18, grade 2 diastolic dysfunction, EF is 67%Cerebrovascular accident (03/19/23) Macular degeneration Osteoporosis Aortic valve stenosis Atrial flutter Heart disease Post-menopausal Neck mass Obesity (BMI 30-39.9) Lipoma Anxiety Dyslipidemia JERRELL (obstructive sleep apnea) Polysomnogram June 2018 recommend CPAP of 11Paroxysmal atrial flutter On chronic anticoagulation with EliquisPrimary osteoarthritis of both knees Pure hypercholesterolemia Seasonal allergic rhinitis Type 2 diabetes mellitus without complication, without long-term current use of insulin Vitamin D deficiency Surgical History Surgical History H/O colonoscopy 06/14/23Status post biventricular cardiac pacemaker insertion Status post open reduction with internal fixation of fracture Right leg fractureHistory of hand surgery right hand for synovial fluid massStatus post right colon removal 12-15in of colon removed, precancerous lesion Family History Family History Sibling Family history of cardiovascular disease Diabetes mellitus Family history of hearing loss Family history of arthritis Family history of obesity Hypertension Liver disease Liver cancerOther Family history of malignant neoplasm of ovary Social History Social History Smoking status: Never smoker Second hand tobacco smoke exposure: No Alcohol intake: current Substance use: never Substance use type: does not use Do You Feel Safe in your Home?: Yes Lack of Transportation: No Lack of Food: Never True Current Housing: I Have Housing Concerned About Future Housing: No Difficulty Paying Gas/Electric Bills: No Difficulty Paying for Meds: No Currently Unemployed: No Education: High School Diploma/GED Difficulty w/ Childcare or Family Care: No Living arrangements: with family Occupation/Education: retired Gender identity (if verbalized by the patient): Female Sexual Orientation (if Verbalized by the Patient): Straight or Heterosexual Spiritual care concerns: No Mod Sed Physical Exam Physical Exam Pre Procedural Exam: Normal: Appearance, Neck, Throat, Airway, Lungs, Heart Size, Heart Rate, Heart Rhythm and Extremities Hours since solid foods: 12 Hours since liquid intake: 12 Mallampati Classification: class II ASA Classification/Sedation ASA Classification/Sedation ASA Class: III Emergent: No Risks: Risks, benefits and alternatives explained and patient/family accepted plan for sedation. Patient re-evaluated immediately prior to sedation. Please be advised this is a medical document. It is intended for voew-sv-wvzd communication. It is written in medical language and may contain unfamiliar abbreviations or verbiage. Medical documents are intended to carry relevant information, facts as evident, and the clinical opinion of the practitioner at the time of the encounter. This report may have been done utilizing a voice recognition system. Attempts have been made to correct errors. However, there may be uncorrected grammatical, spelling, and recognition errors present. The file time of this note does not necessarily represent the time the patient was seen. Report Initialized date/time: Mello Mallory MD 06/10/256 Electronically signed by: Mello Mallory MD 06/10/25 0756
[2025-06-10 08:28] LABS: Anion Gap 9 mmol/L (4-12); Blood Urea Nitrogen 28 mg/dL (7-17); Calcium 9.1 mg/dL (8.4-10.2); Carbon Dioxide 21 mmol/L (22-30); Chloride 109 mmol/L (98-107); Estimated CRCL calculation 21 ml/min; Estimated Glomerular Filt Rate 31; Glucose 148 mg/dL (65-110); Potassium 4.6 mmol/L (3.4-5.0); Sodium 139 mmol/L (137-145)
--- NOTE | 2025-06-10 10:03 | OP_ITS ---
This report was moved to the correct visit on 06/25/2025. The original report was signed by Mello Mallory MD on 06/10/25 1009. Cardiac Cath Procedure Note Date of procedure:: 06/10/25 Performing physician:: Mello Mallory MD Indication:: Permanently implanted pacemaker at [facility] Brief clinical history:: This is an 79-year-old lady with a history of paroxysmal AF as well as Errol arrhythmias who has a dual-chamber pacemaker implanted. The device is at [facility] and she is admitted for elective generator change. She is pacemaker dependent Procedure Procedure performed:: Placement of temporary transvenous pacemaker Explantation of depleted pulse generator Implantation of new pulse generator Sedation/Medication given:: Fentanyl 25 mg Versed 2 mg Case start time 8:52 a.m. Case end time 9:51 a.m. Sedation provided by Queenie Perez RN, trained observer Access site:: Right femoral vein Chronically implanted device in left anterior chest wall Estimated blood loss:: Minimal Procedure note:: Patient was brought to the cardiac catheterization lab where initially the right femoral triangle was prepared and draped in the usual sterile fashion. 10 cc of lidocaine was injected for local anesthesia. Following this the femoral vein was punctured using the modified Seldinger technique and a 6 Spanish vascular sheath was placed. A balloon tipped temporary pacemaking catheter was then advanced into the venous circulation under fluoroscopic visualization into the right ventricle and into the RV septal position. The balloon was deflated and the pacemaker performance was tested using the analyzer. The area was then covered and in a sterile fashion. I then broke scrub as the chest was prepped and draped for the thoracic portion procedure. The left anterior chest wall at the site chronically implanted pacemaker device was prepped draped. 20 cc of lidocaine was injected in this area for local anesthesia. The PlasmaBlade was then used to make an incision over the pacemaker device and to provide electrocautery. The PlasmaBlade was then used to dissect the subcutaneous tissue and fibrous capsule was encountered. This was opened using the plasma blade and Metzenbaum scissors. Pacemaker generator in the attached leads with removed from pocket with visually intact and unremarkable in appearance. The pacemaker generator was then disconnected the leads using the torque wrench at which time the patient was paced from the temporary transvenous lead. The leads were then connected to the new generator detailed below using the torque wrench. Pocket was irrigated using Ancef infused saline. The pocket was then closed in layers using 3-0 Vicryl in an interrupted fashion for the subcutaneous tissue 4- 0 Vicryl in a running subcuticular fashion for the skin. Wound was dressed with an Aquacel dressing. Patient tolerated procedure well. After the wound was sutured the temporary pacemaker was removed from the femoral vein and the venous sheath was removed and manual pressure was held venous puncture site. Findings:: The explanted device is a Medtronic dual-chamber pacemaker model A2DR01 serial number [id number]. Originally implanted September 28, 2016. The new generator is a Medtronic dual-chamber device model W1DR01 serial number [id number]. Programmed in the DDDR mode lower rate limit 70 upper rate limit 130 av delay 300/260 milliseconds. The atrial lead is a Medtronic device model 5076-4 5 serial number [id number] the P-waves are sensed at 2.3 mV the patient is in atrial flutter so threshold was not tested impedance 285 Ohms. The ventricular lead is a Medtronic bipolar lead model 5076-58. Serial number [id number]. The R-waves are sensed at 10.5 mV threshold 0.5 volts at 0.4 milliseconds impedance 361 Ohms. Conclusion:: 1. Successful placement of temporary transvenous pacemaker for rhythm protection during generator change in this pacemaker dependent patient 2. Successful uncomplicated explantation of depleted pacemaker pulse generator detailed above 3. Successful uncomplicated implantation of new permanent Medtronic dual-chamber pulse generator for ongoing treatment of bradycardia, pacemaker dependency and paroxysmal AF in this 79-year-old lady. Mello Mallory MD [facility] Please be advised this is a medical document. It is intended for wopp-ru-ifbb communication. It is written in medical language and may contain unfamiliar abbreviations or verbiage. Medical documents are intended to carry relevant information, facts as evident, and the clinical opinion of the practitioner at the time of the encounter. This report may have been done utilizing a voice recognition system. Attempts have been made to correct errors. However, there may be uncorrected grammatical, spelling, and recognition errors present. The file time of this note does not necessarily represent the time the patient was seen. Report Initialized date/time: Mello Mallory MD 07/30/25 / 1003 Electronically signed by: Mello Mallory MD 06/10/25 1002
== END 2025-06-10 12:20 | disposition home or self-care (01) ==
PROVIDERS: PCP Family Medicine; Visit Provider Specialist
PROC: 0JPT0PZ Removal of Cardiac Rhythm Related Device from Trunk Subcutaneous Tissue and Fascia, Open Approach (ICD-10-PCS; CPT 33228; principal; 2025-06-10 08:30)
DX: Z45.010 Encounter for checking and testing of cardiac pacemaker pulse generator [battery] (principal); I48.0 Paroxysmal atrial fibrillation; F41.9 Anxiety disorder, unspecified; E11.9 Type 2 diabetes mellitus without complications; E55.9 Vitamin D deficiency, unspecified; I11.9 Hypertensive heart disease without heart failure; M81.0 Age-related osteoporosis without current pathological fracture; M17.0 Bilateral primary osteoarthritis of knee; E78.00 Pure hypercholesterolemia, unspecified; G47.33 Obstructive sleep apnea (adult) (pediatric); I35.0 Nonrheumatic aortic (valve) stenosis; H35.30 Unspecified macular degeneration; I48.92 Unspecified atrial flutter; Z79.01 Long term (current) use of anticoagulants; Z98.890 Other specified postprocedural states; Z90.49 Acquired absence of other specified parts of digestive tract; Z87.442 Personal history of urinary calculi; Z86.79 Personal history of other diseases of the circulatory system; Z80.0 Family history of malignant neoplasm of digestive organs; Z80.41 Family history of malignant neoplasm of ovary; Z82.49 Family history of ischemic heart disease and other diseases of the circulatory system
CPT/HCPCS: 33228; 36415; 80048; 85025; J0690; C1785; C1894; J1644; J2003; J2250; J3010; J7040

== ENCOUNTER 2025-06-15 11:30 | Outpatient (CLI) | payer MEDICARE, SELFPAY ==
--- NOTE | 2025-06-10 07:55 | WPDMODSED ---
Moderate Sedation Note-Pt Data Patient Data Diagnosis: Permanent pacemaker at [place] Present Complaint: No complaints Procedure to be performed/Plan: Pacemaker generator change Allergies Allergy/AdvReac Type Severity Reaction Status Date / Time aspirin Allergy Severe ITHING & Verified 06/09/25 11:12 HIVES atorvastatin Allergy Unknown LIVER Verified 06/09/25 11:12 ISSUES clindamycin Allergy Unknown Unknown Verified 06/09/25 11:12 STOPPED TAKING IN 1979 colesevelam Allergy Unknown HIVES Verified 06/09/25 11:12 NECK/CHEST doxycycline Allergy Unknown Unknown - Verified 06/09/25 11:12 UNABLE TO RECALL ezetimibe Allergy Unknown unknown-UNABLE Verified 06/09/25 11:12 TO RECALL fluvastatin Allergy Unknown LIVER Verified 06/09/25 11:12 ISSUES lincomycin Allergy Unknown UNKNOWN Verified 06/09/25 11:12 STOPPED 1979 naproxen Allergy Unknown Hives Verified 06/09/25 11:12 pravastatin Allergy Unknown LIVER Verified 06/09/25 11:12 ISSUES rivaroxaban Allergy Unknown BLEEDING Verified 06/09/25 11:12 rosuvastatin Allergy Unknown LIVER Verified 06/09/25 11:12 ISSUES sertraline Allergy Unknown Unknown-UNABLE Verified 06/09/25 11:12 TO RECAL sitagliptin Allergy Unknown Itching Verified 06/09/25 11:12 iophendylate AdvReac Intermediate stomach/intestinal Verified 06/09/25 11:12 cramping bupropion AdvReac Mild not Verified 06/09/25 11:12 working amlodipine AdvReac Unknown COUGHING Verified 06/09/25 11:12 captopril AdvReac Unknown COUGHING Verified 06/09/25 11:12 irbesartan AdvReac Unknown MUSCLE Verified 06/09/25 11:12 WEAKNESS lisinopril AdvReac Unknown COUGHING Verified 06/09/25 11:12 metformin AdvReac Unknown HEAD ACH Verified 06/09/25 11:12 niacin AdvReac Unknown PANIC Verified 06/09/25 11:12 ATTACTS olmesartan AdvReac Unknown MUSCLE Verified 06/09/25 11:12 WEAKNESS paroxetine AdvReac Unknown Drowsy Verified 06/09/25 11:12 Home Medications ?Medication ?Instructions ?Recorded ?Confirmed ?Type Daily Probiotic 1 tab-cap PO DAILY 06/05/23 06/09/25 History turmeric 2 tab-cap PO DAILY 06/05/23 06/09/25 History Mature Women's 1 tab-cap PO DAILY 02/13/24 06/09/25 History vitamins A,C,T-sqcp-qwwqve 4,296 1 cap PO BID 02/13/24 06/09/25 History mcg-226 mg-90 mg capsule (PreserVision AREDS) apixaban 2.5 mg tablet (Eliquis) 2.5 mg PO BID 06/03/24 06/09/25 History sotalol 80 mg tablet 80 mg PO DAILY 06/16/24 06/09/25 History linagliptin 5 mg tablet (Tradjenta) 5 mg PO QAM #90 tabs 12/22/24 06/09/25 Rx Vascepa 1 gram capsule (icosapent 2 g (2 x 1 gram) PO BID 90 days 12/23/24 06/09/25 Rx ethyl) #360 caps topiramate 25 mg tablet 25 mg PO DAILY #90 tabs 05/27/25 06/09/25 Rx cholecalciferol (vitamin D3) 125 125 mcg PO DAILY 06/09/25 06/09/25 History mcg (5,000 unit) tablet (Vitamin D3) Sedation/Anesthesia: No previous sedation/anesthesia problems (including family history). [facility] Past Medical History Medical History H/O nephrolithotomy with removal of calculi 05/26/2024 Right trigger finger Right hand pain Bilateral incipient cataracts Grade II diastolic dysfunction Essential hypertension Severe aortic stenosis Echocardiogram 03/19/2023: Severe aortic stenosis with valve area 0.18, grade 2 diastolic dysfunction, EF is 67% Cerebrovascular accident (03/19/23) Macular degeneration Osteoporosis Aortic valve stenosis Atrial flutter Heart disease Post-menopausal Neck mass Obesity (BMI 30-39.9) Lipoma Anxiety Dyslipidemia JERRELL (obstructive sleep apnea) Polysomnogram June 2018 recommend CPAP of 11 Paroxysmal atrial flutter On chronic anticoagulation with Eliquis Primary osteoarthritis of both knees Pure hypercholesterolemia Seasonal allergic rhinitis Type 2 diabetes mellitus without complication, without long-term current use of insulin Vitamin D deficiency Surgical History Surgical History H/O colonoscopy 06/14/23 Status post biventricular cardiac pacemaker insertion Status post open reduction with internal fixation of fracture Right leg fracture History of hand surgery right hand for synovial fluid mass Status post right colon removal 12-15in of colon removed, precancerous lesion Family History Family History Sibling Family history of cardiovascular disease Diabetes mellitus Family history of hearing loss Family history of arthritis Family history of obesity Hypertension Liver disease Liver cancer Other Family history of malignant neoplasm of ovary Social History Social History Smoking status: Never smoker Second hand tobacco smoke exposure: No Alcohol intake: current Substance use: never Substance use type: does not use Do You Feel Safe in your Home?: Yes Lack of Transportation: No Lack of Food: Never True Current Housing: I Have Housing Concerned About Future Housing: No Difficulty Paying Gas/Electric Bills: No Difficulty Paying for Meds: No Currently Unemployed: No Education: High School Diploma/GED Difficulty w/ Childcare or Family Care: No Living arrangements: with family Occupation/Education: retired Gender identity (if verbalized by the patient): Female Sexual Orientation (if Verbalized by the Patient): Straight or Heterosexual Spiritual care concerns: No Mod Sed Physical Exam Physical Exam Pre Procedural Exam: Normal: Appearance, Neck, Throat, Airway, Lungs, Heart Size, Heart Rate, Heart Rhythm and Extremities Hours since solid foods: 12 Hours since liquid intake: 12 Mallampati Classification: class II ASA Classification/Sedation ASA Classification/Sedation ASA Class: III Emergent: No Risks: Risks, benefits and alternatives explained and patient/family accepted plan for sedation. Patient re-evaluated immediately prior to sedation.
--- NOTE | 2025-06-10 09:54 | WPDCARDPROC ---
Cardiac Cath Procedure Note Date of procedure:: 06/10/25 Performing physician:: Mello Mallory MD Indication:: Permanently implanted pacemaker at [facility] Brief clinical history:: This is an 79-year-old lady with a history of paroxysmal AF as well as Errol arrhythmias who has a dual-chamber pacemaker implanted. The device is at [facility] and she is admitted for elective generator change. She is pacemaker dependent Procedure Procedure performed:: Placement of temporary transvenous pacemaker Explantation of depleted pulse generator Implantation of new pulse generator Sedation/Medication given:: Fentanyl 25 mg Versed 2 mg Case start time 8:52 a.m. Case end time 9:51 a.m. Sedation provided by Queenie Perez RN, trained observer Access site:: Right femoral vein Chronically implanted device in left anterior chest wall Estimated blood loss:: Minimal Procedure note:: Patient was brought to the cardiac catheterization lab where initially the right femoral triangle was prepared and draped in the usual sterile fashion. 10 cc of lidocaine was injected for local anesthesia. Following this the femoral vein was punctured using the modified Seldinger technique and a 6 Guamanian vascular sheath was placed. A balloon tipped temporary pacemaking catheter was then advanced into the venous circulation under fluoroscopic visualization into the right ventricle and into the RV septal position. The balloon was deflated and the pacemaker performance was tested using the analyzer. The area was then covered and in a sterile fashion. I then broke scrub as the chest was prepped and draped for the thoracic portion procedure. The left anterior chest wall at the site chronically implanted pacemaker device was prepped draped. 20 cc of lidocaine was injected in this area for local anesthesia. The PlasmaBlade was then used to make an incision over the pacemaker device and to provide electrocautery. The PlasmaBlade was then used to dissect the subcutaneous tissue and fibrous capsule was encountered. This was opened using the plasma blade and Metzenbaum scissors. Pacemaker generator in the attached leads with removed from pocket with visually intact and unremarkable in appearance. The pacemaker generator was then disconnected the leads using the torque wrench at which time the patient was paced from the temporary transvenous lead. The leads were then connected to the new generator detailed below using the torque wrench. Pocket was irrigated using Ancef infused saline. The pocket was then closed in layers using 3-0 Vicryl in an interrupted fashion for the subcutaneous tissue 4-0 Vicryl in a running subcuticular fashion for the skin. Wound was dressed with an Aquacel dressing. Patient tolerated procedure well. After the wound was sutured the temporary pacemaker was removed from the femoral vein and the venous sheath was removed and manual pressure was held venous puncture site. Findings:: The explanted device is a Medtronic dual-chamber pacemaker model A2DR01 serial number [id number]. Originally implanted September 28, 2016. The new generator is a Medtronic dual-chamber device model W1DR01 serial number [id number]. Programmed in the DDDR mode lower rate limit 70 upper rate limit 130 av delay 300/260 milliseconds. The atrial lead is a Medtronic device model 5076-4 5 serial number [id number] the P-waves are sensed at 2.3 mV the patient is in atrial flutter so threshold was not tested impedance 285 Ohms. The ventricular lead is a Medtronic bipolar lead model 5076-58. Serial number [id number]. The R-waves are sensed at 10.5 mV threshold 0.5 volts at 0.4 milliseconds impedance 361 Ohms. Conclusion:: 1. Successful placement of temporary transvenous pacemaker for rhythm protection during generator change in this pacemaker dependent patient 2. Successful uncomplicated explantation of depleted pacemaker pulse generator detailed above 3. Successful uncomplicated implantation of new permanent Medtronic dual-chamber pulse generator for ongoing treatment of bradycardia, pacemaker dependency and paroxysmal AF in this 79-year-old lady. Mello Mallory MD [facility]
--- NOTE | ~2025-06-15 | MM_ITS ---
EXAMINATION: MM diagnostic ligia BI w sera INDICATION: 79-year old female callback from screening to evaluate bilateral breast calcifications. COMPARISON: 05/28/2025. TECHNIQUE:Magnification views in ML and CC of both breasts were obtained. FINDINGS: There are scattered areas of fibroglandular density. The cluster of microcalcifications identified in the lower outer quadrant of the right breast posteri zahraa and in the lower inner quadrant of the left breast at posterior depth are located within the ski n. These calcifications are considered probably benign and short-term follow-up advised. IMPRESSION: Probably benign microcalcifications in both breasts. Recommendation: Short-term follow-up in 6 months bilateral diagnostic mammography. BI-RADS 3, PROBABLY BENIGN Reviewed, dictated and finalized at location B.
--- OUTSIDE RECORDS SUMMARY | 2025-06-15 12:01 | XMS_ITS | Clinical Summary ---
Author Organization [facility] Address [address] [place] [address] Care Team Providers Care Machine Wedger Name Role Phone Mello Mallory MD Unavailable [phone] Jacobo Pryor MD Primary Care Provider [phone] Joey Alva MD Unavailable [phone] Allergies Active Allergy Reactions Criticality Noted [...] Urinary obstruction 05/26/2024 Type 2 diabetes mellitus ([facility]) 12/01 Sleep apnea 12/01/2020 Essential hypertension 12/01/2020 [...] drink = 0.6 oz pur e alcohol) [facility] Utilities Answer Date Recorded In the past 12 months has e ipsy, gas, oil, or water [employer] threatened to shut off services in your [...] time in the past 12 m [facility], were you homeless or living in a half-way (including now)? No 05/28/2024 Comments No Sex and Gender Information Value Date Recorded Sex Assigned at Female 12/08/2024 12:56 PM VASCULAR TECHNOLOGIST Legal Sex Female 3:58 PM VASCULAR TECHNOLOGIST Gender Identity Female 12/08/2024 12:56 PM VASCULAR TECHNOLOGIST Sexual Orientation Not on file Last Filed [...] Height 152.4 cm (5') 12/08/2024 12:50 PM VASCULAR TECHNOLOGIST Body Mass Index 29.54 12/08/2024 12:50 PM VASCULAR TECHNOLOGIST Plan of Treatment Health Maintenance Due Date [...] - 2023-2 5 season) 2024 PHQ-2 (Physician Campo) 11/12/2024 Diabetes: Retinopathy Eye Exam 06/02/2025 06/02/2024 [...] and discharge planning Lifestyle No Nicole Miller, INTERNET SPECIALISTtester rocket engine Devices Implanted Type Area Trial Judge Device Identifier Shelf Expiration Date Model / Serial / Lot Rv Lead Implant-2015 Implanted:09/12 (Quantity not on file) Lead Implant [employer] 5076-58 / [id number] / Atrial Lead Implant-2015 Implanted:09/12 (Quantity not on file) Lead Implant [employer] 5076-45 / [id number] / Pacemaker-09/12 Implanted:09/12 (Quantity not on file) Pacemaker [employer] A2DR01 / [id number] / Description:MRI Conditional under following conditions: [...] Pigtail 6fr 24cm Crv Taper Tip - [id number] Implanted:Qty: 1 on 05/26/2024 by Toño Ramirez MD at [facility] Stent [employer] [id number] 10/08/2026 [id number] / / [id number] Stent Ureteral 6fr 26cm Pigtl Crv Taper Tip Bldr Mrk - [id number] Implanted:Qty: 1 on 02/19/2025 by Joey Alva MD at [facility] Stent Right: Ureter [employer] [id number] 07/21/2027 [id number] 630 / / [id number] Explanted Type Area Trial Judge Device Identifier Shelf Expiration Date Model / Serial / Lot Stent Ureteral 6fr 26cm Pigtl Crv Taper Tip Bldr Mrk - [id number] Implanted:Qty : 1 on 07/04/2024 by Joey Alva MD at [facility] Explanted:Qty : 1 on 02/19/2025 at [facility] Stent Right: Ureter [employer] [id number] 01/16/2027 [id number] 30 / / [id number] Description:REMOVED PRIOR TO THIS VISIT Procedures Procedure Name Priority Date/Time Associated Diagnosis Comments DIABETIC RETINOPATHY EXAM (POSITIVE)(SCAN ORDER) Routine 06/02/2024 from Last 3 Months or Most Recently Relevant to Health Maintenance Results * DIABETIC RETINOPATHY EXAM (POSITIVE) (06/02/2024) [facility] Scanned SCANNING Final Resu lt [facility] ONBASE from Last 3 Months or Most Recently Relevant to Health Maintenance Insurance MEDICARE [facility] yavalu INSURANCE Real Time Translation Advance Directives Documents on File Type Date Recorded Patient Pit Operator Expl anation Power of Director Global Strategic Publisher Sales 08/02/2023 POA RECEIV ED 08/02/2023 * Full Code (Latest Code Status on File) Date Activated Date Inactivated Comments 05/26/2024 1:53 PM 05/29/2024 2:04 PM Care Teams Machine Wedger Relationship Specialty Start Date End Date Jacobo Pryor MD [address] [place] [address] PCP - General FAMILY PRACTICE 04/30/23 Mello Mallory MD [address] [address] CARDIOVASCULAR DISEASE 03/22/23 Joey Alva MD [address] [place] [address] UROLOGY 04/30/23
--- OUTSIDE RECORDS SUMMARY | 2025-06-15 12:01 | XMS_ITS | Encounter Summary ---
Author Organization [facility] Address [address] [place] [address] Care Team Providers Care Darkroom Technician Name Role Phone uRbio Gonzalez MD Primary Care Provider [phone] Mello Mallory MD Unavailable [phone] Jacobo Pryor MD Primary Care Provider [phone] Joey Alva MD Unavailable [phone] Encounter Details Date Type Department Care Team (Late st Contact Info) Description 03/22/2023 Prep for Procedure [facility] Pre-Admission Testing [place], [place] [id number] Joey Alva MD 3 [facility] [address] [place], [place] [id number] Social History Tobacco Use Types Packs/Day Years [...] Sex Assigned at Female 12/08/2024 12:56 PM SR COMMUNITY MANAGER Legal Sex Female 3:58 PM SR COMMUNITY MANAGER Gender Identity Female 12/08/2024 12:56 PM SR COMMUNITY MANAGER Sexual Orientation Not on file COVID-19 Exposure [...] URINE CLEAN CATCH 03/23/2023 10:04 AM CDT [facility] COLOR (U) YELLOW 03/23/2023 12:56 PM CDT [facility] TRANSPARENCY TURBID 03/23/2023 12:56 PM CDT [facility] SPECIFIC GRAVITY (U) 1.021 1.001 - 1.030 03/23/2023 12:56 PM CDT [facility] U PH 5.0 5.0 - 9.0 03/23/2023 12:56 PM CDT [facility] LEUKOCYTES (U) 250(A) NEGATIVE 03/23/2023 12:56 PM CDT [facility] NITRITES NEGATIVE NEGATIVE 03/23/2023 12:56 PM CDT [facility] PROTEIN (U) 30(H) <30 MG/DL 03/23/2023 12:56 PM CDT [facility] URINE GLUCOSE NORMAL NORMAL MG/DL 03/23/2023 12:56 PM CDT [facility] KETONES MG/DL (U) NEGATIVE NEGATIVE MG/DL 03/23/2023 12:56 PM CDT [facility] UROBILINOGEN NORMAL NORMAL MG/DL 03/23/2023 12:56 PM T [facility] BILIRUBIN (U) NEGATIVE NEGATIVE MG/DL 03/23/2023 12:56 PM CDT [facility] BLOOD (U) NEGATIVE NEGATIVE 03/23/2023 12:56 PM CDT [facility] MUCUS MODERATE /LPF 03/23/2023 12:56 PM CDT [facility] HYALINE CASTS FEW /LPF 03/23/2023 12:56 PM CDT [facility] WBC/HPF 36(H) <6 /HPF 03/23/2023 12:56 PM CDT [facility] RBC/HPF <1 <6 /HPF 03/23/2023 12:56 PM CDT [facility] BACTERIA (U) RARE(A) NONE /HPF 03/23/2023 12:56 PM CDT [facility] CA OXALATE CRYSTALS MANY /HPF 03/23/2023 12:56 PM CDT [facility] SQUAMOUS EPITHELIALS RARE /HPF 03/23/2023 12:56 PM CDT [facility] URINE SPECIMEN OBTAINED BY CLEAN CATCH PROCEDURE / Unknown 03/23/2023 10:04 AM CDT Joey Alva MD URINE ORDERABLES Final Result [facility] 3 [place] [address], [place] [phone] * CULTURE URINE (03/23/2023 10:00 AM CDT) SPEC DESCRIPTION URINE CLEAN CATCH 03/23/2023 10:04 AM CDT [facility] SPECIAL REQUESTS NO SPECIAL REQUEST 03/23/2023 10:04 AM CDT [facility] CULTURE RESULT NO GROWTH 2 DAYS 03/25/2023 7:29 AM CDT [facility] URINE SPECIMEN OBTAINED BY CLEAN CATCH PROCEDURE / Unknown 03/23/2023 10:00 AM CDT 03/23/2023 10:25 AM CDT us Joey Alva MD MICROBIOLOGY - GENERAL ORDERABL ES Final Result [facility] 3 [place] [address], [place] [phone] documented in this encounter Visit Diagnoses Diagnosis Ureteral fistula- Primary documented in this encounter Additional Health Concerns Infection Onset Date Last Indicated Resolved Time COVID-19 Rule Out 09/28/2023 09/28/2023 09/28/2023 3:43 PM SR COMMUNITY MANAGER documented as of this encounter Care Teams Darkroom Technician Relationship Specialty Start Date End Date Rubio Gonzalez MD [address] [place] [address] PCP - General INTERNAL MEDICINE 12/01/20 04/29/23 Jacobo Pryor MD [address] [place] [address] PCP - General FAMILY PRACTICE 04/30/23 Mello Mallory MD [address] [facility] [address] [place] [address] CARDIOVASCULAR DISEASE 03/22/23 Joey Alva MD 1 [facility] [place] [address] UROLOGY 04/30/23 documented as of this encounter
--- OUTSIDE RECORDS SUMMARY | 2025-06-15 12:01 | XMS_ITS | Encounter Summary ---
Author Organization [facility] Address [address] [place] [address] Care Team Providers Care Brusher Warp Name Role Phone Mello Mallory MD Unavailable [phone] Jacobo Pryor MD Primary Care Provider [phone] Joey Alva MD Unavailable [phone] Encounter Details Date Type Department Care Team (Late st Contact Info) Description 05/05/2024 Prep for Procedure [facility] Pre-Admission Testing [place], [place] [id number] Joey Alva MD 3 [facility] [address] [place] [address] Social History Tobacco Use Types Packs/Day Years [...] Sex Assigned at Female 12/08/2024 12:56 PM WATER QUALITY MANAGER Legal Sex Female 3:58 PM WATER QUALITY MANAGER Gender Identity Female 12/08/2024 12:56 PM WATER QUALITY MANAGER Sexual Orientation Not on file documented as of this encounter Plan of Treatment Not on file documented as of this encounter Results * (ABNORMAL) URINE BACTERIA CULTURE (05/06/2024 8:56 AM CDT) SPEC DESCRIPTION URINE CLEAN CATCH 05/06/2024 8:50 AM CDT [facility] SPECIAL REQUESTS NO SPECIAL REQUEST 05/06/2024 8:50 AM CDT [facility] CULTURE RESULT >100,000 COL/ML KLEBSIELLA PNEUMONIAE (A) 05/08/2024 7:43 AM CDT [facility] URINE SPECIMEN OBTAINED BY [...] MICROBIOLOGY - GENERAL ORDERABL ES Final Result [facility] [address] [place] [address], * (ABNORMAL) URINALYSIS (05/06/2024 8:56 AM CDT) SPECIMEN TYPE URINE CLEAN CATCH 05/06/2024 8:50 AM CDT [facility] COLOR (U) YELLOW 05/06/2024 9:28 AM CDT [facility] TRANSPARENCY EXTREMELY TURBID 05/06/2024 9:28 AM CDT [facility] SPECIFIC GRAVITY (U) 1.018 1.001 - 1.030 05/06/2024 9:28 AM CDT [facility] U PH 5.5 5.0 - 9.0 05/06/2024 9:28 AM CDT [facility] LEUKOCYTES (U) 500(A) NEGATIVE 05/06/2024 9:28 AM CDT [facility] NITRITES 1+(A) NEGATIVE 05/06/2024 9:28 AM T [facility] PROTEIN RANDOM (U) 50(H) <30 MG/DL 05/06/2024 9:28 AM CDT [facility] GLUCOSE (U) NORMAL NORMAL MG/DL 05/06/2024 9:28 AM T [facility] KETONES MG/DL (U) NEGATIVE NEGATIVE MG/DL 05/06/2024 9:28 AM T [facility] UROBILINOGEN NORMAL NORMAL MG/DL 05/06/2024 9:28 AM T [facility] BILIRUBIN (U) NEGATIVE NEGATIVE MG/DL 05/06/2024 9:28 AM T [facility] BLOOD (U) 1+(A) NEGATIVE 05/06/2024 9:28 AM T [facility] MUCUS RARE /LPF 05/06/2024 9:28 AM CDT [facility] WBC/HPF >100(H) <6 /HPF 05/06/2024 9:28 AM CDT [facility] WBC CLUMPS PRESENT 05/06/2024 9:28 AM T [facility] RBC/HPF 20(H) <6 /HPF 05/06/2024 9:28 AM CDT [facility] BACTERIA (U) RARE(A) NONE /HPF 05/06/2024 9:28 AM CDT [facility] SQUAMOUS EPITHELIALS RARE /HPF 05/06/2024 9:28 AM CDT [facility] URINE SPECIMEN OBTAINED BY CLEAN CATCH PROCEDURE / Unknown 05/06/2024 8:56 AM CDT Joey Alva MD URINE ORDERABLES Final Result [facility] [address] [place] [address], documented in this encounter Visit Diagnoses Diagnosis Calcium kidney stone- Primary Calculus of kidney documented in this encounter Care Teams Brusher Warp Relationship Specialty Start Date End Date Jacobo Pryor MD [address] [place] [address] PCP - General FAMILY PRACTICE 04/30/23 Mello Mallory MD [address] [address] CARDIOVASCULAR DISEASE 03/22/23 Joey Alva MD 1 [facility] [place] [address] UROLOGY 04/30/23 documented as of this encounter
--- OUTSIDE RECORDS SUMMARY | 2025-06-15 12:01 | XMS_ITS | Clinical Summary ---
Author Organization [facility] Address [address] [facility] [place] [address] Care Team Providers Care Automatic Glove Turner And Former Name Role Phone Rubio Gonzalez MD Primary Care Provider [phone] Toño Turcios MD Unavailable [phone] Source Comments [facility],non-owned Affiliates and Associated Physician Practices is amultiple site organization consisting of ambulatory clinics and hospital sitesin [place], [place], [place] and [place]. This disclosure is being madepursuant to the Care Everywhere program and may not contain all information available regarding this patient. Last updated 18.[facility] mylearnadfriend Allergies Active Allergy Reactions Criticality Noted Date [...] on file Legal Sex Female 2:54 PM TEST FIXTURE DESIGNER Gender Identity Not on file Sexual Orientation Not on file Last Filed Vital Signs Vital Sign Reading Time Taken Comments Blood Pressure - - Pulse - - Temperature - - Respiratory Rate - - Oxygen Saturation - - Inhaled Oxygen Concentration - - Weight 95.3 kg (210 lb) 12/07/2017 11:26 AM TEST FIXTURE DESIGNER Height 162.6 cm (5' 4) 12/07/2017 11:26 AM TEST FIXTURE DESIGNER Body Mass Index 36.05 12/07/2017 11:26 AM TEST FIXTURE DESIGNER Plan of Treatment Health Maintenance Due Date [...] age to complete this topic Insurance MEDICARE [facility] Care Teams Automatic Glove Turner And Former Relationship Specialty Start Date End Date Rubio Gonzalez MD [address] [place] [id number] PCP - General Internal Medicine 12/07/17 Toño [place] [address] [place] [address] Orthopedic Surgery 12/07/17
--- OUTSIDE RECORDS SUMMARY | 2025-06-15 12:01 | XMS_ITS | Referral Summary ---
Author Organization [place] [address] Address [address] [place] [address] Care Team Providers Care Creative/Art Director Name Role Phone Mello Mallory MD Unavailable [phone] Joey Alva MD Unavailable [phone] Jacobo Pryor MD Primary Care Provider [phone] Encounters Date Type Department Care Team Description 06/10/2025 Orders Only [facility] Cardiology [address] [place] [address] [place] [phone] Mello Mallory MD Cardiac pacemaker in situ (Primary Dx); Paroxysmal atrial fibrillation (HCC); SSS (sick sinus syndrome) (HCC) 05/18/2025 Telephone [facility] Cardiology [address] [place] [address] [place] [phone] Mello Mallory MD 05/18/2025 10:00 AM CDT Ancillary Procedure [facility] Cardiology [address] [place] [address] [place] [phone] Cardiac pacemaker in situ; Paroxysmal atrial fibrillation (HCC); SSS (sick sinus syndrome) (HCC); Atrial flutter, unspecified type (HCC) 05/01/2025 9:00 AM CDT Office Visit [facility] Cardiology [address] [facility] [address] [place] [address] Merari Darnell NP SSS (sick sinus syndrome) (HCC); Cardiac pacemaker in situ; Paroxysmal atrial fibrillation (HCC); Encounter for monitoring sotalol therapy; Chronic anticoagulation; Nonrheumatic aortic valve stenosis 04/21/2025 Telephone [facility] Cardiology [address] [facility] [address] [place] [phone] Mello Mallory MD 04/13/2025 Telephone [facility] Cardiology [address] [place] [address] [place] [address] [address] Mello Mallory MD 04/13/2025 11:15 AM CDT Ancillary Procedure [facility] Cardiology [address] [place] [address] [place] [phone] Cardiac pacemaker in situ; Paroxysmal atrial fibrillation ([facility]); SSS (sick sinus syndrome) ([facility]); Atrial flutter, unspecified type ([facility]) 03/31/2025 Telephone [facility] Cardiology [address] [place] [address] [place] [phone] Mello Mallory MD from Last 3 [...] capsule Take 1 capsule by mouth daily Manflu Active acidophilus-pec tin, citrus 100 million cell-10 mg capsule Take 1 tablet/capsule by mouth daily Manflu Active turmeric root extract 500 mg capsule [...] 10/19/2017 Cardiac pacemaker in situ 07/11/2017 Overview (06/10/2025): Medtronic Pioche Dual Pacemaker Dx; SSS, PAF DOI 06/10/25 [place]. Chronic Leads 09/28/2016. Carelink remote home monitoring. Paroxysmal atrial fibrillation 07/11/2017 Atrial flutter 07/11/2017 [...] 09/11/2023 How often do you attend chur zEconomy or scientology services? More than 4 times per year 09/11/2023 Do you belong to any clubs o r organizations such as islam groups, unions, fraternal or athletic groups, or [...] place to sleep or slept in a jail (including now)? No 09/11/2023 Personal Safety Answer [...] on file Medical Devices Implanted Type Area Tax Services Manager Device Identifier Shelf Expiration Date Model / Serial / Lot Pacemaker-09/28 Implanted:09/28 (Quantity not on file) Pacemaker Chest Medtronic SSS, PAF ADVISA DR MRI / [id number] / Explanted Type Area Tax Services Manager Device Identifier Shelf Expiration Date Model / Serial / Lot [employer] Mary Contour 6fr 24cm Large Inner Lumen Low Profile Bladder Henri Taper Latex Free 180-222 - [id number] Explanted:Qty: 1 on 09/10/2023 by Joey Alva MD at [facility] Stent Left: Ureter [employer] Mary 02/26/2026 [id number] / / [id number] Procedures Procedure Name Priority Date/Time Associated Diagnosis [...] attached. Battery status: 2.83 V. Device reached TRANSMISSION SYSTEM OPERATOR (Recommend Replacement Time) on 04/30/2025. Stable lead impedances, pacing and sensing thresholds. Presenting rhythm: AT/AF TUMBLER TENDER. AP-10%, TUMBLER TENDER-100% 1 AT/AF episodes noted. AF [place] 100%. No Ventricular high rate episodes detected. [...] pacing and sensing thresholds. Presenting rhythm: AT/AF TUMBLER TENDER. AP-10%, TUMBLER TENDER-100% 3 AT/AF episodes noted. AF [place] 90.9%. No Ventricular high rate episodes detected. Medications: Eliquis 2.5 mg, Sotalol 80 mg See scanned report. Office pacemaker follow up: Pending possible generator change CareLink remote f/u 05/18/2025. Saw Sanchez, CRYSTAL us Mello Mallory MD CV CARDIAC SERVICES PROC EDURES Final Result * eGFR (09/13/2023 6:01 AM CDT) eGFR 38 mL/min/1. 73 m2 [facility] Comment: Interpretive Data Reference Interval [...] MD LAB BLOOD ORDERABLES Final Res ult [facility] [address] [place] [address] * (ABNORMAL) Hemoglobin A1c (08/31/2023 11:27 AM CDT) Hgb A1C 6.5(H) 4.0 - 5.6 % Estimated Average Glucose 140 mg/dL [facility] Comment: The ADA recommends reporting an estimated Average Glucose (eAG) with all Hemoglobin A1c results using the equation derived from a study of 507 normal and diabetic adults. Minority populations were underrepresented and children were not included. (Diabetes Care 31:9192-6113, 2008). The eAG is not equivalent to a fasting glucose. Blood 08/31/2023 11:2 7 AM CDT 08/31/2023 11:54 AM CDT Rhiannon Torres NP LAB BLOOD ORDERABLES Final Result [facility] [address] Department [place] [address] * (ABNORMAL) Lipid panel (03/03/2021 9:10 AM CDT) SCRIBED Cholesterol, Total 220(A) 0 - 200 EXTERNAL LAB SCRIBED HDL 43 40 - 100 EXTERNAL LAB SCRIBED LDL 134(A) 0 - 100 EXTERNAL LAB SCRIBED Triglycerides 280(A) 0 - 150 EXTERNAL LAB Blood specimen (specimen) Historical Provider MD LAB BLOOD ORDERABLES Edit ed Result - Final EXTERNAL LAB from Last 3 Months or Most Recently Relevant to Health Maintenance Insurance MEDICARE [employer] MEDICARE [facility] MEDICARE [employer] Advance Directives For more information, please contact: [phone] Documents on File Type Date Recorded Patient Occupational Health Physician Expl anation Power of Mushroom Cutter 09/10/2023 10:25 AM * Full Code (Latest Code Status on File) Date Activated Date Inactivated Comments 09/10/2023 8:13 PM 09/13/2023 6:50 PM Care Teams Creative/Art Director Relationship Specialty Start Date End Date Jacobo Pryor MD [address] [place] [address] PCP - General Family Practice 05/01/25 Mello Mallory MD [address] [facility] [address] [place] [address] Consulting Physician Cardiology 09/13/23 [place] [address] [place] [address] Consulting Physician Urology 09/13/23
--- OUTSIDE RECORDS SUMMARY | 2025-06-15 12:01 | XMS_ITS | Encounter Summary ---
Author Organization [facility] Address [address] [place] [address] Care Team Providers Care Manager Analysis Name Role Phone Mello Mallory MD Unavailable [phone] Jacobo Pryor MD Primary Care Provider [phone] Joey Alva MD Unavailable [phone] Encounter Details Date Type Department Care Team (Late st Contact Info) Description 06/11/2024 Prep for Procedure [facility] Pre-Admission Testing [place], [place] [id number] Joey Alva MD 3 [facility] [address] [place] [address] Social History Tobacco Use Types Packs/Day Years Used Date Smoking Tobacco: Never Smokeless Tobacco: Never Alcohol Use Standard Drinks/Week Comments Not Currently 0 (1 standard drink = 0.6 oz pur e alcohol) [facility] Utilities Answer Date Recorded In the [...] were you homeless or living in a correction (including now)? No 05/28/2024 Comments No Sex and Gender Information Value Date Recorded Sex Assigned at Female 12/08/2024 12:56 PM TWISTER TENDER PAPER Legal Sex Female 3:58 PM TWISTER TENDER PAPER Gender Identity Female 12/08/2024 12:56 PM TWISTER TENDER PAPER Sexual Orientation Not on file documented as [...] and discharge planning Lifestyle No Nicole Miller, MECHANICAL MAINTENANCE TECHNICIAN documented as of this encounter Results * (ABNORMAL) URINE BACTERIA CULTURE (06/20/2024 3:21 PM CDT) SPEC DESCRIPTION URINE CLEAN CATCH 06/20/2024 3:22 PM CDT [facility] SPECIAL REQUESTS NO SPECIAL REQUEST 06/20/2024 3:22 PM CDT [facility] CULTURE RESULT 10,000-49,0 00 COL/ML ENTEROCOCCU S SPECIES (A) 06/22/2024 9:36 AM CDT [facility] URINE SPECIMEN OBTAINED BY CLEAN [...] MICROBIOLOGY - GENERAL ORDERABL ES Final Result [facility] 3 [place] [address], * (ABNORMAL) URINALYSIS (06/20/2024 3:21 PM CDT) SPECIMEN TYPE URINE CLEAN CATCH 06/20/2024 3:22 PM CDT [facility] COLOR (U) YELLOW 06/20/2024 3:39 PM CDT [facility] TRANSPARENCY TURBID 06/20/2024 3:39 PM CDT [facility] SPECIFIC GRAVITY (U) 1.019 1.001 - 1.030 06/20/2024 3:39 PM CDT [facility] U PH 5.0 5.0 - 9.0 06/20/2024 3:39 PM CDT [facility] LEUKOCYTES (U) 250(A) NEGATIVE 06/20/2024 3:39 PM CDT [facility] NITRITES NEGATIVE NEGATIVE 06/20/2024 3:39 PM CDT [facility] PROTEIN RANDOM (U) 50(H) <30 MG/DL 06/20/2024 3:39 PM CDT [facility] GLUCOSE (U) NORMAL NORMAL MG/DL 06/20/2024 3:39 PM CDT [facility] KETONES MG/DL (U) NEGATIVE NEGATIVE MG/DL 06/20/2024 3:39 PM CDT [facility] UROBILINOGEN NORMAL NORMAL MG/DL 06/20/2024 3:39 PM CDT [facility] BILIRUBIN (U) NEGATIVE NEGATIVE MG/DL 06/20/2024 3:39 PM CDT [facility] BLOOD (U) 2+(A) NEGATIVE 06/20/2024 3:39 PM CDT [facility] MUCUS RARE /LPF 06/20/2024 3:39 PM CDT [facility] WBC/HPF 34(H) <6 /HPF 06/20/2024 3:39 PM CDT [facility] RBC/HPF >100(H) <6 /HPF 06/20/2024 3:39 PM CDT [facility] BACTERIA (U) RARE(A) NONE /HPF 06/20/2024 3:39 PM CDT [facility] SQUAMOUS EPITHELIALS RARE /HPF 06/20/2024 3:39 PM CDT [facility] URINE SPECIMEN OBTAINED BY CLEAN CATCH PROCEDURE / Unknown 06/20/2024 3:21 PM CDT Joey Alva MD URINE ORDERABLES Final Result Performing Organization Address [facility] Co de Phone Number [facility] 3 [place] [address], documented in this encounter Visit Diagnoses Diagnosis Calcium kidney stone- Primary Calculus of kidney documented in this encounter Care Teams Manager Analysis Relationship Specialty Start Date End Date Jacobo Pryor MD [address] [place] [address] PCP - General FAMILY PRACTICE 04/30/23 Mello Mallory MD [address] [address] CARDIOVASCULAR DISEASE 03/22/23 Joey Alva MD 1 [place] [address] UROLOGY 04/30/23 documented as of this encounter
--- OUTSIDE RECORDS SUMMARY | 2025-06-15 12:01 | XMS_ITS | Patient Health Record ---
Author Organization [facility] Address [address] [place] [address] Care Team Providers Care Molding Process Technician Name Role Phone Liv Mcpherson Primary Care Provider Chaitanya Almanzar Unavailable [phone] Allergies Allergen (clinical drug ingredient) Drug/Non Drug [...] Status W/U Status Risk Notes Problem Hernia (845684990) Hernia of unspecified site (553.9) Active confirmed Asymptomatic abdominal wall hernia which we will follow conservatively Problem History of polyp of colon (situation) (687957127) Personal history of colonic polyps (V12.72) Active [...] what I discussed Problem Incontinence of feces (40130341) Incontinence, fecal (787.60) Active confirmed Minor intermittent fecal incontinence without associated urinary incontinence. With improvement and stool consistency this should help area I also discussed Kegel exercises Problem Change in bowel habit (14470577) Change in bowel habits (787.99) Active confirmed [...] [place] P[place] [address] [place] [address] [phone] [id number] Edson Cr Self - patient is the insured Medical (General) History Medical History History ICD Code colonic polyps first diagnosed 2004 transverse colon resection due to benign colonic polyp 2008 abnormal LFTs secondary to cholesterol l owing medications hyperlipidemia appendectomy total bowel hysterectomy hypertension diabetes obesity tonsillectomy knee surgery
--- OUTSIDE RECORDS SUMMARY | 2025-06-15 12:01 | XMS_ITS | Clinical Summary ---
Author Organization [facility] [address] Address [address] [place] [address] Care Team Providers Care Screw Machine Tool Setter Name Role Phone Mello Mallory MD Unavailable [phone] Joey Alva MD Unavailable [phone] Jacobo Pryor MD Primary Care Provider [phone] Allergies Active Allergy Reactions Criticality Noted Date [...] capsule Take 1 capsule by mouth daily [email or web address] brand Active acidophilus-pec tin, citrus 100 million cell-10 mg capsule Take 1 tablet/capsule by mouth daily [email or web address] brand Active turmeric root extract 500 mg [...] pacemaker in situ 07/11/2017 Overview (06/10/2025): Medtronic Toña Dual Pacemaker Dx; SSS, PAF DOI 06/10/25 [place]. Chronic Leads 09/28/2016. [email or web address] remote home monitoring. Paroxysmal atrial fibrillation 07/11/2017 Atrial flutter 07/11/2017 Encounters Date Type Department Care Team Description 06/10/2025 Orders Only [facility] Cardiology [address] [place], [place] [address] [place] [address] Mello Mallory MD Cardiac pacemaker in situ (Primary Dx); Paroxysmal atrial fibrillation (HCC); SSS (sick sinus syndrome) (HCC) 05/18/2025 10:00 AM CDT Ancillary Procedure [facility]iology [address] [place] [address] [place] [address] Cardiac pacemaker in situ; Paroxysmal atrial fibrillation (HCC); SSS (sick sinus syndrome) (HCC); Atrial flutter, unspecified type (HCC) 05/18/2025 Telephone [facility] [address] [place], [place] [address] [address] Mello Mallory MD 05/01/2025 9:00 AM CDT Office Visit [facility] [address] [facility] [address] [place] [phone] Merari Darnell NP SSS (sick sinus syndrome) (HCC); Cardiac pacemaker in situ; Paroxysmal atrial fibrillation (HCC); Encounter for monitoring sotalol therapy; Chronic anticoagulation; Nonrheumatic aortic valve stenosis 04/21/2025 Telephone [facility] [address] [place] [address] [address] [place] [phone] Mello Mallory MD 04/13/2025 11:15 AM CDT Ancillary Procedure [facility] [address] [place] [address] [place] [phone] Cardiac pacemaker in situ; Paroxysmal atrial fibrillation (HCC); SSS (sick sinus syndrome) (HCC); Atrial flutter, unspecified type (HCC) 04/13/2025 Telephone [facility] [address] [place] [address] [place] [phone] Mello Mallory MD 03/31/2025 Telephone [facility] [address] [place] [address] [place] [phone] Mello Mallory MD from Last 3 [...] often do you attend chur ch or episcopal services? More than 4 times per year 09/11/2023 Do you belong to any clubs o r organizations such as muslim groups, unions, fraternal or athletic groups, or [...] place to sleep or slept in a fpc (including now)? No 09/11/2023 Personal Safety Answer [...] Risk Assessment 09/13/2024 09/13/2023 eGFR 09/13/2024 09/13/2023, 11/0 11/2022, 09/11/2023, Additional history exists Influenza Vaccine (#1) 2025 9, 07/30/2018, 07/13/2018 Medical Devices Implanted Type Area Tobacco Scrap Sifter Device Identifier Shelf Expiration Date Model / Serial / Lot Pacemaker-09/28 Implanted:09/28 (Quantity not on file) Pacemaker Chest Medtronic SSS, PAF ADVISA DR PEREZ / [id number] / Explanted Type Area Tobacco Scrap Sifter Device Identifier Shelf Expiration Date Model / Serial / Lot [employer] Mary Contour 6fr 24cm Large Inner Lumen Low Profile Bladder Henri Taper Latex Free 180-222 - [id number] Explanted:Qty: 1 on 09/10/2023 by Joey Alva MD at [facility] Stent Left: Ureter [employer] Mary 02/26/2026 [id number] / / [id number] Procedures Procedure Name Priority Date/Time Associated Diagnosis [...] attached. Battery status: 2.83 V. Device reached INDUSTRIAL GAS SERVICE HELPER (Recommend Replacement Time) on 04/30/2025. Stable lead impedances, pacing and sensing thresholds. Presenting rhythm: AT/AF BUTCHER ALL ROUND. AP-10%, BUTCHER ALL ROUND-100% 1 AT/AF episodes noted. AF [place] 100%. No Ventricular high rate episodes detected. Medications: Eliquis 2.5 mg, Sotalol 80 mg See scanned report. Office pacemaker follow up: Pending possible generator change [facility] remote. Michell Merritt RN Mello Mallory MD CV CARDIAC SERVICES PROC EDURES Final Result * ECG 12 lead (05/01/2025 8:59 AM CDT) 05/01/2025 8:59 AM CDT Merari Darnell RETRIMMER ECG ORDERABLES Final Res ult * DEVICE [...] pacing and sensing thresholds. Presenting rhythm: AT/AF BUTCHER ALL ROUND. AP-10%, BUTCHER ALL ROUND-100% 3 AT/AF episodes noted. AF [place] 90.9%. No Ventricular high rate episodes detected. Medications: Eliquis 2.5 mg, Sotalol 80 mg See scanned report. Office pacemaker follow up: Pending possible generator change [facility] remote f/u 05/18/2025. Saw Sanchez RN Mello Mallory MD CV CARDIAC SERVICES PROC EDURES Final Result * eGFR (09/13/2023 6:01 AM CDT) eGFR 38 mL/min/1. 73 m2 [facility] Comment: Interpretive Data Reference Interval Normal [...] MD LAB BLOOD ORDERABLES Final Res ult [facility] [address] Department [place] [address] * (ABNORMAL) Hemoglobin A1c (08/31/2023 11:27 AM CDT) Hgb A1C 6.5(H) 4.0 - 5.6 % Estimated Average Glucose 140 mg/dL [facility] Comment: The ADA recommends reporting an estimated Average Glucose (eAG) with all Hemoglobin A1c results using the equation derived from a study of 507 normal and diabetic adults. Minority populations were underrepresented and children were not included. (Diabetes Care 31:7629-5946, 2008). The eAG is not equivalent to a fasting glucose. Blood 08/31/2023 11:2 7 AM CDT 08/31/2023 11:54 AM CDT Rhiannon Torres NP LAB BLOOD ORDERABLES Final Result [facility] [address] Department [place] [address] * (ABNORMAL) Lipid panel (03/03/2021 9:10 AM CDT) SCRIBED Cholesterol, Total 220(A) 0 - 200 EXTERNAL LAB SCRIBED HDL 43 40 - 100 EXTERNAL LAB SCRIBED LDL 134(A) 0 - 100 EXTERNAL LAB SCRIBED Triglycerides 280(A) 0 - 150 EXTERNAL LAB Blood specimen (specimen) [facility] Provider LAB BLOOD ORDERABLES Edit ed Result - Final EXTERNAL LAB from Last 3 Months or Most Recently Relevant to Health Maintenance Insurance MEDICARE [employer] MEDICARE [facility] MEDICARE [employer] Advance Directives For more information, please contact: [phone] Documents on File Type Date Recorded Patient Electronic Sensing Equipment Assembler Expl anation Power of Pyrometer Operator 09/10/2023 10:25 AM * Full Code (Latest Code Status on File) Date Activated Date Inactivated Comments 09/10/2023 8:13 PM 09/13/2023 6:50 PM Care Teams Screw Machine Tool Setter Relationship Specialty Start Date End Date Jacobo Pryor MD [address] [place], [place] [id number] PCP - General Family Practice 05/01/25 Mello Mallory MD [address] [id number] Consulting Physician Cardiology 09/13/23 [place] [address] [place] [address] Consulting Physician Urology 09/13/23
== END 2025-06-15 11:31 | disposition home or self-care (01) ==
LOC: ANHIMG 11:31
PROVIDERS: PCP Family Medicine; Visit Provider Family Medicine
DX: R92.8 Other abnormal and inconclusive findings on diagnostic imaging of breast (principal)
CPT/HCPCS: 77062; 77066; G0279

== ENCOUNTER 2025-10-17 12:10 | Emergency (ER) | payer MEDICARE, SELFPAY ==
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
[2025-10-17 12:10] VITALS: BP 159/66; PULSE 73; RESP 16; TEMP 36.5; O2SAT 100
--- OUTSIDE RECORDS SUMMARY | 2025-10-17 12:12 | XMS_ITS | Clinical Summary ---
Author Organization [facility] [address] Address [address] [place] [address] Care Team Providers Care Social Welfare Research Worker Name Role Phone Mello Mallory MD Unavailable [phone] Joey Alva MD Unavailable [phone] Jacobo Pryor MD Primary Care Provider [phone] Allergies Active Allergy Reactions Criticality Noted Date [...] capsule Take 1 capsule by mouth daily New Body MD brand Active acidophilus-pec tin, citrus 100 million cell-10 mg capsule Take 1 tablet/capsule by mouth daily New Body MD brand Active turmeric root extract 500 mg [...] needed for constipation 60 capsule 3 Active Additional Information Patient not taking.Reported on 09/22/2025 Tradjenta 5 mg tablet Take 1 tablet (5 mg total) by mouth every morning 4 Active Vascepa 1 gram capsule Take 2 [...] mg total) by mouth daily 5 Active apixaban (Eliquis) 2.5 mg tablet TAKE 1 TABLET(2.5 MG) BY MOUTH TWICE DAILY 180 tablet 3 5 Active memantine (NAMENDA) 10 mg tablet Take 1 tablet (10 mg total) by mouth 2 (two) times a day 5 Active Active Problems Problem Noted Date Diagnosed Date Renal mass 09/10/2023 Obesity 09/03/2023 CVA (cerebral vascular accident) 09/03/2023 Anxiety 09/03/2023 HTN (hypertension) 09/03/2023 Diabetes 09/03/2023 Severe aortic stenosis 03/09/2022 SSS (sick sinus syndrome) 07/23/2018 Keratosis, senilis 10/19/2017 Eczema 10/19/2017 Dystrophia unguium 10/19/2017 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 Chronic Leads 09/28/2016. Carelink remote home monitoring. Paroxysmal atrial fibrillation 07/11/2017 Atrial flutter 07/11/2017 Encounters Date Type Department Care Team Description 09/23/2025 9:45 AM CASTING ROOM HELPER Ancillary Procedure [facility] Cardiology [address] [place] [address] [place] [phone] Cardiac pacemaker in situ; Paroxysmal atrial fibrillation (HCC); SSS (sick sinus syndrome) (HCC); Atrial flutter, unspecified type (HCC) 09/22/2025 2:45 PM CASTING ROOM HELPER Office Visit [facility] Medical [facility] Cardiology at [address] [place] [phone] Mello Mallory MD Paroxysmal atrial fibrillation (HCC) (Primary Dx); Cardiac pacemaker in situ from Last 3 Months Surgical History Surgery [...] oz pur e alcohol) Social Connection and Isolation Panel Answer Date Recorded In a typical week, how many times do you talk on the phone with family, friends, or neighbors? Twice a week 09/11/2023 How often do you get togethe r with friends or relatives? Never 09/11/2023 How often do you attend [facility] or yazdanism services? More than 4 times per year 09/11/2023 Do you belong to any clubs o r organizations such as yazdanism groups, unions, fraternal or athletic groups, or [...] place to sleep or slept in a senior care (including now)? No 09/11/2023 Personal Safety Answer [...] Sign Reading Time Taken Comments Blood Pressure 126/62 09/22/2025 2:45 PM CASTING ROOM HELPER Pulse 84 09/22/2025 2:45 PM CASTING ROOM HELPER Temperature 36.4 C (97.6 F) 09/13/2023 5:09 AM CDT Respiratory Rate 18 09/13/2023 5:09 AM CDT Oxygen Saturation 99% 09/22/2025 2:45 PM CASTING ROOM HELPER Inhaled Oxygen Concentration - - Weight 67.3 kg (148 lb 4.8 oz) 09/22/2025 2:45 P M CASTING ROOM HELPER Height 162.6 cm (5' 4) 09/22/2025 2:45 PM CASTING ROOM HELPER Body Mass Index 25.46 09/22/2025 2:45 PM CASTING ROOM HELPER Plan of Treatment Health Maintenance Due Date Last Done Comments Albumin Creatinine Ratio, Urine 1945 Depression Screening 1945 Osteoporosis Screening-Bone Density Scan 1945 Dilated Eye Exam 1943 Foot Exam 1943 Hepatitis B Screening 1961 Well Visit 65+ 2008 Pneumococcal vaccine 65+ (2 of 2 - PPSV23, PCV20, or PCV21) 03/21/2015 01/24/2015 Lipid Panel 03/03/2022 03/03/2021, 12/14, 07/23/2018 Zoster Vaccine (2 of 2) 06/21/2022 04/26/2022 Hemoglobin A1C 03/01/2024 08/31/2023 Fall Risk Assessment 09/13/2024 09/13/2023 eGFR 09/13/2024 09/13/2023, 1111/2022, 09/11/2023, Additional history exists Influenza Vaccine (#1) 2025 , 07/13/2020, 07/27/2019, Additional history exists DTaP/Tdap/Td Vaccine (3 - Td or Tdap) 04/12/2032 04/12/2022, 07/18/2012 Medical Devices Implanted Type Area Recovery Rn Device Identifier Shelf Expiration Date Model / Serial / Lot Pacemaker-09/28 Implanted:09/28 (Quantity not on file) Pacemaker Chest Medtronic SSS, PAF ADVISA DR PEREZ / [id number] / Explanted Type Area Recovery Rn Device Identifier Shelf Expiration Date Model / Serial / Lot [employer] Mary Contour 6fr 24cm Large Inner Lumen Low Profile Bladder Henri Taper Latex Free 180-222 - [id number] Explanted:Qty: 1 on 09/10/2023 by Joey Alva MD at [facility] Stent Left: Ureter [employer] Mary 02/26/2026 [id number] / / [id number] Procedures Procedure Name Priority Date/Time Associated Diagnosis Comments DEVICE CHECK - REMOTE Routine 09/23/2025 7:06 AM CASTING ROOM HELPER Cardiac pacemaker in situ Paroxysmal atrial fibrillation (HCC) SSS (sick sinus syndrome) (HCC) Atrial flutter, unspecified type (HCC) EGFR Routine 09/13/2023 6:01 AM CDT HEMOGLOBIN A1C Routine 08/31/2023 11:27 AM CDT Preoperative testing LIPID PANEL Routine 03/03/2021 9:10 AM CDT from Last 3 Months or Most Recently Relevant to Health Maintenance Results * DEVICE CHECK - REMOTE (09/23/2025 7:06 AM CASTING ROOM HELPER) Anatomical Region Laterality Modality Other Narrative 10/02/2025 1:22 PM CASTING ROOM HELPER Medtronic Dual Pacemaker Dx; SSS, PAF DOI 06/10/25 [place] Chronic Leads 09/28/2016. Carelink remote home monitoring Q3 mo, Office pacer checks Q1 yr. Routine DDDR Pacemaker Remote. Transmission attached. Battery status: 3.15 V , 10.4 years remaining battery life to CUBA. Stable lead impedances, pacing and sensing thresholds. Presenting rhythm: AFib/MICROFILM MOUNTER AP-0.5%, MICROFILM MOUNTER-100.0% 3 AT/AF episodes noted, longest episode was 24 hours/day in duration, IEGM demonstrates AFib. AF [place] 100.0%. No Ventricular high rate episodes detected. Medications: Eliquis 2.5 mg, sotalol 80 mg See scanned report. Office pacemaker follow up: 08/04/26 [facility]Link remote f/u 12/30/25. Saw Sanchez, RN us Mello Mallory MD CV CARDIAC SERVICES PROC EDURES Final Result * eGFR (09/13/2023 6:01 AM CDT) eGFR 38 mL/min/1. 73 m2 [facility] Comment: Interpretive Data Reference Interval Normal >/= [...] AM CDT 09/13/2023 6:38 AM CDT Result [facility] Joey Alva MD LAB BLOOD ORDERABLES Final Res ult Performing Organization Address [facility] Co de Phone Number [facility] [address] [place] [address] * (ABNORMAL) Hemoglobin A1c (08/31/2023 11:27 AM CDT) Hgb A1C 6.5(H) 4.0 - 5.6 % Estimated Average Glucose 140 mg/dL [facility] Comment: The ADA recommends reporting an estimated Average Glucose (eAG) with all Hemoglobin A1c results using the equation derived from a study of 507 normal and diabetic adults. Minority populations were underrepresented and children were not included. (Diabetes Care 31:9554-0886, 2008). The eAG is not equivalent to a fasting glucose. Blood 08/31/2023 11:2 7 AM CDT 08/31/2023 11:54 AM CDT Result [facility] Rhiannon Torres NP LAB BLOOD ORDERABLES Final Result Performing Organization Address [facility] Co de Phone Number [facility] [address] [place] [address] * (ABNORMAL) Lipid panel (03/03/2021 9:10 AM CDT) SCRIBED Cholesterol, Total 220(A) 0 - 200 EXTERNAL LAB SCRIBED HDL 43 40 - 100 EXTERNAL LAB SCRIBED LDL 134(A) 0 - 100 EXTERNAL LAB SCRIBED Triglycerides 280(A) 0 - 150 EXTERNAL LAB Blood specimen (specimen) Result [facility] Historical Provider LAB BLOOD ORDERABLES Edit ed Result - Final EXTERNAL LAB from Last 3 Months or Most Recently Relevant to Health Maintenance Insurance MEDICARE [employer] MEDICARE [facility] [place] [address] MEDICARE [employer] INSURANCE [employer] Advance Directives For more information, please contact: [phone] Documents on File Type Date Recorded Patient Assessment Specialist Expl anation Power of Statistical Programmer 09/10/2023 10:25 AM * Full Code (Latest Code Status on File) Date Activated Date Inactivated Comments 09/10/2023 8:13 PM 09/13/2023 6:50 PM Care Teams Social Welfare Research Worker Relationship Specialty Start Date End Date Jacobo Pryor MD [address] [place] [address] PCP - General Family Practice 05/01/25 Mello Mallory MD [address] [address] Consulting Physician Cardiology 09/13/23 [place] [address] [address] Consulting Physician Urology 09/13/23
--- OUTSIDE RECORDS SUMMARY | 2025-10-17 12:13 | XMS_ITS | Clinical Summary ---
Author Organization [facility] Address [address] [place] [address] Care Team Providers Care Furnace Operator Oil Or Gas Name Role Phone Mello Mallory MD Unavailable [phone] Jacobo Pryor MD Primary Care Provider [phone] Joey Alva MD Unavailable Allergies Active Allergy Reactions Criticality Noted Date [...] Urinary obstruction 05/26/2024 Type 2 diabetes mellitus 12/01/2020 Sleep apnea 12/01/2020 Essential hypertension 12/01/2020 Aortic [...] drink = 0.6 oz pur e alcohol) [facility] Utilities Answer Date Recorded In the past 12 months has e [employer] gas, oil, or water [employer] threatened to shut off services in your [...] any time in the past 12 m [facility], were you homeless or living in a alf (including now)? No 05/28/2024 Comments No Sex and Gender Information Value Date Recorded Sex Assigned at Female 12/08/2024 12:56 PM REFRIGERATION MANAGER Legal Sex Female 3:58 PM REFRIGERATION MANAGER Gender Identity Female 12/08/2024 12:56 PM REFRIGERATION MANAGER Sexual Orientation Not on file Last Filed [...] Height 152.4 cm (5') 12/08/2024 12:50 PM REFRIGERATION MANAGER Body Mass Index 29.54 12/08/2024 12:50 PM REFRIGERATION MANAGER Plan of Treatment Health Maintenance Due Date Last Done Comments Kidney Health Evaluation 1943 Lipid Panel 1943 DTaP, Tdap and Td Vaccines ( 1 - Tdap) 1962 Zoster Vaccines (1 of 2) 1993 Annual Medicare Wellness Visit 2008 Dexa Scan (General) 2008 Pneumococcal Vaccine: 50+ Ye ars (2 of 2 - PPSV23, PCV20, or PCV21) 03/21/2015 01/24/2015 RSV Immunization or 60+ Years (1 - 1-dose 75+ series) 2018 Hemoglobin A1C 03/01/2024 08/31/2023 PHQ-2 (Physician [place]) 11/12/2024 Diabetes: Retinopathy Eye Exam 06/02/2025 06/02/2024 COVID-19 Vaccine ( - 2024-2 6 season) 2025 Influenza Adult (#1) 2025 07/13/2020 Hepatitis A Vaccines Aged Out No long er eligible based on patient's age to complete this topic Meningococcal B Vaccine Aged Out No l [...] and discharge planning Lifestyle No Nicole Miller, SUPERVISOR TITLEcustom designer Devices Implanted Type Area Associate Chief Nurse Device Identifier Shelf Expiration Date Model / Serial / Lot Rv Lead Implant-2015 Implanted:09/12 (Quantity not on file) Lead Implant [employer] 5076-58 / [id number] / Atrial Lead Implant-2015 Implanted:09/12 (Quantity not on file) Lead Implant [employer] 5076-45 / [id number] / Pacemaker-09/12 Implanted:09/12 (Quantity not on file) Pacemaker [employer] INC [id number] / [id number] / Description:MRI Conditional under following conditions: Static magnetic field of 1.5 T or 3 T, Max spatial gradient field of 2000 gauss/cm or less, Max slew rate 200 T/m/s, 1.5 T whole body BRENDAN of 2 W/kg or less in Normal operating mode , Head BRENADN 3.2 W/kg or less, 3T B1+SHWETA must be 2.8 mT or less when isocenter is inferior to C7, No B1+SHWETA restriction at 3T when isocenter is at or superior to C7, Supine or Prone only Stent Ureteral Pigtail 6fr 24cm Crv Taper Tip - [id number] Implanted:Qty: 1 on 05/26/2024 by Toño Ramirez MD at [facility] Stent [employer] [id number] 10/08/2026 [id number] / / [id number] Stent Ureteral 6fr 26cm Pigtl Crv Taper Tip Bldr Mrk - [id number] Implanted:Qty: 1 on 02/19/2025 by Joey Alva MD at [facility] Stent Right: Ureter [employer] [id number] 07/21/2027 [id number] / / [id number] Explanted Type Area Associate Chief Nurse Device Identifier Shelf Expiration Date Model / Serial / Lot Stent Ureteral 6fr 26cm Pigtl Crv Taper Tip Bldr Mrk - [id number] Implanted:Qty : 1 on 07/04/2024 by Joey Alva MD at [facility] Explanted:Qty : 1 on 02/19/2025 at [facility] Stent Right: Ureter [employer] [id number] 01/16/2027 [id number] / / [id number] Description:REMOVED PRIOR TO THIS VISIT Procedures Procedure Name Priority Date/Time Associated Diagnosis Comments DIABETIC RETINOPATHY EXAM (POSITIVE)(SCAN ORDER) Routine 06/02/2024 from Last 3 Months or Most Recently Relevant to Health Maintenance Results * DIABETIC RETINOPATHY EXAM (POSITIVE) (06/02/2024) us Doc Med [facility] Scanned SCANNING Final Resu lt [facility] ONBASE from Last 3 Months or Most Recently Relevant to Health Maintenance Insurance MEDICARE [employer] INSURANCE [employer] Advance Directives Documents on File Type Date Recorded Patient Bed And Breakfast Operator Expl anation Power of Resistor Inspector 08/02/2023 POA RECEIV ED 08/02/2023 * Full Code (Latest Code Status on File) Date Activated Date Inactivated Comments 05/26/2024 1:53 PM 05/29/2024 2:04 PM Care Teams Furnace Operator Oil Or Gas Relationship Specialty Start Date End Date Jacobo Pryor MD [address] [place] [id number] PCP - General FAMILY PRACTICE 04/30/23 Mello Mallory MD [address] [facility] [address] [address] CARDIOVASCULAR DISEASE 03/22/23 Joey Alva MD [address] [place] [address] UROLOGY 04/30/23
--- OUTSIDE RECORDS SUMMARY | 2025-10-17 12:13 | XMS_ITS | Encounter Summary ---
Author Organization [facility] Address [address] [place] [address] Care Team Providers Care Sign Language Interpreter Name Role Phone Mello Mallory MD Unavailable [phone] Jacobo Pryor MD Primary Care Provider [phone] Joey Alva MD Unavailable [phone] Encounter Details Date Type Department Care Team (Late st Contact Info) Description 06/11/2024 Prep for Procedure [facility] Pre-Admission Testing [address] [place], [place] [id number] Joey Alva MD 3 [facility] [address] [place] [address] Social History Tobacco Use Types Packs/Day Years Used Date Smoking Tobacco: Never Smokeless Tobacco: Never Alcohol Use Standard Drinks/Week Comments Not Currently 0 (1 standard drink = 0.6 oz pur e alcohol) [facility] Utilities Answer Date Recorded In the [...] any time in the past 12 m [facility], were you homeless or living in a longterm (including now)? No 05/28/2024 Comments No Sex and Gender Information Value Date Recorded Sex Assigned at Female 12/08/2024 12:56 PM GOLF BALL INSPECTOR Legal Sex Female 3:58 PM GOLF BALL INSPECTOR Gender Identity Female 12/08/2024 12:56 PM GOLF BALL INSPECTOR Sexual Orientation Not on file documented as [...] and discharge planning Lifestyle No Nicole Miller, SCIENCE EDUCATION PROFESSOR documented as of this encounter Results * (ABNORMAL) URINE BACTERIA CULTURE (06/20/2024 3:21 PM CDT) SPEC DESCRIPTION URINE CLEAN CATCH 06/20/2024 3:22 PM CDT [facility] SPECIAL REQUESTS NO SPECIAL REQUEST 06/20/2024 3:22 PM CDT [facility] CULTURE RESULT 10,000-49,0 00 COL/ML ENTEROCOCCU S SPECIES (A) 06/22/2024 9:36 AM CDT [facility] URINE SPECIMEN OBTAINED BY [...] MICROBIOLOGY - GENERAL ORDERABL ES Final Result [facility] [address] [place] [address], * (ABNORMAL) URINALYSIS (06/20/2024 3:21 PM CDT) SPECIMEN TYPE URINE CLEAN CATCH 06/20/2024 3:22 PM CDT [facility] COLOR (U) YELLOW 06/20/2024 3:39 PM CDT [facility] TRANSPARENCY TURBID 06/20/2024 3:39 PM CDT [facility] SPECIFIC GRAVITY (U) 1.019 1.001 - 1.030 06/20/2024 3:39 PM CDT [facility] U PH 5.0 5.0 - 9.0 06/20/2024 3:39 PM CDT [facility] LEUKOCYTES (U) 250(A) NEGATIVE 06/20/2024 3:39 PM CDT [facility] NITRITES NEGATIVE NEGATIVE 06/20/2024 3:39 PM CDT [facility] PROTEIN RANDOM (U) 50(H) <30 MG/DL 06/20/2024 3:39 PM CDT [facility] GLUCOSE (U) NORMAL NORMAL MG/DL 06/20/2024 3:39 PM CDT [facility] KETONES MG/DL (U) NEGATIVE NEGATIVE MG/DL 06/20/2024 3:39 PM CDT [facility] UROBILINOGEN NORMAL NORMAL MG/DL 06/20/2024 3:39 PM CDT [facility] BILIRUBIN (U) NEGATIVE NEGATIVE MG/DL 06/20/2024 3:39 PM CDT [facility] BLOOD (U) 2+(A) NEGATIVE 06/20/2024 3:39 PM CDT [facility] MUCUS RARE /LPF 06/20/2024 3:39 PM CDT [facility] WBC/HPF 34(H) <6 /HPF 06/20/2024 3:39 PM CDT [facility] RBC/HPF >100(H) <6 /HPF 06/20/2024 3:39 PM CDT [facility] BACTERIA (U) RARE(A) NONE /HPF 06/20/2024 3:39 PM CDT [facility] SQUAMOUS EPITHELIALS RARE /HPF 06/20/2024 3:39 PM CDT [facility] URINE SPECIMEN OBTAINED BY CLEAN CATCH PROCEDURE / Unknown 06/20/2024 3:21 PM CDT Joey Alva MD URINE ORDERABLES Final Result Performing Organization Address [facility] Co de Phone Number [facility] [address] [place] [address], documented in this encounter Visit Diagnoses Diagnosis Calcium kidney stone- Primary Calculus of kidney documented in this encounter Care Teams Sign Language Interpreter Relationship Specialty Start Date End Date Jacobo Pryor MD [address] [place] [address] PCP - General FAMILY PRACTICE 04/30/23 Mlelo Mallory MD [address] [address] CARDIOVASCULAR DISEASE 03/22/23 Joey Alva MD 1 [place] [address] UROLOGY 04/30/23 documented as of this encounter
--- OUTSIDE RECORDS SUMMARY | 2025-10-17 12:13 | XMS_ITS | Clinical Summary ---
Author Organization [facility] Address [address] [place] [address] Care Team Providers Care Dry Goods Clerk Name Role Phone Rubio Gonzalez MD Primary Care Provider [phone] Toño Turcios MD Unavailable [phone] Source Comments [facility],non-owned Affiliates and Associated Physician Practices is amultiple site organization consisting of ambulatory clinics and hospital sitesin [place], [place], [place] and [place]. This disclosure is being madepursuant to the Care Everywhere program and may not contain all information available regarding this patient. Last updated 18.[facility] Allergies Active Allergy Reactions Criticality Noted Date [...] on file Legal Sex Female 2:54 PM BLINDSTITCH LINING FELLER Gender Identity Not on file Sexual Orientation Not on file Last Filed Vital Signs Vital Sign Reading Time Taken Comments Blood Pressure - - Pulse - - Temperature - - Respiratory Rate - - Oxygen Saturation - - Inhaled Oxygen Concentration - - Weight 95.3 kg (210 lb) 12/07/2017 11:26 AM BLINDSTITCH LINING FELLER Height 162.6 cm (5' 4) 12/07/2017 11:26 AM BLINDSTITCH LINING FELLER Body Mass Index 36.05 12/07/2017 11:26 AM BLINDSTITCH LINING FELLER Plan of Treatment Health Maintenance Due Date Last Done Comments BONE DENSITY TESTING 1943 DTAP/TDAP/TD VACCINES (1 - Tdap) 1962 PNEUMOCOCCAL VACCINE 50+ (1 of 1 - PCV) 1993 ZOSTER VACCINE (1 of 2) 1993 Respiratory Syncytial Virus (RSV) Vaccine Pt: or over 60 yrs (1 - 1-dose 75+ series) 2018 DEPRESSION SCREENING 11/12/2024 COVID-19 VACCINE ( - 2024-2 6 season) 2025 INFLUENZA VACCINE (#1) 2025 HEPATITIS B VACCINE [...] age to complete this topic Insurance MEDICARE [facility] Care Teams Dry Goods Clerk Relationship Specialty Start Date End Date Rubio Gonzalez MD [address] [place] [address] PCP - General Internal Medicine 12/07/17 Toño [place] [address] [place] [address] Orthopedic Surgery 12/07/17
--- OUTSIDE RECORDS SUMMARY | 2025-10-17 12:13 | XMS_ITS | Encounter Summary ---
Author Organization [facility] Address [address] [place] [address] Care Team Providers Care Extension Supervisor Name Role Phone Rubio Gonzalez MD Primary Care Provider [phone] Mello Mallory MD Unavailable [phone] Jacobo Pryor MD Primary Care Provider [phone] Joey Alva MD Unavailable [phone] Encounter Details Date Type Department Care Team (Late st Contact Info) Description 03/22/2023 Prep for Procedure [facility] Pre-Admission Testing [address] [place], [place] [id number] Joey Alva MD 3 [facility] [address] [place], [place] [id number] Social History Tobacco Use Types Packs/Day Years [...] Sex Assigned at Female 12/08/2024 12:56 PM CLEANING MATRON Legal Sex Female 3:58 PM CLEANING MATRON Gender Identity Female 12/08/2024 12:56 PM CLEANING MATRON Sexual Orientation Not on file COVID-19 Exposure [...] URINE CLEAN CATCH 03/23/2023 10:04 AM CDT [facility] COLOR (U) YELLOW 03/23/2023 12:56 PM CDT [facility] TRANSPARENCY TURBID 03/23/2023 12:56 PM CDT [facility] SPECIFIC GRAVITY (U) 1.021 1.001 - 1.030 03/23/2023 12:56 PM CDT [facility] U PH 5.0 5.0 - 9.0 03/23/2023 12:56 PM CDT [facility] LEUKOCYTES (U) 250(A) NEGATIVE 03/23/2023 12:56 PM CDT [facility] NITRITES NEGATIVE NEGATIVE 03/23/2023 12:56 PM CDT [facility] PROTEIN (U) 30(H) <30 MG/DL 03/23/2023 12:56 PM CDT [facility] URINE GLUCOSE NORMAL NORMAL MG/DL 03/23/2023 12:56 PM CDT [facility] KETONES MG/DL (U) NEGATIVE NEGATIVE MG/DL 03/23/2023 12:56 PM CDT [facility] UROBILINOGEN NORMAL NORMAL MG/DL 03/23/2023 12:56 PM T [facility] BILIRUBIN (U) NEGATIVE NEGATIVE MG/DL 03/23/2023 12:56 PM CDT [facility] BLOOD (U) NEGATIVE NEGATIVE 03/23/2023 12:56 PM CDT [facility] MUCUS MODERATE /LPF 03/23/2023 12:56 PM CDT [facility] HYALINE CASTS FEW /LPF 03/23/2023 12:56 PM CDT [facility] WBC/HPF 36(H) <6 /HPF 03/23/2023 12:56 PM CDT [facility] RBC/HPF <1 <6 /HPF 03/23/2023 12:56 PM CDT [facility] BACTERIA (U) RARE(A) NONE /HPF 03/23/2023 12:56 PM CDT [facility] CA OXALATE CRYSTALS MANY /HPF 03/23/2023 12:56 PM CDT [facility] SQUAMOUS EPITHELIALS RARE /HPF 03/23/2023 12:56 PM CDT [facility] URINE SPECIMEN OBTAINED BY CLEAN CATCH PROCEDURE / Unknown 03/23/2023 10:04 AM CDT Joey Alva MD URINE ORDERABLES Final Result [facility] [address] [place] [address], [place] [phone] * CULTURE URINE (03/23/2023 10:00 AM CDT) SPEC DESCRIPTION URINE CLEAN CATCH 03/23/2023 10:04 AM CDT [facility] SPECIAL REQUESTS NO SPECIAL REQUEST 03/23/2023 10:04 AM CDT [facility] CULTURE RESULT NO GROWTH 2 DAYS 03/25/2023 7:29 AM CDT [facility] URINE SPECIMEN OBTAINED BY CLEAN CATCH PROCEDURE / Unknown 03/23/2023 10:00 AM CDT 03/23/2023 10:25 AM CDT us Joey Alva MD MICROBIOLOGY - GENERAL ORDERABL ES Final Result [facility] [address] [place] [address], [place] [phone] documented in this encounter Visit Diagnoses Diagnosis Ureteral fistula- Primary documented in this encounter Additional Health Concerns Infection Onset Date Last Indicated Resolved Time COVID-19 Rule Out 09/28/2023 09/28/2023 09/28/2023 3:43 PM CLEANING MATRON documented as of this encounter Care Teams Extension Supervisor Relationship Specialty Start Date End Date Rubio Gonzalez MD [address] [place] [address] PCP - General INTERNAL MEDICINE 12/01/20 04/29/23 Jacobo Pryor MD [address] [place] [address] PCP - General FAMILY PRACTICE 04/30/23 Mello Mallory MD [address] [facility] [address] [place] [address] CARDIOVASCULAR DISEASE 03/22/23 Joey Alva MD 1 [facility] [place] [address] UROLOGY 04/30/23 documented as of this encounter
--- OUTSIDE RECORDS SUMMARY | 2025-10-17 12:13 | XMS_ITS | Encounter Summary ---
Author Organization [facility] Address [address] [place] [address] Care Team Providers Care Securities Dealer Name Role Phone Mello Mallory MD Unavailable [phone] Jacobo Pryor MD Primary Care Provider [phone] Joey Alva MD Unavailable [phone] Encounter Details Date Type Department Care Team (Late st Contact Info) Description 05/05/2024 Prep for Procedure [facility] Pre-Admission Testing [address] [place], [place] [id number] Joey Alva MD 3 [facility] [address] [place] [address] Social History Tobacco Use Types Packs/Day Years [...] Sex Assigned at Female 12/08/2024 12:56 PM MECHANIC MARINE ENGINE Legal Sex Female 3:58 PM MECHANIC MARINE ENGINE Gender Identity Female 12/08/2024 12:56 PM MECHANIC MARINE ENGINE Sexual Orientation Not on file documented as of this encounter Plan of Treatment Not on file documented as of this encounter Results * (ABNORMAL) URINE BACTERIA CULTURE (05/06/2024 8:56 AM CDT) SPEC DESCRIPTION URINE CLEAN CATCH 05/06/2024 8:50 AM CDT [facility] SPECIAL REQUESTS NO SPECIAL REQUEST 05/06/2024 8:50 AM CDT [facility] CULTURE RESULT >100,000 COL/ML KLEBSIELLA PNEUMONIAE (A) 05/08/2024 7:43 AM CDT [facility] URINE SPECIMEN OBTAINED BY CLEAN [...] MICROBIOLOGY - GENERAL ORDERABL ES Final Result [facility] 3 [place] [address], * (ABNORMAL) URINALYSIS (05/06/2024 8:56 AM CDT) SPECIMEN TYPE URINE CLEAN CATCH 05/06/2024 8:50 AM CDT [facility] COLOR (U) YELLOW 05/06/2024 9:28 AM CDT [facility] TRANSPARENCY EXTREMELY TURBID 05/06/2024 9:28 AM CDT [facility] SPECIFIC GRAVITY (U) 1.018 1.001 - 1.030 05/06/2024 9:28 AM CDT [facility] U PH 5.5 5.0 - 9.0 05/06/2024 9:28 AM CDT [facility] LEUKOCYTES (U) 500(A) NEGATIVE 05/06/2024 9:28 AM CDT [facility] NITRITES 1+(A) NEGATIVE 05/06/2024 9:28 AM T [facility] PROTEIN RANDOM (U) 50(H) <30 MG/DL 05/06/2024 9:28 AM CDT [facility] GLUCOSE (U) NORMAL NORMAL MG/DL 05/06/2024 9:28 AM T [facility] KETONES MG/DL (U) NEGATIVE NEGATIVE MG/DL 05/06/2024 9:28 AM T [facility] UROBILINOGEN NORMAL NORMAL MG/DL 05/06/2024 9:28 AM T [facility] BILIRUBIN (U) NEGATIVE NEGATIVE MG/DL 05/06/2024 9:28 AM T [facility] BLOOD (U) 1+(A) NEGATIVE 05/06/2024 9:28 AM T [facility] MUCUS RARE /LPF 05/06/2024 9:28 AM CDT [facility] WBC/HPF >100(H) <6 /HPF 05/06/2024 9:28 AM CDT [facility] WBC CLUMPS PRESENT 05/06/2024 9:28 AM T [facility] RBC/HPF 20(H) <6 /HPF 05/06/2024 9:28 AM CDT [facility] BACTERIA (U) RARE(A) NONE /HPF 05/06/2024 9:28 AM CDT [facility] SQUAMOUS EPITHELIALS RARE /HPF 05/06/2024 9:28 AM CDT [facility] URINE SPECIMEN OBTAINED BY CLEAN CATCH PROCEDURE / Unknown 05/06/2024 8:56 AM CDT Joey Alva MD URINE ORDERABLES Final Result [facility] 3 [place] [address], documented in this encounter Visit Diagnoses Diagnosis Calcium kidney stone- Primary Calculus of kidney documented in this encounter Care Teams Securities Dealer Relationship Specialty Start Date End Date Jacobo Pryor MD [address] [place] [address] PCP - General FAMILY PRACTICE 04/30/23 Mello Mallory MD [address] [address] CARDIOVASCULAR DISEASE 03/22/23 Joey Alva MD 1 [facility] [place] [address] UROLOGY 04/30/23 documented as of this encounter
--- OUTSIDE RECORDS SUMMARY | 2025-10-17 14:30 | XMS_ITS | Encounter Summary ---
Author Organization [facility] Address [address] [place] [address] Care Team Providers Care Java Sybase Developer Name Role Phone Mello Mallory MD Unavailable [phone] Jacobo Pryor MD Primary Care Provider [phone] Joey Alva MD Unavailable [phone] Encounter Details Date Type Department Care Team (Late st Contact Info) Description 05/05/2024 Prep for Procedure [place] Pre-Admission Testing [address] [place], [place] [id number] Joey Alva MD 3 [facility] [address] [place] [address] Social History Tobacco Use Types Packs/Day Years [...] Sex Assigned at Female 12/08/2024 12:56 PM DIRECTOR DERMATOLOGY Legal Sex Female 3:58 PM DIRECTOR DERMATOLOGY Gender Identity Female 12/08/2024 12:56 PM DIRECTOR DERMATOLOGY Sexual Orientation Not on file documented as of this encounter Plan of Treatment Not on file documented as of this encounter Results * (ABNORMAL) URINE BACTERIA CULTURE (05/06/2024 8:56 AM CDT) SPEC DESCRIPTION URINE CLEAN CATCH 05/06/2024 8:50 AM CDT [facility] SPECIAL REQUESTS NO SPECIAL REQUEST 05/06/2024 8:50 AM CDT [facility] CULTURE RESULT >100,000 COL/ML KLEBSIELLA PNEUMONIAE (A) 05/08/2024 7:43 AM CDT [facility] URINE SPECIMEN OBTAINED BY CLEAN [...] MICROBIOLOGY - GENERAL ORDERABL ES Final Result [facility] 3 [place] [address], * (ABNORMAL) URINALYSIS (05/06/2024 8:56 AM CDT) SPECIMEN TYPE URINE CLEAN CATCH 05/06/2024 8:50 AM CDT [facility] COLOR (U) YELLOW 05/06/2024 9:28 AM CDT [facility] TRANSPARENCY EXTREMELY TURBID 05/06/2024 9:28 AM CDT [facility] SPECIFIC GRAVITY (U) 1.018 1.001 - 1.030 05/06/2024 9:28 AM CDT [facility] U PH 5.5 5.0 - 9.0 05/06/2024 9:28 AM CDT [facility] LEUKOCYTES (U) 500(A) NEGATIVE 05/06/2024 9:28 AM CDT [facility] NITRITES 1+(A) NEGATIVE 05/06/2024 9:28 AM T [facility] PROTEIN RANDOM (U) 50(H) <30 MG/DL 05/06/2024 9:28 AM CDT [facility] GLUCOSE (U) NORMAL NORMAL MG/DL 05/06/2024 9:28 AM T [facility] KETONES MG/DL (U) NEGATIVE NEGATIVE MG/DL 05/06/2024 9:28 AM T [facility] UROBILINOGEN NORMAL NORMAL MG/DL 05/06/2024 9:28 AM T [facility] BILIRUBIN (U) NEGATIVE NEGATIVE MG/DL 05/06/2024 9:28 AM T [facility] BLOOD (U) 1+(A) NEGATIVE 05/06/2024 9:28 AM T [facility] MUCUS RARE /LPF 05/06/2024 9:28 AM CDT [facility] WBC/HPF >100(H) <6 /HPF 05/06/2024 9:28 AM CDT [facility] WBC CLUMPS PRESENT 05/06/2024 9:28 AM T [facility] RBC/HPF 20(H) <6 /HPF 05/06/2024 9:28 AM CDT [facility] BACTERIA (U) RARE(A) NONE /HPF 05/06/2024 9:28 AM CDT [facility] SQUAMOUS EPITHELIALS RARE /HPF 05/06/2024 9:28 AM CDT [facility] URINE SPECIMEN OBTAINED BY CLEAN CATCH PROCEDURE / Unknown 05/06/2024 8:56 AM CDT Joey Alva MD URINE ORDERABLES Final Result [facility] [address] [place] [address], documented in this encounter Visit Diagnoses Diagnosis Calcium kidney stone- Primary Calculus of kidney documented in this encounter Care Teams Java Sybase Developer Relationship Specialty Start Date End Date Jacobo Pryor MD [address] [place] [address] PCP - General FAMILY PRACTICE 04/30/23 Mello Mallory MD [address] [address] CARDIOVASCULAR DISEASE 03/22/23 Joey Alva MD 1 [facility] [address] UROLOGY 04/30/23 documented as of this encounter
--- OUTSIDE RECORDS SUMMARY | 2025-10-17 14:30 | XMS_ITS | Clinical Summary ---
Author Organization [facility] Address [address] [facility] [place] [address] Care Team Providers Care Electrician Constructor Supervisor Name Role Phone Rubio Gonzalez MD Primary Care Provider [phone] Toño Turcios MD Unavailable [phone] Source Comments [facility],non-owned Affiliates and Associated Physician Practices is amultiple site organization consisting of ambulatory clinics and hospital sitesin [place], [place], [place] and [place]. This disclosure is being madepursuant to the Care Everywhere program and may not contain all information available regarding this patient. Last updated 18.[facility] [employer] Allergies Active Allergy Reactions Criticality Noted Date [...] on file Legal Sex Female 2:54 PM LEGAL MANAGER Gender Identity Not on file Sexual Orientation Not on file Last Filed Vital Signs Vital Sign Reading Time Taken Comments Blood Pressure - - Pulse - - Temperature - - Respiratory Rate - - Oxygen Saturation - - Inhaled Oxygen Concentration - - Weight 95.3 kg (210 lb) 12/07/2017 11:26 AM LEGAL MANAGER Height 162.6 cm (5' 4) 12/07/2017 11:26 AM LEGAL MANAGER Body Mass Index 36.05 12/07/2017 11:26 AM LEGAL MANAGER Plan of Treatment Health Maintenance Due [...] age to complete this topic Insurance MEDICARE [facility] Care Teams Electrician Constructor Supervisor Relationship Specialty Start Date End Date Rubio Gonzalez MD [address] [place] [address] PCP - General Internal Medicine 12/07/17 Toño [place] [address] [place] [address] Orthopedic Surgery 12/07/17
--- OUTSIDE RECORDS SUMMARY | 2025-10-17 14:30 | XMS_ITS | Clinical Summary ---
Author Organization [facility] Address [address] [place] [address] Care Team Providers Care Global Sales Executive Name Role Phone Mello Mallory MD Unavailable [phone] Jacobo Pryor MD Primary Care Provider [phone] Joey Alva MD Unavailable [phone] Allergies Active Allergy Reactions Criticality Noted [...] drink = 0.6 oz pur e alcohol) [facility] Utilities Answer Date Recorded In the past 12 months has e [employer] gas, oil, or water [employer] threatened to shut off services in your [...] time in the past 12 m [facility], were you homeless or living in a usp (including now)? No 05/28/2024 Comments No Sex and Gender Information Value Date Recorded Sex Assigned at Female 12/08/2024 12:56 PM STEWARD/STEWARDESS SECOND CLASS Legal Sex Female 3:58 PM STEWARD/STEWARDESS SECOND CLASS Gender Identity Female 12/08/2024 12:56 PM STEWARD/STEWARDESS SECOND CLASS Sexual Orientation Not on file Last Filed [...] Height 152.4 cm (5') 12/08/2024 12:50 PM STEWARD/STEWARDESS SECOND CLASS Body Mass Index 29.54 12/08/2024 12:50 PM STEWARD/STEWARDESS SECOND CLASS Plan of Treatment Health Maintenance Due Date [...] 2018 Hemoglobin A1C 03/01/2024 08/31/2023 PHQ-2 (Physician [place]) 11/12/2024 Diabetes: Retinopathy Eye Exam 06/02/2025 06/02/2024 [...] and discharge planning Lifestyle No Nicole Miller, SAP PORTAL ARCHITECTfull stack java developer Devices Implanted Type Area Labor Supervisor Device Identifier Shelf Expiration Date Model / Serial / Lot Rv Lead Implant-2015 Implanted:09/12 (Quantity not on file) Lead Implant [employer] 5076-58 / [id number] / Atrial Lead Implant-2015 Implanted:09/12 (Quantity not on file) Lead Implant [employer] 5076-45 / [id number] / Pacemaker-09/12 Implanted:09/12 (Quantity not on file) Pacemaker [employer] [id number] / [id number] / Description:MRI Conditional under following conditions: [...] Pigtail 6fr 24cm Crv Taper Tip - [id number] Implanted:Qty: 1 on 05/26/2024 by Toño Ramirez MD at [facility] Stent [employer] [id number] 10/08/2026 [id number] / / [id number] Stent Ureteral 6fr 26cm Pigtl Crv Taper Tip Bldr Mrk - [id number] Implanted:Qty: 1 on 02/19/2025 by Joey Alva MD at [facility] Stent Right: Ureter [employer] [id number] 07/21/2027 [id number] 630 / / [id number] Explanted Type Area Labor Supervisor Device Identifier Shelf Expiration Date Model / Serial / Lot Stent Ureteral 6fr 26cm Pigtl Crv Taper Tip Bldr Mrk - [id number] Implanted:Qty : 1 on 07/04/2024 by Joey Alva MD at [facility] Explanted:Qty : 1 on 02/19/2025 at [facility] Stent Right: Ureter [employer] [id number] 01/16/2027 [id number] 30 / / [id number] Description:REMOVED PRIOR TO THIS VISIT Procedures Procedure Name Priority Date/Time Associated Diagnosis Comments DIABETIC RETINOPATHY EXAM (POSITIVE)(SCAN ORDER) Routine 06/02/2024 from Last 3 Months or Most Recently Relevant to Health Maintenance Results * DIABETIC RETINOPATHY EXAM (POSITIVE) (06/02/2024) [facility] Scanned SCANNING Final Resu lt [facility] ONBASE from Last 3 Months or Most Recently Relevant to Health Maintenance Insurance MEDICARE [employer] Advance Directives Documents on File Type Date Recorded Patient Scaffold Erector Expl anation Power of Landcare Facilitator 08/02/2023 POA RECEIV ED 08/02/2023 * Full Code (Latest Code Status on File) Date Activated Date Inactivated Comments 05/26/2024 1:53 PM 05/29/2024 2:04 PM Care Teams Global Sales Executive Relationship Specialty Start Date End Date Jacobo Pryor MD [address] [place] [address] PCP - General FAMILY PRACTICE 04/30/23 Mello Mallory MD [address] [facility] [address] [address] CARDIOVASCULAR DISEASE 03/22/23 Joey Alva MD 1 [place] [address] UROLOGY 04/30/23
--- OUTSIDE RECORDS SUMMARY | 2025-10-17 14:30 | XMS_ITS | Encounter Summary ---
Author Organization [facility] Address [address] [place] [id number] Care Team Providers Care Speech Writer Name Role Phone Rubio Gonzalez MD Primary Care Provider [phone] Mello Mallory MD Unavailable [phone] Jacobo Pryor MD Primary Care Provider [phone] Joey Alva MD Unavailable [phone] Encounter Details Date Type Department Care Team (Late st Contact Info) Description 03/22/2023 Prep for Procedure [facility] Pre-Admission Testing [address] [place], [place] [id number] Joey Alva MD [address] [facility] [address] [place], [place] [id number] Social History Tobacco Use Types Packs/Day Years [...] Sex Assigned at Female 12/08/2024 12:56 PM JAVA MOBILE DEVELOPER Legal Sex Female 3:58 PM JAVA MOBILE DEVELOPER Gender Identity Female 12/08/2024 12:56 PM JAVA MOBILE DEVELOPER Sexual Orientation Not on file COVID-19 Exposure [...] URINE CLEAN CATCH 03/23/2023 10:04 AM CDT [facility] COLOR (U) YELLOW 03/23/2023 12:56 PM CDT [facility] TRANSPARENCY TURBID 03/23/2023 12:56 PM CDT [facility] SPECIFIC GRAVITY (U) 1.021 1.001 - 1.030 03/23/2023 12:56 PM CDT [facility] U PH 5.0 5.0 - 9.0 03/23/2023 12:56 PM CDT [facility] LEUKOCYTES (U) 250(A) NEGATIVE 03/23/2023 12:56 PM CDT [facility] NITRITES NEGATIVE NEGATIVE 03/23/2023 12:56 PM CDT [facility] PROTEIN (U) 30(H) <30 MG/DL 03/23/2023 12:56 PM CDT [facility] URINE GLUCOSE NORMAL NORMAL MG/DL 03/23/2023 12:56 PM CDT [facility] KETONES MG/DL (U) NEGATIVE NEGATIVE MG/DL 03/23/2023 12:56 PM CDT [facility] UROBILINOGEN NORMAL NORMAL MG/DL 03/23/2023 12:56 PM T [facility] BILIRUBIN (U) NEGATIVE NEGATIVE MG/DL 03/23/2023 12:56 PM CDT [facility] BLOOD (U) NEGATIVE NEGATIVE 03/23/2023 12:56 PM CDT [facility] MUCUS MODERATE /LPF 03/23/2023 12:56 PM CDT [facility] HYALINE CASTS FEW /LPF 03/23/2023 12:56 PM CDT [facility] WBC/HPF 36(H) <6 /HPF 03/23/2023 12:56 PM CDT [facility] RBC/HPF <1 <6 /HPF 03/23/2023 12:56 PM CDT [facility] BACTERIA (U) RARE(A) NONE /HPF 03/23/2023 12:56 PM CDT [facility] CA OXALATE CRYSTALS MANY /HPF 03/23/2023 12:56 PM CDT [facility] SQUAMOUS EPITHELIALS RARE /HPF 03/23/2023 12:56 PM CDT [facility] URINE SPECIMEN OBTAINED BY CLEAN CATCH PROCEDURE / Unknown 03/23/2023 10:04 AM CDT Joey Alva MD URINE ORDERABLES Final Result [facility] [address] [place] [address], [place] [phone] * CULTURE URINE (03/23/2023 10:00 AM CDT) SPEC DESCRIPTION URINE CLEAN CATCH 03/23/2023 10:04 AM CDT [facility] SPECIAL REQUESTS NO SPECIAL REQUEST 03/23/2023 10:04 AM CDT [facility] CULTURE RESULT NO GROWTH 2 DAYS 03/25/2023 7:29 AM CDT [facility] URINE SPECIMEN OBTAINED BY CLEAN CATCH PROCEDURE / Unknown 03/23/2023 10:00 AM CDT 03/23/2023 10:25 AM CDT us Joey Alva MD MICROBIOLOGY - GENERAL ORDERABL ES Final Result [facility] [address] [place] [address], [place] [phone] documented in this encounter Visit Diagnoses Diagnosis Ureteral fistula- Primary documented in this encounter Additional Health Concerns Infection Onset Date Last Indicated Resolved Time COVID-19 Rule Out 09/28/2023 09/28/2023 09/28/2023 3:43 PM JAVA MOBILE DEVELOPER documented as of this encounter Care Teams Speech Writer Relationship Specialty Start Date End Date Rubio Gonzalez MD [address] [place] [address] PCP - General INTERNAL MEDICINE 12/01/20 04/29/23 Jacobo Pryor MD [address] [place] [id number] PCP - General FAMILY PRACTICE 04/30/23 Mello Mallory MD [address] [facility] [address] [place] [address] CARDIOVASCULAR DISEASE 03/22/23 Joey Alva MD [address] [facility] [place] [address] UROLOGY 04/30/23 documented as of this encounter
--- OUTSIDE RECORDS SUMMARY | 2025-10-17 14:30 | XMS_ITS | Encounter Summary ---
Author Organization [facility] Address [address] [place] [address] Care Team Providers Care Prestressed Concrete Laborer Name Role Phone Mello Mallory MD Unavailable [phone] Jacobo Pryor MD Primary Care Provider [phone] Joey Alva MD Unavailable [phone] Encounter Details Date Type Department Care Team (Late st Contact Info) Description 06/11/2024 Prep for Procedure [facility] Pre-Admission Testing [address] [place], [place] [id number] Joey Alva MD 3 [facility] [address] [place] [address] Social History Tobacco Use Types Packs/Day Years Used Date Smoking Tobacco: Never Smokeless Tobacco: Never Alcohol Use Standard Drinks/Week Comments Not Currently 0 (1 standard drink = 0.6 oz pur e alcohol) [facility] Utilities Answer Date Recorded In the past [...] any time in the past 12 m [facility], were you homeless or living in a halfway (including now)? No 05/28/2024 Comments No Sex and Gender Information Value Date Recorded Sex Assigned at Female 12/08/2024 12:56 PM DEPARTMENT CHAIRPERSON Legal Sex Female 3:58 PM DEPARTMENT CHAIRPERSON Gender Identity Female 12/08/2024 12:56 PM DEPARTMENT CHAIRPERSON Sexual Orientation Not on file documented as [...] and discharge planning Lifestyle No Nicole Miller, RFID DEVELOPER documented as of this encounter Results * (ABNORMAL) URINE BACTERIA CULTURE (06/20/2024 3:21 PM CDT) SPEC DESCRIPTION URINE CLEAN CATCH 06/20/2024 3:22 PM CDT [facility] SPECIAL REQUESTS NO SPECIAL REQUEST 06/20/2024 3:22 PM CDT [facility] CULTURE RESULT 10,000-49,0 00 COL/ML ENTEROCOCCU S SPECIES (A) 06/22/2024 9:36 AM CDT [facility] URINE SPECIMEN OBTAINED BY CLEAN [...] MICROBIOLOGY - GENERAL ORDERABL ES Final Result [facility] [address] [place] [address], * (ABNORMAL) URINALYSIS (06/20/2024 3:21 PM CDT) SPECIMEN TYPE URINE CLEAN CATCH 06/20/2024 3:22 PM CDT [facility] COLOR (U) YELLOW 06/20/2024 3:39 PM CDT [facility] TRANSPARENCY TURBID 06/20/2024 3:39 PM CDT [facility] SPECIFIC GRAVITY (U) 1.019 1.001 - 1.030 06/20/2024 3:39 PM CDT [facility] U PH 5.0 5.0 - 9.0 06/20/2024 3:39 PM CDT [facility] LEUKOCYTES (U) 250(A) NEGATIVE 06/20/2024 3:39 PM CDT [facility] NITRITES NEGATIVE NEGATIVE 06/20/2024 3:39 PM CDT [facility] PROTEIN RANDOM (U) 50(H) <30 MG/DL 06/20/2024 3:39 PM CDT [facility] GLUCOSE (U) NORMAL NORMAL MG/DL 06/20/2024 3:39 PM CDT [facility] KETONES MG/DL (U) NEGATIVE NEGATIVE MG/DL 06/20/2024 3:39 PM CDT [facility] UROBILINOGEN NORMAL NORMAL MG/DL 06/20/2024 3:39 PM CDT [facility] BILIRUBIN (U) NEGATIVE NEGATIVE MG/DL 06/20/2024 3:39 PM CDT [facility] BLOOD (U) 2+(A) NEGATIVE 06/20/2024 3:39 PM CDT [facility] MUCUS RARE /LPF 06/20/2024 3:39 PM CDT [facility] WBC/HPF 34(H) <6 /HPF 06/20/2024 3:39 PM CDT [facility] RBC/HPF >100(H) <6 /HPF 06/20/2024 3:39 PM CDT [facility] BACTERIA (U) RARE(A) NONE /HPF 06/20/2024 3:39 PM CDT [facility] SQUAMOUS EPITHELIALS RARE /HPF 06/20/2024 3:39 PM CDT [facility] URINE SPECIMEN OBTAINED BY CLEAN CATCH PROCEDURE / Unknown 06/20/2024 3:21 PM CDT Joey Alva MD URINE ORDERABLES Final Result Performing Organization Address [facility] Co de Phone Number [facility] [address] [place] [address], documented in this encounter Visit Diagnoses Diagnosis Calcium kidney stone- Primary Calculus of kidney documented in this encounter Care Teams Prestressed Concrete Laborer Relationship Specialty Start Date End Date Jacobo Pryor MD [address] [place] [address] PCP - General FAMILY PRACTICE 04/30/23 Mello Mallory MD [address] [address] CARDIOVASCULAR DISEASE 03/22/23 Joey Alva MD 1 [place] [address] UROLOGY 04/30/23 documented as of this encounter
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
[2025-10-17] MEDS: ACETAMINOPHEN 500 MG TABLET 1000 MG PO (15:32)
[2025-10-17] MEDS: LIDOCAINE 5% PATCH 1 PATCH TRANSDERM (15:32)
[2025-10-17 15:52] LABS: Add Urine Microscopic? YES; Appearance Urine Cloudy (Clear); Glucose Urine UA Negative (Negative); Leukocyte Esterase Ur 3+ LEU/UL (Negative); Nitrate Urine Negative (Negative); Non Pathogenic Casts 0-2; Specific Grav Ur 1.017 (1.001-1.035)
[2025-10-17] MEDS: CYCLOBENZAPRINE HCL 5 MG TABLET PO (17:13)
[2025-10-17 17:41] VITALS: BP 156/77; PULSE 71; RESP 16; TEMP 36.2; O2SAT 100
== END 2025-10-17 17:44 | disposition home or self-care (01) ==
PROVIDERS: Emergency Provider Registered Nurse; PCP Family Medicine
DX: S39.012A Strain of muscle, fascia and tendon of lower back, initial encounter (principal); N30.00 Acute cystitis without hematuria; M54.16 Radiculopathy, lumbar region; I11.9 Hypertensive heart disease without heart failure; I35.0 Nonrheumatic aortic (valve) stenosis; H35.30 Unspecified macular degeneration; E11.9 Type 2 diabetes mellitus without complications; E78.5 Hyperlipidemia, unspecified; E55.9 Vitamin D deficiency, unspecified; G47.33 Obstructive sleep apnea (adult) (pediatric); M81.0 Age-related osteoporosis without current pathological fracture; M17.0 Bilateral primary osteoarthritis of knee; F41.9 Anxiety disorder, unspecified; Z79.01 Long term (current) use of anticoagulants; Z79.84 Long term (current) use of oral hypoglycemic drugs; Z79.899 Other long term (current) drug therapy; V44.6XXA Car passenger injured in collision with heavy transport vehicle or bus in traffic accident, initial encounter
CPT/HCPCS: 70450; 72131; 81001; 87077; 87086; 87186; 99284; A9270